=== PATIENT | male | born 1980 | race American Indian/Alaskan Native ===

== ENCOUNTER 2018-02-15 09:31 | Emergency (ER) | payer BC ==
[2018-02-15] MEDS ORDERED: cefTRIAXone 1 GM, Lidocaine 1% 2.1 ML IM ONE ×2 (10:09)
--- NOTE | 2018-02-15 10:10 | EDM.PDOC ---
ED HPI GENERAL MEDICAL PROBLEM - General Chief Complaint: ENT Problem Stated Complaint: EAR PAIN IN BOTH EARS Time Seen by Provider: 02/15/18 10:10 Source of Information: Reports: Patient History Limitations: Reports: No Limitations - History of Present Illness INITIAL COMMENTS - FREE TEXT/NARRATIVE: pt hs drainage from both ears and they are very painful. This has been going on for the past 2 days. Onset: Gradual Duration: Day(s): Location: Reports: Face Associated Symptoms: Reports: Other ( sinuses are very plugged up/) - Related Data Allergies Allergy/AdvReac Type Severity Reaction Status Date / Time bee venom protein (honey bee) Allergy Airway Verified 02/15/18 09:55 Tightness Home Meds: Home Meds Hydrochlorothiazide 25 mg PO DAILY 02/15/18 [History] Lisinopril 20 mg PO DAILY 02/15/18 [History] Omeprazole 20 mg PO DAILY 02/15/18 [History] amLODIPine Besylate [Norvasc] 10 mg PO DAILY 02/15/18 [History] Past Medical History HEENT History: Reports: Otitis Media Cardiovascular History: Reports: High Cholesterol, Hypertension Gastrointestinal History: Reports: GERD - Infectious Disease History Infectious Disease History: Reports: Chicken Pox - Past Surgical History HEENT Surgical History: Reports: Myringotomy w Tube(s) GI Surgical History: Reports: Cholecystectomy Social & Family History - Tobacco Use Smoking Status *Q: Current Every Day Smoker Years of Tobacco use: 25 Packs/Tins Daily: 1 - Caffeine Use Caffeine Use: Reports: Coffee - Alcohol Use Days Per Week of Alcohol Use: 2 Number of Drinks Per Day: 2 Total Drinks Per Week: 4 - Recreational Drug Use Recreational Drug Use: No ED ROS ENT - Review of Systems Review Of Systems: See Below Constitutional: Reports: Chills HEENT: Reports: Ear Discharge, Ear Pain, Other (pt has had a difficult time hearing. ) Respiratory: Reports: No Symptoms Cardiovascular: Reports: No Symptoms Endocrine: Reports: No Symptoms GI/Abdominal: Reports: No Symptoms : Reports: No Symptoms Musculoskeletal: Reports: No Symptoms Skin: Reports: No Symptoms ED EXAM, ENT - Physical Exam Exam: See Below Text/Narrative:: Pt arrived with severe ear pain and alot of drainage from both ears. He has been very uncomfortable and he was not able to rest. Exam Limited By: No Limitations General Appearance: Alert, Moderate Distress Ears: Other ( Pt has a large amount of purulent drainage from both ears. The drums are hrd to visulize but do look red. He is stuffed up in the nose and he is tender over the maxillary area. ) Mouth/Throat: Normal Inspection Head: Atraumatic Neck: Normal Inspection Respiratory/Chest: No Respiratory Distress Cardiovascular: Regular Rate, Rhythm GI/Abdominal: Soft, Non-Tender (Male) Exam: Deferred Rectal (Males) Exam: Deferred Back: Normal Inspection Extremities: Normal Inspection Neurological: Alert, Oriented, Normal Cognition Psychiatric: Normal Affect Course - Vital Signs Last Recorded V/S: Last Vital Signs Temp 37.5 C 02/15/18 09:57 Pulse 106 H 02/15/18 09:57 Resp 20 02/15/18 09:57 BP 146/97 H 02/15/18 09:57 Pulse Ox 98 02/15/18 09:57 - Orders/Labs/Meds Meds: Medications Discontinued Medications Generic Name Dose Route Start Last Admin Trade Name Freq PRN Reason Stop Dose Admin Acetaminophen/Codeine Phosphate 1 tab 02/15/18 10:12 Tylenol With Codeine No.3 300mg/30mg PO 02/15/18 10:13 ONETIME ONE Ceftriaxone Sodium 1 gm/ 0 gm 02/15/18 10:09 Lidocaine HCl 2.1 ml IM 02/15/18 10:10 ONETIME ONE Departure - Departure Time of Disposition: 10:10 Disposition: Home, Self-Care 01 Condition: Fair Clinical Impression: Otitis media, Otitis externa, Sinusitis - Discharge Information Referrals: PCP,None [Primary Care Provider] - Forms: ED Department Discharge Care Plan Goals: cool mist humidifier, push fluids, augmentin 875 bid, cortcosporin ear drops 2 drops tid in each ear, tylenol 3 1 tab q6h prn for pain.#12 appt in 1 week either at the [facility] or at the [facility]. keep moisture out of the ears.
[2018-02-15] MEDS ORDERED: Acetaminophen/Codeine 300-30 MG Tab PO ONE (10:12)
== END 2018-02-15 10:57 | disposition home or self-care (01) ==
LOC: JP.ED 09:31
DX: H66.93 Otitis media, unspecified, bilateral (principal); H60.93 Unspecified otitis externa, bilateral; J32.9 Chronic sinusitis, unspecified; I10 Essential (primary) hypertension; F17.210 Nicotine dependence, cigarettes, uncomplicated; Z79.899 Other long term (current) drug therapy
CPT/HCPCS: 96372; 99283; A9270; J0696

== ENCOUNTER 2018-02-28 23:08 | Emergency (ER) | payer BC ==
[2018-03-01] MEDS ORDERED: Sodium Chloride 0.9% 1,000 ML IV ONE (00:01)
[2018-03-01] MEDS ORDERED: HYDROmorphone 1 MG/ML Syringe IVPUSH ONE (00:01)
[2018-03-01] MEDS ORDERED: Sodium Chloride 0.9% 10 ML Syringe FLUSH PRN (00:01)
[2018-03-01] MEDS ORDERED: Prochlorperazine 10 MG/2 ML SDV IVPUSH ONE (00:01)
[2018-03-01] MEDS ORDERED: diphenhydrAMINE 50 MG/ML SDV IVPUSH ONE (00:02)
--- NOTE | 2018-03-01 01:34 | EDM.PDOC ---
ED HPI GENERAL MEDICAL PROBLEM - General Chief Complaint: Abdominal Pain Stated Complaint: UPPER ABD PAIN Time Seen by Provider: 02/28/18 23:54 Source of Information: Reports: Patient History Limitations: Reports: No Limitations - History of Present Illness INITIAL COMMENTS - FREE TEXT/NARRATIVE: This patient is here because of possible pancreatitis. He has a history of past pancreatitis and had to be hospitalized for this. Describes a stomach sort of burning all day long. He's vomited about every hour and 3 times here in the emergency department. He said that a few days ago he drank about a fourth of a bottle of vodka. The very next day he began having some problems. Treatments MUSIC ARRANGER: Reports: Other (see below) Other Treatments MUSIC ARRANGER: zofran Upper Abdomen Pain Score (Numeric/FACES): 10 - Related Data Allergies Allergy/AdvReac Type Severity Reaction Status Date / Time bee venom protein (honey bee) Allergy Airway Verified 02/28/18 23:35 Tightness Home Meds: Home Meds Hydrochlorothiazide 25 mg PO DAILY 02/15/18 [History] Lisinopril 20 mg PO DAILY 02/15/18 [History] Omeprazole 20 mg PO DAILY 02/15/18 [History] amLODIPine Besylate [Norvasc] 10 mg PO DAILY 02/15/18 [History] cloNIDine 0.1 mg TOP ASDIRECTED 02/28/18 [History] Past Medical History HEENT History: Reports: Otitis Media Cardiovascular History: Reports: High Cholesterol, Hypertension Gastrointestinal History: Reports: GERD, Pancreatitis - Infectious Disease History Infectious Disease History: Reports: Chicken Pox - Past Surgical History HEENT Surgical History: Reports: Myringotomy w Tube(s) GI Surgical History: Reports: Cholecystectomy Social & Family History - Family History Family Medical History: Unobtainable - Tobacco Use Smoking Status *Q: Unknown Ever Smoked - Caffeine Use Caffeine Use: Reports: Soda - Recreational Drug Use Recreational Drug Use: No ED ROS GENERAL - Review of Systems Review Of Systems: ROS reveals no pertinent complaints other than HPI. ED EXAM, GI/ABD - Physical Exam Exam: See Below Exam Limited By: No Limitations General Appearance: Alert, WD/WN, Mild Distress Eyes: Bilateral: Normal Appearance Respiratory/Chest: Lungs Clear Cardiovascular: Regular Rate, Rhythm GI/Abdominal Exam: Soft, Tender (General upper abdominal tenderness) Extremities: Normal Inspection Neurological: Alert, Oriented Psychiatric: Normal Affect Skin Exam: Warm, Dry Course - Vital Signs Last Recorded V/S: Last Vital Signs Temp 36.4 C 03/01/18 00:00 Pulse 106 H 03/01/18 00:00 Resp 22 H 03/01/18 00:00 BP 148/89 H 03/01/18 00:00 Pulse Ox 98 03/01/18 00:00 - Orders/Labs/Meds Orders: Active Orders 24 hr Category Date Time Status EKG Documentation Completion [RC] ASDIRECTED Care 03/01/18 00:01 Active Saline Lock Insert [OM.PC] Urgent Oth 03/01/18 00:01 Ordered EKG 12 Lead [EK] Urgent Ther 03/01/18 00:01 Ordered Labs: Laboratory Tests 03/01/18 03/01/18 03/01/18 Range/Units 00:10 00:10 00:10 WBC 16.1 H (4.5-11.0) K/uL RBC 5.67 (4.30-5.90) M/uL Hgb 18.0 H (12.0-15.0) g/dL Hct 49.0 (40.0-54.0) % MCV 86 (80-98) fL MCH 32 H (27-31) pg MCHC 37 H (32-36) % Plt Count 172 (150-400) K/uL Neut % (Auto) 90 H (36-66) % Lymph % (Auto) 6 L (24-44) % [place] % (Auto) 4 (2-6) % Eos % (Auto) 0 L (2-4) % Baso % (Auto) 0 (0-1) % Sodium 127 L (140-148) mmol/L Potassium 3.8 (3.6-5.2) mmol/L Chloride 90 L (100-108) mmol/L Carbon Dioxide 22 (21-32) mmol/L Anion Gap 18.8 H (5.0-14.0) mmol/L BUN 22 H (7-18) mg/dL Creatinine 1.2 (0.8-1.3) mg/dL Est Cr Clr Drug Dosing 89.81 mL/min Estimated GFR (MDRD) > 60 (>60) Glucose 206 H (74-106) mg/dL Calcium 7.9 L (8.5-10.1) mg/dL Total Bilirubin 2.2 H (0.2-1.0) mg/dL AST 1397 H (15-37) U/L ALT 1298 H (12-78) U/L Alkaline Phosphatase 157 H (46-116) U/L Total Protein 7.3 (6.4-8.2) g/dL Albumin 3.7 (3.4-5.0) g/dL Globulin 3.6 H (2.3-3.5) g/dL Albumin/Globulin Ratio 1.0 L (1.2-2.2) Amylase 154 H (25-115) U/L Lipase 2122 H (73-393) U/L Meds: Medications Discontinued Medications Generic Name Dose Route Start Last Admin Trade Name Freq PRN Reason Stop Dose Admin Diphenhydramine HCl 25 mg 03/01/18 00:02 03/01/18 00:28 Benadryl IVPUSH 03/01/18 00:03 25 mg ONETIME ONE Administration Hydromorphone HCl 1 mg 03/01/18 00:01 03/01/18 00:19 Dilaudid IVPUSH 03/01/18 00:02 1 mg ONETIME ONE Administration Sodium Chloride 1,000 mls @ 999 mls/hr 03/01/18 00:01 03/01/18 00:18 Normal Saline IV 03/01/18 01:01 999 mls/hr .BOLUS ONE Administration Prochlorperazine Edisylate 10 mg 03/01/18 00:01 03/01/18 00:24 Compazine IVPUSH 03/01/18 00:02 10 mg ONETIME ONE Administration Sodium Chloride 10 ml 03/01/18 00:01 03/01/18 00:23 Saline Flush FLUSH 10 ml ASDIRECTED PRN Administration Keep Vein Open - Re-Assessments/Exams Free Text/Narrative Re-Assessment/Exam: 03/01/18 01:28 An IV was established he was given 1 L IV normal saline. He also received Dilaudid 1 mg Compazine 10 mg and Benadryl 25 mg IV. This gave good relief the pain and the nausea. I spoke with him afterwards and he felt like he would like to try outpatient therapy and so we discussed using the nausea meds pain meds and clear liquid diet Departure - Departure Time of Disposition: 07:10 Disposition: Home, Self-Care 01 Condition: Fair Clinical Impression: Pancreatitis - Discharge Information Instructions: Acute Pancreatitis, [id number] Referrals: PCP,None [Primary Care Provider] - Forms: ED Department Discharge Additional Instructions: For pain use Percocet 5/325 (#20 tablets) one or 2 tablets every 4 hours as needed. For nausea take Phenergan or promethazine 25 mg (#30 tablets) take one or 2 every 6-8 hours. Don't wait until your really sick and vomiting before you use this medication. Rarely this medication can cause some peculiar muscle spasms. Benadryl will relieve that. Both of these medications can cause really bad sedation so especially with the Phenergan don't even consider driving a vehicle while you're taking it. Strict clear liquid diet for the next 48 hours and then you can slowly advance to a bland diet. Return to the emergency department at any time or follow-up with your Dr. or health care provider - My Orders Last 24 Hours: My Active Orders 03/01/18 00:01 EKG Documentation Completion [RC] ASDIRECTED Saline Lock Insert [OM.PC] Urgent EKG 12 Lead [EK] Urgent - Assessment/Plan Last 24 Hours: My Active Orders 03/01/18 00:01 EKG Documentation Completion [RC] ASDIRECTED Saline Lock Insert [OM.PC] Urgent EKG 12 Lead [EK] Urgent
== END 2018-03-01 01:42 | disposition home or self-care (01) ==
LOC: JP.ED 23:08
DX: K85.90 Acute pancreatitis without necrosis or infection, unspecified (principal); I10 Essential (primary) hypertension; E78.00 Pure hypercholesterolemia, unspecified; K21.9 Gastro-esophageal reflux disease without esophagitis; Z79.899 Other long term (current) drug therapy; Z91.040 Latex allergy status
CPT/HCPCS: 36415; 80053; 82150; 83690; 85025; 93005; 96374; 96375; 99284; J0780; J1170; J1200; J7040; J7050

== ENCOUNTER 2018-03-03 11:37 | Emergency (ER) | payer BC ==
[2018-03-03] MEDS ORDERED: Sodium Chloride 0.9% 10 ML Syringe FLUSH PRN ×2 (11:44→12:53)
[2018-03-03] MEDS ORDERED: Lactated Ringers 1,000 ML IV SCH (11:45)
--- NOTE | 2018-03-03 11:49 | EDM.PDOC ---
ED HPI GENERAL MEDICAL PROBLEM - General Chief Complaint: General Stated Complaint: 02 LEVEL LOW/PANCREATITIS & MED ISSUES Time Seen by Provider: 03/03/18 11:42 Source of Information: Reports: Patient, RN Notes Reviewed History Limitations: Reports: No Limitations (That the clinic is adenomatous septic lady) - History of Present Illness INITIAL COMMENTS - FREE TEXT/NARRATIVE: 38-year-old gentleman presents to the emergency department today with complaint of near syncope and lightheadedness, he was brought over from the clinic when he was therefore evaluation initial systolic blood pressure was 65. He was evaluated in emergency department 2 days ago found to have pancreatitis does admit to consuming alcohol declined admission at that time did do a trial of outpatient treatment with pain medications and antinausea medications. He states his biggest issues today are ongoing abdominal pain dry mouth and lightheadedness. Past medical history includes hypertension alcohol abuse and dependence reflux disease and pancreatitis Lower Abdominal Pain Score (Numeric/FACES): 7 - Related Data Allergies Allergy/AdvReac Type Severity Reaction Status Date / Time bee venom protein (honey bee) Allergy Airway Verified 02/28/18 23:35 Tightness Home Meds: Home Meds Hydrochlorothiazide 25 mg PO DAILY 02/15/18 [History] Lisinopril 20 mg PO DAILY 02/15/18 [History] Omeprazole 20 mg PO DAILY 02/15/18 [History] amLODIPine Besylate [Norvasc] 10 mg PO DAILY 02/15/18 [History] cloNIDine 0.1 mg TOP ASDIRECTED 02/28/18 [History] Sulfamethoxazole/Trimethoprim [Sulfamethoxazole-Tmp Ds Tablet] 03/03/18 [ History] Past Medical History HEENT History: Reports: Otitis Media Cardiovascular History: Reports: High Cholesterol, Hypertension Gastrointestinal History: Reports: GERD, Pancreatitis - Infectious Disease History Infectious Disease History: Reports: Chicken Pox - Past Surgical History HEENT Surgical History: Reports: Myringotomy w Tube(s) GI Surgical History: Reports: Cholecystectomy Social & Family History - Family History Family Medical History: Unobtainable - Caffeine Use Caffeine Use: Reports: Soda - Alcohol Use Alcohol Use History: Yes ED ROS GENERAL - Review of Systems Review Of Systems: See Below Constitutional: Denies: Fever, Chills HEENT: Reports: Other (Dry mouth) Respiratory: Reports: No Symptoms Cardiovascular: Reports: Lightheadedness, Syncope (Near) GI/Abdominal: Reports: Abdominal Pain, Nausea. Denies: Vomiting : Reports: No Symptoms Musculoskeletal: Reports: No Symptoms Skin: Reports: No Symptoms ED EXAM, GENERAL - Physical Exam Exam: See Below Free Text/Narrative:: General: Male, ill-appearing able to talk in full sentences GCS 15, alert and oriented x3 HEENT: head is atraumatic normocephalic, eyes pupils equal round reactive to light, sclera clear no conjunctivitis appreciated. Ears tympanic membranes clear and carroll landmarks and light reflex are present bilaterally canals are clear. Nose no septal deviation, nares are clear, no blood present. Mouth mucosa is dry and pink no erythema or exudate noted in soft palate, tongue is midline uvula is midline, dentition is intact. Neck: Supple no thyromegaly no tracheal deviation. Nodes: Cervical nodes subclavicular nodes nontender no palpable lymphadenopathy noted. Lungs: clear to auscultation bilaterally with symmetrical respirations, no adventitious noise appreciated. CV: Regular rate and rhythm S1 and S2 appreciated no murmurs rubs or gallops noted. Abdomen: Soft, nontender, no palpable masses or organomegaly appreciated, no distention no guarding bowel sounds are present, . Neuro: Cranial nerves II through XII grossly intact Skin: Warm and dry, intact Extremities: No lower extremity edema appreciated, pedal pulse is +2. Course - Vital Signs Last Recorded V/S: Last Vital Signs Temp 95.7 F 03/03/18 12:08 Pulse 81 03/03/18 12:41 Resp 26 H 03/03/18 12:41 BP 81/43 L 03/03/18 12:41 Pulse Ox 90 L 03/03/18 12:41 - Orders/Labs/Meds Orders: Active Orders 24 hr Category Date Time Status EKG Documentation Completion [RC] ASDIRECTED Care 03/03/18 11:45 Active Peripheral IV Care [RC] . DIRECTED Care 03/03/18 11:44 Active Peripheral IV Care [RC] . DIRECTED Care 03/03/18 12:54 Ordered UA W/MICROSCOPIC [URIN] Urgent Lab 03/03/18 11:44 Ordered Lactated Ringers [Ringers, Lactated] 1,000 ml Med 03/03/18 11:45 Active IV ASDIRECTED Regular Insulin,Human 100 Units in Normal Saline @ 0.1 Med 03/03/18 13:00 Ordered UNITS/KG/HR Insulin Regular, Human [NovoLIN R] 100 unit Sodium Chloride 0.9% [Normal Saline] 100 ml IV TITRATE Sodium Chloride 0.9% [Normal Saline] 1,000 ml Med 03/03/18 13:00 Ordered IV ASDIRECTED Sodium Chloride 0.9% [Normal Saline] 1,000 ml Med 03/03/18 13:00 Ordered IV ASDIRECTED Sodium Chloride 0.9% [Saline Flush] [facility] 03/03/18 11:44 Active 10 ml FLUSH ASDIRECTED PRN Sodium Chloride 0.9% [Saline Flush] [facility] 03/03/18 12:53 Ordered 10 ml FLUSH ASDIRECTED PRN Peripheral IV Insertion Adult [OM.PC] Urgent Oth 03/03/18 11:44 Ordered Peripheral IV Insertion Adult [OM.PC] Urgent Oth 03/03/18 12:53 Ordered EKG 12 Lead [EK] Stat Ther 03/03/18 11:45 Ordered Medication Orders Lactated Ringer's (Ringers, Lactated) 1,000 mls @ 999 mls/hr IV ASDIRECTED IVANA Last Admin: 03/03/18 11:52 Dose: 999 mls/hr Sodium Chloride (Normal Saline) 1,000 mls @ 999 mls/hr IV ASDIRECTED IVANA Sodium Chloride (Normal Saline) 1,000 mls @ 999 mls/hr IV ASDIRECTED IVANA Sodium Chloride (Saline Flush) 10 ml FLUSH ASDIRECTED PRN PRN Reason: Keep Vein Open Last Admin: 03/03/18 11:53 Dose: 10 ml Sodium Chloride (Saline Flush) 10 ml FLUSH ASDIRECTED PRN PRN Reason: Keep Vein Open Labs: Laboratory Tests 03/03/18 03/03/18 03/03/18 Range/Units 11:48 11:48 11:48 WBC 16.6 H (4.5-11.0) K/uL RBC 4.18 L (4.30-5.90) M/uL Hgb 13.4 D (12.0-15.0) g/dL Hct 38.0 L (40.0-54.0) % MCV 91 (80-98) fL MCH 32 H (27-31) pg MCHC 35 (32-36) % Plt Count 88 L (150-400) K/uL Add Manual Diff Yes Neutrophils % (Manual) 76 H (36-66) % Band Neutrophils % 7 (5-11) % Lymphocytes % (Manual) 9 L (24-44) % Monocytes % (Manual) 8 H (2-6) % Sodium 110 L* (140-148) mmol/L Potassium 5.7 H (3.6-5.2) mmol/L Chloride 72 L (100-108) mmol/L Carbon Dioxide 18 L (21-32) mmol/L Anion Gap 25.7 H (5.0-14.0) mmol/L BUN 82 H* D (7-18) mg/dL Creatinine 7.8 H* D (0.8-1.3) mg/dL Est Cr Clr Drug Dosing TNP Estimated GFR (MDRD) 8 L (>60) Glucose 708 H* (74-106) mg/dL Lactic Acid 3.9 H (0.4-2.0) mmol/L Calcium 6.8 L* (8.5-10.1) mg/dL Total Bilirubin 3.9 H D (0.2-1.0) mg/dL AST 163 H D (15-37) U/L ALT 282 H (12-78) U/L Alkaline Phosphatase 139 H (46-116) U/L Troponin I < 0.017 (0.000-0.056) ng/mL Total Protein 6.4 (6.4-8.2) g/dL Albumin 2.7 L (3.4-5.0) g/dL Globulin 3.7 H (2.3-3.5) g/dL Albumin/Globulin Ratio 0.7 L (1.2-2.2) Lipase 2964 H (73-393) U/L Ethyl Alcohol mg/dL 03/03/18 Range/Units 11:48 WBC (4.5-11.0) K/uL RBC (4.30-5.90) M/uL Hgb (12.0-15.0) g/dL Hct (40.0-54.0) % MCV (80-98) fL MCH (27-31) pg MCHC (32-36) % Plt Count (150-400) K/uL Add Manual Diff Neutrophils % (Manual) (36-66) % Band Neutrophils % (5-11) % Lymphocytes % (Manual) (24-44) % Monocytes % (Manual) (2-6) % Sodium (140-148) mmol/L Potassium (3.6-5.2) mmol/L Chloride (100-108) mmol/L Carbon Dioxide (21-32) mmol/L Anion Gap (5.0-14.0) mmol/L BUN (7-18) mg/dL Creatinine (0.8-1.3) mg/dL Est Cr Clr Drug Dosing Estimated GFR (MDRD) (>60) Glucose (74-106) mg/dL Lactic Acid (0.4-2.0) mmol/L Calcium (8.5-10.1) mg/dL Total Bilirubin (0.2-1.0) mg/dL AST (15-37) U/L ALT (12-78) U/L Alkaline Phosphatase (46-116) U/L Troponin I (0.000-0.056) ng/mL Total Protein (6.4-8.2) g/dL Albumin (3.4-5.0) g/dL Globulin (2.3-3.5) g/dL Albumin/Globulin Ratio (1.2-2.2) Lipase (73-393) U/L Ethyl Alcohol < 3 mg/dL Meds: Medications Generic Name Dose Route Start Last Admin Trade Name Freq PRN Reason Stop Dose Admin Lactated Ringer's 1,000 mls @ 999 mls/hr 03/03/18 11:45 03/03/18 11:52 Ringers, Lactated IV 999 mls/hr ASDIRECTED IVANA Administration Sodium Chloride 1,000 mls @ 999 mls/hr 03/03/18 13:00 Normal Saline IV ASDIRECTED IVANA Sodium Chloride 1,000 mls @ 999 mls/hr 03/03/18 13:00 Normal Saline IV ASDIRECTED IVANA Sodium Chloride 10 ml 03/03/18 11:44 03/03/18 11:53 Saline Flush FLUSH 10 ml ASDIRECTED PRN Administration Keep Vein Open Sodium Chloride 10 ml 03/03/18 12:53 Saline Flush FLUSH ASDIRECTED PRN Keep Vein Open Departure - Departure Time of Disposition: 12:58 Disposition: DC/Tfer to Acute Hospital 02 Condition: Poor Clinical Impression: Hyperglycemia, Hyponatremia Pancreatitis Qualifiers: Chronicity: acute Pancreatitis type: alcohol induced Acute pancreatitis complication: unspecified Qualified Code(s): K85.20 - Alcohol induced acute pancreatitis without necrosis or infection Hypotension Qualifiers: Hypotension type: unspecified hypotension type Qualified Code(s): I95.9 - Hypotension, unspecified - Discharge Information Referrals: Francisca Monteiro MD [Primary Care Provider] - Forms: ED Department Discharge - My Orders Last 24 Hours: My Active Orders 03/03/18 11:44 Peripheral IV Care [RC] . DIRECTED UA W/MICROSCOPIC [URIN] Urgent Sodium Chloride 0.9% [Saline Flush] 10 ml FLUSH ASDIRECTED PRN Peripheral IV Insertion Adult [OM.PC] Urgent 03/03/18 11:45 EKG Documentation Completion [RC] ASDIRECTED Lactated Ringers [Ringers, Lactated] 1,000 ml IV ASDIRECTED EKG 12 Lead [EK] Stat 03/03/18 12:53 Sodium Chloride 0.9% [Saline Flush] 10 ml FLUSH ASDIRECTED PRN Peripheral IV Insertion Adult [OM.PC] Urgent 03/03/18 12:54 Peripheral IV Care [RC] . DIRECTED 03/03/18 13:00 Regular Insulin,Human 100 Units in Normal Saline @ 0.1 UNITS/KG/HR Insulin Regular, Human [NovoLIN R] 100 unit Sodium Chloride 0.9% [Normal Saline] 100 ml IV TITRATE Sodium Chloride 0.9% [Normal Saline] 1,000 ml IV ASDIRECTED Sodium Chloride 0.9% [Normal Saline] 1,000 ml IV ASDIRECTED - Assessment/Plan Last 24 Hours: My Active Orders 03/03/18 11:44 Peripheral IV Care [RC] . DIRECTED UA W/MICROSCOPIC [URIN] Urgent Sodium Chloride 0.9% [Saline Flush] 10 ml FLUSH ASDIRECTED PRN Peripheral IV Insertion Adult [OM.PC] Urgent 03/03/18 11:45 EKG Documentation Completion [RC] ASDIRECTED Lactated Ringers [Ringers, Lactated] 1,000 ml IV ASDIRECTED EKG 12 Lead [EK] Stat 03/03/18 12:53 Sodium Chloride 0.9% [Saline Flush] 10 ml FLUSH ASDIRECTED PRN Peripheral IV Insertion Adult [OM.PC] Urgent 03/03/18 12:54 Peripheral IV Care [RC] . DIRECTED 03/03/18 13:00 Regular Insulin,Human 100 Units in Normal Saline @ 0.1 UNITS/KG/HR Insulin Regular, Human [NovoLIN R] 100 unit Sodium Chloride 0.9% [Normal Saline] 100 ml IV TITRATE Sodium Chloride 0.9% [Normal Saline] 1,000 ml IV ASDIRECTED Sodium Chloride 0.9% [Normal Saline] 1,000 ml IV ASDIRECTED Plan: Assessment Acuity = acute Site and laterality = pancreatitis complicated patient with known history of hypertension, alcohol abuse and dependence, gastroesophageal reflux disease Etiology = probable complications pancreatitis Manifestations = severe hyponatremia, hyperglycemia, hypotension, hypoxic, acute renal failure stage V Location of injury = Home Lab values = WBC elevated 16.6 consistent leukocytosis, sodium low at 110 consistent hyponatremia, potassium elevated at 5.7 consistent hypokalemia bilirubin elevated at 82 and creatinine elevated at 7.8 is consistent acute renal failure stage V glucose elevated at 708 consistent with hyperglycemia lactic acid elevated at 3.8 consistent with lactic acidosis total bilirubin elevated at 3.9 consistent hyperbilirubinemia AST elevated 163 and ALTs elevated 282 consistent with elevated liver enzymes improved from 2 days ago albumin low at 2.7 consistent with hypoalbuminemia lipase elevated 2964 consistent with pancreatitis alcohol is negative Plan Called discussed case with Dr. Marinelli hospitalist compensation administrator at [facility] kindly accepted the patient in transport he will be flown via air care through coordination with [facility] he was initially given 1 L of lactated Ringer' s prior to lab work, after lab work obtained second IV was placed 2 L normal saline initiated as well as an insulin drip, was placed on oxygen via nasal cannula to maintain saturation This note was dictated using [employer] voice recognition software please call with any questions on syntax or grammar.
[2018-03-03] MEDS ORDERED: Sodium Chloride 0.9% 1,000 ML IV SCH ×2 (13:00)
== END 2018-03-03 13:32 ==
LOC: JP.ED 11:37
DX: K85.20 Alcohol induced acute pancreatitis without necrosis or infection (principal); R73.9 Hyperglycemia, unspecified; E87.1 Hypo-osmolality and hyponatremia; I95.9 Hypotension, unspecified; E78.00 Pure hypercholesterolemia, unspecified; I10 Essential (primary) hypertension; K21.9 Gastro-esophageal reflux disease without esophagitis; Z79.899 Other long term (current) drug therapy; Z91.030 Bee allergy status
CPT/HCPCS: 36415; 80053; 83605; 83690; 84484; 85025; 93005; 96360; 99291; G0480; J7040; J7050; J7120; J7030

== ENCOUNTER 2019-01-12 00:19 | Emergency (ER) | payer BC ==
--- NOTE | 2019-01-12 00:58 | EDM.PDOCBH ---
ED HPI GENERAL MEDICAL PROBLEM - General Chief Complaint: Drug or Alcohol Abuse Stated Complaint: MEDICAL VIA [facility] Time Seen by Provider: 01/12/19 00:30 Source of Information: Reports: Patient, EMS History Limitations: Reports: Intoxication - History of Present Illness INITIAL COMMENTS - FREE TEXT/NARRATIVE: 38-year-old male with chronic alcohol abuse presents by ambulance intoxicated, tremor, and "high blood sugar". Apparently he's been drinking all day and tonight seemed shaky to his , she checked his blood sugar and it was in the 200s so she called the ambulance. He does not want be here, he does not want to go to detox. He has no pain complaints, shortness of breath or recent injury. Associated Symptoms: Reports: Other (Intermittent tremor). Denies: Confusion, Chest Pain, Nausea/Vomiting, Shortness of Breath - Related Data Allergies Allergy/AdvReac Type Severity Reaction Status Date / Time bee venom protein (honey bee) Allergy Airway Verified 01/12/19 00:29 Tightness Home Meds: Home Meds Lisinopril 40 mg PO DAILY 02/15/18 [History] Omeprazole 20 mg PO DAILY 02/15/18 [History] amLODIPine Besylate [Norvasc] 10 mg PO DAILY 02/15/18 [History] Insulin Aspart [NovoLOG] 7 - 15 unit SUBCUT WITHMEALSANDBED 10/01/18 [History] Insulin Degludec [Tresiba Flextouch U-100] 60 unit SQ DAILY 10/01/18 [History] atorvaSTATin Calcium [Lipitor] 20 mg PO DAILY 10/01/18 [History] Past Medical History HEENT History: Reports: Otitis Media Cardiovascular History: Reports: High Cholesterol, Hypertension Gastrointestinal History: Reports: GERD, Pancreatitis Neurological History: Reports: Seizure Endocrine/Metabolic History: Reports: Diabetes, Type II Hematologic History: Reports: Blood Transfusion(s) - Infectious Disease History Infectious Disease History: Reports: Chicken Pox, Shingles - Past Surgical History Head Surgeries/Procedures: Reports: None HEENT Surgical History: Reports: Myringotomy w Tube(s) Cardiovascular Surgical History: Reports: None GI Surgical History: Reports: Cholecystectomy Endocrine Surgical History: Reports: None Neurological Surgical History: Reports: None Dermatological Surgical History: Reports: None Social & Family History - Family History Family Medical History: Unobtainable - Tobacco Use Smoking Status *Q: Current Every Day Smoker Years of Tobacco use: 25 Packs/Tins Daily: 1 Used Tobacco, but Quit: No - Caffeine Use Caffeine Use: Reports: Coffee ED ROS GENERAL - Review of Systems Review Of Systems: See Below Constitutional: Denies: Fever, Chills HEENT: Reports: No Symptoms Respiratory: Denies: Shortness of Breath Cardiovascular: Denies: Chest Pain GI/Abdominal: Denies: Abdominal Pain, Nausea, Vomiting : Reports: No Symptoms Skin: Reports: No Symptoms Neurological: Denies: Headache Psychiatric: Reports: No Symptoms ED EXAM, BEHAVIORAL HEALTH - Physical Exam Exam: See Below Exam Limited By: Intoxication General Appearance: Alert, No Apparent Distress Eye Exam: Bilateral Eye: Normal Inspection Head: Atraumatic Respiratory/Chest: No Respiratory Distress, Lungs Clear Cardiovascular: Regular Rate, Rhythm GI/Abdominal: Soft, Tender (Patient did react to palpation of the abdomen with tenderness in the left upper quadrant, slight guarding) Extremities: Normal Inspection. No: Pedal Edema Neurological: Alert Psychiatric: Other (Patient is fairly intoxicated) Skin Exam: Warm, Dry COURSE, BEHAVIORAL HEALTH COMP - Course Vital Signs: Last Vital Signs Temp 96.6 F 01/12/19 00:24 Pulse 100 01/12/19 00:24 Resp 16 01/12/19 00:24 BP 146/98 H 01/12/19 00:24 Pulse Ox 93 L 01/12/19 00:24 Orders, Labs, Meds: Laboratory Tests 01/12/19 01/12/19 01/12/19 Range/Units 00:38 00:38 00:38 WBC 9.7 (4.5-11.0) K/uL RBC 5.64 (4.30-5.90) M/uL Hgb 15.7 H D (12.0-15.0) g/dL Hct 48.2 (40.0-54.0) % MCV 86 (80-98) fL MCH 28 (27-31) pg MCHC 33 (32-36) % Plt Count 227 (150-400) K/uL Neut % (Auto) 57 (36-66) % Lymph % (Auto) 36 (24-44) % [place] % (Auto) 6 (2-6) % Eos % (Auto) 1 L (2-4) % Baso % (Auto) 0 (0-1) % Sodium 140 (140-148) mmol/L Potassium 3.5 L (3.6-5.2) mmol/L Chloride 101 (100-108) mmol/L Carbon Dioxide 28 (21-32) mmol/L Anion Gap 14.5 H (5.0-14.0) mmol/L BUN 12 (7-18) mg/dL Creatinine 0.8 (0.8-1.3) mg/dL Est Cr Clr Drug Dosing 130.73 mL/min Estimated GFR (MDRD) > 60 (>60) Glucose 159 H (74-106) mg/dL Calcium 8.7 (8.5-10.1) mg/dL Total Bilirubin 0.4 D (0.2-1.0) mg/dL AST 47 H (15-37) U/L ALT 64 (12-78) U/L Alkaline Phosphatase 229 H (46-116) U/L Total Protein 8.1 (6.4-8.2) g/dL Albumin 3.6 (3.4-5.0) g/dL Globulin 4.5 H (2.3-3.5) g/dL Albumin/Globulin Ratio 0.8 L (1.2-2.2) Lipase 245 (73-393) U/L Ethyl Alcohol 309 mg/dL Re-Assessment/Re-Exam: Because of his abdominal pain with palpation and his history of pancreatitis, CBC and lipase and CMP will be obtained. EtOH level was 0.309. Lipase is normal, electrolytes relatively normal. Patient refused detox so can go home. Blood sugar was 159. There was mild elevation of AST and alkaline phosphatase due to his drinking. Departure - Departure Time of Disposition: 01:19 Disposition: Home, Self-Care 01 Condition: Fair Clinical Impression: Alcohol intoxication Qualifiers: Complication of substance-induced condition: uncomplicated Qualified Code(s): F10.920 - Alcohol use, unspecified with intoxication, uncomplicated - Discharge Information Instructions: Alcohol Intoxication, [id number] Referrals: PCP,None [Primary Care Provider] - Forms: ED Department Discharge Care Plan Goals: I would strongly encourage you to get some type of treatment for you're drinking. Return anytime if worsening such as fever or increased abdominal pain. Avoid alcohol in the future.
== END 2019-01-12 01:20 | disposition home or self-care (01) ==
LOC: JP.ED 00:19
DX: F10.120 Alcohol abuse with intoxication, uncomplicated (principal); Y90.8 Blood alcohol level of 240 mg/100 ml or more; F17.210 Nicotine dependence, cigarettes, uncomplicated; I10 Essential (primary) hypertension; E78.00 Pure hypercholesterolemia, unspecified; E11.9 Type 2 diabetes mellitus without complications; K21.9 Gastro-esophageal reflux disease without esophagitis; Z79.4 Long term (current) use of insulin; Z79.899 Other long term (current) drug therapy; Z91.030 Bee allergy status
CPT/HCPCS: 36415; 80053; 83690; 85025; 99284; G0480

== ENCOUNTER 2019-01-26 02:37 | Emergency (ER) | payer BC ==
--- NOTE | 2019-01-26 03:00 | EDM.PDOCBH ---
<Genny Quinonez - Last Filed: 01/26/19 06:48> ED HPI GENERAL MEDICAL PROBLEM - General Chief Complaint: Drug or Alcohol Abuse Stated Complaint: MEDICAL VIA [facility] Time Seen by Provider: 01/26/19 02:59 Source of Information: Reports: Patient History Limitations: Reports: No Limitations - History of Present Illness INITIAL COMMENTS - FREE TEXT/NARRATIVE: pt arrived interested to go to detox and then treatment. He has been having upper abdomanal pain for the past week. He has a history of severe pancreatitis and he was concerned that was coming on again. He has not been vomiting. Onset: Gradual, Other (last few days. He last drak at 11pm. ) Duration: Hour(s): Location: Reports: Abdomen Associated Symptoms: Reports: Loss of Appetite, Other (pain in the upper abdoman. ) Right Abdomen Pain Score (Numeric/FACES): 8 - Related Data Allergies Allergy/AdvReac Type Severity Reaction Status Date / Time bee venom protein (honey bee) Allergy Airway Verified 01/12/19 00:29 Tightness Home Meds: Home Meds Lisinopril 40 mg PO DAILY 02/15/18 [History] Omeprazole 20 mg PO DAILY 02/15/18 [History] amLODIPine Besylate [Norvasc] 10 mg PO DAILY 02/15/18 [History] Insulin Aspart [NovoLOG] 7 - 15 unit SUBCUT WITHMEALSANDBED 10/01/18 [History] Insulin Degludec [Tresiba Flextouch U-100] 60 unit SQ DAILY 10/01/18 [History] atorvaSTATin Calcium [Lipitor] 20 mg PO DAILY 10/01/18 [History] Nicotine [Nicotine Patch] 14 mg TD DAILY 01/26/19 [History] Past Medical History HEENT History: Reports: Otitis Media Cardiovascular History: Reports: High Cholesterol, Hypertension Gastrointestinal History: Reports: GERD, Pancreatitis Neurological History: Reports: Seizure Endocrine/Metabolic History: Reports: Diabetes, Type II Hematologic History: Reports: Blood Transfusion(s) - Infectious Disease History Infectious Disease History: Reports: Chicken Pox, Shingles - Past Surgical History Head Surgeries/Procedures: Reports: None HEENT Surgical History: Reports: Myringotomy w Tube(s) Cardiovascular Surgical History: Reports: None GI Surgical History: Reports: Cholecystectomy Endocrine Surgical History: Reports: None Neurological Surgical History: Reports: None Dermatological Surgical History: Reports: None Social & Family History - Family History Family Medical History: Unobtainable - Caffeine Use Caffeine Use: Reports: Coffee ED ROS GENERAL - Review of Systems Review Of Systems: See Below Constitutional: Reports: No Symptoms HEENT: Reports: No Symptoms Respiratory: Reports: No Symptoms Cardiovascular: Reports: No Symptoms Endocrine: Reports: No Symptoms GI/Abdominal: Reports: Abdominal Pain, Decreased Appetite, Other (pt is having pain in the upper abdoman. ) : Reports: No Symptoms Musculoskeletal: Reports: No Symptoms Skin: Reports: No Symptoms Neurological: Reports: No Symptoms ED EXAM, BEHAVIORAL HEALTH - Physical Exam Exam: See Below Text/Narrative:: pt arrived wanting to go to detox. He has been having some upper abdomanal pain. He does have a past history of severe pancreatitis. Exam Limited By: No Limitations General Appearance: Alert, Anxious, Moderate Distress Ears: Normal TMs Nose: Normal Inspection Throat/Mouth: Normal Inspection Head: Atraumatic Neck: Normal Inspection Respiratory/Chest: No Respiratory Distress Cardiovascular: Regular Rate, Rhythm, Tachycardia GI/Abdominal: Other (pt is very tender in the rt upper abdoman. He is not vomiting. ) (Male) Exam: Deferred Rectal (Males) Exam: Deferred Back Exam: Normal Inspection Extremities: Normal Inspection Neurological: Alert, Normal Cognition, Oriented x 3, Other (pt is intoxicated. ) Psychiatric: Alert, Normal Cognition COURSE, BEHAVIORAL HEALTH COMP - Course Vital Signs: Last Vital Signs Temp 96.4 F 01/26/19 02:39 Pulse 74 01/26/19 05:41 Resp 16 01/26/19 05:41 BP 105/68 01/26/19 05:41 Pulse Ox 96 01/26/19 05:41 Orders, Labs, Meds: Laboratory Tests 01/26/19 01/26/19 01/26/19 Range/Units 03:06 03:06 03:11 WBC (4.5-11.0) K/uL RBC (4.30-5.90) M/uL Hgb (12.0-15.0) g/dL Hct (40.0-54.0) % MCV (80-98) fL MCH (27-31) pg MCHC (32-36) % Plt Count (150-400) K/uL Neut % (Auto) (36-66) % Lymph % (Auto) (24-44) % [place] % (Auto) (2-6) % Eos % (Auto) (2-4) % Baso % (Auto) (0-1) % Sodium (140-148) mmol/L Potassium (3.6-5.2) mmol/L Chloride (100-108) mmol/L Carbon Dioxide (21-32) mmol/L Anion Gap (5.0-14.0) mmol/L BUN (7-18) mg/dL Creatinine (0.8-1.3) mg/dL Est Cr Clr Drug Dosing mL/min Estimated GFR (MDRD) (>60) Glucose (74-106) mg/dL Calcium (8.5-10.1) mg/dL Total Bilirubin (0.2-1.0) mg/dL AST (15-37) U/L ALT (12-78) U/L Alkaline Phosphatase (46-116) U/L Total Protein (6.4-8.2) g/dL Albumin (3.4-5.0) g/dL Globulin (2.3-3.5) g/dL Albumin/Globulin Ratio (1.2-2.2) Amylase (25-115) U/L Lipase 233 (73-393) U/L Urine Color Yellow Urine Appearance Clear Urine pH 6.5 (4.5-8.0) Ur Specific [place] 1.010 (1.008-1.030) Urine Protein Negative (NEGATIVE) mg/dL Urine Glucose (UA) >1000 H (NEGATIVE) mg/dL Urine Ketones Negative (NEGATIVE) mg/dL Urine Occult Blood Negative (NEGATIVE) Urine Nitrite Negative (NEGAITVE) Urine Bilirubin Negative (NEGATIVE) Urine Urobilinogen Normal (NORMAL) mg/dL Ur Leukocyte Esterase Negative (NEGATIVE) Urine RBC 0-5 (0-5) Urine WBC 0-5 (0-5) Ur Epithelial Cells Not seen Amorphous Sediment Not seen Urine Bacteria Few Urine Mucus Not seen Urine Opiates Screen Negative (NEGATIVE) Ur Oxycodone Screen Negative (NEGATIVE) Urine Methadone Screen Negative (NEGATIVE) Ur Propoxyphene Screen Negative (NEGATIVE) Ur Barbiturates Screen Negative (NEGATIVE) Ur Tricyclics Screen Negative (NEGATIVE) Ur Phencyclidine Scrn Negative (NEGATIVE) Ur Amphetamine Screen Negative (NEGATIVE) U Methamphetamines Scrn Negative (NEGATIVE) Urine MDMA Screen Negative (NEGATIVE) U Benzodiazepines Scrn Negative (NEGATIVE) U Cocaine Metab Screen Negative (NEGATIVE) U Marijuana (THC) Screen Negative (NEGATIVE) Ethyl Alcohol mg/dL 01/26/19 01/26/19 01/26/19 Range/Units 03:11 03:11 03:11 WBC 7.6 (4.5-11.0) K/uL RBC 5.74 (4.30-5.90) M/uL Hgb 15.8 H (12.0-15.0) g/dL Hct 49.4 (40.0-54.0) % MCV 86 (80-98) fL MCH 28 (27-31) pg MCHC 32 (32-36) % Plt Count 214 (150-400) K/uL Neut % (Auto) 59 (36-66) % Lymph % (Auto) 34 (24-44) % [place] % (Auto) 6 (2-6) % Eos % (Auto) 1 L (2-4) % Baso % (Auto) 1 (0-1) % Sodium 138 L (140-148) mmol/L Potassium 4.4 (3.6-5.2) mmol/L Chloride 99 L (100-108) mmol/L Carbon Dioxide 29 (21-32) mmol/L Anion Gap 14.4 H (5.0-14.0) mmol/L BUN 12 (7-18) mg/dL Creatinine 1.0 (0.8-1.3) mg/dL Est Cr Clr Drug Dosing 104.58 mL/min Estimated GFR (MDRD) > 60 (>60) Glucose 372 H (74-106) mg/dL Calcium 8.5 (8.5-10.1) mg/dL Total Bilirubin 0.3 (0.2-1.0) mg/dL AST 59 H (15-37) U/L ALT 64 (12-78) U/L Alkaline Phosphatase 196 H (46-116) U/L Total Protein 7.9 (6.4-8.2) g/dL Albumin 3.9 (3.4-5.0) g/dL Globulin 4.0 H (2.3-3.5) g/dL Albumin/Globulin Ratio 1.0 L (1.2-2.2) Amylase (25-115) U/L Lipase (73-393) U/L Urine Color Urine Appearance Urine pH (4.5-8.0) Ur Specific [place] (1.008-1.030) Urine Protein (NEGATIVE) mg/dL Urine Glucose (UA) (NEGATIVE) mg/dL Urine Ketones (NEGATIVE) mg/dL Urine Occult Blood (NEGATIVE) Urine Nitrite (NEGAITVE) Urine Bilirubin (NEGATIVE) Urine Urobilinogen (NORMAL) mg/dL Ur Leukocyte Esterase (NEGATIVE) Urine RBC (0-5) Urine WBC (0-5) Ur Epithelial Cells Amorphous Sediment Urine Bacteria Urine Mucus Urine Opiates Screen (NEGATIVE) Ur Oxycodone Screen (NEGATIVE) Urine Methadone Screen (NEGATIVE) Ur Propoxyphene Screen (NEGATIVE) Ur Barbiturates Screen (NEGATIVE) Ur Tricyclics Screen (NEGATIVE) Ur Phencyclidine Scrn (NEGATIVE) Ur Amphetamine Screen (NEGATIVE) U Methamphetamines Scrn (NEGATIVE) Urine MDMA Screen (NEGATIVE) U Benzodiazepines Scrn (NEGATIVE) U Cocaine Metab Screen (NEGATIVE) U Marijuana (THC) Screen (NEGATIVE) Ethyl Alcohol 289 mg/dL 01/26/19 01/26/19 Range/Units 03:13 06:30 WBC (4.5-11.0) K/uL RBC (4.30-5.90) M/uL Hgb (12.0-15.0) g/dL Hct (40.0-54.0) % MCV (80-98) fL MCH (27-31) pg MCHC (32-36) % Plt Count (150-400) K/uL Neut % (Auto) (36-66) % Lymph % (Auto) (24-44) % [place] % (Auto) (2-6) % Eos % (Auto) (2-4) % Baso % (Auto) (0-1) % Sodium (140-148) mmol/L Potassium (3.6-5.2) mmol/L Chloride (100-108) mmol/L Carbon Dioxide (21-32) mmol/L Anion Gap (5.0-14.0) mmol/L BUN (7-18) mg/dL Creatinine (0.8-1.3) mg/dL Est Cr Clr Drug Dosing mL/min Estimated GFR (MDRD) (>60) Glucose (74-106) mg/dL Calcium (8.5-10.1) mg/dL Total Bilirubin (0.2-1.0) mg/dL AST (15-37) U/L ALT (12-78) U/L Alkaline Phosphatase (46-116) U/L Total Protein (6.4-8.2) g/dL Albumin (3.4-5.0) g/dL Globulin (2.3-3.5) g/dL Albumin/Globulin Ratio (1.2-2.2) Amylase 52 D (25-115) U/L Lipase 230 (73-393) U/L Urine Color Urine Appearance Urine pH (4.5-8.0) Ur Specific [place] (1.008-1.030) Urine Protein (NEGATIVE) mg/dL Urine Glucose (UA) (NEGATIVE) mg/dL Urine Ketones (NEGATIVE) mg/dL Urine Occult Blood (NEGATIVE) Urine Nitrite (NEGAITVE) Urine Bilirubin (NEGATIVE) Urine Urobilinogen (NORMAL) mg/dL Ur Leukocyte Esterase (NEGATIVE) Urine RBC (0-5) Urine WBC (0-5) Ur Epithelial Cells Amorphous Sediment Urine Bacteria Urine Mucus Urine Opiates Screen (NEGATIVE) Ur Oxycodone Screen (NEGATIVE) Urine Methadone Screen (NEGATIVE) Ur Propoxyphene Screen (NEGATIVE) Ur Barbiturates Screen (NEGATIVE) Ur Tricyclics Screen (NEGATIVE) Ur Phencyclidine Scrn (NEGATIVE) Ur Amphetamine Screen (NEGATIVE) U Methamphetamines Scrn (NEGATIVE) Urine MDMA Screen (NEGATIVE) U Benzodiazepines Scrn (NEGATIVE) U Cocaine Metab Screen (NEGATIVE) U Marijuana (THC) Screen (NEGATIVE) Ethyl Alcohol mg/dL Medications Discontinued Medications Generic Name Dose Route Start Last Admin Trade Name Freq PRN Reason Stop Dose Admin Al Hydroxide/Mg Hydroxide 30 ml 01/26/19 08:45 01/26/19 08:54 Mag-Al Plus PO 01/26/19 08:46 30 ml ONETIME ONE Administration Al Hydroxide/Mg Hydroxide 15 0 ml 01/26/19 03:33 01/26/19 04:02 ml/ Lidocaine HCl 15 ml PO 01/26/19 03:34 15 ml ONETIME ONE Administration Hydromorphone HCl 0.5 mg 01/26/19 03:34 01/26/19 04:05 Dilaudid IVPUSH 01/26/19 03:35 0.5 mg ONETIME ONE Administration Sodium Chloride 1,000 mls @ 999 mls/hr 01/26/19 03:45 01/26/19 04:04 Normal Saline IV 999 mls/hr ASDIRECTED IVANA Administration Sodium Chloride 1,000 mls @ 999 mls/hr 01/26/19 03:45 01/26/19 04:50 Normal Saline IV 999 mls/hr ASDIRECTED IVANA Administration Insulin Human Regular 4 unit 01/26/19 03:34 01/26/19 04:08 Humulin R SUBCUT 01/26/19 03:35 4 units ONETIME ONE Administration Lorazepam 1 mg 01/26/19 03:13 01/26/19 03:21 Ativan PO 01/26/19 03:14 1 mg ONETIME ONE Administration Lorazepam 0.5 mg 01/26/19 03:36 01/26/19 04:06 Ativan IVPUSH 01/26/19 03:37 0.5 mg ONETIME ONE Administration Lorazepam 0.5 mg 01/26/19 06:26 01/26/19 06:34 Ativan IVPUSH 01/26/19 06:27 0.5 mg ONETIME ONE Administration Lorazepam 1 mg 01/26/19 12:37 01/26/19 12:42 Ativan PO 01/26/19 12:38 1 mg ONETIME ONE Administration Pantoprazole Sodium 40 mg 01/26/19 03:32 01/26/19 04:03 Protonix Iv IVPUSH 01/26/19 03:33 40 mg ONETIME ONE Administration Medical Clearance: 01/26/19 06:49 pt has had persistent rt upper abdomanal pain. He was given a Gi cocktail which did not give him relief. He was given protonix iv, ativan and .5 of diklaudid and he was able to rest. His lipase was repeated and was still normal He was able to rest and when he woke up he was still having the pain in the rt upper abdoman. He is mildly shakey. He is drip box tender in the rt upper abdoman. A US was ordered. Departure - Departure Disposition: DC/Tfer to Other 70 Clinical Impression: Alcohol intoxication Qualifiers: Complication of substance-induced condition: uncomplicated Qualified Code(s): F10.920 - Alcohol use, unspecified with intoxication, uncomplicated Abdominal pain Qualifiers: Abdominal location: upper abdomen, unspecified Qualified Code(s): R10.10 - Upper abdominal pain, unspecified - Discharge Information Instructions: Alcohol Use Disorder Referrals: PCP,None [Primary Care Provider] - Forms: ED Department Discharge Care Plan Goals: Avoid alcohol in the future and consider admission for detox and treatment over the next several days. It may be worthwhile to contact [facility] to hold a bed prior to obtaining physical clearance. <Tom Shankar D - Last Filed: 01/26/19 16:34> COURSE, BEHAVIORAL HEALTH COMP - Course Medical Clearance: 01/26/19 07:53 Patient care accepted from Dr. Quinonez. Ultrasound of the right upper quadrant was ordered prior to him going to [facility] for detox. This was negative. Transportation was arranged. He was cleared physically for detox. 01/26/19 13:11 Unfortunately the patient was not able to go to [facility] as they were full. He had no transportation to any other facility, so his intention is to go home and try to go into treatment tomorrow or the next day. Departure - Departure Time of Disposition: 13:42 Condition: Fair
[2019-01-26] MEDS: LORazepam 1 MG Tab PO ONE ×2 (03:21→12:42)
[2019-01-26] MEDS: Alum Hydrox/Mag Hydrox/Simeth 15 ML, Lidocaine 2% 15 ML PO ONE ×2 (04:02)
[2019-01-26] MEDS: Pantoprazole 40 MG Vial IVPUSH ONE (04:03)
[2019-01-26] MEDS: Sodium Chloride 0.9% 1,000 ML IV SCH ×2 (04:04→04:50)
[2019-01-26] MEDS: HYDROmorphone 0.5 MG/0.5 ML Syringe IVPUSH ONE (04:05)
[2019-01-26] MEDS: LORazepam 2 MG/ML SDV IVPUSH ONE ×2 (04:06→06:34)
[2019-01-26] MEDS: Insulin Regular, Human 100 Units/ML 3 ML Vial SUBCUT ONE (04:08)
[2019-01-26] MEDS ORDERED: Insulin Glargine,Human Rec. Analog 100 Units/ML 3 ML Pen SUBCUT ONE (07:57)
--- NOTE | 2019-01-26 08:24 | CRLUS ---
INDICATION: Right upper quadrant abdomen pain TECHNIQUE: Ultrasound abdomen limited. Sonographic images of the right upper quadrant were obtained using carroll-scale and color Doppler images. COMPARISON: CT abdomen pelvis November 12, 2018. FINDINGS: Liver: Normal in caliber. Regional echogenic area adjacent to the falciform ligament is consistent with focal fatty infiltration. No masses. No intrahepatic biliary dilatation. Gallbladder: Status post cholecystectomy. Common bile duct: 7 mm. Pancreas: Not well visualized secondary to bowel gas. Right kidney: Normal in size. Normal echotexture and cortex. A 2 cm cyst with dependent calcifications consistent with [id number] appears benign. No other masses. No definite stones and no hydronephrosis. Vasculature: Not well visualized secondary to bowel gas. IMPRESSION: 1. No acute or specific finding to explain right upper quadrant abdomen pain. 2. Focal fatty infiltration is suspected in the medial liver adjacent to the falciform ligament. 3. Benign-appearing [id number] cyst is in the right kidney. Dictated by Drake Peguero MD @ 01/26/2019 8:22:34 AM Dictated by: Drake Peguero MD @ 01/26/2019 08:22:39 (Electronically Signed)
[2019-01-26] MEDS: Aluminum Hydroxide/Magnesium Hydroxide/Simethicone Susp 30 ML Cup PO ONE (08:54)
== END 2019-01-26 13:42 | disposition other institution (70) ==
LOC: JP.ED 02:37
DX: F10.120 Alcohol abuse with intoxication, uncomplicated (principal); Y90.8 Blood alcohol level of 240 mg/100 ml or more; I10 Essential (primary) hypertension; E78.00 Pure hypercholesterolemia, unspecified; E11.9 Type 2 diabetes mellitus without complications; Z79.4 Long term (current) use of insulin; Z79.899 Other long term (current) drug therapy; Z91.030 Bee allergy status
CPT/HCPCS: 36415; 76705; 80053; 80305; 81001; 82150; 82962; 83690; 85025; 96361; 96374; 96375; 99285; A9270; C9113; G0480; J1170; J1815; J2060; J7030

== ENCOUNTER 2019-01-28 02:23 | Emergency (ER) | payer BC ==
--- NOTE | 2019-01-28 06:09 | EDM.PDOC ---
ED HPI GENERAL MEDICAL PROBLEM - General Chief Complaint: Drug or Alcohol Abuse Stated Complaint: MEDICAL VIA TRI Time Seen by Provider: 01/28/19 06:04 Source of Information: Reports: Patient - History of Present Illness INITIAL COMMENTS - FREE TEXT/NARRATIVE: Patient presents requesting to go to [facility]. He was drinking alcohol yesterday and last drink was around 2200 hours. He has some upper abdomen pain but no nausea/vomiting. Right Abdomen Pain Score (Numeric/FACES): 8 - Related Data Allergies Allergy/AdvReac Type Severity Reaction Status Date / Time bee venom protein (honey bee) Allergy Airway Verified 01/28/19 02:34 Tightness Home Meds: Home Meds RX: Lisinopril 40 mg PO DAILY 02/15/18 [History] RX: Omeprazole 20 mg PO DAILY 02/15/18 [History] RX: amLODIPine Besylate [Norvasc] 10 mg PO DAILY 02/15/18 [History] Insulin Aspart [NovoLOG] 7 - 15 unit SUBCUT WITHMEALSANDBED 10/01/18 [History] Insulin Degludec [Tresiba Flextouch U-100] 60 unit SQ DAILY 10/01/18 [History] atorvaSTATin Calcium [Lipitor] 20 mg PO DAILY 10/01/18 [History] Nicotine [Nicotine Patch] 14 mg TD DAILY 01/26/19 [History] Lipase/Protease/Amylase [Zenpep DR 20,000 Unit] 1 each PO TIDMEALS 01/28/19 [ History] Past Medical History HEENT History: Reports: Otitis Media Cardiovascular History: Reports: High Cholesterol, Hypertension Gastrointestinal History: Reports: GERD, Pancreatitis Neurological History: Reports: Seizure Psychiatric History: Reports: Addiction Endocrine/Metabolic History: Reports: Diabetes, Type II Hematologic History: Reports: Blood Transfusion(s) - Infectious Disease History Infectious Disease History: Reports: Chicken Pox - Past Surgical History HEENT Surgical History: Reports: Myringotomy w Tube(s) GI Surgical History: Reports: Cholecystectomy Social & Family History - Family History Family Medical History: Unobtainable - Tobacco Use Smoking Status *Q: Current Every Day Smoker Years of Tobacco use: 24 Packs/Tins Daily: 1 Used Tobacco, but Quit: No Second Hand Smoke Exposure: Yes - Caffeine Use Caffeine Use: Reports: Coffee - Alcohol Use Days Per Week of Alcohol Use: 7 Number of Drinks Per Day: 12 Total Drinks Per Week: 84 Date of Last Drink: 01/13/19 Time of Last Drink: 22:00 - Recreational Drug Use Recreational Drug Use: No ED ROS GENERAL - Review of Systems Review Of Systems: See Below Constitutional: Reports: Diaphoresis HEENT: Reports: No Symptoms Respiratory: Reports: No Symptoms Cardiovascular: Reports: No Symptoms Endocrine: Reports: Low Glucose GI/Abdominal: Reports: Abdominal Pain, Nausea : Reports: No Symptoms Musculoskeletal: Reports: No Symptoms Skin: Reports: No Symptoms Neurological: Reports: No Symptoms Psychiatric: Reports: No Symptoms Hematologic/Lymphatic: Reports: No Symptoms Immunologic: Reports: No Symptoms - Physical Exam Exam: See Below Exam Limited By: Altered Mental Status General Appearance: Mild Distress Ears: Normal External Exam, Normal Canal, Hearing Grossly Normal, Normal TMs Cardiovascular: Tachycardia GI/Abdominal: Soft, Tender Neuro Exam (Abbreviated): Slow to Respond Course - Vital Signs Text/Narrative:: Patient slept initially on arrival. Later when awake, he felt shaky and thought his blood glucose would be low (diabetic on insulin.) Bedside reading showed glucose of 53. He was given juice and milk and later some food. He felt better at time of discharge although a little shaky. Reviewed his lab findings. He will be discharged with [facility] staff. Last Recorded V/S: Last Vital Signs Temp 35.5 C 01/28/19 02:32 Pulse 109 H 01/28/19 02:32 Resp 16 01/28/19 02:32 BP 141/91 H 01/28/19 02:32 Pulse Ox 96 01/28/19 02:32 - Orders/Labs/Meds Orders: Active Orders 24 hr Category Date Time Status CULTURE STREP A CONFIRMATION [] Stat Lab 01/28/19 06:19 Results STREP SCRN A RAPID W CULT CONF [] Stat Lab 01/28/19 06:19 Results Labs: Laboratory Tests 01/28/19 01/28/19 01/28/19 Range/Units 03:01 03:01 03:01 WBC 9.7 (4.5-11.0) K/uL RBC 5.65 (4.30-5.90) M/uL Hgb 15.5 H (12.0-15.0) g/dL Hct 47.9 (40.0-54.0) % MCV 85 (80-98) fL MCH 27 (27-31) pg MCHC 32 (32-36) % Plt Count 162 (150-400) K/uL Neut % (Auto) 65 (36-66) % Lymph % (Auto) 26 (24-44) % [place] % (Auto) 7 H (2-6) % Eos % (Auto) 2 (2-4) % Baso % (Auto) 0 (0-1) % Sodium 142 (140-148) mmol/L Potassium 3.5 L (3.6-5.2) mmol/L Chloride 103 (100-108) mmol/L Carbon Dioxide 28 (21-32) mmol/L Anion Gap 14.5 H (5.0-14.0) mmol/L BUN 8 (7-18) mg/dL Creatinine 0.7 L (0.8-1.3) mg/dL Est Cr Clr Drug Dosing 149.40 mL/min Estimated GFR (MDRD) > 60 (>60) Glucose 108 H (74-106) mg/dL Calcium 8.5 (8.5-10.1) mg/dL Total Bilirubin 0.4 (0.2-1.0) mg/dL AST 39 H (15-37) U/L ALT 49 (12-78) U/L Alkaline Phosphatase 191 H (46-116) U/L Total Protein 7.3 (6.4-8.2) g/dL Albumin 3.5 (3.4-5.0) g/dL Globulin 3.8 H (2.3-3.5) g/dL Albumin/Globulin Ratio 0.9 L (1.2-2.2) Urine Color Urine Appearance Urine pH (4.5-8.0) Ur Specific Lowgap (1.008-1.030) Urine Protein (NEGATIVE) mg/dL Urine Glucose (UA) (NEGATIVE) mg/dL Urine Ketones (NEGATIVE) mg/dL Urine Occult Blood (NEGATIVE) Urine Nitrite (NEGAITVE) Urine Bilirubin (NEGATIVE) Urine Urobilinogen (NORMAL) mg/dL Ur Leukocyte Esterase (NEGATIVE) Urine RBC (0-5) Urine WBC (0-5) Ur Epithelial Cells Amorphous Sediment Urine Bacteria Urine Mucus Urine Opiates Screen (NEGATIVE) Ur Oxycodone Screen (NEGATIVE) Urine Methadone Screen (NEGATIVE) Ur Propoxyphene Screen (NEGATIVE) Ur Barbiturates Screen (NEGATIVE) Ur Tricyclics Screen (NEGATIVE) Ur Phencyclidine Scrn (NEGATIVE) Ur Amphetamine Screen (NEGATIVE) U Methamphetamines Scrn (NEGATIVE) Urine MDMA Screen (NEGATIVE) U Benzodiazepines Scrn (NEGATIVE) U Cocaine Metab Screen (NEGATIVE) U Marijuana (THC) Screen (NEGATIVE) Ethyl Alcohol 248 mg/dL 01/28/19 01/28/19 Range/Units 05:00 05:00 WBC (4.5-11.0) K/uL RBC (4.30-5.90) M/uL Hgb (12.0-15.0) g/dL Hct (40.0-54.0) % MCV (80-98) fL MCH (27-31) pg MCHC (32-36) % Plt Count (150-400) K/uL Neut % (Auto) (36-66) % Lymph % (Auto) (24-44) % [place] % (Auto) (2-6) % Eos % (Auto) (2-4) % Baso % (Auto) (0-1) % Sodium (140-148) mmol/L Potassium (3.6-5.2) mmol/L Chloride (100-108) mmol/L Carbon Dioxide (21-32) mmol/L Anion Gap (5.0-14.0) mmol/L BUN (7-18) mg/dL Creatinine (0.8-1.3) mg/dL Est Cr Clr Drug Dosing mL/min Estimated GFR (MDRD) (>60) Glucose (74-106) mg/dL Calcium (8.5-10.1) mg/dL Total Bilirubin (0.2-1.0) mg/dL AST (15-37) U/L ALT (12-78) U/L Alkaline Phosphatase (46-116) U/L Total Protein (6.4-8.2) g/dL Albumin (3.4-5.0) g/dL Globulin (2.3-3.5) g/dL Albumin/Globulin Ratio (1.2-2.2) Urine Color Yellow Urine Appearance Clear Urine pH 6.5 (4.5-8.0) Ur Specific Lowgap 1.005 L (1.008-1.030) Urine Protein Negative (NEGATIVE) mg/dL Urine Glucose (UA) Normal (NEGATIVE) mg/dL Urine Ketones Negative (NEGATIVE) mg/dL Urine Occult Blood Negative (NEGATIVE) Urine Nitrite Negative (NEGAITVE) Urine Bilirubin Negative (NEGATIVE) Urine Urobilinogen Normal (NORMAL) mg/dL Ur Leukocyte Esterase Negative (NEGATIVE) Urine RBC 0-5 (0-5) Urine WBC 0-5 (0-5) Ur Epithelial Cells Few Amorphous Sediment Not seen Urine Bacteria Rare Urine Mucus Not seen Urine Opiates Screen Negative (NEGATIVE) Ur Oxycodone Screen Negative (NEGATIVE) Urine Methadone Screen Negative (NEGATIVE) Ur Propoxyphene Screen Negative (NEGATIVE) Ur Barbiturates Screen Negative (NEGATIVE) Ur Tricyclics Screen Negative (NEGATIVE) Ur Phencyclidine Scrn Negative (NEGATIVE) Ur Amphetamine Screen Negative (NEGATIVE) U Methamphetamines Scrn Negative (NEGATIVE) Urine MDMA Screen Negative (NEGATIVE) U Benzodiazepines Scrn Presumptive positive H (NEGATIVE) U Cocaine Metab Screen Negative (NEGATIVE) U Marijuana (THC) Screen Negative (NEGATIVE) Ethyl Alcohol mg/dL Departure - Departure Time of Disposition: 07:28 Disposition: DC/Tfer to Other 70 Condition: Good Clinical Impression: Alcohol withdrawal syndrome - Discharge Information *PRESCRIPTION DRUG MONITORING PROGRAM REVIEWED*: Not Applicable *COPY OF PRESCRIPTION DRUG MONITORING REPORT IN PATIENT SHEILA: Not Applicable Referrals: PCP,None [Primary Care Provider] - - My Orders Last 24 Hours: My Active Orders 01/28/19 06:19 CULTURE STREP A CONFIRMATION [] Stat STREP SCRN A RAPID W CULT CONF [] Stat - Assessment/Plan Last 24 Hours: My Active Orders 01/28/19 06:19 CULTURE STREP A CONFIRMATION [RM] Stat STREP SCRN A RAPID W CULT CONF [] Stat
== END 2019-01-28 07:38 | disposition other institution (70) ==
LOC: JP.ED 02:23
DX: F10.239 Alcohol dependence with withdrawal, unspecified (principal); I10 Essential (primary) hypertension; E11.9 Type 2 diabetes mellitus without complications; F17.210 Nicotine dependence, cigarettes, uncomplicated; Z91.030 Bee allergy status; Z79.899 Other long term (current) drug therapy
CPT/HCPCS: 36415; 80053; 80305; 81001; 82962; 85025; 87081; 87430; 99285; G0480

== ENCOUNTER 2019-05-02 03:37 | Inpatient (IN) | payer BC ==
[2019-05-02] MEDS ORDERED: Lactated Ringers 1,000 ML IV ONE (03:52)
[2019-05-02] MEDS ORDERED: Piperacillin/Tazobactam 4.5 GM in Sodium Chloride 0.9% 100 ML IV ONE (03:53)
--- NOTE | 2019-05-02 03:55 | EDM.PDOC ---
ED HPI GENERAL MEDICAL PROBLEM - General Chief Complaint: General Stated Complaint: MEDICAL VIA NORTH Time Seen by Provider: 05/02/19 03:40 Source of Information: Reports: Patient - History of Present Illness INITIAL COMMENTS - FREE TEXT/NARRATIVE: 39-year-old with history of alcoholism and pancreatitis presents with concerns of abdominal pain and muscle cramps. Reports that symptoms started this AM. He drank 5-6 shots today after cessation from etoh earlier this week. The pain has been building throughout the day. Primarily in the LUQ and epigastrium with some radiation into the back. May feel similar to prior episodes of pancreatitis. He has also been having muscle cramps all over his body. Some nausea. Hypotensive for EMS. Normal has hypertension. Has history of pancreatitis with pseudocyst drainage at [place]. cramping muscles Pain Score (Numeric/FACES): 10 - Related Data Allergies Allergy/AdvReac Type Severity Reaction Status Date / Time bee venom protein (honey bee) Allergy Airway Verified 05/02/19 03:41 Tightness Home Meds: Home Meds Lisinopril 40 mg PO DAILY 02/15/18 [History] Omeprazole 20 mg PO DAILY 02/15/18 [History] amLODIPine Besylate [Norvasc] 10 mg PO DAILY 02/15/18 [History] Insulin Aspart [NovoLOG] 7 - 15 unit SUBCUT WITHMEALSANDBED 10/01/18 [History] atorvaSTATin Calcium [Lipitor] 20 mg PO DAILY 10/01/18 [History] Lipase/Protease/Amylase [Zenpep DR 20,000 Unit] 1 each PO TIDMEALS 01/28/19 [ History] Insulin Glarg,Human.Rec.Analog [Lantus Solostar] 20 units SUBCUT DAILY 05/02/19 [History] chlordiazePOXIDE HCl [Chlordiazepoxide HCl] 1 cap PO BID 05/02/19 [History] hydroCHLOROthiazide [Hydrochlorothiazide] 25 mg PO DAILY 05/02/19 [History] Past Medical History HEENT History: Reports: Otitis Media Cardiovascular History: Reports: High Cholesterol, Hypertension Gastrointestinal History: Reports: GERD, Pancreatitis Neurological History: Reports: Seizure Psychiatric History: Reports: Addiction Endocrine/Metabolic History: Reports: Diabetes, Type II Hematologic History: Reports: Blood Transfusion(s) - Infectious Disease History Infectious Disease History: Reports: Chicken Pox - Past Surgical History HEENT Surgical History: Reports: Myringotomy w Tube(s) GI Surgical History: Reports: Cholecystectomy Social & Family History - Family History Family Medical History: Unobtainable - Tobacco Use Smoking Status *Q: Current Every Day Smoker Years of Tobacco use: 25 Packs/Tins Daily: 1 - Caffeine Use Caffeine Use: Reports: Coffee, Tea - Recreational Drug Use Recreational Drug Use: No ED ROS GENERAL - Review of Systems Review Of Systems: See Below Constitutional: Reports: No Symptoms HEENT: Reports: No Symptoms Respiratory: Reports: No Symptoms Cardiovascular: Reports: No Symptoms Endocrine: Reports: No Symptoms GI/Abdominal: Reports: Abdominal Pain : Reports: No Symptoms Musculoskeletal: Reports: No Symptoms Skin: Reports: No Symptoms Neurological: Reports: No Symptoms Psychiatric: Reports: No Symptoms Hematologic/Lymphatic: Reports: No Symptoms Immunologic: Reports: No Symptoms ED EXAM, GENERAL - Physical Exam Exam: See Below Exam Limited By: No Limitations General Appearance: Alert, No Apparent Distress Nose: Normal Inspection Throat/Mouth: Normal Inspection Head: Atraumatic, Normocephalic Neck: Normal Inspection Respiratory/Chest: No Respiratory Distress, Lungs Clear Cardiovascular: Regular Rate, Rhythm GI/Abdominal: Soft, No Distention, Guarding (LUQ and epigastric tenderness with guarding), Tender Back Exam: Normal Inspection Extremities: Normal Inspection Neurological: Alert, Oriented Psychiatric: Normal Affect, Normal Mood Skin Exam: Warm, Dry Course - Vital Signs Last Recorded V/S: Last Vital Signs Temp 35.1 C L 05/02/19 03:38 Pulse 89 05/02/19 05:40 Resp 22 H 05/02/19 05:40 BP 121/70 05/02/19 05:40 Pulse Ox 92 L 05/02/19 05:40 - Orders/Labs/Meds Orders: Active Orders 24 hr Category Date Time Status EKG Documentation Completion [RC] ASDIRECTED Care 05/02/19 04:34 Active LACTIC ACID [CHEM] Routine Lab 05/02/19 06:00 Ordered Folic Acid Med 05/02/19 05:00 Active 1 mg IV DAILY Magnesium Sulfate/Water [Magnesium Sulfate in Water Med 05/02/19 04:52 Active Premix] 2 gm Premix Bag 1 bag IV ONETIME Potassium Chloride [KCL 20 MEQ in Water 100 ML] 20 meq Med 05/02/19 04:32 Active Premix Bag 1 bag IV ONETIME EKG 12 Lead [EK] Routine Ther 05/02/19 04:34 Ordered Medication Orders Folic Acid (Folic Acid) 1 mg IV DAILY IVANA Last Admin: 05/02/19 05:24 Dose: 1 mg Potassium Chloride 20 meq/ (Premix) 100 mls @ 50 mls/hr IV ONETIME ONE Stop: 05/02/19 06:31 Last Admin: 05/02/19 05:16 Dose: 50 mls/hr Magnesium Sulfate 2 gm/ Premix 50 mls @ 12.5 mls/hr IV ONETIME ONE Stop: 05/02/19 08:51 Last Admin: 05/02/19 05:18 Dose: 12.5 mls/hr Labs: Laboratory Tests 05/02/19 05/02/19 05/02/19 Range/Units 04:00 04:00 04:00 WBC 8.2 (4.5-11.0) K/uL RBC 4.16 L (4.30-5.90) M/uL Hgb 12.7 D (12.0-15.0) g/dL Hct 37.5 L (40.0-54.0) % MCV 90 (80-98) fL MCH 31 (27-31) pg MCHC 34 (32-36) % Plt Count 89 L (150-400) K/uL Sodium 141 (140-148) mmol/L Potassium 2.8 L* (3.6-5.2) mmol/L Chloride 100 (100-108) mmol/L Carbon Dioxide 23 (21-32) mmol/L Anion Gap 20.8 H (5.0-14.0) mmol/L BUN 29 H D (7-18) mg/dL Creatinine 2.0 H D (0.8-1.3) mg/dL Est Cr Clr Drug Dosing 51.77 mL/min Estimated GFR (MDRD) 37 L (>60) Glucose 70 L (74-106) mg/dL Lactic Acid 6.1 H (0.4-2.0) mmol/L Calcium 9.2 (8.5-10.1) mg/dL Magnesium (1.8-2.4) mg/dL Total Bilirubin 0.5 (0.2-1.0) mg/dL AST 48 H (15-37) U/L ALT 67 (12-78) U/L Alkaline Phosphatase 200 H (46-116) U/L Total Protein 7.2 (6.4-8.2) g/dL Albumin 3.4 (3.4-5.0) g/dL Globulin 3.8 H (2.3-3.5) g/dL Albumin/Globulin Ratio 0.9 L (1.2-2.2) Lipase 168 (73-393) U/L 05/02/19 Range/Units 04:00 WBC (4.5-11.0) K/uL RBC (4.30-5.90) M/uL Hgb (12.0-15.0) g/dL Hct (40.0-54.0) % MCV (80-98) fL MCH (27-31) pg MCHC (32-36) % Plt Count (150-400) K/uL Sodium (140-148) mmol/L Potassium (3.6-5.2) mmol/L Chloride (100-108) mmol/L Carbon Dioxide (21-32) mmol/L Anion Gap (5.0-14.0) mmol/L BUN (7-18) mg/dL Creatinine (0.8-1.3) mg/dL Est Cr Clr Drug Dosing mL/min Estimated GFR (MDRD) (>60) Glucose (74-106) mg/dL Lactic Acid (0.4-2.0) mmol/L Calcium (8.5-10.1) mg/dL Magnesium 1.2 L (1.8-2.4) mg/dL Total Bilirubin (0.2-1.0) mg/dL AST (15-37) U/L ALT (12-78) U/L Alkaline Phosphatase (46-116) U/L Total Protein (6.4-8.2) g/dL Albumin (3.4-5.0) g/dL Globulin (2.3-3.5) g/dL Albumin/Globulin Ratio (1.2-2.2) Lipase (73-393) U/L Meds: Medications Generic Name Dose Route Start Last Admin Trade Name Freq PRN Reason Stop Dose Admin Folic Acid 1 mg 05/02/19 05:00 05/02/19 05:24 Folic Acid IV 1 mg DAILY IVANA Administration Potassium Chloride 20 meq/ 100 mls @ 50 mls/hr 05/02/19 04:32 05/02/19 05:16 Premix IV 05/02/19 06:31 50 mls/hr ONETIME ONE Administration Magnesium Sulfate 2 gm/ Premix 50 mls @ 12.5 mls/hr 05/02/19 04:52 05/02/19 05:18 IV 05/02/19 08:51 12.5 mls/hr ONETIME ONE Administration Discontinued Medications Generic Name Dose Route Start Last Admin Trade Name Manuel PRN Reason Stop Dose Admin Fentanyl 75 mcg 05/02/19 03:57 05/02/19 05:50 Sublimaze IVPUSH 05/02/19 03:58 75 mcg ONETIME ONE Administration Lactated Ringer's 1,000 mls @ 1,000 mls/hr 05/02/19 03:52 05/02/19 03:52 Ringers, Lactated IV 05/02/19 04:51 1,000 mls/hr BOLUS ONE Administration Piperacillin Sod/Tazobactam 100 mls @ 100 mls/hr 05/02/19 03:53 05/02/19 04: 13 Sod 4.5 gm/ Sodium Chloride IV 05/02/19 04:52 100 mls/hr ONETIME ONE Administration Sodium Chloride 1,000 mls @ 999 mls/hr 05/02/19 04:17 05/02/19 04:10 Normal Saline IV 05/02/19 05:17 999 mls/hr .BOLUS ONE Administration Thiamine HCl 100 mg/ Sodium 101 mls @ 202 mls/hr 05/02/19 04:50 05/02/19 05: 25 Chloride IV 05/02/19 04:51 202 mls/hr ONETIME ONE Administration Ondansetron HCl 4 mg 05/02/19 03:56 05/02/19 04:12 Zofran IVPUSH 05/02/19 03:57 4 mg ONETIME ONE Administration Potassium Chloride 40 meq 05/02/19 04:33 05/02/19 05:11 Klor-Con M20 PO 05/02/19 04:34 40 meq ONETIME ONE Administration - Re-Assessments/Exams Free Text/Narrative Re-Assessment/Exam: 39 yo with hx of etoh abuse, pancreatitis, and pancreatic pseudocyst s/p drainage present with concerns of abdominal pain, muscles spasm. Noted to be hypotensive pre-hospital confirmed in ED with initial pressure 70s/ 40. On exam diffuse abdominal tenderness with guarding. Suspect recurrent pancreatitis. Administering rapid IVF bolus. Abdominal labs sent - will hold on CT until Cr obtained. Treating for possible septic shock with zosyn. Anti-emetics and pain meds when BP allows. 05/02/19 04:08 Free Text/Narrative Re-Assessment/Exam: Labs notable for lactate 6.1, hypokalemic, LUIS BPs normalized after 3 L fluid Repleting K, adding thiamine and folate Non-con CT with possible pancreatitis (although lipase not convincing) vs bronchopneumonia Repeat lactate pending Admitting for pancreatitis vs septic shock 05/02/19 05:57 Departure - Departure Time of Disposition: 06:00 Disposition: Admitted As Inpatient 64 Clinical Impression: Shock, Lobar pneumonia Chronic pancreatitis Qualifiers: Pancreatitis type: unspecified pancreatitis type Qualified Code(s): K86.1 - Other chronic pancreatitis - Discharge Information Referrals: PCP,None [Primary Care Provider] - Forms: ED Department Discharge Critical Care Note - Critical Care Note Total Time (mins): 33 Comments: 31 yo minutes of CC time spent stabilizing vitals, diagnosing and treating undifferentiated shock. - My Orders Last 24 Hours: My Active Orders 05/02/19 04:32 Potassium Chloride [KCL 20 MEQ in Water 100 ML] 20 meq Premix Bag 1 bag IV ONETIME 05/02/19 04:34 EKG Documentation Completion [RC] ASDIRECTED EKG 12 Lead [EK] Routine 05/02/19 04:52 Magnesium Sulfate/Water [Magnesium Sulfate in Water Premix] 2 gm Premix Bag 1 bag IV ONETIME 05/02/19 05:00 Folic Acid 1 mg IV DAILY 05/02/19 06:00 LACTIC ACID [CHEM] Routine - Assessment/Plan Last 24 Hours: My Active Orders 05/02/19 04:32 Potassium Chloride [KCL 20 MEQ in Water 100 ML] 20 meq Premix Bag 1 bag IV ONETIME 05/02/19 04:34 EKG Documentation Completion [RC] ASDIRECTED EKG 12 Lead [EK] Routine 05/02/19 04:52 Magnesium Sulfate/Water [Magnesium Sulfate in Water Premix] 2 gm Premix Bag 1 bag IV ONETIME 05/02/19 05:00 Folic Acid 1 mg IV DAILY 05/02/19 06:00 LACTIC ACID [CHEM] Routine
[2019-05-02] MEDS ORDERED: Ondansetron 4 MG/2 ML SDV IVPUSH ONE (03:56)
[2019-05-02] MEDS ORDERED: fentaNYL 100 MCG/2 ML SDV IVPUSH ONE (03:57)
[2019-05-02] MEDS ORDERED: Sodium Chloride 0.9% 1,000 ML IV ONE (04:17)
[2019-05-02] MEDS ORDERED: Potassium Chloride 20 MEQ in Premix Bag 1 BAG IV ONE (04:32)
[2019-05-02] MEDS ORDERED: Potassium Chloride 20 MEQ Tab.ER PO ONE ×2 (04:33→13:00)
[2019-05-02] MEDS ORDERED: Thiamine 100 MG in Sodium Chloride 0.9% 100 ML IV ONE (04:50)
[2019-05-02] MEDS ORDERED: Magnesium Sulfate/Water 2 GM in Premix Bag 1 BAG IV ONE (04:52)
[2019-05-02] MEDS ORDERED: Folic Acid 50 MG/10 ML MDV IV SCH (05:00)
--- NOTE | 2019-05-02 05:29 | CRLCT ---
INDICATION: Abdominal pain and hypotension. TECHNIQUE: CT abdomen and pelvis without contrast. COMPARISON: Abdomen and pelvis CT 11/12/2018 FINDINGS: Lower chest: Focal consolidation with centrilobular nodularity in the left lower lobe. Liver: Diffusely decreased density of the liver consistent with fatty infiltration with some geographic areas of fatty sparing. Gallbladder and bile ducts: Status post cholecystectomy. Pancreas: Moderate pancreatic atrophy. Mild fascial thickening adjacent to the pancreatic tail. Minimal low density near the inferior margin of the pancreas measuring 7 millimeters in maximal diameter. Slight indistinctness surround the pancreatic head. Spleen: Normal in size. No masses. Adrenal glands: Normal in size. No nodules. Kidneys: Normal in size. No masses, stones, or hydronephrosis. GI tract: Stomach is decompressed there are no dilated loops of large or small intestine. The appendix is seen and is unremarkable. Vasculature: Atherosclerosis without abdominal aortic aneurysm. Abdominal wall/Omentum/Peritoneum: Multiple varices within the upper abdomen. Pelvis: Unremarkable. No pelvic masses. Bones: Mild degenerative disc disease. IMPRESSION: 1. Pancreatic atrophy with areas of adjacent fascial thickening, likely secondary to prior pancreatitis. Previously noted pseudocyst at the inferior margin of the pancreatic head is markedly reduced in size measuring 7 millimeters on today`s exam. Slight indistinctness surrounding the pancreas likely represents some chronic scarring although note that acute pancreatitis may be difficult to exclude with this appearance. 2. Focal airspace consolidation in the left lower lobe suggestive of bronchopneumonia. 3. Fatty infiltration of the liver. Please note that all CT scans at this facility use dose modulation, iterative reconstruction, and/or weight-based dosing when appropriate to reduce radiation dose to as low as reasonably achievable. Dictated by Marcos Mejia MD @ May 02 2019 5:20AM Signed by Dr. Marcos Mejia @ May 02 2019 5:29AM
--- NOTE | 2019-05-02 07:01 | PCM.HP ---
H&P History of Present Illness - General Date of Service: 05/02/19 Admit Problem/Dx: Admission Diagnosis/Problem Admission Diagnosis/Problem Acute pancreatitis Source of Information: Patient, Provider History Limitations: Reports: No Limitations - History of Present Illness Initial Comments - Free Text/Narative: CC: my belly is hurtin' HPI: Freddy presents to the emergency room today with 4 days of progressive epigastric and left upper quadrant abdominal pain. He describes sharp wave like pain throughout the upper abdomen that is moderately severe in nature. He has not been taking anything to help with the pain at home but it has been steadily getting worse. Moving around seems to make the pain worse. Drinking water has not seemed to make the pain any worse. He has noticed episodes of feeling warm and sweaty over the past several days. He has had nausea but has not vomited. He has been able to drink fluids without difficulty. No change in bowel habits. He has noticed that he's been coughing a little more than usual but has not produced any sputum. No significant shortness of breath reported. Blood sugars have been up and down with recent readings that were too high for his monitor to determine. He had been without his insulin pen for a day but was able to get the blood sugars down to a better number after taking some extra insulin once he had his pen. He reports consuming about 5 shots of vodka last night. Most recent alcohol use prior to that was 2 weeks ago. He describes multiple muscles in his body that have been cramping in recent days. Calf muscles, foot and toes as well as hands. Workup in the emergency room revealed systemic hypotension on arrival but normal temperature and normal heart rate. He has not been hypoxic. Laboratory studies have revealed acute kidney injury, profound hypokalemia and hypomagnesemia. Initial lactic acid level was greater than 6. Lipase is normal. CT scan of the abdomen and pelvis showed significant improvement in his pseudocyst and did document a very small left lower lobe pneumonia. Patient will be admitted for management of multiple issues listed above. cramping muscles Pain Score (Numeric/FACES): 10 - Related Data Allergies/Adverse Reactions: Allergies Allergy/AdvReac Type Severity Reaction Status Date / Time bee venom protein (honey bee) Allergy Airway Verified 05/02/19 03:41 Tightness Home Medications: Home Meds Lisinopril 40 mg PO DAILY 02/15/18 [History] Omeprazole 20 mg PO DAILY 02/15/18 [History] amLODIPine Besylate [Norvasc] 10 mg PO DAILY 02/15/18 [History] Insulin Aspart [NovoLOG] 7 - 15 unit SUBCUT WITHMEALSANDBED 10/01/18 [History] atorvaSTATin Calcium [Lipitor] 20 mg PO DAILY 10/01/18 [History] Lipase/Protease/Amylase [Zenperi DR 20,000 Unit] 1 each PO TIDMEALS 01/28/19 [ History] Insulin Glarg,Human.Rec.Analog [Lantus Solostar] 20 units SUBCUT DAILY 05/02/19 [History] chlordiazePOXIDE HCl [Chlordiazepoxide HCl] 1 cap PO BID 05/02/19 [History] hydroCHLOROthiazide [Hydrochlorothiazide] 25 mg PO DAILY 05/02/19 [History] Past Medical History HEENT History: Reports: Otitis Media Cardiovascular History: Reports: High Cholesterol, Hypertension Gastrointestinal History: Reports: GERD, Pancreatitis Neurological History: Reports: Seizure Psychiatric History: Reports: Addiction Endocrine/Metabolic History: Reports: Diabetes, Type II Hematologic History: Reports: Blood Transfusion(s) - Infectious Disease History Infectious Disease History: Reports: Chicken Pox - Past Surgical History HEENT Surgical History: Reports: Myringotomy w Tube(s) GI Surgical History: Reports: Cholecystectomy Social & Family History - Family History Family Medical History: Unobtainable - Tobacco Use Smoking Status *Q: Current Every Day Smoker Years of Tobacco use: 25 Packs/Tins Daily: 1 - Caffeine Use Caffeine Use: Reports: Coffee, Tea - Alcohol Use Alcohol Use History: Yes - Recreational Drug Use Recreational Drug Use: No H&P Review of Systems - Review of Systems: Review Of Systems: See Below Free Text/Narrative: A complete 12 point review of systems was obtained. Pertinent positives and negatives are noted in the history of present illness. All other systems were reviewed and were negative except as noted. Exam - Exam Exam: See Below - Vital Signs Vital Signs: Last Vital Signs Temp 35.1 C L 05/02/19 03:38 Pulse 89 05/02/19 05:40 Resp 22 H 05/02/19 05:40 BP 121/70 05/02/19 05:40 Pulse Ox 92 L 05/02/19 05:40 Weight: 78.925 kg - Exam Quality Assessment: No: Supplemental Oxygen General: Alert, Oriented, Cooperative. No: Mild Distress HEENT: Conjunctiva Clear. No: Mucosa Moist & [place] (dry), Scleral Icterus Neck: Supple, Trachea Midline. No: Lymphadenopathy Lungs: Normal Respiratory Effort, Decreased Breath Sounds (Mild left lung base) , Crackles (Few left lung base). No: Wheezing Cardiovascular: Regular Rate, Regular Rhythm. No: Systolic Murmur GI/Abdominal Exam: Soft, No Distention, Guarding, Tender (Epigastrium and left upper quadrant), Abnormal Bowel Sounds (Hypoactive) Back Exam: Normal Inspection, Full Range of Motion Extremities: No Pedal Edema. No: Increased Warmth Peripheral Pulses: 2+: Dorsalis Pedis (L), Dorsalis Pedis (R) Skin: Warm, Dry Neuro Extensive - Mental Status: Alert, Oriented x3, Nl Response to Commands Neuro Extensive - Motor, Sensory, Reflexes: No: Dysarthria, Abnormal Motor, Tremor Psychiatric: Alert, Normal Affect - Patient Data Lab Results Last 24 hrs: Laboratory Results - last 24 hr 05/02/19 05/02/19 05/02/19 Range/Units 04:00 04:00 04:00 WBC 8.2 (4.5-11.0) K/uL RBC 4.16 L (4.30-5.90) M/uL Hgb 12.7 D (12.0-15.0) g/dL Hct 37.5 L (40.0-54.0) % MCV 90 (80-98) fL MCH 31 (27-31) pg MCHC 34 (32-36) % Plt Count 89 L (150-400) K/uL Sodium 141 (140-148) mmol/L Potassium 2.8 L* (3.6-5.2) mmol/L Chloride 100 (100-108) mmol/L Carbon Dioxide 23 (21-32) mmol/L Anion Gap 20.8 H (5.0-14.0) mmol/L BUN 29 H D (7-18) mg/dL Creatinine 2.0 H D (0.8-1.3) mg/dL Est Cr Clr Drug Dosing 51.77 mL/min Estimated GFR (MDRD) 37 L (>60) Glucose 70 L (74-106) mg/dL Lactic Acid 6.1 H (0.4-2.0) mmol/L Calcium 9.2 (8.5-10.1) mg/dL Magnesium (1.8-2.4) mg/dL Total Bilirubin 0.5 (0.2-1.0) mg/dL AST 48 H (15-37) U/L ALT 67 (12-78) U/L Alkaline Phosphatase 200 H (46-116) U/L Total Protein 7.2 (6.4-8.2) g/dL Albumin 3.4 (3.4-5.0) g/dL Globulin 3.8 H (2.3-3.5) g/dL Albumin/Globulin Ratio 0.9 L (1.2-2.2) Lipase 168 (73-393) U/L 05/02/19 05/02/19 Range/Units 04:00 06:01 WBC (4.5-11.0) K/uL RBC (4.30-5.90) M/uL Hgb (12.0-15.0) g/dL Hct (40.0-54.0) % MCV (80-98) fL MCH (27-31) pg MCHC (32-36) % Plt Count (150-400) K/uL Sodium (140-148) mmol/L Potassium (3.6-5.2) mmol/L Chloride (100-108) mmol/L Carbon Dioxide (21-32) mmol/L Anion Gap (5.0-14.0) mmol/L BUN (7-18) mg/dL Creatinine (0.8-1.3) mg/dL Est Cr Clr Drug Dosing mL/min Estimated GFR (MDRD) (>60) Glucose (74-106) mg/dL Lactic Acid 1.1 (0.4-2.0) mmol/L Calcium (8.5-10.1) mg/dL Magnesium 1.2 L (1.8-2.4) mg/dL Total Bilirubin (0.2-1.0) mg/dL AST (15-37) U/L ALT (12-78) U/L Alkaline Phosphatase (46-116) U/L Total Protein (6.4-8.2) g/dL Albumin (3.4-5.0) g/dL Globulin (2.3-3.5) g/dL Albumin/Globulin Ratio (1.2-2.2) Lipase (73-393) U/L Result Diagrams: 05/02/19 04:00 05/02/19 04:00 Imaging Impressions Last 24 hrs: CT scan of the abdomen and pelvis - images personally reviewed - there is a slight haziness of the head of the pancreas. 7 mm pseudocyst noted in the tail of the pancreas. Probably some scarring around the pancreas. No evidence for bowel obstruction. No abscess. *Q Meaningful Use (ADM) - VTE Risk Assess *Q Each Risk Factor Represents 1 Point: Age 41 - 59 years Total Score 1 Point Risk Factors: 1 Each Risk Factor Represents 2 Points: None Total Score 2 Point Risk Factors: 0 Each Risk Factor Represents 3 Points: None Total Score 3 Point Risk Factors: 0 Each Risk Factor Represents 5 Points: None Total Score 5 Point Risk Factors: 0 Venous Thromboembolism Risk Factor Score *Q: 1 - Problem List (1) Acute on chronic pancreatitis SNOMED Code(s): 280176443 ICD Code: K85.90 - ACUTE PANCREATITIS WITHOUT NECROSIS OR INFECTION, UNSP; K86.1 - OTHER CHRONIC PANCREATITIS Status: Acute Current Visit: Yes (2) Lobar pneumonia SNOMED Code(s): 237174120 ICD Code: J18.1 - LOBAR PNEUMONIA, UNSPECIFIED ORGANISM Status: Acute Current Visit: Yes (3) Acute kidney injury SNOMED Code(s): 68724053, 75278896 ICD Code: N17.9 - ACUTE KIDNEY FAILURE, UNSPECIFIED Status: Acute Current Visit: Yes (4) Hypokalemia SNOMED Code(s): 71323376 ICD Code: E87.6 - HYPOKALEMIA Status: Acute Current Visit: Yes (5) Tobacco dependence SNOMED Code(s): 39080583 ICD Code: F17.200 - NICOTINE DEPENDENCE, UNSPECIFIED, UNCOMPLICATED Status : Chronic Current Visit: Yes (6) Alcohol dependence SNOMED Code(s): 33188903 ICD Code: F10.20 - ALCOHOL DEPENDENCE, UNCOMPLICATED Status: Chronic Current Visit: Yes Qualifiers: Substance use status: unspecified alcohol-induced disorder Qualified Code(s ): F10.29 - Alcohol dependence with unspecified alcohol-induced disorder Problem List Initiated/Reviewed/Updated: Yes Orders Last 24hrs: Active Orders 24 hr Category Date Time Status Patient Status Manage Transfer [TRANSFER] Routine ADT 05/02/19 06:51 Ordered EKG Documentation Completion [RC] ASDIRECTED Care 05/02/19 04:34 Active Folic Acid Med 05/02/19 05:00 Active 1 mg IV DAILY Magnesium Sulfate/Water [Magnesium Sulfate in Water Med 05/02/19 04:52 Active Premix] 2 gm Premix Bag 1 bag IV ONETIME Resuscitation Status Routine Resus Stat 05/02/19 06:52 Ordered EKG 12 Lead [EK] Routine Ther 05/02/19 04:34 Ordered Medication Orders Folic Acid (Folic Acid) 1 mg IV DAILY [facility] Last Admin: 05/02/19 05:24 Dose: 1 mg Magnesium Sulfate 2 gm/ Premix 50 mls @ 12.5 mls/hr IV ONETIME ONE Stop: 05/02/19 08:51 Last Admin: 05/02/19 05:18 Dose: 12.5 mls/hr Assessment/Plan Comment:: ASSESSMENT AND PLAN - Acute on chronic pancreatitis - 4 days of progressive pain. Lipase level normal but patient has significant atrophy and may not be able to mount a normal elevation of the lipase during these flares. Abdomen is fairly tender but not acute. LFTs are normal. Feels similar to previous episodes of pancreatitis. He was hypotensive on arrival but I think this was related to a combination of depleted intravascular volume as well as systemic inflammatory response. Lactic acid significantly elevated but improved with hydration. Pseudocyst improving compared to previous imaging. -ICU admission with significant hypotension and lactic acidosis present on arrival -Clear liquids -Pain control Left lower lobe pneumonia - patient presented with abdominal pain and has pancreatitis but also noted to have small pneumonia left lower lobe. Examination has crackles in the area and patient has been coughing more than usual. I don't believe this represents sepsis with the lactic acidosis and hypotension and the infection was more likely found incidentally but appears to be present and will be treated. -Pip/Tazo Acute kidney injury - secondary to hypotension with hypovolemia and SIRS. Patient has had aggressive volume resuscitation in the emergency room. -Gentle IV fluids -Labs in the morning -Hold antihypertensives Hypokalemia - significant hypokalemia, likely the source of his cramping. He has received 40 mEq by mouth and 20 mEq through the IV route. -Recheck potassium in a few hours and supplement as indicated Insulin-dependent diabetes mellitus - patient reports recent hyperglycemia but blood sugars are acceptable at this time. -Continue long-acting insulin -Sliding-scale insulin Alcohol dependence - patient reports use last night but none for 2 weeks prior to that. Long history of fairly heavy alcohol use. He is a little tremulous at this time and I'm worried that he may be going into alcohol withdrawal and may have been minimizing quantity and duration. -CIWA protocol -Melatonin at bedtime -Start lorazepam protocol and gabapentin if more evidence for alcohol withdrawal Tobacco dependence - smokes a pack a day, no interest in quitting. -Encourage cessation -Nicotine patch Maintenance issues - - DVT prophylaxis - enoxaparin - GI prophylaxis - PPI - Nutrition - clear liquids - Liriano catheter - not indicated CODE STATUS - full code Admission justification - This patient will be admitted for inpatient services and is medically appropriate meeting medical necessity for inpatient admission as outlined in my documentation. I reasonably expect the patient will require inpatient services that span a period time over 2 midnights. I reasonably expect this patient to be discharged or transferred within 96 hours [facility] Disposition - anticipate discharge home after the hospital stay Primary care physician - Dr Francisca Martinez M.D.
[2019-05-02] MEDS ORDERED: Magnesium Hydroxide 400 MG/5 ML Susp 30 ML Cup PO PRN (08:01)
[2019-05-02] MEDS ORDERED: LORazepam 2 MG/ML SDV IVPUSH PRN (08:01)
[2019-05-02] MEDS ORDERED: Ondansetron 4 MG/2 ML SDV IV PRN (08:01)
[2019-05-02] MEDS ORDERED: fentaNYL 100 MCG/2 ML SDV IVPUSH PRN (08:01)
[2019-05-02] MEDS ORDERED: Albuterol 0.083% 2.5 MG/3 ML Neb Soln NEB PRN (08:01)
[2019-05-02] MEDS ORDERED: Melatonin 3 MG Tab PO PRN (08:01)
[2019-05-02] MEDS ORDERED: Ondansetron 4 MG Tab.DIS PO PRN (08:01)
[2019-05-02] MEDS: PROTEASE PO SCH ×3 (08:42→17:06)
[2019-05-02] MEDS: LIPASE PO SCH ×3 (08:42→17:06)
[2019-05-02] MEDS: AMYLASE PO SCH ×3 (08:42→17:06)
[2019-05-02] MEDS: Insulin Lispro 100 Unit/ML 3 ML KwikPen SUBCUT SCH ×4 (08:47→19:54)
[2019-05-02] MEDS: Nicotine 21 MG/24 Hr Patch TRDERM SCH (08:48)
[2019-05-02] MEDS: Lactobacillus Rhamnosus GG (Probiotic) Cap PO SCH ×2 (08:50→22:17)
[2019-05-02] MEDS: Pantoprazole 40 MG Tab.CR PO SCH (08:50)
[2019-05-02] MEDS: Enoxaparin 40 MG/0.4 ML Syringe SUBCUT SCH (08:51)
[2019-05-02] MEDS: Insulin Glargine,Human Rec. Analog 100 Units/ML 3 ML Pen SUBCUT SCH (08:53)
[2019-05-02] MEDS: oxyCODONE 5 MG Tab PO PRN ×3 (09:04→19:45)
[2019-05-02] MEDS: Piperacillin/Tazobactam/Dext 3.375 GM in Premix Bag 1 BAG IV SCH ×3 (09:06→22:15)
[2019-05-02] MEDS: Magnesium Sulfate/Water 2 GM in Premix Bag 1 BAG IV SCH ×2 (11:13→17:07)
[2019-05-02] MEDS: Sodium Chloride 0.9% 1,000 ML IV SCH (19:39)
[2019-05-03] MEDS: Magnesium Sulfate/Water 2 GM in Premix Bag 1 BAG IV SCH ×2 (00:09→05:58)
[2019-05-03] MEDS: oxyCODONE 5 MG Tab PO PRN ×5 (00:14→22:16)
[2019-05-03] MEDS: Piperacillin/Tazobactam/Dext 3.375 GM in Premix Bag 1 BAG IV SCH ×4 (03:58→21:34)
[2019-05-03] MEDS: Sodium Chloride 0.9% 1,000 ML IV SCH (06:06)
[2019-05-03] MEDS: Acetaminophen 325 MG Tab PO PRN ×4 (06:34→22:16)
[2019-05-03] MEDS: LIPASE PO SCH ×3 (07:51→17:04)
[2019-05-03] MEDS: Insulin Lispro 100 Unit/ML 3 ML KwikPen SUBCUT SCH ×4 (07:51→21:39)
[2019-05-03] MEDS: AMYLASE PO SCH ×3 (07:51→17:04)
[2019-05-03] MEDS: PROTEASE PO SCH ×3 (07:51→17:04)
[2019-05-03] MEDS: Pantoprazole 40 MG Tab.CR PO SCH (07:53)
[2019-05-03] MEDS: Lactobacillus Rhamnosus GG (Probiotic) Cap PO SCH ×2 (08:07→21:34)
[2019-05-03] MEDS: Nicotine 21 MG/24 Hr Patch TRDERM SCH (08:09)
[2019-05-03] MEDS: Insulin Glargine,Human Rec. Analog 100 Units/ML 3 ML Pen SUBCUT SCH (08:11)
[2019-05-03] MEDS: Enoxaparin 40 MG/0.4 ML Syringe SUBCUT SCH (08:13)
--- NOTE | 2019-05-03 09:38 | PCM.PN ---
- General Info Date of Service: 05/03/19 Subjective Update: Mr. Jones was admitted yesterday with pneumonia and pancreatitis. At the time of a very hypotensive with elevated lactic acid, was felt to be secondary to severe dehydration, rather than sepsis. Hypotension and lactic acidosis resolved quickly with hydration. He is feeling somewhat better this morning with improvement in his abdominal pain. Mild cough but denies significant respiratory compromise. Functional Status: Reports: Tolerating Diet, Ambulating, Urinating - Review of Systems General: Reports: Weakness, Fatigue. Denies: Fever, Chills Pulmonary: Reports: Cough. Denies: Shortness of Breath, Pleuritic Chest Pain, Sputum, Hemoptysis, Wheezing Cardiovascular: Reports: No Symptoms Gastrointestinal: Reports: Abdominal Pain. Denies: Diarrhea, Difficulty Swallowing, Nausea, Vomiting - Patient Data Vitals - Most Recent: Last Vital Signs Temp 98.7 F 05/03/19 07:58 Pulse 85 05/03/19 07:58 Resp 18 05/03/19 07:58 BP 141/94 H 05/03/19 07:58 Pulse Ox 95 05/03/19 07:58 Weight - Most Recent: 173 lb 15.115 oz I&O - Last 24 Hours: Intake & Output 05/02/19 05/03/19 05/03/19 22:59 06:59 14:59 Intake Total 2062 1251 Output Total 1025 700 Balance 1037 551 Lab Results Last 24 Hours: Laboratory Results - last 24 hr 05/02/19 05/02/19 05/03/19 Range/Units 12:04 12:04 05:19 WBC 3.1 L (4.5-11.0) K/uL RBC 3.60 L (4.30-5.90) M/uL Hgb 11.1 L (12.0-15.0) g/dL Hct 33.5 L (40.0-54.0) % MCV 93 (80-98) fL MCH 31 (27-31) pg MCHC 33 (32-36) % Plt Count 66 L (150-400) K/uL Sodium (140-148) mmol/L Potassium 3.8 (3.6-5.2) mmol/L Chloride (100-108) mmol/L Carbon Dioxide (21-32) mmol/L Anion Gap (5.0-14.0) mmol/L BUN (7-18) mg/dL Creatinine (0.8-1.3) mg/dL Est Cr Clr Drug Dosing mL/min Estimated GFR (MDRD) (>60) Glucose (74-106) mg/dL Lactic Acid 1.1 (0.4-2.0) mmol/L Calcium (8.5-10.1) mg/dL 05/03/19 Range/Units 05:19 WBC (4.5-11.0) K/uL RBC (4.30-5.90) M/uL Hgb (12.0-15.0) g/dL Hct (40.0-54.0) % MCV (80-98) fL MCH (27-31) pg MCHC (32-36) % Plt Count (150-400) K/uL Sodium 138 L (140-148) mmol/L Potassium 3.8 (3.6-5.2) mmol/L Chloride 104 (100-108) mmol/L Carbon Dioxide 25 (21-32) mmol/L Anion Gap 12.8 (5.0-14.0) mmol/L BUN 13 D (7-18) mg/dL Creatinine 0.8 D (0.8-1.3) mg/dL Est Cr Clr Drug Dosing 129.42 mL/min Estimated GFR (MDRD) > 60 (>60) Glucose 124 H (74-106) mg/dL Lactic Acid (0.4-2.0) mmol/L Calcium 7.9 L (8.5-10.1) mg/dL Med Orders - Current: Current Medications Acetaminophen (Tylenol) 650 mg PO Q4H PRN PRN Reason: Pain (Mild 1-3)/fever Last Admin: 05/03/19 06:34 Dose: 650 mg Albuterol (Proventil Neb Soln) 2.5 mg NEB Q4H PRN PRN Reason: Shortness Of Breath/wheezing Amlodipine Besylate (Norvasc) 10 mg PO DAILY [facility] Atorvastatin Calcium (Lipitor) 20 mg PO DAILY [facility] Enoxaparin Sodium (Lovenox) 40 mg SUBCUT DAILY [facility] Last Admin: 05/03/19 08:13 Dose: 40 mg Hydrochlorothiazide (Hydrochlorothiazide) 25 mg PO DAILY [facility] Magnesium Sulfate 2 gm/ Premix 50 mls @ 12.5 mls/hr IV Q6H [facility] Stop: 05/03/19 09:59 Last Admin: 05/03/19 05:58 Dose: 12.5 mls/hr Piperacillin/Tazobactam/ (Dextrose 3.375 gm/ Premix) 50 mls @ 100 mls/hr IV Q6H [facility] Last Admin: 05/03/19 03:58 Dose: 100 mls/hr Insulin Glargine (Lantus Solostar) 20 units SUBCUT DAILY [facility] Last Admin: 05/03/19 08:11 Dose: 20 units Insulin Human Lispro (Humalog) 0 unit SUBCUT QIDACANDBED [facility]; Protocol Last Admin: 05/03/19 07:51 Dose: Not Given Lactobacillus Rhamnosus (Culturelle) 1 cap PO BID [facility] Last Admin: 05/03/19 08:07 Dose: 1 cap Lisinopril (Prinivil) 40 mg PO DAILY [facility] Lorazepam (Ativan) 0.5 mg IVPUSH Q4H PRN PRN Reason: Nausea/Vomiting Magnesium Hydroxide (Milk Of Magnesia) 30 ml PO Q12H PRN PRN Reason: Constipation Melatonin (Melatonin) 9 mg PO BEDTIME PRN PRN Reason: sleep Last Admin: 05/03/19 00:15 Dose: 9 mg Nicotine (Habitrol) 21 mg TRDERM DAILY [facility] Last Admin: 05/03/19 08:09 Dose: 21 mg (Lipase/Protease/Amylase [Zenpep Dr 20,000 Unit] *Pom) 2 each PO TIDMEALS [facility] Last Admin: 05/03/19 07:51 Dose: 2 each Ondansetron HCl (Zofran Odt) 4 mg PO Q6H PRN PRN Reason: Nausea able to take PO Ondansetron HCl (Zofran) 4 mg IV Q6H PRN PRN Reason: Nausea/Vomiting Oxycodone HCl (Oxycodone) 5 - 10 mg PO Q4H PRN PRN Reason: Pain Last Admin: 05/03/19 06:33 Dose: 5 mg Pantoprazole Sodium (Protonix) 40 mg PO ACBREAKFAST [facility] Last Admin: 05/03/19 07:53 Dose: 40 mg Senna/Docusate Sodium (Senna Plus) 1 tab PO BID PRN PRN Reason: Constipation Discontinued Medications Fentanyl (Sublimaze) 75 mcg IVPUSH ONETIME ONE Stop: 05/02/19 03:58 Last Admin: 05/02/19 05:50 Dose: 75 mcg Fentanyl (Sublimaze) 50 mcg IVPUSH Q2H PRN PRN Reason: Pain (severe 7-10) Folic Acid (Folic Acid) 1 mg IV DAILY [facility] Last Admin: 05/02/19 05:24 Dose: 1 mg Lactated Ringer's (Ringers, Lactated) 1,000 mls @ 1,000 mls/hr IV BOLUS ONE Stop: 05/02/19 04:51 Last Admin: 05/02/19 03:52 Dose: 1,000 mls/hr Piperacillin Sod/Tazobactam (Sod 4.5 gm/ Sodium Chloride) 100 mls @ 100 mls/hr IV ONETIME ONE Stop: 05/02/19 04:52 Last Admin: 05/02/19 04:13 Dose: 100 mls/hr Sodium Chloride (Normal Saline) 1,000 mls @ 999 mls/hr IV .BOLUS ONE Stop: 05/02/19 05:17 Last Admin: 05/02/19 04:10 Dose: 999 mls/hr Potassium Chloride 20 meq/ (Premix) 100 mls @ 50 mls/hr IV ONETIME ONE Stop: 05/02/19 06:31 Last Admin: 05/02/19 05:16 Dose: 50 mls/hr Thiamine HCl 100 mg/ Sodium (Chloride) 101 mls @ 202 mls/hr IV ONETIME ONE Stop: 05/02/19 04:51 Last Admin: 05/02/19 05:25 Dose: 202 mls/hr Magnesium Sulfate 2 gm/ Premix 50 mls @ 12.5 mls/hr IV ONETIME ONE Stop: 05/02/19 08:51 Last Admin: 05/02/19 05:18 Dose: 12.5 mls/hr Sodium Chloride (Normal Saline) 1,000 mls @ 100 [facility]ls[facility] Last Admin: 05/03/19 06:06 Dose: 100 mls/hr Ondansetron HCl (Zofran) 4 mg IVPUSH ONETIME ONE Stop: 05/02/19 03:57 Last Admin: 05/02/19 04:12 Dose: 4 mg Potassium Chloride (Klor-Con M20) 40 meq PO ONETIME ONE Stop: 05/02/19 04:34 Last Admin: 05/02/19 05:11 Dose: 40 meq Potassium Chloride (Klor-Con M20) 40 meq PO ONETIME ONE Stop: 05/02/19 13:01 Last Admin: 05/02/19 14:02 Dose: 40 meq - Exam Quality Assessment: DVT Prophylaxis General: Alert, Oriented, Cooperative, Mild Distress Lungs: Clear to Auscultation, Normal Respiratory Effort Cardiovascular: Regular Rate, Regular Rhythm, No Murmurs GI/Abdominal Exam: Soft, No Organomegaly, Tender. No: Distended, Guarding, Rigid, Rebound Extremities: Non-Tender, No Pedal Edema - Problem List Review Problem List Initiated/Reviewed/Updated: Yes - My Orders Last 24 Hours: My Active Orders 05/03/19 09:26 Patient Status [ADT] Routine 05/03/19 09:31 Convert IV to Saline Lock [OM.PC] Routine 05/03/19 09:45 Lisinopril [Prinivil] 40 mg PO DAILY amLODIPine [Norvasc] 10 mg PO DAILY atorvaSTATin [Lipitor] 20 mg PO DAILY hydroCHLOROthiazide 25 mg PO DAILY 05/03/19 Breakfast Regular Diet [DIET] 05/04/19 05:00 BASIC METABOLIC PANEL,BMP [CHEM] Timed CBC WITH AUTO DIFF [HEME] Timed - Plan Plan:: ASSESSMENT AND PLAN - Acute on chronic pancreatitis - improved from admission with less pain, no nausea or vomiting -Transfer to medical surgical floor -Regular diet -Pain control Left lower lobe pneumonia -respiratory status has been stable since admission, persistent mild cough -Pip/Tazo Acute kidney injury - resolved with hydration, creatinine now within normal range -Saline lock IV -Labs in the morning -Resume blood pressure medications Hypokalemia - resolved with replacement -Recheck potassium in a.m. Insulin-dependent diabetes mellitus - patient reports recent hyperglycemia but blood sugars are acceptable at this time. -Continue long-acting insulin -Sliding-scale insulin Alcohol dependence - patient reports use last night but none for 2 weeks prior to that. Long history of fairly heavy alcohol use. No evidence of significant withdrawal less far -[facility] protocol -Melatonin at bedtime -Start lorazepam protocol and gabapentin if more evidence for alcohol withdrawal Tobacco dependence - smokes a pack a day, no interest in quitting. -Encourage cessation -Nicotine patch Maintenance issues - - DVT prophylaxis - enoxaparin - GI prophylaxis - PPI - Nutrition - clear liquids - Liriano catheter - not indicated CODE STATUS - full code Admission justification - This patient will be admitted for inpatient services and is medically appropriate meeting medical necessity for inpatient admission as outlined in my documentation. I reasonably expect the patient will require inpatient services that span a period time over 2 midnights. I reasonably expect this patient to be discharged or transferred within 96 hours [address] admission [facility]. Disposition - anticipate discharge home after the hospital stay Primary care physician - Dr Francisca Monteiro
[2019-05-03] MEDS: Hydrochlorothiazide 25 MG Tab PO SCH (10:29)
[2019-05-03] MEDS: amLODIPine 10 MG Tab PO SCH (10:30)
[2019-05-03] MEDS: atorvaSTATin 20 MG Tab PO SCH (10:30)
[2019-05-03] MEDS: Lisinopril 20 MG Tab PO SCH (10:30)
[2019-05-03] MEDS ORDERED: Potassium Chloride 20 MEQ Tab.ER PO ONE (10:30)
[2019-05-03] MEDS ORDERED: Insulin Lispro 100 Units/ML 3 ML Vial SUBCUT ONE ×2 (21:37→21:44)
[2019-05-03] MEDS ORDERED: Insulin Lispro 100 Unit/ML 3 ML KwikPen SUBCUT ONE (21:46)
[2019-05-04] MEDS: Piperacillin/Tazobactam/Dext 3.375 GM in Premix Bag 1 BAG IV SCH ×2 (04:30→09:47)
[2019-05-04] MEDS: PROTEASE PO SCH ×2 (08:16→11:23)
[2019-05-04] MEDS: AMYLASE PO SCH ×2 (08:16→11:23)
[2019-05-04] MEDS: LIPASE PO SCH ×2 (08:16→11:23)
[2019-05-04] MEDS: amLODIPine 10 MG Tab PO SCH (08:17)
[2019-05-04] MEDS: atorvaSTATin 20 MG Tab PO SCH (08:17)
[2019-05-04] MEDS: Lisinopril 20 MG Tab PO SCH (08:17)
[2019-05-04] MEDS: Hydrochlorothiazide 25 MG Tab PO SCH (08:17)
[2019-05-04] MEDS: Lactobacillus Rhamnosus GG (Probiotic) Cap PO SCH (08:17)
[2019-05-04] MEDS: Pantoprazole 40 MG Tab.CR PO SCH (08:18)
[2019-05-04] MEDS: Insulin Lispro 100 Unit/ML 3 ML KwikPen SUBCUT SCH ×2 (08:18→11:23)
[2019-05-04] MEDS: Nicotine 21 MG/24 Hr Patch TRDERM SCH (08:18)
[2019-05-04] MEDS: Insulin Glargine,Human Rec. Analog 100 Units/ML 3 ML Pen SUBCUT SCH (08:19)
[2019-05-04] MEDS: Acetaminophen 325 MG Tab PO PRN (09:44)
--- NOTE | 2019-05-04 10:46 | PCM.DCSUM1 ---
Discharge Summary - Hospital Course Brief History: Mr. Jones is a 39-year-old gentleman who was admitted through the emergency department with abdominal pain and nausea secondary to recurrent pancreatitis and small left lung pneumonia. - Discharge Data Discharge Date: 05/04/19 Discharge Disposition: Home, Self-Care 01 Condition: Fair - Patient Summary/Data Hospital Course: Freddy presented to the emergency room with 4 days of progressive epigastric and left upper quadrant abdominal pain. He has noticed that he's been coughing a little more than usual but has not produced any sputum. No significant shortness of breath reported. Blood sugars have been up and down with recent readings that were too high for his monitor to determine. He had been without his insulin pen for a day but was able to get the blood sugars down to a better number after taking some extra insulin once he had his pen. He reports consuming about 5 shots of vodka last night. Most recent alcohol use prior to that was 2 weeks ago. He describes multiple muscles in his body that have been cramping in recent days. Calf muscles, foot and toes as well as hands. Workup in the emergency room revealed systemic hypotension on arrival but normal temperature and normal heart rate. He has not been hypoxic. Laboratory studies have revealed acute kidney injury, profound hypokalemia and hypomagnesemia. Initial lactic acid level was greater than 6. Lipase is normal. CT scan of the abdomen and pelvis showed significant improvement in his pseudocyst and did document a very small left lower lobe pneumonia. Patient will be admitted for management of multiple issues listed above. He was admitted to the intensive care unit and given vigorous IV fluid replacement for management of his dehydration. Blood pressure stabilize following fluid infusion with normalization of his lactic acid level. Blood glucose levels were monitored throughout hospital stay and he was treated with usual dose of insulin in addition to sliding scale Humalog. Lipase level remained low normal and pain from pancreatitis improved but have not totally resolved by the time of discharge. He had tolerated a regular diet for 24 hours or to discharge. Cultures remain negative concerning his small left lung infiltrate, at the time of discharge she will be continued on 3 more days of doxycycline 100 mg twice daily. He is instructed to avoid all further alcohol use activity will be as tolerated and he will resume his usual diabetic diet as well as insulin regimen. - Discharge Plan Prescriptions/Med Rec: Doxycycline [Vibramycin] 100 mg PO DAILY #6 cap Lactobacillus Rhamnosus GG [Culturelle] 1 cap PO BID #60 cap oxyCODONE 5 - 10 mg PO Q4H PRN #12 tablet PRN Reason: Pain Home Medications: Home Meds Lisinopril 40 mg PO DAILY 02/15/18 [History] Omeprazole 20 mg PO DAILY 02/15/18 [History] amLODIPine Besylate [Norvasc] 10 mg PO DAILY 02/15/18 [History] Insulin Aspart [NovoLOG] 7 - 15 unit SUBCUT WITHMEALSANDBED 10/01/18 [History] atorvaSTATin Calcium [Lipitor] 20 mg PO DAILY 10/01/18 [History] Lipase/Protease/Amylase [Zenpep DR 20,000 Unit] 2 each PO TIDMEALS 01/28/19 [ History] Insulin Glarg,Human.Rec.Analog [Lantus Solostar] 20 units SUBCUT DAILY 05/02/19 [History] chlordiazePOXIDE HCl [Chlordiazepoxide HCl] 1 cap PO BID 05/02/19 [History] hydroCHLOROthiazide [Hydrochlorothiazide] 25 mg PO DAILY 05/02/19 [History] Doxycycline [Vibramycin] 100 mg PO DAILY #6 cap 05/04/19 [Rx] Lactobacillus Rhamnosus GG [Culturelle] 1 cap PO BID #60 cap 05/04/19 [Rx] oxyCODONE 5 - 10 mg PO Q4H PRN #12 tablet 05/04/19 [Rx] Referrals: Francisca Monteiro MD [Ordering Only Provider] - 05/11/19 9:15 am (Please arrive 15 minutes early to register for your appointment.) - Discharge Summary/Plan Comment DC Time >30 min.: No - Patient Data Vitals - Most Recent: Last Vital Signs Temp 96.4 F 05/04/19 07:43 Pulse 83 05/04/19 07:43 Resp 16 05/04/19 07:43 BP 175/109 H 05/04/19 08:17 Pulse Ox 100 05/04/19 07:43 Weight - Most Recent: 173 lb 15.115 oz I&O - Last 24 hours: Intake & Output 05/03/19 05/04/19 05/04/19 22:59 06:59 14:59 Intake Total 1480 550 50 Output Total 2575 2200 1000 Balance -1095 -1650 -950 Lab Results - Last 24 hrs: Laboratory Results - last 24 hr 05/04/19 05/04/19 Range/Units 05:03 05:03 WBC 2.7 L (4.5-11.0) K/uL RBC 3.88 L (4.30-5.90) M/uL Hgb 11.9 L (12.0-15.0) g/dL Hct 35.5 L (40.0-54.0) % MCV 92 (80-98) fL MCH 31 (27-31) pg MCHC 34 (32-36) % Plt Count 82 L (150-400) K/uL Neut % (Auto) 39 (36-66) % Lymph % (Auto) 40 (24-44) % [place] % (Auto) 17 H (2-6) % Eos % (Auto) 4 (2-4) % Baso % (Auto) 1 (0-1) % Sodium 137 L (140-148) mmol/L Potassium 4.4 (3.6-5.2) mmol/L Chloride 101 (100-108) mmol/L Carbon Dioxide 28 (21-32) mmol/L Anion Gap 12.4 (5.0-14.0) mmol/L BUN 11 (7-18) mg/dL Creatinine 0.9 (0.8-1.3) mg/dL Est Cr Clr Drug Dosing 114.57 mL/min Estimated GFR (MDRD) > 60 (>60) Glucose 330 H (74-106) mg/dL Calcium 8.6 (8.5-10.1) mg/dL Med Orders - Current: Current Medications Acetaminophen (Tylenol) 650 mg PO Q4H PRN PRN Reason: Pain (Mild 1-3)/fever Last Admin: 05/04/19 09:44 Dose: 650 mg Albuterol (Proventil Neb Soln) 2.5 mg NEB Q4H PRN PRN Reason: Shortness Of Breath/wheezing Amlodipine Besylate (Norvasc) 10 mg PO DAILY [facility] Last Admin: 05/04/19 08:17 Dose: 10 mg Atorvastatin Calcium (Lipitor) 20 mg PO DAILY [facility] Last Admin: 05/04/19 08:17 Dose: 20 mg Hydrochlorothiazide (Hydrochlorothiazide) 25 mg PO DAILY [facility] Last Admin: 05/04/19 08:17 Dose: 25 mg Piperacillin/Tazobactam/ (Dextrose 3.375 gm/ Premix) 50 mls @ 100 mls/hr IV Q6H [facility] Last Admin: 05/04/19 09:47 Dose: 100 mls/hr Insulin Glargine (Lantus Solostar) 20 units SUBCUT DAILY [facility] Last Admin: 05/04/19 08:19 Dose: 20 units Insulin Human Lispro (Humalog) 0 unit SUBCUT QIDACANDBED [facility]; Protocol Last Admin: 05/04/19 08:18 Dose: 6 units Lactobacillus Rhamnosus (Culturelle) 1 cap PO BID [facility] Last Admin: 05/04/19 08:17 Dose: 1 cap Lisinopril (Prinivil) 40 mg PO DAILY [facility] Last Admin: 05/04/19 08:17 Dose: 40 mg Lorazepam (Ativan) 0.5 mg IVPUSH Q4H PRN PRN Reason: Nausea/Vomiting Magnesium Hydroxide (Milk Of Magnesia) 30 ml PO Q12H PRN PRN Reason: Constipation Melatonin (Melatonin) 9 mg PO BEDTIME PRN PRN Reason: sleep Last Admin: 05/03/19 00:15 Dose: 9 mg Nicotine (Habitrol) 21 mg TRDERM DAILY [facility] Last Admin: 05/04/19 08:18 Dose: 21 mg (Lipase/Protease/Amylase [Zenpep Dr 20,000 Unit] *Pom) 2 each PO TIDMEALS [facility] Last Admin: 05/04/19 08:16 Dose: 2 each Ondansetron HCl (Zofran Odt) 4 mg PO Q6H PRN PRN Reason: Nausea able to take PO Ondansetron HCl (Zofran) 4 mg IV Q6H PRN PRN Reason: Nausea/Vomiting Oxycodone HCl (Oxycodone) 5 - 10 mg PO Q4H PRN PRN Reason: Pain Last Admin: 05/03/19 22:16 Dose: 10 mg Pantoprazole Sodium (Protonix) 40 mg PO ACBREAKFAST [facility] Last Admin: 05/04/19 08:18 Dose: 40 mg Senna/Docusate Sodium (Senna Plus) 1 tab PO BID PRN PRN Reason: Constipation Discontinued Medications Enoxaparin Sodium (Lovenox) 40 mg SUBCUT DAILY [facility] Last Admin: 05/03/19 08:13 Dose: 40 mg Fentanyl (Sublimaze) 75 mcg IVPUSH ONETIME ONE Stop: 05/02/19 03:58 Last Admin: 05/02/19 05:50 Dose: 75 mcg Fentanyl (Sublimaze) 50 mcg IVPUSH Q2H PRN PRN Reason: Pain (severe 7-10) Folic Acid (Folic Acid) 1 mg IV DAILY [facility] Last Admin: 05/02/19 05:24 Dose: 1 mg Lactated Ringer's (Ringers, Lactated) 1,000 mls @ 1,000 mls/hr IV BOLUS ONE Stop: 05/02/19 04:51 Last Admin: 05/02/19 03:52 Dose: 1,000 mls/hr Piperacillin Sod/Tazobactam (Sod 4.5 gm/ Sodium Chloride) 100 mls @ 100 mls/hr IV ONETIME ONE Stop: 05/02/19 04:52 Last Admin: 05/02/19 04:13 Dose: 100 mls/hr Sodium Chloride (Normal Saline) 1,000 mls @ 999 mls/hr IV .BOLUS ONE Stop: 05/02/19 05:17 Last Admin: 05/02/19 04:10 Dose: 999 mls/hr Potassium Chloride 20 meq/ (Premix) 100 mls @ 50 mls/hr IV ONETIME ONE Stop: 05/02/19 06:31 Last Admin: 05/02/19 05:16 Dose: 50 mls/hr Thiamine HCl 100 mg/ Sodium (Chloride) 101 mls @ 202 mls/hr IV ONETIME ONE Stop: 05/02/19 04:51 Last Admin: 05/02/19 05:25 Dose: 202 mls/hr Magnesium Sulfate 2 gm/ Premix 50 mls @ 12.5 mls/hr IV ONETIME ONE Stop: 05/02/19 08:51 Last Admin: 05/02/19 05:18 Dose: 12.5 mls/hr Magnesium Sulfate 2 gm/ Premix 50 mls @ 12.5 mls/hr IV Q6H [facility] Stop: 05/03/19 09:59 Last Admin: 05/03/19 05:58 Dose: 12.5 mls/hr Sodium Chloride (Normal Saline) 1,000 mls @ 100 mls[facility] Last Admin: 05/03/19 06:06 Dose: 100 mls/hr Insulin Human Lispro (Humalog) 12 unit SUBCUT ONETIME ONE Stop: 05/03/19 21:47 Last Admin: 05/03/19 22:14 Dose: 12 units Ondansetron HCl (Zofran) 4 mg IVPUSH ONETIME ONE Stop: 05/02/19 03:57 Last Admin: 05/02/19 04:12 Dose: 4 mg Potassium Chloride (Klor-Con M20) 40 meq PO ONETIME ONE Stop: 05/02/19 04:34 Last Admin: 05/02/19 05:11 Dose: 40 meq Potassium Chloride (Klor-Con M20) 40 meq PO ONETIME ONE Stop: 05/02/19 13:01 Last Admin: 05/02/19 14:02 Dose: 40 meq Potassium Chloride (Klor-Con M20) 40 meq PO ONETIME ONE Stop: 05/03/19 10:31 Last Admin: 05/03/19 10:29 Dose: 40 meq - Exam General: Reports: Alert, Oriented, Cooperative, Mild Distress Lungs: Reports: Clear to Auscultation, Normal Respiratory Effort Cardiovascular: Reports: Regular Rate, Regular Rhythm GI/Abdominal Exam: Soft, No Organomegaly, Tender. No: Distended, Guarding, Rigid, Rebound
== END 2019-05-04 11:45 | disposition home or self-care (01) | DRG 282 ==
LOC: JP.ED 03:37 → JP.ICU 06:51 → JP.MS 05-03 11:13
PROVIDERS: ADMIT Internal Medicine; ATTEND Internal Medicine
DX: K85.90 Acute pancreatitis without necrosis or infection, unspecified (principal); K86.1 Other chronic pancreatitis; J18.1 Lobar pneumonia, unspecified organism; N17.9 Acute kidney failure, unspecified; F10.29 Alcohol dependence with unspecified alcohol-induced disorder; E87.6 Hypokalemia; E83.42 Hypomagnesemia; E87.2 Acidosis; E86.0 Dehydration; F17.210 Nicotine dependence, cigarettes, uncomplicated; I10 Essential (primary) hypertension; E78.00 Pure hypercholesterolemia, unspecified; K21.9 Gastro-esophageal reflux disease without esophagitis; E11.9 Type 2 diabetes mellitus without complications; Z79.4 Long term (current) use of insulin; K86.3 Pseudocyst of pancreas; R25.2 Cramp and spasm; Z90.49 Acquired absence of other specified parts of digestive tract; Z91.030 Bee allergy status; Z79.899 Other long term (current) drug therapy
CPT/HCPCS: 36415; 74176; 80048; 80053; 82962; 83605; 83690; 83735; 84132; 85025; 85027; 93005; 96365; 96366; 96367; 96368; 96375; 99291-25; A9270-GY; J1650; J1815; J1815-GY; J2405; J2543; J3010; J3411; J3475; J3480; J3490; J7030; J7120

== ENCOUNTER 2019-06-04 13:48 | Inpatient (IN) | payer BC ==
[2019-06-04] MEDS ORDERED: Ondansetron 4 MG/2 ML SDV ONE (14:00)
--- NOTE | 2019-06-04 14:06 | EDM.PDOC ---
ED HPI GENERAL MEDICAL PROBLEM - General Stated Complaint: HIGH BLOOD SUGER VIA [place] Time Seen by Provider: 06/04/19 13:59 Source of Information: Reports: Patient History Limitations: Reports: No Limitations - History of Present Illness INITIAL COMMENTS - FREE TEXT/NARRATIVE: 39 years old male patient brought in by ambulance with chief complaint of elevated blood sugar. Started last night. Patient meets her keep reading high which means it above 650. This morning he took 30 units of NovoLog and checked his blood sugar again around noon and took another 30 units of NovoLog and his meter still reading high. Feeling dizzy. Nauseated and vomiting. Denies any cough or fever. Denies any chest pain shortness breath. Denies any diarrhea or constipation. Have urinary frequency with no urgency or burning or dysuria. His abdomen feels sore from all the vomiting. Blood pressure was in the 60s systolic on arrival. Up to 88 systolic after first liter fluid. And now secondary to his running. - Related Data Allergies Allergy/AdvReac Type Severity Reaction Status Date / Time bee venom protein (honey bee) Allergy Airway Verified 05/02/19 03:41 Tightness Home Meds: Home Meds Lisinopril 40 mg PO DAILY 02/15/18 [History] Omeprazole 20 mg PO DAILY 02/15/18 [History] amLODIPine Besylate [Norvasc] 10 mg PO DAILY 02/15/18 [History] Insulin Aspart [NovoLOG] 7 - 15 unit SUBCUT WITHMEALSANDBED 10/01/18 [History] atorvaSTATin Calcium [Lipitor] 20 mg PO DAILY 10/01/18 [History] Lipase/Protease/Amylase [Wei DR 20,000 Unit] 2 each PO TIDMEALS 01/28/19 [ History] Insulin Glarg,Human.Rec.Analog [Lantus Solostar] 20 units SUBCUT DAILY 05/02/19 [History] chlordiazePOXIDE HCl [Chlordiazepoxide HCl] 1 cap PO BID 05/02/19 [History] hydroCHLOROthiazide [Hydrochlorothiazide] 25 mg PO DAILY 05/02/19 [History] Doxycycline [Vibramycin] 100 mg PO DAILY #6 cap 05/04/19 [Rx] Lactobacillus Rhamnosus GG [Culturelle] 1 cap PO BID #60 cap 05/04/19 [Rx] oxyCODONE 5 - 10 mg PO Q4H PRN #12 tablet 05/04/19 [Rx] Past Medical History HEENT History: Reports: Otitis Media Cardiovascular History: Reports: High Cholesterol, Hypertension Gastrointestinal History: Reports: GERD, Pancreatitis Neurological History: Reports: Seizure Psychiatric History: Reports: Addiction Endocrine/Metabolic History: Reports: Diabetes, Type II Hematologic History: Reports: Blood Transfusion(s) - Infectious Disease History Infectious Disease History: Reports: Chicken Pox - Past Surgical History Head Surgeries/Procedures: Reports: None HEENT Surgical History: Reports: Myringotomy w Tube(s) GI Surgical History: Reports: Cholecystectomy Dermatological Surgical History: Reports: None Social & Family History - Family History Family Medical History: Unobtainable - Tobacco Use Smoking Status *Q: Heavy Tobacco Smoker Years of Tobacco use: 25 Packs/Tins Daily: 1 - Caffeine Use Caffeine Use: Reports: Coffee - Recreational Drug Use Recreational Drug Use: No ED ROS GENERAL - Review of Systems Review Of Systems: ROS reveals no pertinent complaints other than HPI. ED EXAM GENERAL NO PERIP PULSE - Physical Exam Exam: See Below Exam Limited By: No Limitations General Appearance: Alert, WD/WN, No Apparent Distress Ears: Normal External Exam, Normal Canal, Hearing Grossly Normal, Normal TMs Throat/Mouth: Normal Inspection, Normal Lips, Normal Teeth, Normal Gums, Normal Oropharynx, Normal Voice, No Airway Compromise Head: Atraumatic, Normocephalic Neck: Normal Inspection, Supple, Non-Tender, Full Range of Motion Respiratory/Chest: No Respiratory Distress, Lungs Clear, Normal Breath Sounds, No Accessory Muscle Use, Chest Non-Tender Cardiovascular: Normal Peripheral Pulses, Regular Rate, Rhythm, No Edema, No Gallop, No JVD, No Murmur, No Rub GI/Abdominal: Normal Bowel Sounds, Soft, Non-Tender, No Organomegaly, No Distention, No Abnormal Bruit, No Mass Extremities: Normal Inspection, Normal Range of Motion, Non-Tender, Normal Capillary Refill, No Pedal Edema Neurological: Alert, Oriented, CN II-XII Intact, Normal Cognition, Normal Gait, Normal Reflexes, No Motor/Sensory Deficits Course - Vital Signs Last Recorded V/S: Last Vital Signs Temp 34.5 C L 06/04/19 13:52 Pulse 87 06/04/19 16:18 Resp 16 06/04/19 13:52 BP 113/69 06/04/19 16:18 Pulse Ox 98 06/04/19 15:38 - Orders/Labs/Meds Orders: Active Orders 24 hr Category Date Time Status Cardiac Monitoring [RC] .As Directed Care 06/04/19 14:27 Active UA W/MICROSCOPIC [URIN] Stat Lab 06/04/19 14:27 Ordered Insulin Regular, Human [HumuLIN R] 100 unit Med 06/04/19 16:00 Active Sodium Chloride 0.9% [Normal Saline] 99 ml IV TITRATE Sodium Chloride 0.9% [Normal Saline] 1,000 ml Med 06/04/19 14:30 Active IV ASDIRECTED Medication Orders Sodium Chloride (Normal Saline) 1,000 mls @ 999 mls/hr IV ASDIRECTED [facility] Last Admin: 06/04/19 14:29 Dose: 999 mls/hr Insulin Human Regular 100 unit (/ Sodium Chloride) 100 mls @ 7.71 mls/hr IV TITRATE [facility]; Protocol Last Admin: 06/04/19 16:13 Dose: 0.1 units/kg/hr, 7.71 mls/hr Labs: Laboratory Tests 06/04/19 06/04/19 06/04/19 Range/Units 14:38 14:38 14:38 WBC 8.6 (4.5-11.0) K/uL RBC 4.46 (4.30-5.90) M/uL Hgb 13.9 D (12.0-15.0) g/dL Hct 40.8 (40.0-54.0) % MCV 92 (80-98) fL MCH 31 (27-31) pg MCHC 34 (32-36) % Plt Count 182 (150-400) K/uL Neut % (Auto) 83 H (36-66) % Lymph % (Auto) 7 L (24-44) % [place] % (Auto) 10 H (2-6) % Eos % (Auto) 0 L (2-4) % Baso % (Auto) 0 (0-1) % Sodium 129 L (140-148) mmol/L Potassium 4.4 (3.6-5.2) mmol/L Chloride 85 L (100-108) mmol/L Carbon Dioxide 16 L (21-32) mmol/L Anion Gap 32.4 H (5.0-14.0) mmol/L BUN 43 H D (7-18) mg/dL Creatinine 2.6 H D (0.8-1.3) mg/dL Est Cr Clr Drug Dosing 38.61 mL/min Estimated GFR (MDRD) 27 L (>60) Glucose 523 H* (74-106) mg/dL Calcium 8.2 L (8.5-10.1) mg/dL Total Bilirubin 1.1 H D (0.2-1.0) mg/dL AST 24 (15-37) U/L ALT 69 (12-78) U/L Alkaline Phosphatase 174 H (46-116) U/L Troponin I < 0.017 (0.000-0.056) ng/mL Total Protein 7.2 (6.4-8.2) g/dL Albumin 3.8 (3.4-5.0) g/dL Globulin 3.4 (2.3-3.5) g/dL Albumin/Globulin Ratio 1.1 L (1.2-2.2) Lipase 884 H (73-393) U/L Ketones (NEGATIVE) 06/04/19 Range/Units 14:38 WBC (4.5-11.0) K/uL RBC (4.30-5.90) M/uL Hgb (12.0-15.0) g/dL Hct (40.0-54.0) % MCV (80-98) fL MCH (27-31) pg MCHC (32-36) % Plt Count (150-400) K/uL Neut % (Auto) (36-66) % Lymph % (Auto) (24-44) % [place] % (Auto) (2-6) % Eos % (Auto) (2-4) % Baso % (Auto) (0-1) % Sodium (140-148) mmol/L Potassium (3.6-5.2) mmol/L Chloride (100-108) mmol/L Carbon Dioxide (21-32) mmol/L Anion Gap (5.0-14.0) mmol/L BUN (7-18) mg/dL Creatinine (0.8-1.3) mg/dL Est Cr Clr Drug Dosing mL/min Estimated GFR (MDRD) (>60) Glucose (74-106) mg/dL Calcium (8.5-10.1) mg/dL Total Bilirubin (0.2-1.0) mg/dL AST (15-37) U/L ALT (12-78) U/L Alkaline Phosphatase (46-116) U/L Troponin I (0.000-0.056) ng/mL Total Protein (6.4-8.2) g/dL Albumin (3.4-5.0) g/dL Globulin (2.3-3.5) g/dL Albumin/Globulin Ratio (1.2-2.2) Lipase (73-393) U/L Ketones Moderate H (NEGATIVE) Meds: Medications Generic Name Dose Route Start Last Admin Trade Name Freq PRN Reason Stop Dose Admin Sodium Chloride 1,000 mls @ 999 mls/hr 06/04/19 14:30 06/04/19 14:29 Normal Saline IV 999 mls/hr ASDIRECTED [facility] Administration Insulin Human Regular 100 unit 100 mls @ 7.71 mls/hr 06/04/19 16:00 06/04/19 16:13 / Sodium Chloride IV 0.1 units/kg/hr TITRATE [facility] 7.71 mls/hr Administration Protocol 0.1 UNITS/KG/HR Discontinued Medications Generic Name Dose Route Start Last Admin Trade Name Freq PRN Reason Stop Dose Admin Insulin Human Regular 10 unit 06/04/19 15:25 06/04/19 15:51 Humulin R IVPUSH 06/04/19 15:26 10 unit ONETIME ONE Administration Ondansetron HCl Confirm 06/04/19 14:00 06/04/19 14:28 Zofran Administered 06/04/19 14:01 Not Given Dose 4 mg .ROUTE .STK-MED ONE Ondansetron HCl 4 mg 06/04/19 14:20 06/04/19 14:28 Zofran IVPUSH 06/04/19 14:21 4 mg ONETIME ONE Administration - Re-Assessments/Exams Free Text/Narrative Re-Assessment/Exam: 06/04/19 14:35 Patient was seen and examined shortly after arrival. Stable. On director web. Given 2 L normal saline bolus. Blood pressure improved to 107/53. Lab reviewed. consistant with Dka . given 3 l ns bolus, started on insulin bolus and infusion started . i did consulted with dr. arce, and he accepted the admission for further managment. patient agree with the plan stable for admission. no obvious source of infection. urine still pending 06/04/19 16:18 06/04/19 16:22 Departure - Departure Time of Disposition: 15:33 Disposition: Admitted As Inpatient 64 Condition: Fair Clinical Impression: DKA, type 2, LUIS (acute kidney injury) - Discharge Information - My Orders Last 24 Hours: My Active Orders 06/04/19 14:27 Cardiac Monitoring [RC] .As Directed UA W/MICROSCOPIC [URIN] Stat 06/04/19 14:30 Sodium Chloride 0.9% [Normal Saline] 1,000 ml IV ASDIRECTED 06/04/19 16:00 Insulin Regular, Human [HumuLIN R] 100 unit Sodium Chloride 0.9% [Normal Saline] 99 ml IV TITRATE - Assessment/Plan Last 24 Hours: My Active Orders 06/04/19 14:27 Cardiac Monitoring [RC] .As Directed UA W/MICROSCOPIC [URIN] Stat 06/04/19 14:30 Sodium Chloride 0.9% [Normal Saline] 1,000 ml IV ASDIRECTED 06/04/19 16:00 Insulin Regular, Human [HumuLIN R] 100 unit Sodium Chloride 0.9% [Normal Saline] 99 ml IV TITRATE Plan: admission to dr. Arce
[2019-06-04] MEDS ORDERED: Ondansetron 4 MG/2 ML SDV IVPUSH ONE (14:20)
[2019-06-04] MEDS ORDERED: Sodium Chloride 0.9% 10 ML SDV IV SCH (14:30)
[2019-06-04] MEDS ORDERED: Sodium Chloride 0.9% 1,000 ML IV SCH (14:30)
[2019-06-04] MEDS ORDERED: Insulin Regular, Human 100 Units/ML 3 ML Vial IVPUSH ONE (15:25)
--- NOTE | 2019-06-04 16:03 | PCM.HP.2 ---
H&P History of Present Illness - General Date of Service: 06/04/19 Admit Problem/Dx: Admission Diagnosis/Problem Admission Diagnosis/Problem Diabetic ketoacidosis Source of Information: Patient, Provider, RN Notes Reviewed History Limitations: Reports: No Limitations - History of Present Illness Initial Comments - Free Text/Narative: Mr. Jones is a 39-year-old gentleman who was admitted through the emergency department with weakness, lightheadedness, nausea, and hyperglycemia, secondary to diabetic ketoacidosis. He has a known history of type 2 diabetes mellitus as well as previous history of severe pancreatitis. He has been told that his diabetes may be closer to type I. Over the last 24 hours is noted significant hyperglycemia with progressive weakness, nausea and lightheadedness. He took extra insulin earlier today but still had levels that were reading too high on his glucometer. On evaluation the emergency department he's found to have evidence of ketoacidosis with elevation in anion gap, decrease in carbon dioxide , and elevation in ketones. He denies any symptoms of infection and is not aware of any fevers, chills, or sweats. - Related Data Allergies/Adverse Reactions: Allergies Allergy/AdvReac Type Severity Reaction Status Date / Time bee venom protein (honey bee) Allergy Airway Verified 05/02/19 03:41 Tightness Home Medications: Home Meds Lisinopril 40 mg PO DAILY 02/15/18 [History] Omeprazole 20 mg PO DAILY 02/15/18 [History] amLODIPine Besylate [Norvasc] 10 mg PO DAILY 02/15/18 [History] Insulin Aspart [NovoLOG] 7 - 15 unit SUBCUT WITHMEALSANDBED 10/01/18 [History] atorvaSTATin Calcium [Lipitor] 20 mg PO DAILY 10/01/18 [History] Lipase/Protease/Amylase [Wei DR 20,000 Unit] 2 each PO TIDMEALS 01/28/19 [ History] Insulin Glarg,Human.Rec.Analog [Lantus Solostar] 20 units SUBCUT DAILY 05/02/19 [History] chlordiazePOXIDE HCl [Chlordiazepoxide HCl] 1 cap PO BID 05/02/19 [History] hydroCHLOROthiazide [Hydrochlorothiazide] 25 mg PO DAILY 05/02/19 [History] Doxycycline [Vibramycin] 100 mg PO DAILY #6 cap 05/04/19 [Rx] Lactobacillus Rhamnosus GG [Culturelle] 1 cap PO BID #60 cap 05/04/19 [Rx] oxyCODONE 5 - 10 mg PO Q4H PRN #12 tablet 05/04/19 [Rx] Past Medical History HEENT History: Reports: Otitis Media Cardiovascular History: Reports: High Cholesterol, Hypertension Gastrointestinal History: Reports: GERD, Pancreatitis Neurological History: Reports: Seizure Psychiatric History: Reports: Addiction Endocrine/Metabolic History: Reports: Diabetes, Type II Hematologic History: Reports: Blood Transfusion(s) - Infectious Disease History Infectious Disease History: Reports: Chicken Pox - Past Surgical History Head Surgeries/Procedures: Reports: None HEENT Surgical History: Reports: Myringotomy w Tube(s) GI Surgical History: Reports: Cholecystectomy Dermatological Surgical History: Reports: None Social & Family History - Family History Family Medical History: Unobtainable - Tobacco Use Smoking Status *Q: Heavy Tobacco Smoker Years of Tobacco use: 25 Packs/Tins Daily: 1 - Caffeine Use Caffeine Use: Reports: Coffee - Recreational Drug Use Recreational Drug Use: No H&P Review of Systems - Review of Systems: Review Of Systems: See Below General: Reports: Malaise, Weakness. Denies: Fever, Chills HEENT: Reports: No Symptoms Pulmonary: Reports: No Symptoms Cardiovascular: Reports: No Symptoms Gastrointestinal: Reports: Nausea, Vomiting. Denies: Abdominal Pain, Constipation, Diarrhea, Difficulty Swallowing, Distension Genitourinary: Reports: No Symptoms Musculoskeletal: Reports: No Symptoms Skin: Reports: No Symptoms Psychiatric: Reports: No Symptoms Neurological: Reports: No Symptoms Hematologic/Lymphatic: Reports: No Symptoms Immunologic: Reports: No Symptoms Exam - Exam Exam: See Below - Vital Signs Vital Signs: Last Vital Signs Temp 94.1 F L 06/04/19 13:52 Pulse 88 06/04/19 15:38 Resp 16 06/04/19 13:52 BP 98/61 06/04/19 15:38 Pulse Ox 98 06/04/19 15:38 Weight: 170 lb - Exam General: Alert, Oriented, Cooperative, Moderate Distress HEENT: Conjunctiva Clear, Hearing Intact, Normal Nasal Septum, Posterior Pharynx Clear, Pupils Equal. No: Mucosa Moist & [place] Neck: Supple, Trachea Midline, +2 Carotid Pulse wo Bruit Lungs: Clear to Auscultation, Normal Respiratory Effort Cardiovascular: Regular Rate, Regular Rhythm, Normal S1, Normal S2, Systolic Murmur. No: Diastolic Murmur GI/Abdominal Exam: Soft, No Organomegaly, Tender. No: Distended, Guarding, Rigid, Rebound Back Exam: Normal Inspection, Full Range of Motion Extremities: Non-Tender, No Pedal Edema Skin: Warm, Dry, Intact Neurological: Cranial Nerves Intact, Strength Equal Bilateral, Normal Speech, Normal Tone, Sensation Intact. No: Focal Deficit Neuro Extensive - Mental Status: Alert, Oriented x3, Normal Mood/Affect, Normal Cognition, Memory Intact - Patient Data Lab Results Last 24 hrs: Laboratory Results - last 24 hr 06/04/19 06/04/19 06/04/19 Range/Units 14:38 14:38 14:38 WBC 8.6 (4.5-11.0) K/uL RBC 4.46 (4.30-5.90) M/uL Hgb 13.9 D (12.0-15.0) g/dL Hct 40.8 (40.0-54.0) % MCV 92 (80-98) fL MCH 31 (27-31) pg MCHC 34 (32-36) % Plt Count 182 (150-400) K/uL Neut % (Auto) 83 H (36-66) % Lymph % (Auto) 7 L (24-44) % Teller % (Auto) 10 H (2-6) % Eos % (Auto) 0 L (2-4) % Baso % (Auto) 0 (0-1) % Sodium 129 L (140-148) mmol/L Potassium 4.4 (3.6-5.2) mmol/L Chloride 85 L (100-108) mmol/L Carbon Dioxide 16 L (21-32) mmol/L Anion Gap 32.4 H (5.0-14.0) mmol/L BUN 43 H D (7-18) mg/dL Creatinine 2.6 H D (0.8-1.3) mg/dL Est Cr Clr Drug Dosing 38.61 mL/min Estimated GFR (MDRD) 27 L (>60) Glucose 523 H* (74-106) mg/dL Calcium 8.2 L (8.5-10.1) mg/dL Total Bilirubin 1.1 H D (0.2-1.0) mg/dL AST 24 (15-37) U/L ALT 69 (12-78) U/L Alkaline Phosphatase 174 H (46-116) U/L Troponin I < 0.017 (0.000-0.056) ng/mL Total Protein 7.2 (6.4-8.2) g/dL Albumin 3.8 (3.4-5.0) g/dL Globulin 3.4 (2.3-3.5) g/dL Albumin/Globulin Ratio 1.1 L (1.2-2.2) Lipase 884 H (73-393) U/L Ketones (NEGATIVE) 06/04/19 Range/Units 14:38 WBC (4.5-11.0) K/uL RBC (4.30-5.90) M/uL Hgb (12.0-15.0) g/dL Hct (40.0-54.0) % MCV (80-98) fL MCH (27-31) pg MCHC (32-36) % Plt Count (150-400) K/uL Neut % (Auto) (36-66) % Lymph % (Auto) (24-44) % Teller % (Auto) (2-6) % Eos % (Auto) (2-4) % Baso % (Auto) (0-1) % Sodium (140-148) mmol/L Potassium (3.6-5.2) mmol/L Chloride (100-108) mmol/L Carbon Dioxide (21-32) mmol/L Anion Gap (5.0-14.0) mmol/L BUN (7-18) mg/dL Creatinine (0.8-1.3) mg/dL Est Cr Clr Drug Dosing mL/min Estimated GFR (MDRD) (>60) Glucose (74-106) mg/dL Calcium (8.5-10.1) mg/dL Total Bilirubin (0.2-1.0) mg/dL AST (15-37) U/L ALT (12-78) U/L Alkaline Phosphatase (46-116) U/L Troponin I (0.000-0.056) ng/mL Total Protein (6.4-8.2) g/dL Albumin (3.4-5.0) g/dL Globulin (2.3-3.5) g/dL Albumin/Globulin Ratio (1.2-2.2) Lipase (73-393) U/L Ketones Moderate H (NEGATIVE) Result Diagrams: 06/04/19 14:38 06/04/19 16:28 *Q Meaningful Use (ADM) - VTE Risk Assess *Q Each Risk Factor Represents 1 Point: Age 41 - 59 years Total Score 1 Point Risk Factors: 1 Each Risk Factor Represents 2 Points: None Total Score 2 Point Risk Factors: 0 Each Risk Factor Represents 3 Points: None Total Score 3 Point Risk Factors: 0 Each Risk Factor Represents 5 Points: None Total Score 5 Point Risk Factors: 0 Venous Thromboembolism Risk Factor Score *Q: 1 Problem List Initiated/Reviewed/Updated: Yes Orders Last 24hrs: Active Orders 24 hr Category Date Time Status Patient Status Manage Transfer [TRANSFER] Routine ADT 06/04/19 15:53 Ordered Cardiac Monitoring [RC] .As Directed Care 06/04/19 14:27 Active UA W/MICROSCOPIC [URIN] Stat Lab 06/04/19 14:27 Ordered Insulin Regular, Human [HumuLIN R] 100 unit Med 06/04/19 16:00 Active Sodium Chloride 0.9% [Normal Saline] 99 ml IV TITRATE Sodium Chloride 0.9% [Normal Saline] 1,000 ml Med 06/04/19 14:30 Active IV ASDIRECTED Resuscitation Status Routine Resus Stat 06/04/19 15:54 Ordered Medication Orders Sodium Chloride (Normal Saline) 1,000 mls @ 999 mls/hr IV ASDIRECTED IVANA Last Admin: 06/04/19 14:29 Dose: 999 mls/hr Insulin Human Regular 100 unit (/ Sodium Chloride) 100 mls @ 7.71 mls/hr IV TITRATE IVANA; Protocol Assessment/Plan Comment:: ASSESSMENT AND PLAN DIABETIC KETOACIDOSIS-history of known type 1/2 diabetes mellitus. Marked elevation in blood sugars over the last 24 hours. No obvious precipitating event identified -IV fluids per ketoacidosis protocol -IV insulin per ketoacidosis protocol -Aggressive electrolyte management -Monitor glucose levels hourly ACUTE KIDNEY INJURY-secondary to dehydration with ketoacidosis -Vigorous IV fluid replacement -Closely monitor urine output and renal function HYPERTENSION-patient found to be hypotensive on initial evaluation, blood pressure improved with IV fluids -Hold antihypertensive therapy until ketoacidosis has resolved MAINTENANCE ISSUES -DVT prophylaxis; scuds -GI prophylaxis; not indicated -Liriano catheter; not indicated -Nutrition; consistent carb diet -Nicotine dependence; patient does smoke regularly denies need for nicotine patch CODE STATUS-FULL CODE ADMISSION STATUS-patient will be admitted to inpatient status, expect at least a 2 night hospital stay for evaluation and management of problems as outlined above. At the time of this admission I do not reasonably expected evaluation and management of this problem will require more than a 96 hour hospital stay. DISPOSITION-anticipate discharge to home after the hospital stay. PRIMARY CARE PROVIDER- - Mortality Measure Prognosis:: Good
[2019-06-04] MEDS ORDERED: Sodium Chloride 0.9% 10 ML Syringe FLUSH PRN (16:28)
[2019-06-04] MEDS ORDERED: Sodium Phosphate 60 MMOLE in Sodium Chloride 0.9% 250 ML IV PRN (16:28)
[2019-06-04] MEDS ORDERED: Potassium Chloride 10% 20 MEQ/15 ML Soln 15 ML UD Cup PO PRN ×3 (16:28)
[2019-06-04] MEDS ORDERED: Magnesium Sulfate/Water 50 ML IV PRN (16:28)
[2019-06-04] MEDS ORDERED: Sodium Chloride 0.9% 2,000 ML IV PRN (16:28)
[2019-06-04] MEDS ORDERED: 50% Dextrose in Water 50 ML Syringe IVPUSH PRN (16:28)
[2019-06-04] MEDS ORDERED: Sodium Chloride 0.9% 1,000 ML IV ONE (17:15)
[2019-06-04] MEDS: oxyCODONE 5 MG Tab PO PRN ×2 (17:16→21:08)
[2019-06-04] MEDS: Ondansetron 4 MG/2 ML SDV IV PRN (19:24)
[2019-06-04] MEDS: Dextrose 5%-0.45% NaCl 1,000 ML IV PRN (20:15)
[2019-06-04] MEDS: Lactobacillus Rhamnosus GG (Probiotic) Cap PO SCH (21:08)
[2019-06-04] MEDS ORDERED: Potassium Chloride 20 MEQ Tab.ER PO ONE (21:20)
[2019-06-05] MEDS ORDERED: LORazepam 2 MG/ML SDV IVPUSH PRN (00:13)
[2019-06-05] MEDS: oxyCODONE 5 MG Tab PO PRN ×6 (01:01→23:53)
[2019-06-05] MEDS: Dextrose 5%-0.45% NaCl 1,000 ML IV PRN ×2 (03:05→09:15)
[2019-06-05] MEDS: Ondansetron 4 MG/2 ML SDV IV PRN (03:44)
[2019-06-05] MEDS: Pantoprazole 40 MG Tab.CR PO SCH (08:04)
[2019-06-05] MEDS: Lactobacillus Rhamnosus GG (Probiotic) Cap PO SCH ×2 (08:04→20:56)
[2019-06-05] MEDS: atorvaSTATin 20 MG Tab PO SCH (08:05)
[2019-06-05] MEDS: Doxycycline 100 MG Cap PO SCH (08:05)
[2019-06-05] MEDS: Acetaminophen 325 MG Tab PO PRN ×3 (08:08→20:55)
[2019-06-05] MEDS ORDERED: Glucose Gel 15 GM in 37.5 GM Tube PO PRN (10:26)
[2019-06-05] MEDS ORDERED: 50% Dextrose in Water 50 ML Syringe IV PRN (10:26)
[2019-06-05] MEDS ORDERED: Insulin Glargine,Human Rec. Analog 100 Units/ML 3 ML Pen SUBCUT SCH ×2 (10:30→21:00)
--- NOTE | 2019-06-05 10:41 | PCM.PN ---
- General Info Date of Service: 06/05/19 Subjective Update: Mr. Jones has improved since admission, blood sugars now under good control and ketoacidosis has resolved. Continues to experience symptoms of nausea and supraumbilical pain. Lipase level up mildly from admission. Functional Status: Reports: Ambulating, Urinating - Review of Systems General: Reports: Weakness. Denies: Fever, Chills Pulmonary: Reports: No Symptoms Cardiovascular: Reports: No Symptoms Gastrointestinal: Reports: Abdominal Pain, Nausea. Denies: Constipation, Diarrhea, Difficulty Swallowing, Vomiting - Patient Data Vitals - Most Recent: Last Vital Signs Temp 96.6 F 06/05/19 08:00 Pulse 87 06/05/19 09:00 Resp 14 06/05/19 09:00 BP 149/92 H 06/05/19 09:00 Pulse Ox 96 06/05/19 09:00 Weight - Most Recent: 170 lb I&O - Last 24 Hours: Intake & Output 06/04/19 06/05/19 06/05/19 22:59 06:59 14:59 Intake Total 2327 360 Output Total 650 500 Balance -650 1827 360 Lab Results Last 24 Hours: Laboratory Results - last 24 hr 06/04/19 06/04/19 06/04/19 Range/Units 14:38 14:38 14:38 WBC 8.6 (4.5-11.0) K/uL RBC 4.46 (4.30-5.90) M/uL Hgb 13.9 D (12.0-15.0) g/dL Hct 40.8 (40.0-54.0) % MCV 92 (80-98) fL MCH 31 (27-31) pg MCHC 34 (32-36) % Plt Count 182 (150-400) K/uL Neut % (Auto) 83 H (36-66) % Lymph % (Auto) 7 L (24-44) % [place] % (Auto) 10 H (2-6) % Eos % (Auto) 0 L (2-4) % Baso % (Auto) 0 (0-1) % Sodium 129 L (140-148) mmol/L Potassium 4.4 (3.6-5.2) mmol/L Chloride 85 L (100-108) mmol/L Carbon Dioxide 16 L (21-32) mmol/L Anion Gap 32.4 H (5.0-14.0) mmol/L BUN 43 H D (7-18) mg/dL Creatinine 2.6 H D (0.8-1.3) mg/dL Est Cr Clr Drug Dosing 38.61 mL/min Estimated GFR (MDRD) 27 L (>60) Glucose 523 H* (74-106) mg/dL Calcium 8.2 L (8.5-10.1) mg/dL Phosphorus (2.5-4.9) mg/dL Magnesium (1.8-2.4) mg/dL Total Bilirubin 1.1 H D (0.2-1.0) mg/dL AST 24 (15-37) U/L ALT 69 (12-78) U/L Alkaline Phosphatase 174 H (46-116) U/L Troponin I < 0.017 (0.000-0.056) ng/mL Total Protein 7.2 (6.4-8.2) g/dL Albumin 3.8 (3.4-5.0) g/dL Globulin 3.4 (2.3-3.5) g/dL Albumin/Globulin Ratio 1.1 L (1.2-2.2) Lipase 884 H (73-393) U/L Ketones (NEGATIVE) 06/04/19 06/04/19 06/04/19 Range/Units 14:38 16:28 18:22 WBC (4.5-11.0) K/uL RBC (4.30-5.90) M/uL Hgb (12.0-15.0) g/dL Hct (40.0-54.0) % MCV (80-98) fL MCH (27-31) pg MCHC (32-36) % Plt Count (150-400) K/uL Neut % (Auto) (36-66) % Lymph % (Auto) (24-44) % [place] % (Auto) (2-6) % Eos % (Auto) (2-4) % Baso % (Auto) (0-1) % Sodium 133 L (140-148) mmol/L Potassium 3.7 3.6 (3.6-5.2) mmol/L Chloride 91 L (100-108) mmol/L Carbon Dioxide 21 (21-32) mmol/L Anion Gap 24.7 H (5.0-14.0) mmol/L BUN 41 H (7-18) mg/dL Creatinine 2.2 H (0.8-1.3) mg/dL Est Cr Clr Drug Dosing 45.63 mL/min Estimated GFR (MDRD) 33 L (>60) Glucose 345 H (74-106) mg/dL Calcium 8.2 L (8.5-10.1) mg/dL Phosphorus 3.1 (2.5-4.9) mg/dL Magnesium 2.1 (1.8-2.4) mg/dL Total Bilirubin (0.2-1.0) mg/dL AST (15-37) U/L ALT (12-78) U/L Alkaline Phosphatase (46-116) U/L Troponin I (0.000-0.056) ng/mL Total Protein (6.4-8.2) g/dL Albumin (3.4-5.0) g/dL Globulin (2.3-3.5) g/dL Albumin/Globulin Ratio (1.2-2.2) Lipase (73-393) U/L Ketones Moderate H (NEGATIVE) 06/04/19 06/04/19 06/05/19 Range/Units 20:46 22:27 00:25 WBC (4.5-11.0) K/uL RBC (4.30-5.90) M/uL Hgb (12.0-15.0) g/dL Hct (40.0-54.0) % MCV (80-98) fL MCH (27-31) pg MCHC (32-36) % Plt Count (150-400) K/uL Neut % (Auto) (36-66) % Lymph % (Auto) (24-44) % [place] % (Auto) (2-6) % Eos % (Auto) (2-4) % Baso % (Auto) (0-1) % Sodium 137 L 136 L (140-148) mmol/L Potassium 3.5 L 3.5 L 3.7 (3.6-5.2) mmol/L Chloride 96 L 97 L (100-108) mmol/L Carbon Dioxide 28 29 (21-32) mmol/L Anion Gap 16.5 H 13.7 (5.0-14.0) mmol/L BUN 34 H 31 H (7-18) mg/dL Creatinine 1.8 H 1.4 H (0.8-1.3) mg/dL Est Cr Clr Drug Dosing 55.90 71.87 mL/min Estimated GFR (MDRD) 42 L 56 L (>60) Glucose 165 H 148 H (74-106) mg/dL Calcium 8.5 8.5 (8.5-10.1) mg/dL Phosphorus 3.1 (2.5-4.9) mg/dL Magnesium 1.9 (1.8-2.4) mg/dL Total Bilirubin (0.2-1.0) mg/dL AST (15-37) U/L ALT (12-78) U/L Alkaline Phosphatase (46-116) U/L Troponin I (0.000-0.056) ng/mL Total Protein (6.4-8.2) g/dL Albumin (3.4-5.0) g/dL Globulin (2.3-3.5) g/dL Albumin/Globulin Ratio (1.2-2.2) Lipase (73-393) U/L Ketones (NEGATIVE) 06/05/19 06/05/19 06/05/19 Range/Units 02:28 04:15 05:34 WBC 12.2 H (4.5-11.0) K/uL RBC 4.63 (4.30-5.90) M/uL Hgb 14.8 (12.0-15.0) g/dL Hct 40.9 (40.0-54.0) % MCV 88 (80-98) fL MCH 32 H (27-31) pg MCHC 36 (32-36) % Plt Count 128 L (150-400) K/uL Neut % (Auto) 84 H (36-66) % Lymph % (Auto) 10 L (24-44) % [place] % (Auto) 6 (2-6) % Eos % (Auto) 0 L (2-4) % Baso % (Auto) 0 (0-1) % Sodium 135 L (140-148) mmol/L Potassium 3.3 L 3.5 L (3.6-5.2) mmol/L Chloride 96 L (100-108) mmol/L Carbon Dioxide 31 (21-32) mmol/L Anion Gap 11.5 (5.0-14.0) mmol/L BUN 28 H (7-18) mg/dL Creatinine 1.2 (0.8-1.3) mg/dL Est Cr Clr Drug Dosing 83.85 mL/min Estimated GFR (MDRD) > 60 (>60) Glucose 144 H (74-106) mg/dL Calcium 8.6 (8.5-10.1) mg/dL Phosphorus 3.1 (2.5-4.9) mg/dL Magnesium 1.9 (1.8-2.4) mg/dL Total Bilirubin (0.2-1.0) mg/dL AST (15-37) U/L ALT (12-78) U/L Alkaline Phosphatase (46-116) U/L Troponin I (0.000-0.056) ng/mL Total Protein (6.4-8.2) g/dL Albumin (3.4-5.0) g/dL Globulin (2.3-3.5) g/dL Albumin/Globulin Ratio (1.2-2.2) Lipase (73-393) U/L Ketones (NEGATIVE) 06/05/19 06/05/19 06/05/19 Range/Units 05:34 06:30 08:29 WBC (4.5-11.0) K/uL RBC (4.30-5.90) M/uL Hgb (12.0-15.0) g/dL Hct (40.0-54.0) % MCV (80-98) fL MCH (27-31) pg MCHC (32-36) % Plt Count (150-400) K/uL Neut % (Auto) (36-66) % Lymph % (Auto) (24-44) % [place] % (Auto) (2-6) % Eos % (Auto) (2-4) % Baso % (Auto) (0-1) % Sodium 135 L 134 L (140-148) mmol/L Potassium 3.7 3.8 3.3 L (3.6-5.2) mmol/L Chloride 96 L 96 L (100-108) mmol/L Carbon Dioxide 31 32 (21-32) mmol/L Anion Gap 11.7 9.3 (5.0-14.0) mmol/L BUN 27 H 23 H (7-18) mg/dL Creatinine 1.1 1.0 (0.8-1.3) mg/dL Est Cr Clr Drug Dosing 91.47 100.62 mL/min Estimated GFR (MDRD) > 60 > 60 (>60) Glucose 161 H 133 H (74-106) mg/dL Calcium 8.6 9.1 (8.5-10.1) mg/dL Phosphorus (2.5-4.9) mg/dL Magnesium (1.8-2.4) mg/dL Total Bilirubin (0.2-1.0) mg/dL AST (15-37) U/L ALT (12-78) U/L Alkaline Phosphatase (46-116) U/L Troponin I (0.000-0.056) ng/mL Total Protein (6.4-8.2) g/dL Albumin (3.4-5.0) g/dL Globulin (2.3-3.5) g/dL Albumin/Globulin Ratio (1.2-2.2) Lipase 1042 H (73-393) U/L Ketones (NEGATIVE) Med Orders - Current: Current Medications Acetaminophen (Tylenol) 650 mg PO Q4H PRN PRN Reason: Pain (Mild 1-3)/fever Last Admin: 06/05/19 08:08 Dose: 650 mg Atorvastatin Calcium (Lipitor) 20 mg PO DAILY [facility] Last Admin: 06/05/19 08:05 Dose: 20 mg Dextrose (Glutose 15) 15 gm PO ONETIME PRN PRN Reason: Hypoglycemia Dextrose/Water (Dextrose 50% In Water) 50 ml IVPUSH ONETIME PRN PRN Reason: Blood Glucose Doxycycline Hyclate (Vibramycin) 100 mg PO DAILY [facility] Last Admin: 06/05/19 08:05 Dose: 100 mg Insulin Glargine (Lantus Solostar) 40 units SUBCUT BEDTIME [facility] Insulin Human Lispro (Humalog) 20 unit SUBCUT TIDMEALS [facility] Insulin Human Lispro (Humalog) 0 unit SUBCUT QIDACANDBED [facility]; Protocol Lactobacillus Rhamnosus (Culturelle) 1 cap PO BID [facility] Last Admin: 06/05/19 08:04 Dose: 1 cap Lorazepam (Ativan) 0.5 mg IVPUSH Q4H PRN PRN Reason: Nausea/Vomiting Last Admin: 06/05/19 01:01 Dose: 0.5 mg Zenpep 20,000 Unit * (*Ptom) 0 each PO TIDMEALS IVANA Ondansetron HCl (Zofran) 4 mg IV Q4H PRN PRN Reason: Nausea/Vomiting Last Admin: 06/05/19 03:44 Dose: 4 mg Oxycodone HCl (Oxycodone) 5 mg PO Q4H PRN PRN Reason: Pain (moderate 4-6) Last Admin: 06/05/19 10:18 Dose: 5 mg Pantoprazole Sodium (Protonix) 40 mg PO ACBREAKFAST IVANA Last Admin: 06/05/19 08:04 Dose: 40 mg Sodium Chloride (Saline Flush) 10 ml FLUSH ASDIRECTED PRN PRN Reason: Keep Vein Open Discontinued Medications Sodium Chloride (Normal Saline) 1,000 mls @ 999 mls/hr IV ASDIRECTED IVANA Last Admin: 06/04/19 14:29 Dose: 999 mls/hr Insulin Human Regular 100 unit (/ Sodium Chloride) 100 mls @ 7.71 mls/hr IV TITRATE IV[facility]; Protocol Last Titration: 06/05/19 00:11 Dose: 0.06 units/kg/hr, 5 mls/hr Dextrose/Sodium Chloride (Dextrose 5%-1/2 Ns) 1,000 mls @ 150 mls/hr IV ASDIRECTED PRN PRN Reason: Blood Glucose Last Admin: 06/05/19 09:15 Dose: 150 mls/hr Insulin Human Regular 100 unit (/ Sodium Chloride) 101 mls @ 7.78 mls/hr IV TITRATE IVANA; Protocol Last Titration: 06/05/19 09:05 Dose: 0.14 units/kg/hr, 11.2 mls/hr Magnesium Sulfate (Magnesium Sulfate In Water Premix) 50 mls @ 25 mls/hr IV ONETIME PRN PRN Reason: low magnesium Sodium Chloride (Normal Saline) 2,000 mls @ 500 mls/hr IV ASDIRECTED PRN PRN Reason: Blood Glucose Sodium Phosphate 60 mmole/ (Sodium Chloride) 270 mls @ 62.5 mls/hr IV ONETIME PRN PRN Reason: Low phophorus Sodium Chloride (Normal Saline) 1,000 mls @ 250 mls/hr IV ONETIME ONE Stop: 06/04/19 21:14 Last Admin: 06/04/19 17:13 Dose: 250 mls/hr Insulin Glargine (Lantus Solostar) 40 units SUBCUT DAILY IVANA Stop: 06/05/19 10:31 Insulin Human Regular (Humulin R) 10 unit IVPUSH ONETIME ONE Stop: 06/04/19 15:26 Last Admin: 06/04/19 15:51 Dose: 10 unit Ondansetron HCl (Zofran) Confirm Administered Dose 4 mg .ROUTE .STK-MED ONE Stop: 06/04/19 14:01 Last Admin: 06/04/19 14:28 Dose: Not Given Ondansetron HCl (Zofran) 4 mg IVPUSH ONETIME ONE Stop: 06/04/19 14:21 Last Admin: 06/04/19 14:28 Dose: 4 mg Potassium Chloride (Potassium Chloride Solution) 20 meq PO NOW PRN PRN Reason: Hypokalemia Last Admin: 06/05/19 05:09 Dose: 20 meq Potassium Chloride (Potassium Chloride Solution) 40 meq PO NOW PRN PRN Reason: Hypokalemia Potassium Chloride (Potassium Chloride Solution) 40 meq PO Q2H PRN PRN Reason: Hypokalemia Potassium Chloride (Klor-Con M20) 40 meq PO ONETIME ONE Stop: 06/04/19 21:21 Last Admin: 06/04/19 22:02 Dose: 40 meq - Exam Quality Assessment: DVT Prophylaxis General: Alert, Oriented, Cooperative, Mild Distress Lungs: Clear to Auscultation, Normal Respiratory Effort Cardiovascular: Regular Rate, Regular Rhythm, No Murmurs GI/Abdominal Exam: Soft, No Organomegaly, Tender. No: Distended, Guarding, Rigid, Rebound Extremities: Non-Tender, No Pedal Edema - Problem List Review Problem List Initiated/Reviewed/Updated: Yes - My Orders Last 24 Hours: My Active Orders 06/04/19 15:54 Resuscitation Status Routine 06/04/19 16:28 Patient Status [ADT] Routine Ambulate [RC] QID Cardiac Monitoring [RC] Q6H Diabetes Education [RC] Click to Edit Height and Weight [RC] DAILY Intake and Output [RC] QSHIFT Notify Provider Vital Signs [RC] ASDIRECTED Oxygen Therapy [RC] PRN Peripheral IV Care [RC] Q12H Up With Assistance [RC] ASDIRECTED Up to Chair [RC] QID Acetaminophen [Tylenol] 650 mg PO Q4H PRN Dextrose 50% in Water 50 ml IVPUSH ONETIME PRN Ondansetron [Zofran] 4 mg IV Q4H PRN Sodium Chloride 0.9% [Saline Flush] 10 ml FLUSH ASDIRECTED PRN oxyCODONE 5 mg PO Q4H PRN Peripheral IV Insertion Adult [OM.PC] Routine Sequential Compression Device [OM.PC] Per Unit Routine VTE Pharmacological Contraindications [AST] Per Unit Routine 06/04/19 21:00 Lactobacillus Rhamnosus GG [Culturelle] 1 cap PO BID 06/04/19 Lunch Consistent Carbohydrate Diet [DIET] 06/05/19 00:13 LORazepam [Ativan] 0.5 mg IVPUSH Q4H PRN 06/05/19 07:30 Pantoprazole [ProTONIX] 40 mg PO ACBREAKFAST 06/05/19 09:00 Doxycycline [Vibramycin] 100 mg PO DAILY atorvaSTATin [Lipitor] 20 mg PO DAILY 06/05/19 10:23 Convert IV to Saline Lock [OM.PC] Routine 06/05/19 10:26 Blood Glucose Check, Bedside [RC] QIDACANDBED Communication Order [RC] STAT Diabetes Education [RC] Click to Edit Notify Provider [RC] PRN Dextrose [Glutose 15] 15 gm PO ONETIME PRN 06/05/19 10:29 Abdomen w Cont [CT] Routine 06/05/19 10:30 amLODIPine [Norvasc] 10 mg PO DAILY chlordiazePOXIDE [Librium] 1 cap PO BID hydroCHLOROthiazide 25 mg PO DAILY 06/05/19 10:45 Lisinopril [Prinivil] 40 mg PO DAILY 06/05/19 11:00 Insulin Lispro [HumaLOG] See Protocol SUBCUT QIDACANDBED 06/05/19 11:30 GLUCOSE POC LAB TO COLLECT [POC] QIDACANDBED 06/05/19 12:00 Insulin Lispro [HumaLOG] 20 unit SUBCUT TIDMEALS Lipase/Protease/Amylase [Zenpep DR 20,000 Unit] 0 each PO TIDMEALS 06/05/19 16:30 GLUCOSE POC LAB TO COLLECT [POC] QIDACANDBED 06/05/19 17:00 BASIC METABOLIC PANEL,BMP [CHEM] Stat 06/05/19 21:00 GLUCOSE POC LAB TO COLLECT [POC] QIDACANDBED Insulin Glarg,Human.Rec.Analog [LantUS Solostar] 40 units SUBCUT BEDTIME 06/06/19 05:00 BASIC METABOLIC PANEL,BMP [CHEM] Timed CBC WITH AUTO DIFF [HEME] Timed MAGNESIUM [CHEM] Timed 06/06/19 07:30 GLUCOSE POC LAB TO COLLECT [POC] QIDACANDBED 06/06/19 11:30 GLUCOSE POC LAB TO COLLECT [POC] QIDACANDBED 06/06/19 16:30 GLUCOSE POC LAB TO COLLECT [POC] QIDACANDBED 06/06/19 21:00 GLUCOSE POC LAB TO COLLECT [POC] QIDACANDBED 06/07/19 07:30 GLUCOSE POC LAB TO COLLECT [POC] QIDACANDBED 06/07/19 11:30 GLUCOSE POC LAB TO COLLECT [POC] QIDACANDBED 06/07/19 16:30 GLUCOSE POC LAB TO COLLECT [POC] QIDACANDBED 06/07/19 21:00 GLUCOSE POC LAB TO COLLECT [POC] QIDACANDBED 06/08/19 07:30 GLUCOSE POC LAB TO COLLECT [POC] QIDACANDBED 06/08/19 11:30 GLUCOSE POC LAB TO COLLECT [POC] QIDACANDBED 06/08/19 16:30 GLUCOSE POC LAB TO COLLECT [POC] QIDACANDBED 06/08/19 21:00 GLUCOSE POC LAB TO COLLECT [POC] QIDACANDBED 06/09/19 07:30 GLUCOSE POC LAB TO COLLECT [POC] QIDACANDBED 06/09/19 11:30 GLUCOSE POC LAB TO COLLECT [POC] QIDACANDBED 06/09/19 16:30 GLUCOSE POC LAB TO COLLECT [POC] QIDACANDBED 06/09/19 21:00 GLUCOSE POC LAB TO COLLECT [POC] QIDACANDBED 06/10/19 07:30 GLUCOSE POC LAB TO COLLECT [POC] QIDACANDBED 06/10/19 11:30 GLUCOSE POC LAB TO COLLECT [POC] QIDACANDBED 06/10/19 16:30 GLUCOSE POC LAB TO COLLECT [POC] QIDACANDBED 06/10/19 21:00 GLUCOSE POC LAB TO COLLECT [POC] QIDACANDBED 06/11/19 07:30 GLUCOSE POC LAB TO COLLECT [POC] QIDACANDBED 06/11/19 11:30 GLUCOSE POC LAB TO COLLECT [POC] QIDACANDBED 06/11/19 16:30 GLUCOSE POC LAB TO COLLECT [POC] QIDACANDBED 06/11/19 21:00 GLUCOSE POC LAB TO COLLECT [POC] QIDACANDBED 06/12/19 07:30 GLUCOSE POC LAB TO COLLECT [POC] QIDACANDBED 06/12/19 11:30 GLUCOSE POC LAB TO COLLECT [POC] QIDACANDBED 06/12/19 16:30 GLUCOSE POC LAB TO COLLECT [POC] QIDACANDBED 06/12/19 21:00 GLUCOSE POC LAB TO COLLECT [POC] QIDACANDBED 06/13/19 07:30 GLUCOSE POC LAB TO COLLECT [POC] QIDACANDBED 06/13/19 11:30 GLUCOSE POC LAB TO COLLECT [POC] QIDACANDBED 06/13/19 16:30 GLUCOSE POC LAB TO COLLECT [POC] QIDACANDBED 06/13/19 21:00 GLUCOSE POC LAB TO COLLECT [POC] QIDACANDBED 06/14/19 07:30 GLUCOSE POC LAB TO COLLECT [POC] QIDACANDBED 06/14/19 11:30 GLUCOSE POC LAB TO COLLECT [POC] QIDACANDBED 06/14/19 16:30 GLUCOSE POC LAB TO COLLECT [POC] QIDACANDBED 06/14/19 21:00 GLUCOSE POC LAB TO COLLECT [POC] QIDACANDBED 06/15/19 07:30 GLUCOSE POC LAB TO COLLECT [POC] QIDACANDBED 06/15/19 11:30 GLUCOSE POC LAB TO COLLECT [POC] QIDACANDBED 06/15/19 16:30 GLUCOSE POC LAB TO COLLECT [POC] QIDACANDBED 06/15/19 21:00 GLUCOSE POC LAB TO COLLECT [POC] QIDACANDBED 06/16/19 07:30 GLUCOSE POC LAB TO COLLECT [POC] QIDACANDBED 06/16/19 11:30 GLUCOSE POC LAB TO COLLECT [POC] QIDACANDBED 06/16/19 16:30 GLUCOSE POC LAB TO COLLECT [POC] QIDACANDBED 06/16/19 21:00 GLUCOSE POC LAB TO COLLECT [POC] QIDACANDBED 06/17/19 07:30 GLUCOSE POC LAB TO COLLECT [POC] QIDACANDBED 06/17/19 11:30 GLUCOSE POC LAB TO COLLECT [POC] QIDACANDBED 06/17/19 16:30 GLUCOSE POC LAB TO COLLECT [POC] QIDACANDBED 06/17/19 21:00 GLUCOSE POC LAB TO COLLECT [POC] QIDACANDBED 06/18/19 07:30 GLUCOSE POC LAB TO COLLECT [POC] QIDACANDBED 06/18/19 11:30 GLUCOSE POC LAB TO COLLECT [POC] QIDACANDBED 06/18/19 16:30 GLUCOSE POC LAB TO COLLECT [POC] QIDACANDBED 06/18/19 21:00 GLUCOSE POC LAB TO COLLECT [POC] QIDACANDBED 06/19/19 07:30 GLUCOSE POC LAB TO COLLECT [POC] QIDACANDBED 06/19/19 11:30 GLUCOSE POC LAB TO COLLECT [POC] QIDACANDBED 06/19/19 16:30 GLUCOSE POC LAB TO COLLECT [POC] QIDACANDBED 06/19/19 21:00 GLUCOSE POC LAB TO COLLECT [POC] QIDACANDBED 06/20/19 07:30 GLUCOSE POC LAB TO COLLECT [POC] QIDACANDBED 06/20/19 11:30 GLUCOSE POC LAB TO COLLECT [POC] QIDACANDBED 06/20/19 16:30 GLUCOSE POC LAB TO COLLECT [POC] QIDACANDBED 06/20/19 21:00 GLUCOSE POC LAB TO COLLECT [POC] QIDACANDBED 06/21/19 07:30 GLUCOSE POC LAB TO COLLECT [POC] QIDACANDBED 06/21/19 11:30 GLUCOSE POC LAB TO COLLECT [POC] QIDACANDBED 06/21/19 16:30 GLUCOSE POC LAB TO COLLECT [POC] QIDACANDBED 06/21/19 21:00 GLUCOSE POC LAB TO COLLECT [POC] QIDACANDBED 06/22/19 07:30 GLUCOSE POC LAB TO COLLECT [POC] QIDACANDBED 06/22/19 11:30 GLUCOSE POC LAB TO COLLECT [POC] QIDACANDBED 06/22/19 16:30 GLUCOSE POC LAB TO COLLECT [POC] QIDACANDBED 06/22/19 21:00 GLUCOSE POC LAB TO COLLECT [POC] QIDACANDBED 06/23/19 07:30 GLUCOSE POC LAB TO COLLECT [POC] QIDACANDBED 06/23/19 11:30 GLUCOSE POC LAB TO COLLECT [POC] QIDACANDBED 06/23/19 16:30 GLUCOSE POC LAB TO COLLECT [POC] QIDACANDBED 06/23/19 21:00 GLUCOSE POC LAB TO COLLECT [POC] QIDACANDBED 06/24/19 07:30 GLUCOSE POC LAB TO COLLECT [POC] QIDACANDBED 06/24/19 11:30 GLUCOSE POC LAB TO COLLECT [POC] QIDACANDBED 06/24/19 16:30 GLUCOSE POC LAB TO COLLECT [POC] QIDACANDBED 06/24/19 21:00 GLUCOSE POC LAB TO COLLECT [POC] QIDACANDBED 06/25/19 07:30 GLUCOSE POC LAB TO COLLECT [POC] QIDACANDBED 06/25/19 11:30 GLUCOSE POC LAB TO COLLECT [POC] QIDACANDBED 06/25/19 16:30 GLUCOSE POC LAB TO COLLECT [POC] QIDACANDBED 06/25/19 21:00 GLUCOSE POC LAB TO COLLECT [POC] QIDACANDBED 06/26/19 07:30 GLUCOSE POC LAB TO COLLECT [POC] QIDACANDBED 06/26/19 11:30 GLUCOSE POC LAB TO COLLECT [POC] QIDACANDBED 06/26/19 16:30 GLUCOSE POC LAB TO COLLECT [POC] QIDACANDBED 06/26/19 21:00 GLUCOSE POC LAB TO COLLECT [POC] QIDACANDBED 06/27/19 07:30 GLUCOSE POC LAB TO COLLECT [POC] QIDACANDBED 06/27/19 11:30 GLUCOSE POC LAB TO COLLECT [POC] QIDACANDBED 06/27/19 16:30 GLUCOSE POC LAB TO COLLECT [POC] QIDACANDBED 06/27/19 21:00 GLUCOSE POC LAB TO COLLECT [POC] QIDACANDBED 06/28/19 07:30 GLUCOSE POC LAB TO COLLECT [POC] QIDACANDBED 06/28/19 11:30 GLUCOSE POC LAB TO COLLECT [POC] QIDACANDBED 06/28/19 16:30 GLUCOSE POC LAB TO COLLECT [POC] QIDACANDBED 06/28/19 21:00 GLUCOSE POC LAB TO COLLECT [POC] QIDACANDBED 06/29/19 07:30 GLUCOSE POC LAB TO COLLECT [POC] QIDACANDBED 06/29/19 11:30 GLUCOSE POC LAB TO COLLECT [POC] QIDACANDBED 06/29/19 16:30 GLUCOSE POC LAB TO COLLECT [POC] QIDACANDBED 06/29/19 21:00 GLUCOSE POC LAB TO COLLECT [POC] QIDACANDBED - Plan Plan:: ASSESSMENT AND PLAN DIABETIC KETOACIDOSIS-history of known type I/II diabetes mellitus. Improved since admission with decreased glucose levels and resolution of ketoacidosis -Transition to subcutaneous insulin, Lantus 40 units subcutaneous now and 40 units subcutaneous this evening -Saline lock IV -Humalog 20 units subcutaneous with meals -Monitor glucose levels 4 times daily -Humalog moderate dose sliding scale ACUTE KIDNEY INJURY-resolved with hydration -Closely monitor urine output and renal function HYPERTENSION-blood pressure now elevated -Resume outpatient medications PANCREATITIS-lipase level elevated from admission. -Repeat lipase level in a.m. -CT scan abdomen and pelvis for further evaluation MAINTENANCE ISSUES -DVT prophylaxis; scuds -GI prophylaxis; not indicated -Liriano catheter; not indicated -Nutrition; consistent carb diet -Nicotine dependence; patient does smoke regularly denies need for nicotine patch CODE STATUS-FULL CODE ADMISSION STATUS-patient will be admitted to inpatient status, expect at least a 2 night hospital stay for evaluation and management of problems as outlined above. At the time of this admission I do not reasonably expected evaluation and management of this problem will require more than a 96 hour hospital stay. DISPOSITION-anticipate discharge to home after the hospital stay. PRIMARY CARE PROVIDER-
[2019-06-05] MEDS: Lisinopril 20 MG Tab PO SCH (10:52)
[2019-06-05] MEDS: amLODIPine 10 MG Tab PO SCH (10:52)
[2019-06-05] MEDS: Hydrochlorothiazide 25 MG Tab PO SCH (10:52)
[2019-06-05] MEDS: Insulin Lispro 100 Unit/ML 3 ML KwikPen SUBCUT SCH ×5 (10:53→20:51)
[2019-06-05] MEDS ORDERED: Sodium Chloride 0.9% 10 ML Syringe FLUSH ONE (10:54)
[2019-06-05] MEDS: chlordiazePOXIDE 25 MG Cap PO SCH ×2 (10:54→20:57)
[2019-06-05] MEDS ORDERED: Iopamidol 612 MG/ML 100 ML Bottle IV SCH (11:00)
[2019-06-05] MEDS ORDERED: Sodium Chloride 0.9% 100 ML IV SCH (11:00)
--- NOTE | 2019-06-05 12:42 | CRLCT ---
Indication: Nausea vomiting. Pancreatitis. DKA. Technique: Multiple contiguous axial images were obtained from the lung bases through the symphysis pubis after the intravenous administration of 100 milliliters Isovue-300. Please note that all CT scans at this facility use dose modulation, iterative reconstruction, and/or weight-based dosing when appropriate to reduce radiation dose to as low as reasonably achievable. Comparison: November 12, 2018. Findings: Mild intrahepatic biliary ductal dilatation is identified. Postsurgical changes of the cholecystectomy are identified. No intrahepatic masses are seen. The spleen, adrenals, and kidneys are normal. The pancreatic duct is markedly dilated measuring 1.6 cm. No pancreatic masses are identified. Peripancreatic fatty infiltration of the surrounding tissues is identified. No abscess is identified. A low-attenuation lesion is identified within the head of the pancreas this is best seen on image number 56, series 2. This measures 1.3 cm in size. A pancreatic head mass cannot be excluded. Further evaluation of this is highly warranted. In the pelvis, thickening of the wall of the urinary bladder is identified. The prostate gland is normal. The small and large bowel are normal in caliber. The appendix is normal. No free air or free fluid is identified within the abdomen or pelvis. The heart is normal in size. No pericardial effusions identified. The lung bases are clear. Impression: Marked dilatation of the pancreatic duct. Peripancreatic fatty infiltration. Questionable pancreatic head mass. Further evaluation of this finding is highly warranted. Please note that all CT scans at this facility use dose modulation, iterative reconstruction, and/or weight-based dosing when appropriate to reduce radiation dose to as low as reasonably achievable. Dictated by Benita De La Cruz MD @ Jun 05 2019 12:37PM Signed by Dr. Benita De La Cruz @ Jun 05 2019 12:40PM
[2019-06-05] MEDS: ZENPEP 20000 UNIT PO SCH ×2 (12:52→17:03)
[2019-06-06] MEDS: oxyCODONE 5 MG Tab PO PRN ×2 (04:51→09:36)
[2019-06-06] MEDS: ZENPEP 20000 UNIT PO SCH ×3 (06:08→11:13)
[2019-06-06] MEDS: Insulin Lispro 100 Unit/ML 3 ML KwikPen SUBCUT SCH ×6 (06:12→11:12)
[2019-06-06] MEDS: Pantoprazole 40 MG Tab.CR PO SCH (08:55)
[2019-06-06] MEDS: Hydrochlorothiazide 25 MG Tab PO SCH (08:58)
[2019-06-06] MEDS: Lisinopril 20 MG Tab PO SCH (08:58)
[2019-06-06] MEDS: Lactobacillus Rhamnosus GG (Probiotic) Cap PO SCH (08:58)
[2019-06-06] MEDS: amLODIPine 10 MG Tab PO SCH (08:58)
[2019-06-06] MEDS: atorvaSTATin 20 MG Tab PO SCH (08:58)
[2019-06-06] MEDS: Doxycycline 100 MG Cap PO SCH (08:59)
[2019-06-06] MEDS ORDERED: Magnesium Oxide 400 MG Tab PO SCH (09:00)
[2019-06-06] MEDS ORDERED: Magnesium Sulfate/Water 2 GM in Premix Bag 1 BAG IV ONE (09:00)
[2019-06-06] MEDS ORDERED: Potassium Chloride 20 MEQ Tab.ER PO ONE (09:00)
[2019-06-06] MEDS: chlordiazePOXIDE 25 MG Cap PO SCH (09:04)
--- NOTE | 2019-06-06 10:09 | PCM.DCSUM1 ---
Discharge Summary - Hospital Course Brief History: Mr. Jones is a 39-year-old gentleman who was admitted through the emergency department with weakness, hyperglycemia, and hypotension, secondary to diabetic ketoacidosis. - Discharge Data Discharge Date: 06/06/19 Discharge Disposition: Home, Self-Care 01 Condition: Stable - Discharge Diagnosis/Problem(s) (1) DKA, type 2 SNOMED Code(s): 452728149, 401603521 ICD Code: E11.10 - TYPE 2 DIABETES MELLITUS WITH KETOACIDOSIS WITHOUT COMA Status: Acute Current Visit: Yes (2) Acute on chronic pancreatitis SNOMED Code(s): 797532381 ICD Code: K85.90 - ACUTE PANCREATITIS WITHOUT NECROSIS OR INFECTION, UNSP; K86.1 - OTHER CHRONIC PANCREATITIS Status: Acute Current Visit: No (3) Acute kidney injury SNOMED Code(s): 57783140, 40564930 ICD Code: N17.9 - ACUTE KIDNEY FAILURE, UNSPECIFIED Status: Acute Current Visit: Yes - Patient Summary/Data Hospital Course: Mr. Jones is a 39-year-old gentleman who was admitted through the emergency department with weakness, lightheadedness, nausea, and hyperglycemia, secondary to diabetic ketoacidosis. He has a known history of type 2 diabetes mellitus as well as previous history of severe pancreatitis. He has been told that his diabetes may be closer to type I. Over the last 24 hours has noted significant hyperglycemia with progressive weakness, nausea and lightheadedness. He took extra insulin earlier today but still had levels that were reading too high on his glucometer. On evaluation the emergency department he's found to have evidence of ketoacidosis with elevation in anion gap, decrease in carbon dioxide , and elevation in ketones. He was also found to have significant hypotension on initial assessment by EMS as well as in the emergency department. He denies any symptoms of infection and is not aware of any fevers, chills, or sweats. No other obvious precipitating cause of his ketoacidosis. Lipase level was noted to be mildly elevated on initial assessment in the emergency department and he did report some supraumbilical pain as well as nausea and vomiting. Creatinine was elevated on initial assessment and felt to be secondary to dehydration, after hydration creatinine level normalized during the hospital stay. He was given vigorous IV fluid replacement while in the emergency department as well as an insulin bolus and started on continuous infusion of insulin. On admission he was placed on the diabetic ketoacidosis protocol for management of fluids, IV insulin, and electrolytes. With aggressive management his ketoacidosis had resolved by the following morning and blood sugars were within desired range. He continued to experience some supraumbilical epigastric pain so CT scan of the abdomen was obtained which did show dilatation of pancreatic ducts but no obvious inflammation within the pancreas. By the morning of discharge she was eating without significant discomfort, long-acting insulin dose will be increased to 40 units in his short acting insulin dose with meals will be increased to 20 units with each meal. With this regimen his glucose levels have remained under fairly good control during hospitalization. I recommended that he see his primary care provider for follow-up within one week and that potassium and magnesium levels be obtained at the time of that visit. Activity will be as tolerated and he will continue a consistent carbohydrate diet. Follow -up appointment should also be scheduled with health promotion educator as soon as possible. I recommended that he have further evaluation of his dilated pancreatic ducts, consider outpatient MRI for further assessment of his pancreas to rule out underlying mass or obstruction. - Patient Instructions Diet: Diabetic Diet Activity: As Tolerated Other/Special Instructions: Please schedule follow-up appointment with primary care provider within one week, BMP and magnesium level should be obtained at the time of follow-up appointment. Patient will require further evaluation of possible pancreatic mass with MRI, we'll leave this to primary care provider to get scheduled. Please schedule diabetes ed follow-up at his primary care clinic. - Discharge Plan *PRESCRIPTION DRUG MONITORING PROGRAM REVIEWED*: Not Applicable *COPY OF PRESCRIPTION DRUG MONITORING REPORT IN PATIENT SHEILA: Not Applicable Prescriptions/Med Rec: Magnesium Oxide 400 mg PO BID #60 tab oxyCODONE 5 mg PO Q4H PRN #10 tablet PRN Reason: Pain (Moderate 4-6) Potassium Chloride 20 meq PO BID #60 tablet.er Home Medications: Home Meds Lisinopril 40 mg PO DAILY 02/15/18 [History] Omeprazole 20 mg PO DAILY 02/15/18 [History] amLODIPine Besylate [Norvasc] 10 mg PO DAILY 02/15/18 [History] atorvaSTATin Calcium [Lipitor] 20 mg PO DAILY 10/01/18 [History] Lipase/Protease/Amylase [Zenpep DR 20,000 Unit] 2 each PO TIDMEALS 01/28/19 [ History] chlordiazePOXIDE HCl [Chlordiazepoxide HCl] 1 cap PO BID 05/02/19 [History] hydroCHLOROthiazide [Hydrochlorothiazide] 25 mg PO DAILY 05/02/19 [History] Doxycycline [Vibramycin] 100 mg PO DAILY #6 cap 05/04/19 [Rx] Lactobacillus Rhamnosus GG [Culturelle] 1 cap PO BID #60 cap 05/04/19 [Rx] Insulin Glarg,Human.Rec.Analog [Lantus Solostar] 40 units SUBCUT BEDTIME pen [Rx] Insulin Lispro [Humalog] 20 unit SUBCUT TIDMEALS pen 06/06/19 [Rx] Magnesium Oxide 400 mg PO BID #60 tab 06/06/19 [Rx] Potassium Chloride 20 meq PO BID #60 tablet.er 06/06/19 [Rx] oxyCODONE 5 mg PO Q4H PRN #10 tablet 06/06/19 [Rx] Referrals: Francisca Monteiro MD [Ordering Only Provider] - - Discharge Summary/Plan Comment DC Time >30 min.: No - Patient Data Vitals - Most Recent: Last Vital Signs Temp 97.4 F 06/06/19 08:00 Pulse 111 H 06/06/19 08:00 Resp 25 H 06/06/19 08:00 BP 123/82 06/06/19 08:58 Pulse Ox 95 06/06/19 08:00 Weight - Most Recent: 170 lb I&O - Last 24 hours: Intake & Output 06/05/19 06/06/19 06/06/19 22:59 06:59 14:59 Intake Total 1793 960 340 Output Total 2000 300 500 Balance -207 660 -160 Lab Results - Last 24 hrs: Laboratory Results - last 24 hr 06/05/19 06/06/19 06/06/19 Range/Units 16:55 05:00 05:45 WBC 10.5 (4.5-11.0) K/uL RBC 4.65 (4.30-5.90) M/uL Hgb 14.6 (12.0-15.0) g/dL Hct 42.2 (40.0-54.0) % MCV 91 (80-98) fL MCH 31 (27-31) pg MCHC 35 (32-36) % Plt Count 110 L (150-400) K/uL Neut % (Auto) 75 H (36-66) % Lymph % (Auto) 18 L (24-44) % [place] % (Auto) 7 H (2-6) % Eos % (Auto) 1 L (2-4) % Baso % (Auto) 0 (0-1) % Sodium 132 L 131 L (140-148) mmol/L Potassium 3.3 L 3.1 L (3.6-5.2) mmol/L Chloride 92 L 91 L (100-108) mmol/L Carbon Dioxide 33 H 32 (21-32) mmol/L Anion Gap 10.3 11.1 (5.0-14.0) mmol/L BUN 14 12 (7-18) mg/dL Creatinine 0.8 0.7 L (0.8-1.3) mg/dL Est Cr Clr Drug Dosing 125.78 143.75 mL/min Estimated GFR (MDRD) > 60 > 60 (>60) Glucose 147 H 170 H (74-106) mg/dL Calcium 9.3 9.1 (8.5-10.1) mg/dL Magnesium 1.6 L (1.8-2.4) mg/dL Lipase 327 (73-393) U/L Med Orders - Current: Current Medications Acetaminophen (Tylenol) 650 mg PO Q4H PRN PRN Reason: Pain (Mild 1-3)/fever Last Admin: 06/05/19 20:55 Dose: 650 mg Amlodipine Besylate (Norvasc) 10 mg PO DAILY [facility] Last Admin: 06/06/19 08:58 Dose: 10 mg Atorvastatin Calcium (Lipitor) 20 mg PO DAILY [facility] Last Admin: 06/06/19 08:58 Dose: 20 mg Chlordiazepoxide HCl (Librium) 25 mg PO BID [facility] Last Admin: 06/06/19 09:04 Dose: 25 mg Dextrose (Glutose 15) 15 gm PO ONETIME PRN PRN Reason: Hypoglycemia Dextrose/Water (Dextrose 50% In Water) 50 ml IVPUSH ONETIME PRN PRN Reason: Blood Glucose Doxycycline Hyclate (Vibramycin) 100 mg PO DAILY [facility] Last Admin: 06/06/19 08:59 Dose: 100 mg Hydrochlorothiazide (Hydrochlorothiazide) 25 mg PO DAILY [facility] Last Admin: 06/06/19 08:58 Dose: 25 mg Magnesium Sulfate 2 gm/ Premix 50 mls @ 25 mls/hr IV ONETIME ONE Stop: 06/06/19 10:59 Last Admin: 06/06/19 08:59 Dose: 25 mls/hr Insulin Glargine (Lantus Solostar) 40 units SUBCUT BEDTIME [facility] Last Admin: 06/05/19 20:52 Dose: 40 unit Insulin Human Lispro (Humalog) 20 unit SUBCUT TIDMEALS [facility] Last Admin: 06/06/19 07:21 Dose: Not Given Insulin Human Lispro (Humalog) 0 unit SUBCUT QIDACANDBED [facility]; Protocol Last Admin: 06/06/19 07:19 Dose: Not Given Lactobacillus Rhamnosus (Culturelle) 1 cap PO BID [facility] Last Admin: 06/06/19 08:58 Dose: 1 cap Lisinopril (Prinivil) 40 mg PO DAILY [facility] Last Admin: 06/06/19 08:58 Dose: 40 mg Lorazepam (Ativan) 0.5 mg IVPUSH Q4H PRN PRN Reason: Nausea/Vomiting Last Admin: 06/05/19 01:01 Dose: 0.5 mg Magnesium Oxide (Magnesium Oxide) 400 mg PO BID [facility] Last Admin: 06/06/19 08:57 Dose: 400 mg Zenpep 20,000 Unit * (*Ptom) 0 each PO TIDMEALS [facility] Last Admin: 06/06/19 07:20 Dose: Not Given Ondansetron HCl (Zofran) 4 mg IV Q4H PRN PRN Reason: Nausea/Vomiting Last Admin: 06/05/19 03:44 Dose: 4 mg Oxycodone HCl (Oxycodone) 5 mg PO Q4H PRN PRN Reason: Pain (moderate 4-6) Last Admin: 06/06/19 09:36 Dose: 5 mg Pantoprazole Sodium (Protonix) 40 mg PO ACBREAKFAST [facility] Last Admin: 06/06/19 08:55 Dose: 40 mg Sodium Chloride (Saline Flush) 10 ml FLUSH ASDIRECTED PRN PRN Reason: Keep Vein Open Discontinued Medications Sodium Chloride (Normal Saline) 1,000 mls @ 999 mls/hr IV ASDIRECTED [facility] Last Admin: 06/04/19 14:29 Dose: 999 mls/hr Insulin Human Regular 100 unit (/ Sodium Chloride) 100 mls @ 7.71 mls/hr IV TITRATE IV[facility]; Protocol Last Titration: 06/05/19 00:11 Dose: 0.06 units/kg/hr, 5 mls/hr Dextrose/Sodium Chloride (Dextrose 5%-1/2 Ns) 1,000 mls @ 150 mls/hr IV ASDIRECTED PRN PRN Reason: Blood Glucose Last Admin: 06/05/19 09:15 Dose: 150 mls/hr Insulin Human Regular 100 unit (/ Sodium Chloride) 101 mls @ 7.78 mls/hr IV TITRATE IV[facility]; Protocol Last Titration: 06/05/19 10:05 Dose: 0 units/kg/hr, 0 mls/hr Magnesium Sulfate (Magnesium Sulfate In Water Premix) 50 mls @ 25 mls/hr IV ONETIME PRN PRN Reason: low magnesium Sodium Chloride (Normal Saline) 2,000 mls @ 500 mls/hr IV ASDIRECTED PRN PRN Reason: Blood Glucose Sodium Phosphate 60 mmole/ (Sodium Chloride) 270 mls @ 62.5 mls/hr IV ONETIME PRN PRN Reason: Low phophorus Sodium Chloride (Normal Saline) 1,000 mls @ 250 mls/hr IV ONETIME ONE Stop: 06/04/19 21:14 Last Admin: 06/04/19 17:13 Dose: 250 mls/hr Sodium Chloride (Normal Saline) 100 mls @ 3 mls/sec IV ASDIRECTED [facility] Stop: 06/05/19 12:00 Last Admin: 06/05/19 11:34 Dose: 3 mls/sec Insulin Glargine (Lantus Solostar) 40 units SUBCUT DAILY [facility] Stop: 06/05/19 10:31 Last Admin: 06/05/19 10:54 Dose: 40 units Insulin Human Regular (Humulin R) 10 unit IVPUSH ONETIME ONE Stop: 06/04/19 15:26 Last Admin: 06/04/19 15:51 Dose: 10 unit Iopamidol (Isovue-300 (61%)) 100 ml IV . DIRECTED IV[facility] Stop: 06/05/19 12:00 Last Admin: 06/05/19 11:34 Dose: 100 ml Ondansetron HCl (Zofran) Confirm Administered Dose 4 mg .ROUTE .STK-MED ONE Stop: 06/04/19 14:01 Last Admin: 06/04/19 14:28 Dose: Not Given Ondansetron HCl (Zofran) 4 mg IVPUSH ONETIME ONE Stop: 06/04/19 14:21 Last Admin: 06/04/19 14:28 Dose: 4 mg Potassium Chloride (Potassium Chloride Solution) 20 meq PO NOW PRN PRN Reason: Hypokalemia Last Admin: 06/05/19 05:09 Dose: 20 meq Potassium Chloride (Potassium Chloride Solution) 40 meq PO NOW PRN PRN Reason: Hypokalemia Potassium Chloride (Potassium Chloride Solution) 40 meq PO Q2H PRN PRN Reason: Hypokalemia Potassium Chloride (Klor-Con M20) 40 meq PO ONETIME ONE Stop: 06/04/19 21:21 Last Admin: 06/04/19 22:02 Dose: 40 meq Potassium Chloride (Klor-Con M20) 40 meq PO ONETIME ONE Stop: 06/06/19 09:01 Last Admin: 06/06/19 08:56 Dose: 40 meq Sodium Chloride (Saline Flush) 10 ml FLUSH ONETIME ONE Stop: 06/05/19 10:55 Last Admin: 06/05/19 11:02 Dose: Not Given - Exam General: Reports: Alert, Oriented, Cooperative Lungs: Reports: Clear to Auscultation, Normal Respiratory Effort Cardiovascular: Reports: Regular Rate, Regular Rhythm, No Murmurs GI/Abdominal Exam: Soft, Non-Tender, No Organomegaly, No Distention Extremities: Non-Tender, No Pedal Edema *Q Meaningful Use (DIS) - VTE *Q VTE Pharmacological Contraindications *Q: Not Candidate LT Anticoag
== END 2019-06-06 11:36 | disposition home or self-care (01) | DRG 420 ==
LOC: JP.ED 13:48 → JP.ICU 15:53
PROVIDERS: ADMIT Hospitalist; ATTEND Hospitalist
DX: E11.10 Type 2 diabetes mellitus with ketoacidosis without coma (principal); K85.90 Acute pancreatitis without necrosis or infection, unspecified; K86.1 Other chronic pancreatitis; N17.9 Acute kidney failure, unspecified; H66.90 Otitis media, unspecified, unspecified ear; E86.0 Dehydration; I10 Essential (primary) hypertension; E78.00 Pure hypercholesterolemia, unspecified; K21.9 Gastro-esophageal reflux disease without esophagitis; F17.200 Nicotine dependence, unspecified, uncomplicated; Z79.4 Long term (current) use of insulin; Z79.899 Other long term (current) drug therapy; Z91.030 Bee allergy status; Z90.49 Acquired absence of other specified parts of digestive tract
CPT/HCPCS: 36415; 74177; 80048; 80053; 82009; 82962; 83690; 83735; 84100; 84132; 84484; 85025; 96361; 96374; 99284-25; A9270-GY; J1815; J1815-GY; J2060; J2405; J3475; J7030; Q9967

== ENCOUNTER 2020-05-17 20:03 | Emergency (ER) | payer BC, MEDICAID ==
[2020-05-17] MEDS ORDERED: predniSONE 20 MG Tab PO ONE (20:46)
[2020-05-17] MEDS ORDERED: diphenhydrAMINE 25 MG Cap PO ONE (20:47)
--- NOTE | 2020-05-17 20:53 | EDM.PDOC ---
ED HPI GENERAL MEDICAL PROBLEM - General Chief Complaint: Allergic Reaction Stated Complaint: BEE STING RT EAR Time Seen by Provider: 05/17/20 20:47 Source of Information: Reports: Patient, RN, RN Notes Reviewed History Limitations: Reports: No Limitations - History of Present Illness Onset: Today Onset Date: 05/17/20 Onset Time: 17:00 Duration: Hour(s): Location: Reports: Other (R ear ) Quality: Reports: Burning Severity: Mild - Related Data Allergies Allergy/AdvReac Type Severity Reaction Status Date / Time bee venom protein (honey bee) Allergy Airway Verified 05/17/20 20:47 Tightness Home Meds: Home Meds Lisinopril 40 mg PO DAILY 02/15/18 [History] Omeprazole 20 mg PO DAILY 02/15/18 [History] amLODIPine Besylate [Norvasc] 10 mg PO DAILY 02/15/18 [History] atorvaSTATin Calcium [Lipitor] 20 mg PO DAILY 10/01/18 [History] Lipase/Protease/Amylase [Zenpep DR 20,000 Unit] 2 each PO TIDMEALS 01/28/19 [History] chlordiazePOXIDE HCl [Chlordiazepoxide HCl] 1 cap PO BID 05/02/19 [History] hydroCHLOROthiazide [Hydrochlorothiazide] 25 mg PO DAILY 05/02/19 [History] Doxycycline [Vibramycin] 100 mg PO DAILY #6 cap 05/04/19 [Rx] Lactobacillus Rhamnosus GG [Culturelle] 1 cap PO BID #60 cap 05/04/19 [Rx] Insulin Glarg,Human.Rec.Analog [Lantus Solostar] 40 units SUBCUT BEDTIME pen 06/06/19 [Rx] Insulin Lispro [Humalog] 20 unit SUBCUT TIDMEALS pen 06/06/19 [Rx] Magnesium Oxide 400 mg PO BID #60 tab 06/06/19 [Rx] Potassium Chloride 20 meq PO BID #60 tablet.er 06/06/19 [Rx] oxyCODONE 5 mg PO Q4H PRN #10 tablet 06/06/19 [Rx] Past Medical History HEENT History: Reports: Otitis Media Cardiovascular History: Reports: High Cholesterol, Hypertension Gastrointestinal History: Reports: GERD, Pancreatitis Neurological History: Reports: Seizure Psychiatric History: Reports: Addiction Endocrine/Metabolic History: Reports: Diabetes, Type II Hematologic History: Reports: Blood Transfusion(s) - Infectious Disease History Infectious Disease History: Reports: Chicken Pox - Past Surgical History Head Surgeries/Procedures: Reports: None HEENT Surgical History: Reports: Myringotomy w Tube(s) GI Surgical History: Reports: Cholecystectomy Dermatological Surgical History: Reports: None Social & Family History - Family History Family Medical History: Unobtainable - Caffeine Use Caffeine Use: Reports: Coffee ED ROS ALLERGIC REACTION - Review of Systems Review Of Systems: See Below Constitutional: Reports: No Symptoms HEENT: Reports: Ear Pain (Wasp sting ) Respiratory: Reports: No Symptoms Cardiovascular: Reports: No Symptoms Endocrine: Reports: No Symptoms GI/Abdominal: Reports: No Symptoms : Reports: No Symptoms Musculoskeletal: Reports: No Symptoms Skin: Reports: No Symptoms Neurological: Reports: No Symptoms Psychiatric: Reports: No Symptoms Hematologic/Lymphatic: Reports: No Symptoms Immunologic: Reports: No Symptoms ED EXAM GENERAL NO PERIP PULSE - Physical Exam Exam: See Below Exam Limited By: No Limitations General Appearance: Alert, WD/WN, No Apparent Distress Ears: Other (R ear wasp sting ) Throat/Mouth: Normal Inspection, Normal Lips, Normal Teeth, Normal Voice, No Airway Compromise Head: Normocephalic Neck: Normal Inspection Respiratory/Chest: No Respiratory Distress, Lungs Clear, Normal Breath Sounds Cardiovascular: Regular Rate, Rhythm GI/Abdominal: Normal Bowel Sounds (Male) Exam: Deferred Rectal (Males) Exam: Deferred Extremities: Normal Inspection Neurological: Alert, Oriented, CN II-XII Intact, Normal Cognition Psychiatric: Normal Affect, Normal Mood Skin Exam: Warm, Intact, Other (R ear auricle red with +1 edema) Lymphatic: No Adenopathy Course - Vital Signs Last Recorded V/S: Last Vital Signs Temp 36.3 C 05/17/20 20:42 Pulse 102 H 05/17/20 20:42 Resp 16 05/17/20 20:42 BP 142/75 H 05/17/20 20:42 Pulse Ox 97 05/17/20 20:42 - Orders/Labs/Meds Orders: Active Orders 24 hr Category Date Time Status diphenhydrAMINE [Benadryl] Med 05/17/20 20:47 Once 50 mg PO ONETIME ONE predniSONE Med 05/17/20 20:46 Once 60 mg PO ONETIME ONE Medication Orders Prednisone (Prednisone) 60 mg PO ONETIME ONE Stop: 08/05/20 20:47 Meds: Medications Generic Name Dose Route Start Last Admin Trade Name Manuel PRN Reason Stop Dose Admin Prednisone 60 mg 05/17/20 20:46 Prednisone PO 05/17/20 20:47 ONETIME ONE - Re-Assessments/Exams Free Text/Narrative Re-Assessment/Exam: 05/17/20 20:49 Examine pt meds to d/c home Departure - Departure Time of Disposition: 20:50 Disposition: Home, Self-Care 01 Condition: Good Clinical Impression: Bee sting Qualifiers: Encounter type: initial encounter Injury intent: accidental or unintentional Qualified Code(s): T63.441A - Toxic effect of venom of bees, accidental (unintentional), initial encounter - Discharge Information *PRESCRIPTION DRUG MONITORING PROGRAM REVIEWED*: Not Applicable *COPY OF PRESCRIPTION DRUG MONITORING REPORT IN PATIENT SHEILA: Not Applicable Instructions: Bee, Wasp, or Hornet Sting, Adult, Anaphylactic Reaction, Adult Referrals: Francisca Monteiro MD [Primary Care Provider] - Care Plan Goals: Please take Benadryl 25 mg one tablet by moputh every 6 hours for itch and swelling Please take Prednisone 40 mg tablet each morning by mouth for 5 days and stop Please take it easy and stay out of heat and do not over do as it can increase the swelling or hives especially for the first 3-5 days If you have not improved or symproms worsen, return to ER or primary provider as soon as possible Sepsis Event Note (ED) - Focused Exam Vital Signs: Vital Signs Temp Pulse Resp BP Pulse Ox 05/17/20 20:42 36.3 C 102 H 16 142/75 H 97 - My Orders Last 24 Hours: My Active Orders 05/17/20 20:46 predniSONE 60 mg PO ONETIME ONE 05/17/20 20:47 diphenhydrAMINE [Benadryl] 50 mg PO ONETIME ONE - Assessment/Plan Last 24 Hours: My Active Orders 05/17/20 20:46 predniSONE 60 mg PO ONETIME ONE 05/17/20 20:47 diphenhydrAMINE [Benadryl] 50 mg PO ONETIME ONE
== END 2020-05-17 21:09 | disposition home or self-care (01) ==
LOC: JP.ED 20:03
DX: T63.441A Toxic effect of venom of bees, accidental (unintentional), initial encounter (principal); E78.00 Pure hypercholesterolemia, unspecified; I10 Essential (primary) hypertension; K21.9 Gastro-esophageal reflux disease without esophagitis; E11.9 Type 2 diabetes mellitus without complications; Z79.4 Long term (current) use of insulin; Z79.899 Other long term (current) drug therapy
CPT/HCPCS: 99282; A9270; J7512

== ENCOUNTER 2020-12-08 14:28 | Emergency (ER) | payer BC, MEDICAID ==
[2020-12-08] MEDS ORDERED: Sodium Chloride 0.9% 10 ML Syringe FLUSH PRN (15:39)
--- NOTE | 2020-12-08 15:43 | EDM.PDOC ---
ED HPI GENERAL MEDICAL PROBLEM - General Chief Complaint: Diabetic Complaint Stated Complaint: MEDICAL VIA TRI Time Seen by Provider: 12/08/20 15:36 Source of Information: Reports: Patient, RN Notes Reviewed History Limitations: Reports: No Limitations - History of Present Illness INITIAL COMMENTS - FREE TEXT/NARRATIVE: 40-year-old gentleman presents emergency department today via EMS services, he has known history of insulin-dependent diabetes mellitus no for the last couple days with nausea and vomiting he is the only one that sick in the house no fevers does have crampy abdominal pain no difficulty with urination. He states he has had problems with his blood sugars and they have been extremely high to extremely low. Abdominal Pain Score (Numeric/FACES): 7 - Related Data Allergies Allergy/AdvReac Type Severity Reaction Status Date / Time bee venom protein (honey bee) Allergy Airway Verified 12/08/20 14:49 Tightness Home Meds: Home Meds Lisinopril 40 mg PO DAILY 02/15/18 [History] Omeprazole 20 mg PO DAILY 02/15/18 [History] amLODIPine Besylate [Norvasc] 10 mg PO DAILY 02/15/18 [History] atorvaSTATin Calcium [Lipitor] 20 mg PO DAILY 10/01/18 [History] Lipase/Protease/Amylase [Zenpep DR 20,000 Unit] 2 each PO TIDMEALS 01/28/19 [History] hydroCHLOROthiazide [Hydrochlorothiazide] 25 mg PO DAILY 05/02/19 [History] Insulin Aspart [Insulin Aspart Flexpen] 26 units SUBCUT TIDMEALS 05/17/20 [History] Insulin Glarg,Human.Rec.Analog [Lantus Solostar] 45 units SUBCUT BEDTIME 05/17/20 [History] Past Medical History HEENT History: Reports: Otitis Media Cardiovascular History: Reports: High Cholesterol, Hypertension Gastrointestinal History: Reports: GERD, Pancreatitis Neurological History: Reports: Seizure Other Neuro History: ETOH withdrawl Psychiatric History: Reports: Addiction Endocrine/Metabolic History: Reports: Diabetes, Type II Hematologic History: Reports: Blood Transfusion(s) - Infectious Disease History Infectious Disease History: Reports: Chicken Pox - Past Surgical History Head Surgeries/Procedures: Reports: None HEENT Surgical History: Reports: Myringotomy w Tube(s) Cardiovascular Surgical History: Reports: None GI Surgical History: Reports: Cholecystectomy Endocrine Surgical History: Reports: None Neurological Surgical History: Reports: None Musculoskeletal Surgical History: Reports: None Dermatological Surgical History: Reports: None Social & Family History - Family History Family Medical History: Unobtainable - Tobacco Use Tobacco Use Status *Q: Current Every Day Tobacco User Years of Tobacco use: 25 Packs/Tins Daily: 1 - Caffeine Use Caffeine Use: Reports: Coffee - Alcohol Use Date of Last Drink: 12/07/20 - Recreational Drug Use Recreational Drug Use: No ED ROS GENERAL - Review of Systems Review Of Systems: See Below Constitutional: Denies: Fever, Chills HEENT: Reports: No Symptoms Respiratory: Reports: No Symptoms Cardiovascular: Reports: No Symptoms GI/Abdominal: Reports: Abdominal Pain, Nausea (Crampiness), Vomiting : Reports: No Symptoms Musculoskeletal: Reports: No Symptoms ED EXAM GENERAL NO PERIP PULSE - Physical Exam Exam: See Below Exam Limited By: No Limitations General Appearance: Alert, WD/WN, No Apparent Distress Respiratory/Chest: No Respiratory Distress, Lungs Clear, Normal Breath Sounds, No Accessory Muscle Use, Chest Non-Tender Cardiovascular: Regular Rate, Rhythm, No Murmur GI/Abdominal: Normal Bowel Sounds, Soft, Non-Tender Course - Vital Signs Last Recorded V/S: Last Vital Signs Temp 97.1 F 12/08/20 14:42 Pulse Resp 32 H 12/08/20 14:42 BP 140/83 12/08/20 14:42 Pulse Ox 96 12/08/20 14:42 - Orders/Labs/Meds Orders: Active Orders 24 hr Category Date Time Status Cardiac Monitoring [RC] CONTINUOUS Care 12/08/20 15:39 Active Communication Order [RC] STAT Care 12/08/20 15:39 Active Communication Order [RC] STAT Care 12/08/20 15:39 Active Peripheral IV Care [RC] . DIRECTED Care 12/08/20 15:39 Active CULTURE BLOOD [BC] Urgent Lab 12/08/20 15:50 Received CULTURE BLOOD [BC] Urgent Lab 12/08/20 16:20 Received UA W/MICROSCOPIC [URIN] Stat Lab 12/08/20 18:14 Ordered Sodium Chloride 0.9% [Normal Saline] 1,000 ml Med 12/08/20 15:45 Active IV ASDIRECTED Sodium Chloride 0.9% [Normal Saline] 1,000 ml Med 12/08/20 17:15 Active IV ASDIRECTED Sodium Chloride 0.9% [Saline Flush] Med 12/08/20 15:39 Active 10 ml FLUSH ASDIRECTED PRN Blood Culture x2 Reflex Set [OM.PC] Urgent Oth 12/08/20 15:39 Ordered Peripheral IV Insertion Adult [OM.PC] Stat Oth 12/08/20 15:39 Ordered Medication Orders Sodium Chloride (Normal Saline) 1,000 mls @ 999 mls/hr IV ASDIRECTED IVANA Last Admin: 12/08/20 16:05 Dose: 999 mls/hr Documented by: SEBASTIÁN Sodium Chloride (Normal Saline) 1,000 mls @ 999 mls/hr IV ASDIRECTED IVANA Last Admin: 12/08/20 17:28 Dose: 999 mls/hr Documented by: SEBASTIÁN Sodium Chloride (Saline Flush) 10 ml FLUSH ASDIRECTED PRN PRN Reason: Keep Vein Open Labs: Laboratory Tests 12/08/20 12/08/20 12/08/20 Range/Units 15:15 15:39 15:50 WBC 11.1 H (4.5-11.0) K/uL RBC 4.96 (4.30-5.90) M/uL Hgb 15.3 H (12.0-15.0) g/dL Hct 44.0 (40.0-54.0) % MCV 89 (80-98) fL MCH 31 (27-31) pg MCHC 35 (32-36) % Plt Count 205 (150-400) K/uL Neut % (Auto) 79 H (36-66) % Lymph % (Auto) 8 L (24-44) % [place] % (Auto) 14 H (2-6) % Eos % (Auto) 0 L (2-4) % Baso % (Auto) 0 (0-1) % ABG Hemoglobin 15.4 (13.5-18.0) g/dL ABG Oxyhemoglobin 77.6 % ABG Carboxyhemoglobin 2.4 H (0.0-1.6) % ABG Methemoglobin 1.4 % VBG pH 7.508 H (7.350-7.450) VBG pCO2 33.8 mm/Hg VBG pO2 41.3 mm/Hg VBG HCO3 26.7 mmol/L VBG Total CO2 22.6 mmol/L VBG O2 Saturation 80.7 VBG O2 Content 16.7 %vol VBG Base Excess 4.3 mm/L O2 Delivery Device Room air Sodium 133 L (140-148) mmol/L Potassium 4.2 (3.6-5.2) mmol/L Chloride 90 L (100-108) mmol/L Carbon Dioxide 28 (21-32) mmol/L Anion Gap 19.2 H (5.0-14.0) mmol/L BUN 17 (7-18) mg/dL Creatinine 1.4 H D (0.8-1.3) mg/dL Est Cr Clr Drug Dosing 73.21 mL/min Estimated GFR (MDRD) 56 L (>60) Glucose 337 H (74-106) mg/dL Lactic Acid (0.4-2.0) mmol/L Calcium 8.7 (8.5-10.1) mg/dL Phosphorus 0.9 L (2.5-4.9) mg/dL Magnesium 1.3 L (1.8-2.4) mg/dL Total Bilirubin 0.8 (0.2-1.0) mg/dL AST 98 H D (15-37) U/L ALT 147 H (12-78) U/L Alkaline Phosphatase 199 H (46-116) U/L Total Protein 7.5 (6.4-8.2) g/dL Albumin 3.9 (3.4-5.0) g/dL Globulin 3.6 H (2.3-3.5) g/dL Albumin/Globulin Ratio 1.1 L (1.2-2.2) Lipase (73-393) U/L Ketones (NEGATIVE) 12/08/20 12/08/20 12/08/20 Range/Units 15:50 15:50 16:55 WBC (4.5-11.0) K/uL RBC (4.30-5.90) M/uL Hgb (12.0-15.0) g/dL Hct (40.0-54.0) % MCV (80-98) fL MCH (27-31) pg MCHC (32-36) % Plt Count (150-400) K/uL Neut % (Auto) (36-66) % Lymph % (Auto) (24-44) % [place] % (Auto) (2-6) % Eos % (Auto) (2-4) % Baso % (Auto) (0-1) % ABG Hemoglobin (13.5-18.0) g/dL ABG Oxyhemoglobin % ABG Carboxyhemoglobin (0.0-1.6) % ABG Methemoglobin % VBG pH (7.350-7.450) VBG pCO2 mm/Hg VBG pO2 mm/Hg VBG HCO3 mmol/L VBG Total CO2 mmol/L VBG O2 Saturation VBG O2 Content %vol VBG Base Excess mm/L O2 Delivery Device Sodium (140-148) mmol/L Potassium (3.6-5.2) mmol/L Chloride (100-108) mmol/L Carbon Dioxide (21-32) mmol/L Anion Gap (5.0-14.0) mmol/L BUN (7-18) mg/dL Creatinine (0.8-1.3) mg/dL Est Cr Clr Drug Dosing mL/min Estimated GFR (MDRD) (>60) Glucose (74-106) mg/dL Lactic Acid 3.2 H (0.4-2.0) mmol/L Calcium (8.5-10.1) mg/dL Phosphorus (2.5-4.9) mg/dL Magnesium (1.8-2.4) mg/dL Total Bilirubin (0.2-1.0) mg/dL AST (15-37) U/L ALT (12-78) U/L Alkaline Phosphatase (46-116) U/L Total Protein (6.4-8.2) g/dL Albumin (3.4-5.0) g/dL Globulin (2.3-3.5) g/dL Albumin/Globulin Ratio (1.2-2.2) Lipase 118 (73-393) U/L Ketones Small H (NEGATIVE) Meds: Medications Generic Name Dose Route Start Last Admin Trade Name Freq PRN Reason Stop Dose Admin Sodium Chloride 1,000 mls @ 999 mls/hr 12/08/20 15:45 12/08/20 16:05 Normal Saline IV 999 mls/hr ASDIRECTED IVANA Administration Sodium Chloride 1,000 mls @ 999 mls/hr 12/08/20 17:15 12/08/20 17:28 Normal Saline IV 999 mls/hr ASDIRECTED IVANA Administration Sodium Chloride 10 ml 12/08/20 15:39 Saline Flush FLUSH ASDIRECTED PRN Keep Vein Open Discontinued Medications Generic Name Dose Route Start Last Admin Trade Name Manuel PRN Reason Stop Dose Admin Hydromorphone HCl 1 mg 12/08/20 16:01 12/08/20 16:07 Dilaudid IVPUSH 12/08/20 16:02 1 mg ONETIME ONE Administration Ondansetron HCl 4 mg 12/08/20 15:44 12/08/20 16:05 Zofran IVPUSH 12/08/20 15:45 4 mg ONETIME ONE Administration Ondansetron HCl Confirm 12/08/20 15:45 Zofran Administered 12/08/20 15:46 Dose 4 mg .ROUTE .STK-MED ONE Departure - Departure Time of Disposition: 18:26 Disposition: Home, Self-Care 01 Condition: Fair Clinical Impression: Gastroenteritis - Discharge Information Referrals: PCP,None [Primary Care Provider] - Forms: ED Department Discharge Additional Instructions: Use Zofran as needed for nausea and vomiting symptoms, continue to push fluids continue with your regular medications please followup with your primary care provider in 3-5 days if not better, please call return to the emergency department with worsening of symptoms., Sepsis Event Note (ED) - Evaluation Sepsis Screening Result: No Definite Risk - Focused Exam Vital Signs: Vital Signs Temp Resp BP Pulse Ox 12/08/20 14:42 97.1 F 32 H 140/83 96 - My Orders Last 24 Hours: My Active Orders 12/08/20 15:39 Cardiac Monitoring [RC] CONTINUOUS Communication Order [RC] STAT Communication Order [RC] STAT Peripheral IV Care [RC] . DIRECTED Sodium Chloride 0.9% [Saline Flush] 10 ml FLUSH ASDIRECTED PRN Blood Culture x2 Reflex Set [OM.PC] Urgent Peripheral IV Insertion Adult [OM.PC] Stat 12/08/20 15:45 Sodium Chloride 0.9% [Normal Saline] 1,000 ml IV ASDIRECTED 12/08/20 15:50 CULTURE BLOOD [BC] Urgent 12/08/20 16:20 CULTURE BLOOD [BC] Urgent 12/08/20 17:15 Sodium Chloride 0.9% [Normal Saline] 1,000 ml IV ASDIRECTED 12/08/20 18:14 UA W/MICROSCOPIC [URIN] Stat - Assessment/Plan Last 24 Hours: My Active Orders 12/08/20 15:39 Cardiac Monitoring [RC] CONTINUOUS Communication Order [RC] STAT Communication Order [RC] STAT Peripheral IV Care [RC] . DIRECTED Sodium Chloride 0.9% [Saline Flush] 10 ml FLUSH ASDIRECTED PRN Blood Culture x2 Reflex Set [OM.PC] Urgent Peripheral IV Insertion Adult [OM.PC] Stat 12/08/20 15:45 Sodium Chloride 0.9% [Normal Saline] 1,000 ml IV ASDIRECTED 12/08/20 15:50 CULTURE BLOOD [BC] Urgent 12/08/20 16:20 CULTURE BLOOD [BC] Urgent 12/08/20 17:15 Sodium Chloride 0.9% [Normal Saline] 1,000 ml IV ASDIRECTED 12/08/20 18:14 UA W/MICROSCOPIC [URIN] Stat Plan: Assessment Acuity = acute Site and laterality = gastroenteritis complicated patient with known history of diabetes mellitus type Etiology = probably viral Manifestations = nausea vomiting cramping abdominal pain risk for DKA Location of injury = Home Lab values = CBC unremarkable venous pH 7.5 sodium 133 consistent hyponatremia creatinine elevated 1.4 consistent with acute renal failure stage G3 a lactic acid elevated 3.2 consistent with lactic acidosis magnesium low at 1.3 consistent with hypomagnesemia AST 95 ALT 187 consistent with elevated liver enzymes lipase normal 118 small ketones appreciated in the blood urinalysis reveals specific gravity greater than 1.03 glucose and ketones in the urine Plan I did review lab work with him he does have a continuous glucose monitor on his last reading on his phone was 180 for his glucose he feels better after 2 L of fluid plan is discharged home with Zofran 4 mg ODT total #5 1 tab p.o. 3 times daily as needed as well as hydrocodone 5/325 1 tab p.o. 3 times daily. Total #6 I talked to him about DKA which she has experienced in the past he feels significantly better he would like to try management at home or return with worsening of symptoms This note was dictated using [employer] voice recognition software please call with any questions on syntax or grammar.
[2020-12-08] MEDS ORDERED: Ondansetron 4 MG/2 ML SDV IVPUSH ONE (15:44)
[2020-12-08] MEDS ORDERED: Sodium Chloride 0.9% 1,000 ML IV SCH ×2 (15:45→17:15)
[2020-12-08] MEDS ORDERED: Ondansetron 4 MG/2 ML SDV ONE (15:45)
[2020-12-08] MEDS ORDERED: HYDROmorphone 1 MG/ML Syringe IVPUSH ONE (16:01)
== END 2020-12-08 18:49 | disposition home or self-care (01) ==
LOC: JP.ED 14:28
DX: K52.9 Noninfective gastroenteritis and colitis, unspecified (principal); E78.00 Pure hypercholesterolemia, unspecified; I10 Essential (primary) hypertension; K21.9 Gastro-esophageal reflux disease without esophagitis; E11.9 Type 2 diabetes mellitus without complications; Z79.4 Long term (current) use of insulin; Z72.0 Tobacco use; Z91.030 Bee allergy status; Z79.899 Other long term (current) drug therapy
CPT/HCPCS: 36415; 80053; 81001; 82009; 82803; 83605; 83690; 83735; 84100; 85025; 87040; 96374; 96375; 99284; J1170; J2405; J7030

== ENCOUNTER 2021-01-25 12:33 | Inpatient (IN) | payer MEDICAID, OTHER ==
[2021-01-25] MEDS ORDERED: Sodium Chloride 0.9% 10 ML Syringe FLUSH PRN ×2 (13:04→15:21)
[2021-01-25] MEDS ORDERED: Ondansetron 4 MG/2 ML SDV IVPUSH ONE (13:10)
[2021-01-25] MEDS ORDERED: Sodium Chloride 0.9% 1,000 ML IV SCH ×3 (13:15→14:30)
--- NOTE | 2021-01-25 13:15 | EDM.PDOC ---
ED HPI GENERAL MEDICAL PROBLEM - General Chief Complaint: Gastrointestinal Problem Stated Complaint: VOMITING, LIGHT HEADED,SHAKES Time Seen by Provider: 01/25/21 12:56 Source of Information: Reports: Patient, RN Notes Reviewed - History of Present Illness INITIAL COMMENTS - FREE TEXT/NARRATIVE: 40-year-old gentleman presents emergency department today concerned about blood sugars, he has a known history of diabetes mellitus type 1, he does admit that he has had problems with a boil on his left buttocks for maybe about a month started with a break in the skin he describes like a pimple however it has now progressed its about the size of a golf ball tender to the touch some warmth to the touch it has progressively gotten worse over the last week he noticed problems with his blood sugars over the last 2448 hrs. have been fluctuating extreme highs and extreme lows he has felt his heart beat faster he is noticed she started to breathe faster. He has not had any fevers has developed nausea and vomiting. No chest pain no shortness of breath no diarrhea - Related Data Allergies Allergy/AdvReac Type Severity Reaction Status Date / Time bee venom protein (honey bee) Allergy Airway Verified 01/25/21 12:49 Tightness Home Meds: Home Meds Lisinopril 40 mg PO DAILY 02/15/18 [History] Omeprazole 20 mg PO DAILY 02/15/18 [History] amLODIPine Besylate [Norvasc] 10 mg PO DAILY 02/15/18 [History] atorvaSTATin Calcium [Lipitor] 20 mg PO DAILY 10/01/18 [History] Lipase/Protease/Amylase [Zenpep DR 20,000 Unit] 2 each PO TIDMEALS 01/28/19 [History] hydroCHLOROthiazide [Hydrochlorothiazide] 25 mg PO DAILY 05/02/19 [History] Insulin Aspart [Insulin Aspart Flexpen] 26 units SUBCUT TIDMEALS 05/17/20 [History] Insulin Glarg,Human.Rec.Analog [Lantus Solostar] 45 units SUBCUT BEDTIME 05/17/20 [History] Past Medical History HEENT History: Reports: Otitis Media Cardiovascular History: Reports: High Cholesterol, Hypertension Gastrointestinal History: Reports: GERD, Pancreatitis Neurological History: Reports: Seizure Other Neuro History: ETOH withdrawl Psychiatric History: Reports: Addiction Endocrine/Metabolic History: Reports: Diabetes, Type II Hematologic History: Reports: Blood Transfusion(s) - Infectious Disease History Infectious Disease History: Reports: Chicken Pox - Past Surgical History Head Surgeries/Procedures: Reports: None HEENT Surgical History: Reports: Myringotomy w Tube(s) Cardiovascular Surgical History: Reports: None GI Surgical History: Reports: Cholecystectomy Endocrine Surgical History: Reports: None Neurological Surgical History: Reports: None Musculoskeletal Surgical History: Reports: None Dermatological Surgical History: Reports: None Social & Family History - Family History Family Medical History: Unobtainable - Tobacco Use Tobacco Use Status *Q: Current Every Day Tobacco User Years of Tobacco use: 20 Packs/Tins Daily: 1 - Caffeine Use Caffeine Use: Reports: Coffee - Recreational Drug Use Recreational Drug Use: No ED ROS GENERAL - Review of Systems Review Of Systems: See Below Constitutional: Denies: Fever, Chills HEENT: Reports: No Symptoms Respiratory: Reports: Other Cardiovascular: Reports: Palpitations Endocrine: Reports: High Glucose, Low Glucose GI/Abdominal: Reports: Nausea, Vomiting : Reports: No Symptoms Musculoskeletal: Reports: No Symptoms Skin: Reports: No Symptoms Neurological: Reports: No Symptoms ED EXAM, GI/ABD - Physical Exam Exam: See Below Exam Limited By: No Limitations General Appearance: Alert, WD/WN, No Apparent Distress Respiratory/Chest: No Respiratory Distress, Lungs Clear, Normal Breath Sounds, No Accessory Muscle Use, Chest Non-Tender Cardiovascular: No Murmur, Tachycardia GI/Abdominal Exam: Soft, Non-Tender Course - Vital Signs Last Recorded V/S: Last Vital Signs Temp 97.3 F 01/25/21 12:54 Pulse 124 H 01/25/21 12:54 Resp 18 01/25/21 12:54 BP 118/73 01/25/21 12:54 Pulse Ox 97 01/25/21 12:54 - Orders/Labs/Meds Orders: Active Orders 24 hr Category Date Time Status Blood Glucose Check, Bedside [RC] STAT Care 01/25/21 13:04 Active Cardiac Monitoring [RC] CONTINUOUS Care 01/25/21 13:04 Active Peripheral IV Care [RC] . DIRECTED Care 01/25/21 13:04 Active CULTURE BLOOD [BC] Urgent Lab 01/25/21 13:16 Received CULTURE BLOOD [BC] Urgent Lab 01/25/21 13:25 Received LACTATE SEPSIS W/ REFLEX [CHEM] Urgent Lab 01/25/21 14:24 Ordered Piperacillin/Tazobactam [Zosyn] 4.5 gm Med 01/25/21 14:22 Ordered Sodium Chloride 0.9% [Normal Saline] 100 ml IV ONETIME Sodium Chloride 0.9% [Normal Saline] 1,000 ml Med 01/25/21 13:15 Active IV ASDIRECTED Sodium Chloride 0.9% [Normal Saline] 1,000 ml Med 01/25/21 14:30 Ordered IV ASDIRECTED Sodium Chloride 0.9% [Saline Flush] Med 01/25/21 13:04 Active 10 ml FLUSH ASDIRECTED PRN Vancomycin 1 gm Med 01/25/21 14:22 Ordered Sodium Chloride 0.9% [Normal Saline] 250 ml IV ONETIME Blood Culture x2 Reflex Set [OM.PC] Urgent Oth 01/25/21 13:04 Ordered Peripheral IV Insertion Adult [OM.PC] Stat Oth 01/25/21 13:04 Ordered Medication Orders Sodium Chloride (Normal Saline) 1,000 mls @ 999 mls/hr IV ASDIRECTED IVANA Last Admin: 01/25/21 13:19 Dose: 999 mls/hr Documented by: CRISTIAN Piperacillin Sod/Tazobactam (Sod 4.5 gm/ Sodium Chloride) 100 mls @ 100 mls/hr IV ONETIME ONE Stop: 01/25/21 15:21 Vancomycin HCl 1 gm/ Sodium (Chloride) 250 mls @ 150 mls/hr IV ONETIME ONE Stop: 01/25/21 16:01 Sodium Chloride (Normal Saline) 1,000 mls @ 999 mls/hr IV ASDIRECTED IVANA Stop: 01/25/21 15:31 Sodium Chloride (Sodium Chloride 0.9% 10 Ml Syringe) 10 ml FLUSH ASDIRECTED PRN PRN Reason: Keep Vein Open Last Admin: 01/25/21 13:24 Dose: 10 ml Documented by: CRISTIAN Labs: Laboratory Tests 01/25/21 01/25/21 01/25/21 Range/Units 13:04 13:05 13:31 WBC 11.0 (4.5-11.0) K/uL RBC 5.70 (4.30-5.90) M/uL Hgb 17.4 H D (12.0-15.0) g/dL Hct 50.8 (40.0-54.0) % MCV 89 (80-98) fL MCH 31 (27-31) pg MCHC 34 (32-36) % Plt Count 216 (150-400) K/uL Neut % (Auto) 78 H (36-66) % Lymph % (Auto) 17 L (24-44) % Clark % (Auto) 4 (2-6) % Eos % (Auto) 0 L (2-4) % Baso % (Auto) 0 (0-1) % ABG Hemoglobin 18.1 H (13.5-18.0) g/dL ABG Oxyhemoglobin 90.1 % ABG Carboxyhemoglobin 3.2 H (0.0-1.6) % ABG Methemoglobin 1.2 % VBG pH 7.422 (7.350-7.450) VBG pCO2 29.0 mm/Hg VBG pO2 72.1 mm/Hg VBG HCO3 18.5 mmol/L VBG Total CO2 15.3 mmol/L VBG O2 Saturation 94.2 VBG O2 Content 22.9 %vol VBG Base Excess -3.8 mm/L O2 Delivery Device Room air Sodium 141 (140-148) mmol/L Potassium 4.4 (3.6-5.2) mmol/L Chloride 98 L (100-108) mmol/L Carbon Dioxide 20 L (21-32) mmol/L Anion Gap 27.4 H (5.0-14.0) mmol/L BUN 31 H D (7-18) mg/dL Creatinine 1.5 H (0.8-1.3) mg/dL Est Cr Clr Drug Dosing 68.33 mL/min Estimated GFR (MDRD) 51 L (>60) Glucose 315 H (74-106) mg/dL Lactic Acid (0.4-2.0) mmol/L Calcium 9.7 (8.5-10.1) mg/dL Phosphorus 5.8 H (2.5-4.9) mg/dL Magnesium 1.7 L (1.8-2.4) mg/dL Total Bilirubin 0.4 (0.2-1.0) mg/dL AST 67 H (15-37) U/L ALT 134 H (12-78) U/L Alkaline Phosphatase 194 H (46-116) U/L Total Protein 8.1 (6.4-8.2) g/dL Albumin 4.2 (3.4-5.0) g/dL Globulin 3.9 H (2.3-3.5) g/dL Albumin/Globulin Ratio 1.1 L (1.2-2.2) Urine Color (YELLOW) Urine Appearance (CLEAR) Urine pH (5.0-8.0) Ur Specific [place] (1.008-1.030) Urine Protein (NEGATIVE) mg/dL Urine Glucose (UA) (NEGATIVE) mg/dL Urine Ketones (NEGATIVE) mg/dL Urine Occult Blood (NEGATIVE) Urine Nitrite (NEGATIVE) Urine Bilirubin (NEGATIVE) Urine Urobilinogen (0.2-1.0) EU/dL Ur Leukocyte Esterase (NEGATIVE) Urine RBC (0-5) Urine WBC (0-5) Ur Epithelial Cells Amorphous Sediment Urine Bacteria Urine Mucus Ketones (NEGATIVE) 01/25/21 01/25/21 01/25/21 Range/Units 13:31 13:31 13:56 WBC (4.5-11.0) K/uL RBC (4.30-5.90) M/uL Hgb (12.0-15.0) g/dL Hct (40.0-54.0) % MCV (80-98) fL MCH (27-31) pg MCHC (32-36) % Plt Count (150-400) K/uL Neut % (Auto) (36-66) % Lymph % (Auto) (24-44) % Clark % (Auto) (2-6) % Eos % (Auto) (2-4) % Baso % (Auto) (0-1) % ABG Hemoglobin (13.5-18.0) g/dL ABG Oxyhemoglobin % ABG Carboxyhemoglobin (0.0-1.6) % ABG Methemoglobin % VBG pH (7.350-7.450) VBG pCO2 mm/Hg VBG pO2 mm/Hg VBG HCO3 mmol/L VBG Total CO2 mmol/L VBG O2 Saturation VBG O2 Content %vol VBG Base Excess mm/L O2 Delivery Device Sodium (140-148) mmol/L Potassium (3.6-5.2) mmol/L Chloride (100-108) mmol/L Carbon Dioxide (21-32) mmol/L Anion Gap (5.0-14.0) mmol/L BUN (7-18) mg/dL Creatinine (0.8-1.3) mg/dL Est Cr Clr Drug Dosing mL/min Estimated GFR (MDRD) (>60) Glucose (74-106) mg/dL Lactic Acid 7.1 H (0.4-2.0) mmol/L Calcium (8.5-10.1) mg/dL Phosphorus (2.5-4.9) mg/dL Magnesium (1.8-2.4) mg/dL Total Bilirubin (0.2-1.0) mg/dL AST (15-37) U/L ALT (12-78) U/L Alkaline Phosphatase (46-116) U/L Total Protein (6.4-8.2) g/dL Albumin (3.4-5.0) g/dL Globulin (2.3-3.5) g/dL Albumin/Globulin Ratio (1.2-2.2) Urine Color Yellow (YELLOW) Urine Appearance Clear (CLEAR) Urine pH 5.5 (5.0-8.0) Ur Specific [place] 1.025 (1.008-1.030) Urine Protein Negative (NEGATIVE) mg/dL Urine Glucose (UA) 500 H (NEGATIVE) mg/dL Urine Ketones Negative (NEGATIVE) mg/dL Urine Occult Blood Negative (NEGATIVE) Urine Nitrite Negative (NEGATIVE) Urine Bilirubin Negative (NEGATIVE) Urine Urobilinogen 0.2 (0.2-1.0) EU/dL Ur Leukocyte Esterase Negative (NEGATIVE) Urine RBC 0-5 (0-5) Urine WBC 0-5 (0-5) Ur Epithelial Cells Not seen Amorphous Sediment Not seen Urine Bacteria Few Urine Mucus Few Ketones Negative (NEGATIVE) Meds: Medications Generic Name Dose Route Start Last Admin Trade Name Freq PRN Reason Stop Dose Admin Sodium Chloride 1,000 mls @ 999 mls/hr 01/25/21 13:15 01/25/21 13:19 Normal Saline IV 999 mls/hr ASDIRECTED IVANA Administration Piperacillin Sod/Tazobactam 100 mls @ 100 mls/hr 01/25/21 14:22 Sod 4.5 gm/ Sodium Chloride IV 01/25/21 15:21 ONETIME ONE Vancomycin HCl 1 gm/ Sodium 250 mls @ 150 mls/hr 01/25/21 14:22 Chloride IV 01/25/21 16:01 ONETIME ONE Sodium Chloride 1,000 mls @ 999 mls/hr 01/25/21 14:30 Normal Saline IV 01/25/21 15:31 ASDIRECTED IVANA Sodium Chloride 10 ml 01/25/21 13:04 01/25/21 13:24 Sodium Chloride 0.9% 10 Ml Syringe FLUSH 10 ml ASDIRECTED PRN Administration Keep Vein Open Discontinued Medications Generic Name Dose Route Start Last Admin Trade Name Freq PRN Reason Stop Dose Admin Ondansetron HCl 4 mg 01/25/21 13:10 01/25/21 13:24 Ondansetron 4 Mg/2 Ml Sdv IVPUSH 01/25/21 13:11 4 mg ONETIME ONE Administration Departure - Departure Time of Disposition: 14:27 Disposition: Admitted As Inpatient 64 Condition: Fair Clinical Impression: Sepsis Qualifiers: Sepsis type: sepsis due to unspecified organism Sepsis acute organ dysfunction status: with acute organ dysfunction Severe sepsis acute organ dysfunction type: acute renal failure Acute renal failure type: unspecified Severe sepsis shock status: without septic shock Qualified Code(s): A41.9 - Sepsis, unspecified organism; R65.20 - Severe sepsis without septic shock; N17.9 - Acute kidney failure, unspecified - Discharge Information Referrals: PCP,None [Primary Care Provider] - Forms: ED Department Discharge Sepsis Event Note (ED) - Evaluation Sepsis Screening Result: No Definite Risk - Focused Exam Vital Signs: Vital Signs Temp Pulse Resp BP Pulse Ox 01/25/21 12:54 97.3 F 124 H 18 118/73 97 01/25/21 12:48 97.3 F 124 H 18 118/73 97 - My Orders Last 24 Hours: My Active Orders 01/25/21 13:04 Blood Glucose Check, Bedside [RC] STAT Cardiac Monitoring [RC] CONTINUOUS Peripheral IV Care [RC] . DIRECTED Sodium Chloride 0.9% [Saline Flush] 10 ml FLUSH ASDIRECTED PRN Blood Culture x2 Reflex Set [OM.PC] Urgent Peripheral IV Insertion Adult [OM.PC] Stat 01/25/21 13:15 Sodium Chloride 0.9% [Normal Saline] 1,000 ml IV ASDIRECTED 01/25/21 13:16 CULTURE BLOOD [BC] Urgent 01/25/21 13:25 CULTURE BLOOD [BC] Urgent 01/25/21 14:22 Piperacillin/Tazobactam [Zosyn] 4.5 gm Sodium Chloride 0.9% [Normal Saline] 100 ml IV ONETIME Vancomycin 1 gm Sodium Chloride 0.9% [Normal Saline] 250 ml IV ONETIME 01/25/21 14:24 LACTATE SEPSIS W/ REFLEX [CHEM] Urgent - Assessment/Plan Last 24 Hours: My Active Orders 01/25/21 13:04 Blood Glucose Check, Bedside [RC] STAT Cardiac Monitoring [RC] CONTINUOUS Peripheral IV Care [RC] . DIRECTED Sodium Chloride 0.9% [Saline Flush] 10 ml FLUSH ASDIRECTED PRN Blood Culture x2 Reflex Set [OM.PC] Urgent Peripheral IV Insertion Adult [OM.PC] Stat 01/25/21 13:15 Sodium Chloride 0.9% [Normal Saline] 1,000 ml IV ASDIRECTED 01/25/21 13:16 CULTURE BLOOD [BC] Urgent 01/25/21 13:25 CULTURE BLOOD [BC] Urgent 01/25/21 14:22 Piperacillin/Tazobactam [Zosyn] 4.5 gm Sodium Chloride 0.9% [Normal Saline] 100 ml IV ONETIME Vancomycin 1 gm Sodium Chloride 0.9% [Normal Saline] 250 ml IV ONETIME 01/25/21 14:24 LACTATE SEPSIS W/ REFLEX [CHEM] Urgent Plan: Assessment Acuity = acute Site and laterality = early sepsis Etiology = possibly related to abscess on left buttocks Manifestations = none Location of injury = Home Lab values = pH 7.42, CBC unremarkable CO2 slightly low at 20 creatinine elevated 1.5 consistent with acute renal failure stage T3a lactic acid elevated 7.1 consistent lactic acidosis phosphorus elevated 5.8 consistent with hyperphosphatemia magnesium low at 1.7 consistent hypomagnesemia AST elevated 67 ALT elevated 134 consistent elevated liver enzymes urinalysis unremarkable negative ketones in the blood Plan Call discussed case with hospitalist on-call at 1420 kindly agreed to come evaluate the patient emergency department for admission, second liter of fluids provided in combination with Zosyn and vancomycin This note was dictated using [employer] voice recognition software please call with any questions on syntax or grammar.
[2021-01-25] MEDS ORDERED: Piperacillin/Tazobactam 4.5 GM in Sodium Chloride 0.9% 100 ML IV ONE (14:22)
--- NOTE | 2021-01-25 14:41 | PCM.HP.2 ---
H&P History of Present Illness - General Date of Service: 01/25/21 Admit Problem/Dx: Admission Diagnosis/Problem Admission Diagnosis/Problem Cellulitis and abscess Source of Information: Patient, Provider, RN Notes Reviewed History Limitations: Reports: No Limitations - History of Present Illness Initial Comments - Free Text/Narative: Mr. Jones is a 40-year-old gentleman who was admitted through the emergency department with progressive weakness, hyperglycemia, tachycardia, secondary to cellulitis and an abscess of his left buttock. Understanding history of type 1 diabetes mellitus. Symptoms have been present over the past few days and he has failed a course of outpatient oral antibiotic therapy with Augmentin. White blood cell count is noted to be elevated although he has not had a documented fever in the emergency department. There is evidence of metabolic acidosis with elevation in lactic acid level. He appears to have adequate compensation on venous blood gases. Ketones are within normal range so there is no evidence of significant ketoacidosis. - Related Data Allergies/Adverse Reactions: Allergies Allergy/AdvReac Type Severity Reaction Status Date / Time bee venom protein (honey bee) Allergy Severe Airway Verified 01/25/21 15:47 Tightness Home Medications: Home Meds Lisinopril 40 mg PO DAILY 02/15/18 [History] Omeprazole 20 mg PO DAILY 02/15/18 [History] amLODIPine Besylate [Norvasc] 10 mg PO DAILY 02/15/18 [History] atorvaSTATin Calcium [Lipitor] 20 mg PO DAILY 10/01/18 [History] Lipase/Protease/Amylase [Zenpep DR 20,000 Unit] 2 each PO TIDMEALS 01/28/19 [History] hydroCHLOROthiazide [Hydrochlorothiazide] 25 mg PO DAILY 05/02/19 [History] Insulin Aspart [Insulin Aspart Flexpen] 26 units SUBCUT TIDMEALS 05/17/20 [History] Insulin Glarg,Human.Rec.Analog [Lantus Solostar] 45 units SUBCUT BEDTIME 05/17/20 [History] Past Medical History HEENT History: Reports: Otitis Media Cardiovascular History: Reports: High Cholesterol, Hypertension Respiratory History: Reports: None Gastrointestinal History: Reports: GERD, Pancreatitis Genitourinary History: Reports: None Musculoskeletal History: Reports: None Neurological History: Reports: Seizure Other Neuro History: ETOH withdrawl Psychiatric History: Reports: Addiction Endocrine/Metabolic History: Reports: Diabetes, Type II Hematologic History: Reports: Blood Transfusion(s) Immunologic History: Reports: None Oncologic (Cancer) History: Reports: None Dermatologic History: Reports: None - Infectious Disease History Infectious Disease History: Reports: Chicken Pox - Past Surgical History Head Surgeries/Procedures: Reports: None HEENT Surgical History: Reports: Myringotomy w Tube(s) Cardiovascular Surgical History: Reports: None GI Surgical History: Reports: Cholecystectomy Endocrine Surgical History: Reports: None Neurological Surgical History: Reports: None Musculoskeletal Surgical History: Reports: None Dermatological Surgical History: Reports: None Social & Family History - Family History Family Medical History: Unobtainable - Tobacco Use Tobacco Use Status *Q: Current Every Day Tobacco User Years of Tobacco use: 20 Packs/Tins Daily: 1 - Caffeine Use Caffeine Use: Reports: Coffee - Recreational Drug Use Recreational Drug Use: No H&P Review of Systems - Review of Systems: Review Of Systems: See Below General: Reports: Fever, Chills, Malaise, Weakness, Fatigue HEENT: Reports: No Symptoms Pulmonary: Reports: No Symptoms Cardiovascular: Reports: No Symptoms Gastrointestinal: Reports: No Symptoms Genitourinary: Reports: No Symptoms Musculoskeletal: Reports: No Symptoms Skin: Reports: Other (Pain and inflammation left buttock) Psychiatric: Reports: No Symptoms Neurological: Reports: No Symptoms Hematologic/Lymphatic: Reports: No Symptoms Immunologic: Reports: No Symptoms Exam - Exam Exam: See Below - Vital Signs Vital Signs: Last Vital Signs Temp 97.3 F 01/25/21 12:54 Pulse 124 H 01/25/21 12:54 Resp 18 01/25/21 12:54 BP 118/73 01/25/21 12:54 Pulse Ox 97 01/25/21 12:54 Weight: 184 lb - Exam Quality Assessment: DVT Prophylaxis General: Alert, Oriented, Cooperative, Moderate Distress HEENT: Conjunctiva Clear, Hearing Intact, Normal Nasal Septum, Posterior Pharynx Clear, Pupils Equal. No: Mucosa Moist & Summer Set Neck: Supple, Trachea Midline, +2 Carotid Pulse wo Bruit Lungs: Clear to Auscultation, Normal Respiratory Effort Cardiovascular: Regular Rate, Regular Rhythm, Normal S1, Normal S2. No: Systolic Murmur, Diastolic Murmur GI/Abdominal Exam: Soft, Non-Tender, No Organomegaly, No Distention Back Exam: Normal Inspection, Full Range of Motion Extremities: Non-Tender, No Pedal Edema Skin: Other (Erythema with inflammation and induration left buttock) Neurological: Cranial Nerves Intact, Strength Equal Bilateral, Normal Speech, Normal Tone, Sensation Intact. No: Focal Deficit Neuro Extensive - Mental Status: Alert, Oriented x3, Normal Mood/Affect, Normal Cognition, Memory Intact - Patient Data Lab Results Last 24 hrs: Laboratory Results - last 24 hr 01/25/21 01/25/21 01/25/21 Range/Units 13:04 13:05 13:31 WBC 11.0 (4.5-11.0) K/uL RBC 5.70 (4.30-5.90) M/uL Hgb 17.4 H D (12.0-15.0) g/dL Hct 50.8 (40.0-54.0) % MCV 89 (80-98) fL MCH 31 (27-31) pg MCHC 34 (32-36) % Plt Count 216 (150-400) K/uL Neut % (Auto) 78 H (36-66) % Lymph % (Auto) 17 L (24-44) % [place] % (Auto) 4 (2-6) % Eos % (Auto) 0 L (2-4) % Baso % (Auto) 0 (0-1) % ABG Hemoglobin 18.1 H (13.5-18.0) g/dL ABG Oxyhemoglobin 90.1 % ABG Carboxyhemoglobin 3.2 H (0.0-1.6) % ABG Methemoglobin 1.2 % VBG pH 7.422 (7.350-7.450) VBG pCO2 29.0 mm/Hg VBG pO2 72.1 mm/Hg VBG HCO3 18.5 mmol/L VBG Total CO2 15.3 mmol/L VBG O2 Saturation 94.2 VBG O2 Content 22.9 %vol VBG Base Excess -3.8 mm/L O2 Delivery Device Room air Sodium 141 (140-148) mmol/L Potassium 4.4 (3.6-5.2) mmol/L Chloride 98 L (100-108) mmol/L Carbon Dioxide 20 L (21-32) mmol/L Anion Gap 27.4 H (5.0-14.0) mmol/L BUN 31 H D (7-18) mg/dL Creatinine 1.5 H (0.8-1.3) mg/dL Est Cr Clr Drug Dosing 68.33 mL/min Estimated GFR (MDRD) 51 L (>60) Glucose 315 H (74-106) mg/dL Lactic Acid (0.4-2.0) mmol/L Calcium 9.7 (8.5-10.1) mg/dL Phosphorus 5.8 H (2.5-4.9) mg/dL Magnesium 1.7 L (1.8-2.4) mg/dL Total Bilirubin 0.4 (0.2-1.0) mg/dL AST 67 H (15-37) U/L ALT 134 H (12-78) U/L Alkaline Phosphatase 194 H (46-116) U/L Total Protein 8.1 (6.4-8.2) g/dL Albumin 4.2 (3.4-5.0) g/dL Globulin 3.9 H (2.3-3.5) g/dL Albumin/Globulin Ratio 1.1 L (1.2-2.2) Urine Color (YELLOW) Urine Appearance (CLEAR) Urine pH (5.0-8.0) Ur Specific [place] (1.008-1.030) Urine Protein (NEGATIVE) mg/dL Urine Glucose (UA) (NEGATIVE) mg/dL Urine Ketones (NEGATIVE) mg/dL Urine Occult Blood (NEGATIVE) Urine Nitrite (NEGATIVE) Urine Bilirubin (NEGATIVE) Urine Urobilinogen (0.2-1.0) EU/dL Ur Leukocyte Esterase (NEGATIVE) Urine RBC (0-5) Urine WBC (0-5) Ur Epithelial Cells Amorphous Sediment Urine Bacteria Urine Mucus Ketones (NEGATIVE) 01/25/21 01/25/21 01/25/21 Range/Units 13:31 13:31 13:31 WBC (4.5-11.0) K/uL RBC (4.30-5.90) M/uL Hgb (12.0-15.0) g/dL Hct (40.0-54.0) % MCV (80-98) fL MCH (27-31) pg MCHC (32-36) % Plt Count (150-400) K/uL Neut % (Auto) (36-66) % Lymph % (Auto) (24-44) % [place] % (Auto) (2-6) % Eos % (Auto) (2-4) % Baso % (Auto) (0-1) % ABG Hemoglobin (13.5-18.0) g/dL ABG Oxyhemoglobin % ABG Carboxyhemoglobin (0.0-1.6) % ABG Methemoglobin % VBG pH (7.350-7.450) VBG pCO2 mm/Hg VBG pO2 mm/Hg VBG HCO3 mmol/L VBG Total CO2 mmol/L VBG O2 Saturation VBG O2 Content %vol VBG Base Excess mm/L O2 Delivery Device Sodium (140-148) mmol/L Potassium (3.6-5.2) mmol/L Chloride (100-108) mmol/L Carbon Dioxide (21-32) mmol/L Anion Gap (5.0-14.0) mmol/L BUN (7-18) mg/dL Creatinine (0.8-1.3) mg/dL Est Cr Clr Drug Dosing mL/min Estimated GFR (MDRD) (>60) Glucose (74-106) mg/dL Lactic Acid 7.1 H 7.1 H (0.4-2.0) mmol/L Calcium (8.5-10.1) mg/dL Phosphorus (2.5-4.9) mg/dL Magnesium (1.8-2.4) mg/dL Total Bilirubin (0.2-1.0) mg/dL AST (15-37) U/L ALT (12-78) U/L Alkaline Phosphatase (46-116) U/L Total Protein (6.4-8.2) g/dL Albumin (3.4-5.0) g/dL Globulin (2.3-3.5) g/dL Albumin/Globulin Ratio (1.2-2.2) Urine Color (YELLOW) Urine Appearance (CLEAR) Urine pH (5.0-8.0) Ur Specific [place] (1.008-1.030) Urine Protein (NEGATIVE) mg/dL Urine Glucose (UA) (NEGATIVE) mg/dL Urine Ketones (NEGATIVE) mg/dL Urine Occult Blood (NEGATIVE) Urine Nitrite (NEGATIVE) Urine Bilirubin (NEGATIVE) Urine Urobilinogen (0.2-1.0) EU/dL Ur Leukocyte Esterase (NEGATIVE) Urine RBC (0-5) Urine WBC (0-5) Ur Epithelial Cells Amorphous Sediment Urine Bacteria Urine Mucus Ketones Negative (NEGATIVE) 04/15/21 Range/Units 13:56 WBC (4.5-11.0) K/uL RBC (4.30-5.90) M/uL Hgb (12.0-15.0) g/dL Hct (40.0-54.0) % MCV (80-98) fL MCH (27-31) pg MCHC (32-36) % Plt Count (150-400) K/uL Neut % (Auto) (36-66) % Lymph % (Auto) (24-44) % [place] % (Auto) (2-6) % Eos % (Auto) (2-4) % Baso % (Auto) (0-1) % ABG Hemoglobin (13.5-18.0) g/dL ABG Oxyhemoglobin % ABG Carboxyhemoglobin (0.0-1.6) % ABG Methemoglobin % VBG pH (7.350-7.450) VBG pCO2 mm/Hg VBG pO2 mm/Hg VBG HCO3 mmol/L VBG Total CO2 mmol/L VBG O2 Saturation VBG O2 Content %vol VBG Base Excess mm/L O2 Delivery Device Sodium (140-148) mmol/L Potassium (3.6-5.2) mmol/L Chloride (100-108) mmol/L Carbon Dioxide (21-32) mmol/L Anion Gap (5.0-14.0) mmol/L BUN (7-18) mg/dL Creatinine (0.8-1.3) mg/dL Est Cr Clr Drug Dosing mL/min Estimated GFR (MDRD) (>60) Glucose (74-106) mg/dL Lactic Acid (0.4-2.0) mmol/L Calcium (8.5-10.1) mg/dL Phosphorus (2.5-4.9) mg/dL Magnesium (1.8-2.4) mg/dL Total Bilirubin (0.2-1.0) mg/dL AST (15-37) U/L ALT (12-78) U/L Alkaline Phosphatase (46-116) U/L Total Protein (6.4-8.2) g/dL Albumin (3.4-5.0) g/dL Globulin (2.3-3.5) g/dL Albumin/Globulin Ratio (1.2-2.2) Urine Color Yellow (YELLOW) Urine Appearance Clear (CLEAR) Urine pH 5.5 (5.0-8.0) Ur Specific [place] 1.025 (1.008-1.030) Urine Protein Negative (NEGATIVE) mg/dL Urine Glucose (UA) 500 H (NEGATIVE) mg/dL Urine Ketones Negative (NEGATIVE) mg/dL Urine Occult Blood Negative (NEGATIVE) Urine Nitrite Negative (NEGATIVE) Urine Bilirubin Negative (NEGATIVE) Urine Urobilinogen 0.2 (0.2-1.0) EU/dL Ur Leukocyte Esterase Negative (NEGATIVE) Urine RBC 0-5 (0-5) Urine WBC 0-5 (0-5) Ur Epithelial Cells Not seen Amorphous Sediment Not seen Urine Bacteria Few Urine Mucus Few Ketones (NEGATIVE) Result Diagrams: 01/25/21 13:04 01/25/21 13:31 Sepsis Event Note - Evaluation Sepsis Screening Result: No Definite Risk - Focused Exam Vital Signs: Vital Signs Temp Pulse Resp BP Pulse Ox 01/25/21 12:54 97.3 F 124 H 18 118/73 97 01/25/21 12:48 97.3 F 124 H 18 118/73 97 *Q Meaningful Use (ADM) - VTE Risk Assess *Q Each Risk Factor Represents 1 Point: Age 41 - 59 years Total Score 1 Point Risk Factors: 1 Each Risk Factor Represents 2 Points: None Total Score 2 Point Risk Factors: 0 Each Risk Factor Represents 3 Points: None Total Score 3 Point Risk Factors: 0 Each Risk Factor Represents 5 Points: None Total Score 5 Point Risk Factors: 0 Venous Thromboembolism Risk Factor Score *Q: 1 Problem List Initiated/Reviewed/Updated: Yes Orders Last 24hrs: Active Orders 24 hr Category Date Time Status Patient Status Manage Transfer [TRANSFER] Routine ADT 01/25/21 14:24 Ordered Blood Glucose Check, Bedside [RC] STAT Care 01/25/21 13:04 Active Cardiac Monitoring [RC] CONTINUOUS Care 01/25/21 13:04 Active Peripheral IV Care [RC] . DIRECTED Care 01/25/21 13:04 Active CULTURE BLOOD [BC] Urgent Lab 01/25/21 13:16 Received CULTURE BLOOD [BC] Urgent Lab 01/25/21 13:25 Received REFLEX LACTIC ACID YES OR NO [CHEM] Routine Lab 01/25/21 14:39 Received Piperacillin/Tazobactam/Dext [Zosyn in Dextrose Iso- Med 01/25/21 14:45 Active Osmotic 4.5 GM/100 ML] 4.5 gm Premix Bag 1 bag IV ONETIME Sodium Chloride 0.9% [Normal Saline] 1,000 ml Med 01/25/21 13:15 Active IV ASDIRECTED Sodium Chloride 0.9% [Normal Saline] 1,000 ml Med 01/25/21 14:30 Active IV ASDIRECTED Sodium Chloride 0.9% [Normal Saline] 1,000 ml Med 01/25/21 14:30 Active IV ASDIRECTED Sodium Chloride 0.9% [Saline Flush] Med 01/25/21 13:04 Active 10 ml FLUSH ASDIRECTED PRN Vancomycin 2 gm Med 01/25/21 15:00 Active Sodium Chloride 0.9% [Normal Saline] 500 ml IV ONETIME Blood Culture x2 Reflex Set [OM.PC] Urgent Oth 01/25/21 13:04 Ordered Peripheral IV Insertion Adult [OM.PC] Stat Oth 01/25/21 13:04 Ordered Resuscitation Status Routine Resus Stat 01/25/21 14:32 Ordered Medication Orders Sodium Chloride (Normal Saline) 1,000 mls @ 999 mls/hr IV ASDIRECTED [facility] Last Admin: 01/25/21 13:19 Dose: 999 mls/hr Documented by: CRISTIAN Sodium Chloride (Normal Saline) 1,000 mls @ 999 mls/hr IV ASDIRECTED IVANA Stop: 01/25/21 15:31 Last Admin: 01/25/21 14:28 Dose: 999 mls/hr Documented by: CRISTIAN Sodium Chloride (Normal Saline) 1,000 mls @ 999 mls/hr IV ASDIRECTED [facility] Piperacillin/Tazobactam/ (Dextrose 4.5 gm/ Premix) 100 mls @ 200 mls/hr IV ONETIME ONE Stop: 01/25/21 15:14 Vancomycin HCl 2 gm/ Sodium (Chloride) 500 mls @ 250 mls/hr IV ONETIME ONE Stop: 01/25/21 16:59 Sodium Chloride (Sodium Chloride 0.9% 10 Ml Syringe) 10 ml FLUSH ASDIRECTED PRN PRN Reason: Keep Vein Open Last Admin: 01/25/21 13:24 Dose: 10 ml Documented by: CRISTIAN Assessment/Plan Comment:: ASSESSMENT AND PLAN CELLULITIS AND ABSCESS WITH EARLY SEPSIS-area of cellulitis and abscess involving the left buttock. He is failed outpatient management with oral antibiotic therapy. Currently showing evidence of early sepsis with tachycardia and lactic acidosis. -Vigorous IV fluid replacement per protocol -Follow-up lactic acid level per protocol -Pain medication as needed -IV antibiotic therapy; vancomycin and Zosyn -Consult Dr. Herrera for I&D in a.m. TYPE 1 DIABETES MELLITUS-no evidence of ketoacidosis -Continue outpatient short and long-acting insulin -4 times daily glucometers -Low-dose sliding scale Humalog MAINTENANCE ISSUES -DVT prophylaxis; SCUDs -GI prophylaxis; not indicated -Liriano catheter; not indicated -Nutrition; consistent carbohydrate diet, n.p.o. after midnight -Nicotine dependence; nicotine patch and nicotine gum CODE STATUS-FULL CODE ADMISSION STATUS-patient will be admitted to inpatient status, expect at least a 2 night hospital stay for evaluation and management of problems as outlined above. At the time of this admission I do not reasonably expected evaluation and management of this problem will require more than a 96 hour hospital stay. DISPOSITION-anticipate discharge to home after the hospital stay. PRIMARY CARE PROVIDER-patient receives his primary care in [facility] - Mortality Measure Prognosis:: Good
[2021-01-25] MEDS ORDERED: Piperacillin/Tazobactam/Dext 4.5 GM in Premix Bag 1 BAG IV ONE (14:45)
[2021-01-25] MEDS ORDERED: Vancomycin 2 GM in Sodium Chloride 0.9% 500 ML IV ONE (15:00)
[2021-01-25] MEDS ORDERED: 50% Dextrose in Water 50 ML Syringe IV PRN (15:21)
[2021-01-25] MEDS ORDERED: Ondansetron 4 MG/2 ML SDV IV PRN (15:21)
[2021-01-25] MEDS ORDERED: Glucose Gel 15 GM in 37.5 GM Tube PO PRN (15:21)
[2021-01-25] MEDS ORDERED: Polyethylene Glycol 3350 Powder 17 GM Packet PO PRN (15:21)
[2021-01-25] MEDS ORDERED: Piperacillin/Tazobactam 3.375 GM in Sodium Chloride 0.9% 50 ML IV SCH (15:21)
[2021-01-25] MEDS ORDERED: Acetaminophen 325 MG Tab PO PRN (15:21)
[2021-01-25] MEDS ORDERED: Vancomycin 1 GM SDV IV SCH (15:21)
[2021-01-25] MEDS: oxyCODONE 5 MG Tab PO PRN ×2 (15:57→20:30)
[2021-01-25] MEDS: Sodium Chloride 0.9% 1,000 ML IV SCH (16:30)
[2021-01-25] MEDS: Insulin Lispro 100 Unit/ML 3 ML KwikPen SUBCUT SCH ×3 (16:52→20:43)
[2021-01-25] MEDS ORDERED: Non-Formulary Medication 1 Each (Insulin Aspart [Insulin Aspart Flexpen] 100 UNIT/ML Insul SUBCUT SCH (17:00)
[2021-01-25 17:41] LABS: CORONAVIRUS COVID-19 NAA NEGATIVE (NEGATIVE)
[2021-01-25] MEDS ORDERED: Nicotine Polacrilex 2 MG Gum CHEW PRN (17:51)
[2021-01-25] MEDS: Nicotine 21 MG/24 Hr Patch TRDERM SCH (18:29)
[2021-01-25] MEDS: Piperacillin/Tazobactam/Dext 3.375 GM in Premix Bag 1 BAG IV SCH (20:38)
[2021-01-25] MEDS: Insulin Glargine,Human Rec. Analog 100 Units/ML 3 ML Pen SUBCUT SCH (20:46)
[2021-01-26] MEDS: Sodium Chloride 0.9% 1,000 ML IV SCH (01:03)
[2021-01-26] MEDS: Piperacillin/Tazobactam/Dext 3.375 GM in Premix Bag 1 BAG IV SCH ×4 (02:59→21:12)
[2021-01-26] MEDS: Vancomycin 1.3 GM in Sodium Chloride 0.9% 250 ML IV SCH ×2 (04:47→16:01)
[2021-01-26] MEDS ORDERED: Lidocaine 1% with EPINEPHrine 1:100,000 50 ML MDV ONE (07:20)
[2021-01-26] MEDS ORDERED: Bupivacaine 0.5% 50 ML MDV ONE (07:20)
[2021-01-26] MEDS ORDERED: Potassium Chloride 20 MEQ, Lidocaine 1% 2 ML in Sodium Chloride 0.9% 100 ML IV ONE (07:30)
[2021-01-26] MEDS: oxyCODONE 5 MG Tab PO PRN ×4 (07:40→19:53)
[2021-01-26] MEDS: Insulin Lispro 100 Unit/ML 3 ML KwikPen SUBCUT SCH ×7 (07:41→21:07)
[2021-01-26] MEDS ORDERED: Rocuronium 50 MG/5 ML Vial ONE (07:51)
[2021-01-26] MEDS ORDERED: Dexamethasone 4 MG/ML SDV ONE (07:51)
[2021-01-26] MEDS ORDERED: Neostigmine Methylsulfate 1 MG/ML 5 ML Syringe ONE (07:51)
[2021-01-26] MEDS ORDERED: fentaNYL 250 MCG/5 ML SDV ONE (07:51)
[2021-01-26] MEDS ORDERED: Succinylcholine 200 MG/10 ML MDV ONE (07:51)
[2021-01-26] MEDS ORDERED: Propofol 200 MG/20 ML SDV ONE (07:51)
[2021-01-26] MEDS ORDERED: Glycopyrrolate 0.2 MG/ML 5 ML MDV ONE (07:51)
[2021-01-26] MEDS ORDERED: Ondansetron 4 MG/2 ML SDV ONE (07:51)
[2021-01-26] MEDS: atorvaSTATin 20 MG Tab PO SCH (08:15)
[2021-01-26] MEDS: amLODIPine 5 MG Tab PO SCH (08:15)
[2021-01-26] MEDS: Pantoprazole 40 MG Tab.CR PO SCH ×2 (08:15→17:48)
[2021-01-26] MEDS: Lisinopril 20 MG Tab PO SCH (08:16)
[2021-01-26] MEDS: Nicotine 21 MG/24 Hr Patch TRDERM SCH (08:27)
[2021-01-26] MEDS ORDERED: Non-Formulary Medication 1 Each (Omeprazole [Omeprazole] 20 MG Cap.Cr) PO SCH (09:00)
[2021-01-26] MEDS ORDERED: Non-Formulary Medication 1 Each (Amlodipine Besylate [Norvasc] 10 MG Tablet) PO SCH (09:00)
[2021-01-26] MEDS ORDERED: Lactated Ringers 1,000 ML ONE (09:09)
[2021-01-26] MEDS ORDERED: Labetalol 20 MG/4 ML Syringe IVPUSH ONE (09:43)
[2021-01-26] MEDS: Amylase/Lipase/Protease 10,000 Unit Cap.CR PO SCH ×3 (11:09→16:57)
--- NOTE | 2021-01-26 16:00 | PCM.PN ---
- General Info Date of Service: 01/26/21 Subjective Update: Mr. Jones has improved since admission yesterday, glucose levels more stable and dehydration resolved with IV fluids. He was seen and evaluated this morning by Dr. Herrera and taken to the operating room for I&D of the abscess on his left buttock. Functional Status: Reports: Tolerating Diet, Urinating - Review of Systems General: Reports: No Symptoms Pulmonary: Reports: No Symptoms Cardiovascular: Reports: No Symptoms Gastrointestinal: Reports: No Symptoms Skin: Reports: Other (Pain left buttock, surgical dressing in place) - Patient Data Vitals - Most Recent: Last Vital Signs Temp 98 F 01/26/21 15:47 Pulse 89 01/26/21 09:50 Resp 12 01/26/21 15:47 BP 142/95 H 01/26/21 15:47 Pulse Ox 100 01/26/21 15:47 Weight - Most Recent: 185 lb 7.951 oz I&O - Last 24 Hours: Intake & Output 01/26/21 01/26/21 01/26/21 06:59 14:59 22:59 Intake Total 1550 Output Total 1000 900 Balance 550 -900 Lab Results Last 24 Hours: Laboratory Results - last 24 hr 01/25/21 01/25/21 01/26/21 Range/Units 16:22 17:39 05:19 WBC 8.1 (4.5-11.0) K/uL RBC 4.56 (4.30-5.90) M/uL Hgb 14.2 D (12.0-15.0) g/dL Hct 41.2 (40.0-54.0) % MCV 90 (80-98) fL MCH 31 (27-31) pg MCHC 35 (32-36) % Plt Count 122 L (150-400) K/uL Neut % (Auto) 51 (36-66) % Lymph % (Auto) 36 (24-44) % Will % (Auto) 9 H (2-6) % Eos % (Auto) 4 (2-4) % Baso % (Auto) 0 (0-1) % Sodium (140-148) mmol/L Potassium (3.6-5.2) mmol/L Chloride (100-108) mmol/L Carbon Dioxide (21-32) mmol/L Anion Gap (5.0-14.0) mmol/L BUN (7-18) mg/dL Creatinine (0.8-1.3) mg/dL Est Cr Clr Drug Dosing mL/min Estimated GFR (MDRD) (>60) Glucose (74-106) mg/dL POC Glucose (74-106) mg/dL Lactic Acid 1.2 (0.4-2.0) mmol/L Calcium (8.5-10.1) mg/dL Influenza Type A RNA Negative (NEGATIVE) RSV RNA (INAAT) Negative (NEGATIVE) Influenza Type B RNA Negative (NEGATIVE) SARS-CoV-2 RNA (BELKIS) Negative (NEGATIVE) 01/26/21 01/26/21 Range/Units 05:19 09:39 WBC (4.5-11.0) K/uL RBC (4.30-5.90) M/uL Hgb (12.0-15.0) g/dL Hct (40.0-54.0) % MCV (80-98) fL MCH (27-31) pg MCHC (32-36) % Plt Count (150-400) K/uL Neut % (Auto) (36-66) % Lymph % (Auto) (24-44) % Will % (Auto) (2-6) % Eos % (Auto) (2-4) % Baso % (Auto) (0-1) % Sodium 141 (140-148) mmol/L Potassium 3.2 L (3.6-5.2) mmol/L Chloride 101 (100-108) mmol/L Carbon Dioxide 29 (21-32) mmol/L Anion Gap 14.2 H (5.0-14.0) mmol/L BUN 12 D (7-18) mg/dL Creatinine 0.8 (0.8-1.3) mg/dL Est Cr Clr Drug Dosing 128.11 mL/min Estimated GFR (MDRD) > 60 (>60) Glucose 75 (74-106) mg/dL POC Glucose 101 (74-106) mg/dL Lactic Acid (0.4-2.0) mmol/L Calcium 8.3 L (8.5-10.1) mg/dL Influenza Type A RNA (NEGATIVE) RSV RNA (INAAT) (NEGATIVE) Influenza Type B RNA (NEGATIVE) SARS-CoV-2 RNA (BELKIS) (NEGATIVE) Jason Results Last 24 Hours: Microbiology 01/25/21 13:25 Aerobic Blood Culture - Preliminary Blood - Arm, Left NO GROWTH AFTER 1 DAY Anaerobic Blood Culture - Preliminary NO GROWTH AFTER 1 DAY 01/25/21 13:16 Aerobic Blood Culture - Preliminary Blood - Venous - Iv Start NO GROWTH AFTER 1 DAY Anaerobic Blood Culture - Preliminary NO GROWTH AFTER 1 DAY 01/26/21 09:36 Gram Stain - Final Buttock, Left Med Orders - Current: Current Medications Acetaminophen (Acetaminophen 325 Mg Tab) 650 mg PO Q4H PRN PRN Reason: Pain (Mild 1-3)/fever Amlodipine Besylate (Amlodipine 5 Mg Tab) 10 mg PO DAILY [facility] Last Admin: 01/26/21 08:15 Dose: Not Given Documented by: Lipase/Protease/Amylase (Amylase/Lipase/Protease 10,000 Unit Cap.Cr) 0 unit PO TIDMEALS [facility] Last Admin: 01/26/21 11:40 Dose: 4 unit Documented by: Atorvastatin Calcium (Atorvastatin 20 Mg Tab) 20 mg PO DAILY [facility] Last Admin: 01/26/21 08:15 Dose: Not Given Documented by: Dextrose (Glucose Gel 15 Gm In 37.5 Gm Tube) 15 gm PO ASDIRECTED PRN PRN Reason: Hypoglycemia Dextrose/Water (50% Dextrose In Water 50 Ml Syringe) 50 ml IV ASDIRECTED PRN PRN Reason: Hypoglycemia Piperacillin/Tazobactam/ (Dextrose 3.375 gm/ Premix) 50 mls @ 100 mls/hr IV Q6H [facility] Last Admin: 01/26/21 15:31 Dose: 100 mls/hr Documented by: Vancomycin HCl 1.3 gm/ Sodium (Chloride) 250 mls @ 167 mls/hr IV Q12H [facility] Last Admin: 01/26/21 04:47 Dose: 167 mls/hr Documented by: Insulin Glargine (Insulin Glargine,Human Rec. Analog 100 Units/Ml 3 Ml Pen) 45 units SUBCUT BEDTIME [facility] Last Admin: 01/25/21 20:46 Dose: 45 units Documented by: Insulin Human Lispro (Insulin Lispro 100 Unit/Ml 3 Ml Kwikpen) 0 unit SUBCUT QIDACANDBED [facility]; Protocol Last Admin: 01/26/21 11:41 Dose: 2 units Documented by: Insulin Human Lispro (Insulin Lispro 100 Unit/Ml 3 Ml Kwikpen) 26 unit SUBCUT TIDMEALS [facility] Last Admin: 01/26/21 11:40 Dose: 26 units Documented by: Lisinopril (Lisinopril 20 Mg Tab) 40 mg PO DAILY [facility] Last Admin: 01/26/21 08:16 Dose: Not Given Documented by: Nicotine (Nicotine 21 Mg/24 Hr Patch) 21 mg TRDERM DAILY [facility] Last Admin: 01/26/21 08:27 Dose: 21 mg Documented by: Nicotine Polacrilex (Nicotine Polacrilex 2 Mg Gum) 2 mg CHEW Q1H PRN PRN Reason: Other Ondansetron HCl (Ondansetron 4 Mg/2 Ml Sdv) 4 mg IV Q4H PRN PRN Reason: Nausea/Vomiting Oxycodone HCl (Oxycodone 5 Mg Tab) 5 mg PO Q4H PRN PRN Reason: Pain (moderate 4-6) Last Admin: 01/26/21 15:34 Dose: 5 mg Documented by: Pantoprazole Sodium (Pantoprazole 40 Mg Tab.Cr) 40 mg PO ACBREAKFAST [facility] Last Admin: 01/26/21 08:15 Dose: Not Given Documented by: Polyethylene Glycol (Polyethylene Glycol 3350 Powder 17 Gm Packet) 17 gm PO DAILY PRN PRN Reason: Constipation Potassium Chloride (Potassium Chloride 20 Meq Tab.Er) 40 meq PO ONETIME ONE Stop: 01/26/21 17:01 Sodium Chloride (Sodium Chloride 0.9% 10 Ml Syringe) 10 ml FLUSH ASDIRECTED PRN PRN Reason: Keep Vein Open Discontinued Medications Lipase/Protease/Amylase (Amylase/Lipase/Protease 12,000 Unit Cap.Cr) 3 cap PO TIDMEALS [facility] Stop: 01/26/21 17:01 Last Admin: 01/25/21 17:16 Dose: 3 cap Documented by: Bupivacaine HCl (Bupivacaine 0.5% 50 Ml Mdv) Confirm Administered Dose 50 ml .ROUTE .STK-MED ONE Stop: 01/26/21 07:21 Last Admin: 01/26/21 09:18 Dose: 7 ml Documented by: Dexamethasone (Dexamethasone 4 Mg/Ml Sdv) Confirm Administered Dose 4 mg .ROUTE .STK-MED ONE Stop: 01/26/21 07:52 Fentanyl (Fentanyl 250 Mcg/5 Ml Sdv) Confirm Administered Dose 250 mcg .ROUTE .STK-MED ONE Stop: 01/26/21 07:52 Glycopyrrolate (Glycopyrrolate 0.2 Mg/Ml 5 Ml Mdv) Confirm Administered Dose 1 mg .ROUTE .STK-MED ONE Stop: 01/26/21 07:52 Sodium Chloride (Normal Saline) 1,000 mls @ 999 mls[facility] Last Admin: 01/25/21 13:19 Dose: 999 mls/hr Documented by: Sodium Chloride (Normal Saline) 1,000 mls @ 999 mls/hr IV ASDIRECTED [facility] Stop: 01/25/21 15:31 Last Admin: 01/25/21 14:28 Dose: 999 mls/hr Documented by: Sodium Chloride (Normal Saline) 1,000 mls @ 999 mls/hr [facility] Stop: 01/25/21 18:00 Last Admin: 01/25/21 15:28 Dose: 999 mls/hr Documented by: Piperacillin/Tazobactam/ (Dextrose 4.5 gm/ Premix) 100 mls @ 200 mls/hr IV ONETIME ONE Stop: 01/25/21 15:14 Last Admin: 01/25/21 14:48 Dose: 200 mls/hr Documented by: Vancomycin HCl 2 gm/ Sodium (Chloride) 500 mls @ 250 mls/hr IV ONETIME ONE Stop: 01/25/21 16:59 Last Admin: 01/25/21 15:22 Dose: 250 mls/hr Documented by: Sodium Chloride (Normal Saline) 1,000 mls @ 125 mls/hr [facility] Last Admin: 01/26/21 01:03 Dose: 125 mls/hr Documented by: Potassium Chloride 20 meq/Lidocaine HCl 2 ml/ Sodium Chloride 112 mls @ 50 mls/hr IV NOW ONE Stop: 01/26/21 09:44 Last Admin: 01/26/21 07:35 Dose: 50 mls/hr Documented by: Lactated Ringer's (Ringers, Lactated) Confirm Administered Dose 1,000 mls @ as directed .ROUTE .STK-MED ONE Stop: 01/26/21 09:10 Labetalol HCl (Labetalol 20 Mg/4 Ml Syringe) 5 mg IVPUSH NOW ONE; Protocol Stop: 01/26/21 09:44 Last Admin: 01/26/21 09:48 Dose: 5 mg Documented by: Lidocaine/Epinephrine (Lidocaine 1% With Epinephrine 1:100,000 50 Ml Mdv) Confirm Administered Dose 50 ml .ROUTE .STK-MED ONE Stop: 01/26/21 07:21 Last Admin: 01/26/21 09:18 Dose: 7 ml Documented by: Neostigmine Methylsulfate (Neostigmine Methylsulfate 1 Mg/Ml 5 Ml Syringe) Confirm Administered Dose 5 mg .ROUTE .STK-MED ONE Stop: 01/26/21 07:52 Ondansetron HCl (Ondansetron 4 Mg/2 Ml Sdv) 4 mg IVPUSH ONETIME ONE Stop: 01/25/21 13:11 Last Admin: 01/25/21 13:24 Dose: 4 mg Documented by: Ondansetron HCl (Ondansetron 4 Mg/2 Ml Sdv) Confirm Administered Dose 4 mg .ROUTE .STK-MED ONE Stop: 01/26/21 07:52 Propofol (Propofol 200 Mg/20 Ml Sdv) Confirm Administered Dose 200 mg .ROUTE .STK-MED ONE Stop: 01/26/21 07:52 Rocuronium [place] (Rocuronium 50 Mg/5 Ml Vial) Confirm Administered Dose 50 mg .ROUTE .STK-MED ONE Stop: 01/26/21 07:52 Sodium Chloride (Sodium Chloride 0.9% 10 Ml Syringe) 10 ml FLUSH ASDIRECTED PRN PRN Reason: Keep Vein Open Last Admin: 01/25/21 13:24 Dose: 10 ml Documented by: Succinylcholine Chloride (Succinylcholine 200 Mg/10 Ml Mdv) Confirm Administered Dose 200 mg .ROUTE .STK-MED ONE Stop: 01/26/21 07:52 Vancomycin HCl (Vancomycin 1 Gm Sdv) 1 gm IV .PHARMACY TO DOSE IVANA Stop: 01/25/21 18:00 - Exam Quality Assessment: Supplemental Oxygen, DVT Prophylaxis General: Alert, Oriented, Cooperative, Moderate Distress Lungs: Clear to Auscultation, Normal Respiratory Effort Cardiovascular: Regular Rate, Regular Rhythm, No Murmurs GI/Abdominal Exam: Soft, Non-Tender, No Organomegaly, No Distention - Patient Data Lab Results Last 24 hrs: Laboratory Results - last 24 hr 01/25/21 01/25/21 01/26/21 Range/Units 16:22 17:39 05:19 WBC 8.1 (4.5-11.0) K/uL RBC 4.56 (4.30-5.90) M/uL Hgb 14.2 D (12.0-15.0) g/dL Hct 41.2 (40.0-54.0) % MCV 90 (80-98) fL MCH 31 (27-31) pg MCHC 35 (32-36) % Plt Count 122 L (150-400) K/uL Neut % (Auto) 51 (36-66) % Lymph % (Auto) 36 (24-44) % Will % (Auto) 9 H (2-6) % Eos % (Auto) 4 (2-4) % Baso % (Auto) 0 (0-1) % Sodium (140-148) mmol/L Potassium (3.6-5.2) mmol/L Chloride (100-108) mmol/L Carbon Dioxide (21-32) mmol/L Anion Gap (5.0-14.0) mmol/L BUN (7-18) mg/dL Creatinine (0.8-1.3) mg/dL Est Cr Clr Drug Dosing mL/min Estimated GFR (MDRD) (>60) Glucose (74-106) mg/dL POC Glucose (74-106) mg/dL Lactic Acid 1.2 (0.4-2.0) mmol/L Calcium (8.5-10.1) mg/dL Influenza Type A RNA Negative (NEGATIVE) RSV RNA (INAAT) Negative (NEGATIVE) Influenza Type B RNA Negative (NEGATIVE) SARS-CoV-2 RNA (BELKIS) Negative (NEGATIVE) 01/26/21 01/26/21 Range/Units 05:19 09:39 WBC (4.5-11.0) K/uL RBC (4.30-5.90) M/uL Hgb (12.0-15.0) g/dL Hct (40.0-54.0) % MCV (80-98) fL MCH (27-31) pg MCHC (32-36) % Plt Count (150-400) K/uL Neut % (Auto) (36-66) % Lymph % (Auto) (24-44) % Will % (Auto) (2-6) % Eos % (Auto) (2-4) % Baso % (Auto) (0-1) % Sodium 141 (140-148) mmol/L Potassium 3.2 L (3.6-5.2) mmol/L Chloride 101 (100-108) mmol/L Carbon Dioxide 29 (21-32) mmol/L Anion Gap 14.2 H (5.0-14.0) mmol/L BUN 12 D (7-18) mg/dL Creatinine 0.8 (0.8-1.3) mg/dL Est Cr Clr Drug Dosing 128.11 mL/min Estimated GFR (MDRD) > 60 (>60) Glucose 75 (74-106) mg/dL POC Glucose 101 (74-106) mg/dL Lactic Acid (0.4-2.0) mmol/L Calcium 8.3 L (8.5-10.1) mg/dL Influenza Type A RNA (NEGATIVE) RSV RNA (INAAT) (NEGATIVE) Influenza Type B RNA (NEGATIVE) SARS-CoV-2 RNA (BELKIS) (NEGATIVE) Result Diagrams: 01/26/21 05:19 01/26/21 05:19 Jason Results Last 24 hrs: Microbiology 01/25/21 13:25 Aerobic Blood Culture - Preliminary Blood - Arm, Left NO GROWTH AFTER 1 DAY Anaerobic Blood Culture - Preliminary NO GROWTH AFTER 1 DAY 01/25/21 13:16 Aerobic Blood Culture - Preliminary Blood - Venous - Iv Start NO GROWTH AFTER 1 DAY Anaerobic Blood Culture - Preliminary NO GROWTH AFTER 1 DAY 01/26/21 09:36 Gram Stain - Final Buttock, Left Sepsis Event Note - Evaluation Sepsis Screening Result: No Definite Risk - Focused Exam Vital Signs: Vital Signs Temp Pulse Resp BP Pulse Ox 01/26/21 15:47 98 F 12 142/95 H 100 01/26/21 14:00 12 126/88 100 01/26/21 12:01 12 155/100 H 98 01/26/21 11:30 97.8 F 12 135/87 98 01/26/21 11:15 12 133/87 98 01/26/21 11:00 12 133/86 96 01/26/21 10:45 12 144/90 H 98 01/26/21 10:30 97.8 F 12 143/97 H 96 01/26/21 10:10 16 128/84 99 01/26/21 10:05 15 139/90 97 01/26/21 10:00 15 145/94 H 96 01/26/21 09:55 15 143/94 H 96 01/26/21 09:50 89 15 154/109 H 98 01/26/21 09:45 15 155/108 H 97 01/26/21 09:40 15 156/107 H 97 01/26/21 09:35 15 148/103 H 97 01/26/21 09:30 14 158/104 H 97 01/26/21 09:25 97 F 89 15 160/101 H 97 01/26/21 07:45 97.5 F 12 151/99 H 98 01/26/21 06:00 85 01/26/21 04:00 98.4 F 94 19 138/87 - Problem List Review Problem List Initiated/Reviewed/Updated: Yes - My Orders Last 24 Hours: My Active Orders 01/25/21 15:21 Acetaminophen [TylenoL] 650 mg PO Q4H PRN Dextrose 50% in Water 50 ml IV ASDIRECTED PRN Dextrose [Glutose 15] 15 gm PO ASDIRECTED PRN Ondansetron [Zofran] 4 mg IV Q4H PRN Sodium Chloride 0.9% [Saline Flush] 10 ml FLUSH ASDIRECTED PRN oxyCODONE 5 mg PO Q4H PRN polyethylene glycoL 3350 [MiraLAX] 17 gm PO DAILY PRN 01/25/21 15:21 Patient Status [ADT] Routine Ambulate [RC] QID Cardiac Monitoring [RC] Q6H Communication Order [RC] STAT Diabetes Education [RC] Click to Edit Height and Weight [RC] DAILY Intake and Output [RC] QSHIFT Notify Provider Vital Signs [RC] ASDIRECTED Notify Provider [RC] PRN Oxygen Therapy [RC] PRN Peripheral IV Care [RC] Q12H Up ad Rafia [RC] ASDIRECTED Up to Chair [RC] QID Vital Signs [RC] Q2H Consult to Physician [CONS] Routine Peripheral IV Insertion Adult [OM.PC] Routine Sequential Compression Device [OM.PC] Per Unit Routine 01/25/21 17:00 Insulin Lispro [HumaLOG] 26 unit SUBCUT TIDMEALS Insulin Lispro [HumaLOG] See Protocol SUBCUT QIDACANDBED 01/25/21 17:51 Nicotine Polacrilex [Nicorelief] 2 mg CHEW Q1H PRN 01/25/21 18:00 Nicotine [Habitrol] 21 mg TRDERM DAILY 01/25/21 21:00 Insulin Glarg,Human.Rec.Analog [LantUS Solostar] 45 units SUBCUT BEDTIME Piperacillin/Tazobactam/Dext [Zosyn in Dextrose Iso-Osmotic 3.375 GM/50 ML] 3.375 gm Premix Bag 1 bag IV Q6H 01/26/21 04:00 Vancomycin 1.3 gm Sodium Chloride 0.9% [Normal Saline] 250 ml IV Q12H 01/26/21 07:30 GLUCOSE POC LAB TO COLLECT JPM [POC] QIDACANDBED Pantoprazole [ProTONIX] 40 mg PO ACBREAKFAST 01/26/21 08:00 Amylase/Lipase/Protease [Zenpep DR 10,000] 0 unit PO TIDMEALS 01/26/21 09:00 amLODIPine [Norvasc] 10 mg PO DAILY atorvaSTATin [Lipitor] 20 mg PO DAILY lisinopriL [Prinivil] 40 mg PO DAILY 01/26/21 11:30 GLUCOSE POC LAB TO COLLECT JPM [POC] QIDACANDBED 01/26/21 15:53 Convert IV to Saline Lock [OM.PC] Routine 01/26/21 17:00 Potassium Chloride [Klor-Con M20] 40 meq PO ONETIME ONE 01/27/21 05:00 BASIC METABOLIC PANEL,BMP [CHEM] Timed 01/27/21 07:30 GLUCOSE POC LAB TO COLLECT JPM [POC] QIDACANDBED 01/27/21 11:30 GLUCOSE POC LAB TO COLLECT JPM [POC] QIDACANDBED 01/27/21 16:30 GLUCOSE POC LAB TO COLLECT JPM [POC] QIDACANDBED 01/27/21 21:00 GLUCOSE POC LAB TO COLLECT JPM [POC] QIDACANDBED 01/28/21 07:30 GLUCOSE POC LAB TO COLLECT JPM [POC] QIDACANDBED 01/28/21 11:30 GLUCOSE POC LAB TO COLLECT JPM [POC] QIDACANDBED 01/28/21 16:30 GLUCOSE POC LAB TO COLLECT JPM [POC] QIDACANDBED 01/28/21 21:00 GLUCOSE POC LAB TO COLLECT JPM [POC] QIDACANDBED 01/29/21 07:30 GLUCOSE POC LAB TO COLLECT JPM [POC] QIDACANDBED 01/29/21 11:30 GLUCOSE POC LAB TO COLLECT JPM [POC] QIDACANDBED 01/29/21 16:30 GLUCOSE POC LAB TO COLLECT JPM [POC] QIDACANDBED 01/29/21 21:00 GLUCOSE POC LAB TO COLLECT JPM [POC] QIDACANDBED 01/30/21 07:30 GLUCOSE POC LAB TO COLLECT JPM [POC] QIDACANDBED 01/30/21 11:30 GLUCOSE POC LAB TO COLLECT JPM [POC] QIDACANDBED - Plan Plan:: ASSESSMENT AND PLAN CELLULITIS AND ABSCESS WITH EARLY SEPSIS-area of cellulitis and abscess involving the left buttock. Metabolic abnormalities have resolved with IV fluids. Status post I&D earlier today by Dr. Herrera -Wound and blood cultures pending -Saline lock IV -Pain medication as needed -IV antibiotic therapy; vancomycin and Zosyn -Surgical follow-up per Dr. Herrera TYPE 1 DIABETES MELLITUS-glucose levels have improved since admission -Continue outpatient short and long-acting insulin -4 times daily glucometers -Low-dose sliding scale Humalog MAINTENANCE ISSUES -DVT prophylaxis; SCUDs -GI prophylaxis; not indicated -Liriano catheter; not indicated -Nutrition; consistent carbohydrate diet, n.p.o. after midnight -Nicotine dependence; nicotine patch and nicotine gum CODE STATUS-FULL CODE ADMISSION STATUS-patient will be admitted to inpatient status, expect at least a 2 night hospital stay for evaluation and management of problems as outlined above. At the time of this admission I do not reasonably expected evaluation and management of this problem will require more than a 96 hour hospital stay. DISPOSITION-anticipate discharge to home after the hospital stay. PRIMARY CARE PROVIDER-patient receives his primary care in [facility]
[2021-01-26] MEDS ORDERED: Amylase/Lipase/Protease 12,000 Unit Cap.CR PO SCH (17:00)
[2021-01-26] MEDS ORDERED: Potassium Chloride 20 MEQ Tab.ER PO ONE (17:00)
[2021-01-26] MEDS: Insulin Glargine,Human Rec. Analog 100 Units/ML 3 ML Pen SUBCUT SCH (21:05)
[2021-01-27] MEDS: oxyCODONE 5 MG Tab PO PRN ×2 (00:03→05:38)
[2021-01-27] MEDS: Piperacillin/Tazobactam/Dext 3.375 GM in Premix Bag 1 BAG IV SCH (02:57)
[2021-01-27] MEDS: Vancomycin 1.3 GM in Sodium Chloride 0.9% 250 ML IV SCH (03:39)
[2021-01-27] MEDS: Insulin Lispro 100 Unit/ML 3 ML KwikPen SUBCUT SCH ×2 (07:24→07:25)
[2021-01-27] MEDS: Amylase/Lipase/Protease 10,000 Unit Cap.CR PO SCH (07:25)
[2021-01-27] MEDS: Pantoprazole 40 MG Tab.CR PO SCH (07:59)
[2021-01-27] MEDS: atorvaSTATin 20 MG Tab PO SCH (08:00)
[2021-01-27] MEDS: Lisinopril 20 MG Tab PO SCH (08:00)
[2021-01-27] MEDS: amLODIPine 5 MG Tab PO SCH (08:03)
[2021-01-27] MEDS: Nicotine 21 MG/24 Hr Patch TRDERM SCH (08:04)
[2021-01-27] MEDS ORDERED: Sulfamethoxazole/Trimethoprim 800-160 MG Tab PO ONE (09:00)
--- NOTE | 2021-01-29 12:54 | OR ---
DATE OF PROCEDURE: 01/26/2021 SURGEON: Jevon Herrera MD PREOPERATIVE DIAGNOSIS: Necrotizing infection with abscess involving the left buttock and perineal area. POSTOPERATIVE DIAGNOSIS: Necrotizing infection with abscess involving the left buttock and perineal area. OPERATIVE PROCEDURE: Exploration of wound involving the left buttock and perineal area with: 1. Debridement of necrotizing infection involving the left buttock and perineal of skin, subcutaneous tissue, and musculature (58237). 2. Incision and drainage of associated abscess within the center of the wound ([id number]). ANESTHESIA: General. INDICATIONS FOR PROCEDURE: This is a 40-year-old male with type 1 diabetes presenting with infection an involving the left buttock and perineal area. Plan is to proceed with debridement and drainage of this area. Potential risks including further bleeding, infection, need for more extensive debridement than what might otherwise be expected, as well as remote possibility of cardiopulmonary, septic, or hemorrhagic complications leading to were discussed, and the patient wishes to proceed. DETAILS OF THE PROCEDURE: The patient was taken to the operating room and after general endotracheal anesthesia was induced, he was placed in a right lateral decubitus position. The left buttock and perineal areas were then prepped and draped and a transversely-oriented elliptical incision was made over the area of infection, carried down through the skin and subcutaneous tissue. Glistening white purulent material was encountered. Cultures of this were obtained showed gram-positive cocci. The patient was noted to have some necrosis involving the skin, subcutaneous tissue, and underlying muscle and fascia. This was debrided at this point down to the point where there was clean grossly uninfected tissue in all areas, and at that point, the wound was anesthetized with 1% lidocaine mixed with Marcaine and packed with iodoform gauze, and the patient taken to the recovery room in satisfactory condition. This did not appear to be at this point a spreading-type infection. The plan would be to deciding with the patient early tomorrow morning. Assuming that there is not any further spreading of infection, no further surgery would be undertaken. If there is any evidence of any spreading of necrotic infection, he would be at that point reoperated. The patient was taken to the recovery room in satisfactory condition. Jevon Herrera MD /[phone]
--- NOTE | 2021-01-29 13:18 | DISCH ---
FINAL DIAGNOSES: 1. Necrotizing infection and abscess, left buttock. 2. Type 1 diabetes mellitus. OPERATIVE PROCEDURE: Done on 01/26/2021 debridement of necrotizing infection and drainage of the abscess involving left buttock. SUMMARY: This is a 40-year-old patient with type 1 diabetes mellitus who is admitted with a picture of relative sepsis with high lactate and metabolic acidosis which corrected overnight and is noted to have an abscess in his left buttock. On 01/26/2021, this was drained and debrided. The wound at this point was cleaned with no significant surrounding cellulitis. Cultures are pending. The Gram stain showed Gram-positive cocci consistent with probably a staph or strep organism. Clinically, he is doing well at this point and will be discharged home with antibiotics and dressing changes. The patient was admitted with low-grade sepsis with elevated lactate and metabolic acidosis was corrected overnight and following the drainage, the patient has done well. He will be sent home with Septra DS one tablet b.i.d. x7 days, oxycodone 5 mg p.o. q.4 hours p.r.n. pain #30, otherwise can continue his usual medications. He will be doing dressing changes twice a day and follow up with Dr. Herrera at [facility] will be on . /[id number]
== END 2021-01-27 09:15 | disposition home or self-care (01) | DRG 854 ==
LOC: JP.ED 12:33 → JP.ICU 14:24
PROVIDERS: ADMIT Hospitalist; ATTEND Hospitalist
PROC: 0JB90ZZ Excision of Buttock Subcutaneous Tissue and Fascia, Open Approach (ICD-10-PCS; principal; 2021-01-26)
DX: A41.2 Sepsis due to unspecified staphylococcus (principal); L02.31 Cutaneous abscess of buttock; I96 Gangrene, not elsewhere classified; A40.9 Streptococcal sepsis, unspecified; E10.9 Type 1 diabetes mellitus without complications; Z20.822 Contact with and (suspected) exposure to COVID-19; E78.00 Pure hypercholesterolemia, unspecified; I10 Essential (primary) hypertension; K21.9 Gastro-esophageal reflux disease without esophagitis; F17.210 Nicotine dependence, cigarettes, uncomplicated; E86.0 Dehydration; Z91.030 Bee allergy status; Z79.899 Other long term (current) drug therapy; Z79.4 Long term (current) use of insulin; Z90.49 Acquired absence of other specified parts of digestive tract
CPT/HCPCS: 0241U; 36415; 80048; 80053; 81001; 82009; 82803; 82947; 83605; 83735; 84100; 85025; 87040; 87070; 87075; 87077; 87186; 87205; 96374; 99222; 99232; 99284-25; A9270-GY; J0330; J1100; J1815; J1815-GY; J2405; J2543; J2704; J2710; J3010; J3370; J3480; J3490; J7030; J7040; J7050; J7120

== ENCOUNTER 2021-03-19 22:17 | Emergency (ER) | payer MEDICAID ==
[2021-03-19] MEDS ORDERED: HYDROmorphone 1 MG/ML Syringe IVPUSH ONE (22:39)
[2021-03-19] MEDS ORDERED: Metoclopramide 10 MG/2 ML SDV IVPUSH ONE (22:39)
--- NOTE | 2021-03-19 22:45 | EDM.PDOC ---
ED HPI GENERAL MEDICAL PROBLEM - General Chief Complaint: Diabetic Complaint Stated Complaint: RLQ abdominal pain and elevated BS Time Seen by Provider: 03/19/21 22:30 Source of Information: Reports: Patient, Old Records, RN History Limitations: Reports: No Limitations - History of Present Illness INITIAL COMMENTS - FREE TEXT/NARRATIVE: 41 yo NA male with DM on insulin presents via EMS for RLQ abdominal pain and elevated BS. 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 No fever. He has had some vomiting. He has an occasional cough. He has a hx of ETOH abuse and pancreatitis. Admits to heavy ETOH consumption recently. Onset: Gradual Onset Date: 03/17/21 Duration: Day(s): (2+), Getting Worse Location: Reports: Abdomen Quality: Reports: Ache Severity: Moderate Improves with: Reports: Rest Worsens with: Reports: Movement Context: Reports: Other (See HPI) Associated Symptoms: Reports: Cough, Loss of Appetite, Nausea/Vomiting. 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: Reports: Other (see below) (none) Abdominal Pain Score (Numeric/FACES): 8 - Related Data Allergies Allergy/AdvReac Type Severity Reaction Status Date / Time bee venom protein (honey bee) Allergy Severe Airway Verified 03/19/21 22:23 Tightness Home Meds: Home Meds Lisinopril 40 mg PO DAILY 02/15/18 [History] Omeprazole 20 mg PO DAILY 02/15/18 [History] amLODIPine Besylate [Norvasc] 10 mg PO DAILY 02/15/18 [History] atorvaSTATin Calcium [Lipitor] 20 mg PO DAILY 10/01/18 [History] Lipase/Protease/Amylase [Zenpep DR 20,000 Unit] 2 each PO TIDMEALS 01/28/19 [History] hydroCHLOROthiazide [Hydrochlorothiazide] 25 mg PO DAILY 05/02/19 [History] Insulin Aspart [Insulin Aspart Flexpen] 26 units SUBCUT TIDMEALS 05/17/20 [History] Insulin Glarg,Human.Rec.Analog [Lantus Solostar] 45 units SUBCUT BEDTIME 05/17/20 [History] Past Medical History HEENT History: Reports: Otitis Media Cardiovascular History: Reports: High Cholesterol, Hypertension Respiratory History: Reports: None Gastrointestinal History: Reports: GERD, Pancreatitis Genitourinary History: Reports: None Musculoskeletal History: Reports: None Neurological History: Reports: Seizure Other Neuro History: ETOH withdrawl Psychiatric History: Reports: Addiction Endocrine/Metabolic History: Reports: Diabetes, Type II Hematologic History: Reports: Blood Transfusion(s) Immunologic History: Reports: None Oncologic (Cancer) History: Reports: None Dermatologic History: Reports: None - Infectious Disease History Infectious Disease History: Reports: Chicken Pox - Past Surgical History Head Surgeries/Procedures: Reports: None HEENT Surgical History: Reports: Myringotomy w Tube(s) Cardiovascular Surgical History: Reports: None GI Surgical History: Reports: Cholecystectomy Endocrine Surgical History: Reports: None Neurological Surgical History: Reports: None Musculoskeletal Surgical History: Reports: None Dermatological Surgical History: Reports: None Social & Family History - Family History Family Medical History: Unobtainable - Tobacco Use Tobacco Use Status *Q: Current Every Day Tobacco User Years of Tobacco use: 25 Packs/Tins Daily: 1 - Caffeine Use Caffeine Use: Reports: Coffee - Recreational Drug Use Recreational Drug Use: No ED ROS GENERAL - Review of Systems Review Of Systems: See Below Constitutional: Reports: No Symptoms HEENT: Reports: No Symptoms Respiratory: Reports: Cough. Denies: Shortness of Breath, Wheezing, Pleuritic Chest Pain, Sputum Cardiovascular: Reports: No Symptoms GI/Abdominal: Reports: Abdominal Pain, Nausea, Vomiting. Denies: Diarrhea : Reports: No Symptoms Musculoskeletal: Reports: No Symptoms Skin: Reports: No Symptoms Neurological: Reports: No Symptoms Psychiatric: Reports: No Symptoms ED EXAM GENERAL NO PERIP PULSE - Physical Exam Exam: See Below Exam Limited By: No Limitations General Appearance: Alert, WD/WN, No Apparent Distress Eye Exam: Bilateral Eye: Normal Inspection Ears: Normal External Exam, Normal Canal, Hearing Grossly Normal Nose: Normal Inspection, No Blood Throat/Mouth: Normal Inspection, Normal Lips, Normal Oropharynx, Normal Voice, No Airway Compromise Head: Atraumatic, Normocephalic Neck: Normal Inspection Respiratory/Chest: No Respiratory Distress, Lungs Clear, Normal Breath Sounds, No Accessory Muscle Use Cardiovascular: Regular Rate, Rhythm, No Edema GI/Abdominal: No Distention, Tender (R sided), Abnormal Bowel Sounds (decreased). No: Distended Back Exam: Normal Inspection. No: CVA Tenderness (R), CVA Tenderness (L) Extremities: Normal Inspection, Normal Range of Motion, Non-Tender, No Pedal Edema Neurological: Alert, Oriented, CN II-XII Intact, Normal Cognition, No Motor/Sensory Deficits Psychiatric: Normal Affect, Normal Mood Skin Exam: Warm, Dry, Intact, Normal Color, No Rash Course - Vital Signs Last Recorded V/S: Last Vital Signs Temp 36.8 C 03/19/21 22:27 Pulse 94 03/19/21 22:27 Resp 16 03/19/21 22:27 BP 138/85 03/19/21 22:27 Pulse Ox 96 03/19/21 22:27 - Orders/Labs/Meds Labs: Laboratory Tests 03/19/21 03/19/21 03/19/21 Range/Units 22:50 22:50 22:50 WBC 4.8 (4.5-11.0) K/uL RBC 5.08 (4.30-5.90) M/uL Hgb 15.3 H (12.0-15.0) g/dL Hct 44.8 (40.0-54.0) % MCV 88 (80-98) fL MCH 30 (27-31) pg MCHC 34 (32-36) % Plt Count 108 L (150-400) K/uL Sodium 143 (140-148) mmol/L Potassium 3.5 L (3.6-5.2) mmol/L Chloride 100 (100-108) mmol/L Carbon Dioxide 27 (21-32) mmol/L Anion Gap 19.5 H (5.0-14.0) mmol/L BUN 11 (7-18) mg/dL Creatinine 0.9 (0.8-1.3) mg/dL Est Cr Clr Drug Dosing 112.72 mL/min Estimated GFR (MDRD) > 60 (>60) Glucose 216 H (74-106) mg/dL Calcium 7.7 L (8.5-10.1) mg/dL C-Reactive Protein < 0.05 (0.0-0.3) mg/dL Lipase (73-393) U/L Urine Color (YELLOW) Urine Appearance (CLEAR) Urine pH (5.0-8.0) Ur Specific [place] (1.008-1.030) Urine Protein (NEGATIVE) mg/dL Urine Glucose (UA) (NEGATIVE) mg/dL Urine Ketones (NEGATIVE) mg/dL Urine Occult Blood (NEGATIVE) Urine Nitrite (NEGATIVE) Urine Bilirubin (NEGATIVE) Urine Urobilinogen (0.2-1.0) EU/dL Ur Leukocyte Esterase (NEGATIVE) 03/19/21 03/19/21 Range/Units 22:50 22:58 WBC (4.5-11.0) K/uL RBC (4.30-5.90) M/uL Hgb (12.0-15.0) g/dL Hct (40.0-54.0) % MCV (80-98) fL MCH (27-31) pg MCHC (32-36) % Plt Count (150-400) K/uL Sodium (140-148) mmol/L Potassium (3.6-5.2) mmol/L Chloride (100-108) mmol/L Carbon Dioxide (21-32) mmol/L Anion Gap (5.0-14.0) mmol/L BUN (7-18) mg/dL Creatinine (0.8-1.3) mg/dL Est Cr Clr Drug Dosing mL/min Estimated GFR (MDRD) (>60) Glucose (74-106) mg/dL Calcium (8.5-10.1) mg/dL C-Reactive Protein (0.0-0.3) mg/dL Lipase 68 L (73-393) U/L Urine Color Yellow (YELLOW) Urine Appearance Clear (CLEAR) Urine pH 7.0 (5.0-8.0) Ur Specific [place] 1.015 (1.008-1.030) Urine Protein Negative (NEGATIVE) mg/dL Urine Glucose (UA) 250 H (NEGATIVE) mg/dL Urine Ketones Negative (NEGATIVE) mg/dL Urine Occult Blood Negative (NEGATIVE) Urine Nitrite Negative (NEGATIVE) Urine Bilirubin Negative (NEGATIVE) Urine Urobilinogen 0.2 (0.2-1.0) EU/dL Ur Leukocyte Esterase Negative (NEGATIVE) Meds: Medications Discontinued Medications Generic Name Dose Route Start Last Admin Trade Name Freq PRN Reason Stop Dose Admin Hydromorphone HCl 1 mg 03/19/21 22:39 03/19/21 22:49 Hydromorphone 1 Mg/Ml Syringe IVPUSH 03/19/21 22:40 1 mg ONETIME ONE Administration Metoclopramide HCl 5 mg 03/19/21 22:39 03/19/21 22:49 Metoclopramide 10 Mg/2 Ml Sdv IVPUSH 03/19/21 22:40 5 mg ONETIME ONE Administration Departure - Departure Time of Disposition: 23:50 Disposition: Home, Self-Care 01 Condition: Fair Clinical Impression: Alcoholic hepatitis Qualifiers: Ascites presence: without ascites Qualified Code(s): K70.10 - Alcoholic hepatitis without ascites - Discharge Information *PRESCRIPTION DRUG MONITORING PROGRAM REVIEWED*: Not Applicable *COPY OF PRESCRIPTION DRUG MONITORING REPORT IN PATIENT SHEILA: Not Applicable Referrals: PCP,None [Primary Care Provider] - Forms: ED Department Discharge Additional Instructions: Continue present medications. NO ALCOHOL. Follow up with your doctor for recheck. Sepsis Event Note (ED) - Evaluation Sepsis Screening Result: No Definite Risk - Focused Exam Vital Signs: Vital Signs Temp Pulse Resp BP Pulse Ox 03/19/21 22:27 36.8 C 94 16 138/85 96 03/19/21 22:21 36.8 C 94 16 138/85 96
== END 2021-03-19 23:42 | disposition home or self-care (01) ==
LOC: JP.ED 22:17
DX: K70.10 Alcoholic hepatitis without ascites (principal); E78.00 Pure hypercholesterolemia, unspecified; I10 Essential (primary) hypertension; E11.9 Type 2 diabetes mellitus without complications; K21.9 Gastro-esophageal reflux disease without esophagitis; Z72.0 Tobacco use; Z79.4 Long term (current) use of insulin; Z91.030 Bee allergy status
CPT/HCPCS: 36415; 80048; 81003; 83690; 85027; 86140; 96374; 96375; 99285; J1170; J2765

== ENCOUNTER 2021-03-21 13:52 | Emergency (ER) | payer MEDICAID ==
[2021-03-21] MEDS ORDERED: Sodium Chloride 0.9% 1,000 ML IV SCH ×2 (17:00→19:00)
--- NOTE | 2021-03-21 17:26 | EDM.PDOC ---
<Genny Quinonez - Last Filed: 03/21/21 18:47> ED HPI GENERAL MEDICAL PROBLEM - General Chief Complaint: Diabetic Complaint Stated Complaint: VOMITING,BLOOD SUGAR LOW Time Seen by Provider: 03/21/21 18:59 Source of Information: Reports: Patient History Limitations: Reports: No Limitations - History of Present Illness INITIAL COMMENTS - FREE TEXT/NARRATIVE: pt arrived with upper abdomanal pain and vomiting. There was no blood in the emesis. Onset: Other ( last 2 days. ) Duration: Hour(s): Location: Reports: Abdomen Associated Symptoms: Reports: Nausea/Vomiting, Weakness - Related Data Allergies Allergy/AdvReac Type Severity Reaction Status Date / Time bee venom protein (honey bee) Allergy Severe Airway Verified 03/19/21 22:23 Tightness Home Meds: Home Meds Lisinopril 40 mg PO DAILY 02/15/18 [History] Omeprazole 20 mg PO DAILY 02/15/18 [History] amLODIPine Besylate [Norvasc] 10 mg PO DAILY 02/15/18 [History] atorvaSTATin Calcium [Lipitor] 20 mg PO DAILY 10/01/18 [History] Lipase/Protease/Amylase [Zenpep DR 20,000 Unit] 2 each PO TIDMEALS 01/28/19 [History] hydroCHLOROthiazide [Hydrochlorothiazide] 25 mg PO DAILY 05/02/19 [History] Insulin Aspart [Insulin Aspart Flexpen] 26 units SUBCUT TIDMEALS 05/17/20 [History] Insulin Glarg,Human.Rec.Analog [Lantus Solostar] 45 units SUBCUT BEDTIME 05/17/20 [History] Magnesium 250 mg PO DAILY 03/21/21 [History] Potassium Chloride 10 meq PO DAILY 03/21/21 [History] Past Medical History HEENT History: Reports: Otitis Media Cardiovascular History: Reports: High Cholesterol, Hypertension Respiratory History: Reports: None Gastrointestinal History: Reports: GERD, Pancreatitis Genitourinary History: Reports: None Musculoskeletal History: Reports: None Neurological History: Reports: Seizure Other Neuro History: ETOH withdrawl Psychiatric History: Reports: Addiction Endocrine/Metabolic History: Reports: Diabetes, Type II Do You Give Correction Boluses or Sliding Scale: Yes Patient/Family Able to Supply Written Copy of Sliding Scale: Yes Hematologic History: Reports: Blood Transfusion(s) Immunologic History: Reports: None Oncologic (Cancer) History: Reports: None Dermatologic History: Reports: None - Infectious Disease History Infectious Disease History: Reports: Chicken Pox - Past Surgical History Head Surgeries/Procedures: Reports: None HEENT Surgical History: Reports: Myringotomy w Tube(s) Cardiovascular Surgical History: Reports: None GI Surgical History: Reports: Cholecystectomy Endocrine Surgical History: Reports: None Neurological Surgical History: Reports: None Musculoskeletal Surgical History: Reports: None Dermatological Surgical History: Reports: None Social & Family History - Family History Family Medical History: Unobtainable - Tobacco Use Tobacco Use Status *Q: Current Every Day Tobacco User Years of Tobacco use: 28 Packs/Tins Daily: 1 Used Tobacco, but Quit: No - Caffeine Use Caffeine Use: Reports: Coffee, Tea - Recreational Drug Use Recreational Drug Use: No ED ROS GENERAL - Review of Systems Review Of Systems: See Below Constitutional: Reports: Decreased Appetite HEENT: Reports: No Symptoms Respiratory: Reports: No Symptoms Cardiovascular: Reports: No Symptoms Endocrine: Reports: No Symptoms, Other (pt is a diabetic/ ) GI/Abdominal: Reports: Abdominal Pain, Nausea, Vomiting : Reports: No Symptoms Musculoskeletal: Reports: No Symptoms Skin: Reports: No Symptoms ED EXAM GENERAL NO PERIP PULSE - Physical Exam Exam: See Below Text/Narrative:: pt arrived with upper abdomanal pain and vomiting. Exam Limited By: No Limitations General Appearance: Alert, Anxious, Moderate Distress Ears: Normal TMs Nose: Normal Inspection Throat/Mouth: Normal Inspection Head: Atraumatic Neck: Normal Inspection Respiratory/Chest: No Respiratory Distress Cardiovascular: Regular Rate, Rhythm GI/Abdominal: Tender, Other (pt has upper abdomanal pain) (Male) Exam: Deferred Rectal (Males) Exam: Deferred Back Exam: Normal Inspection Extremities: Normal Inspection Neurological: Alert, Oriented, Normal Cognition Psychiatric: Normal Affect Course - Re-Assessments/Exams Free Text/Narrative Re-Assessment/Exam: 03/21/21 19:03 pt has had elevated liver enzymes and he is vomiting and having upper abdomanal pain. A Us was attempted and because of stool and gas thuis area could not be seen well. He is post violetta A cat scan of the abdoman was neg. Departure - Departure Disposition: Home, Self-Care 01 Clinical Impression: Steatohepatitis, Epigastric abdominal pain Nausea and vomiting Qualifiers: Vomiting type: bilious vomiting Qualified Code(s): R11.14 - Bilious vomiting - Discharge Information Instructions: Fatty Liver Disease, Abdominal Pain, Adult Referrals: PCP,None [Primary Care Provider] - Forms: ED Department Discharge Care Plan Goals: Follow-up with your primary care provider in 2 weeks for recheck of your liver enzymes and pancreatic enzymes. I will be sending you home with a prescription for Zofran for nausea control. This will be available in the [employer] machine. Sepsis Event Note (ED) - Evaluation Sepsis Screening Result: No Definite Risk <Deng Stanley - Last Filed: 03/21/21 21:43> Course - Vital Signs Last Recorded V/S: Last Vital Signs Temp 36.6 C 03/21/21 16:33 Pulse 82 03/21/21 17:35 Resp 16 03/21/21 16:33 BP 159/106 H 03/21/21 17:35 Pulse Ox 99 03/21/21 16:33 - Orders/Labs/Meds Orders: Active Orders 24 hr Category Date Time Status Iopamidol [Isovue-300 (61%)] Med 03/21/21 19:15 Active 119 ml IV . DIRECTED Sodium Chloride 0.9% [Normal Saline] 1,000 ml Med 03/21/21 17:00 Active IV ASDIRECTED Sodium Chloride 0.9% [Normal Saline] 1,000 ml Med 03/21/21 19:00 Active IV ASDIRECTED Sodium Chloride 0.9% [Normal Saline] 80 ml Med 03/21/21 19:15 Active IV ASDIRECTED Medication Orders Sodium Chloride (Normal Saline) 1,000 mls @ 999 mls/hr IV ASDIRECTED [facility] Last Admin: 03/21/21 17:51 Dose: 999 mls/hr Documented by: SAUSROB Sodium Chloride (Normal Saline) 1,000 mls @ 999 mls/hr IV ASDIRECTED [facility] Last Admin: 03/21/21 19:31 Dose: 999 mls/hr Documented by: SAUSROB Sodium Chloride (Normal Saline) 80 mls @ 3 mls/sec IV ASDIRECTED [facility] Last Admin: 03/21/21 19:23 Dose: 3 mls/sec Documented by: MINHALY Iopamidol (Iopamidol 612 Mg/Ml 150 Ml Bottle) 119 ml IV . DIRECTED [facility] Last Admin: 03/21/21 19:23 Dose: 119 ml Documented by: MYKLALY Labs: Laboratory Tests 03/21/21 03/21/21 03/21/21 Range/Units 16:55 16:55 16:55 WBC 5.6 (4.5-11.0) K/uL RBC 5.39 (4.30-5.90) M/uL Hgb 17.0 H (12.0-15.0) g/dL Hct 47.0 (40.0-54.0) % MCV 87 (80-98) fL MCH 32 H (27-31) pg MCHC 36 (32-36) % Plt Count 94 L (150-400) K/uL Neut % (Auto) 63.8 (36-66) % Lymph % (Auto) 29.4 (24-44) % [place] % (Auto) 6.2 H (2-6) % Eos % (Auto) 0.2 L (2-4) % Baso % (Auto) 0.4 (0-1) % Sodium 138 L (140-148) mmol/L Potassium 3.6 (3.6-5.2) mmol/L Chloride 94 L (100-108) mmol/L Carbon Dioxide 28 (21-32) mmol/L Anion Gap 19.6 H (5.0-14.0) mmol/L BUN 15 (7-18) mg/dL Creatinine 0.8 (0.8-1.3) mg/dL Est Cr Clr Drug Dosing 126.81 mL/min Estimated GFR (MDRD) > 60 (>60) Glucose 137 H (74-106) mg/dL Calcium 7.9 L (8.5-10.1) mg/dL Total Bilirubin 1.2 H D (0.2-1.0) mg/dL AST 385 H D (15-37) U/L ALT 437 H (12-78) U/L Alkaline Phosphatase 315 H (46-116) U/L Total Protein 7.4 (6.4-8.2) g/dL Albumin 4.0 (3.4-5.0) g/dL Globulin 3.4 (2.3-3.5) g/dL Albumin/Globulin Ratio 1.2 (1.2-2.2) Amylase 79 D (25-115) U/L Lipase 47 L (73-393) U/L Meds: Medications Generic Name Dose Route Start Last Admin Trade Name Freq PRN Reason Stop Dose Admin Sodium Chloride 1,000 mls @ 999 mls/hr 03/21/21 17:00 03/21/21 17:51 Normal Saline IV 999 mls/hr ASDIRECTED IVANA Administration Sodium Chloride 1,000 mls @ 999 mls/hr 03/21/21 19:00 03/21/21 19:31 Normal Saline IV 999 mls/hr ASDIRECTED IVANA Administration Sodium Chloride 80 mls @ 3 mls/sec 03/21/21 19:15 03/21/21 19:23 Normal Saline IV 3 mls/sec ASDIRECTED IVANA Administration Iopamidol 119 ml 03/21/21 19:15 03/21/21 19:23 Iopamidol 612 Mg/Ml 150 Ml Bottle IV 119 ml . DIRECTED IVANA Administration Discontinued Medications Generic Name Dose Route Start Last Admin Trade Name Manuel PRN Reason Stop Dose Admin Hydromorphone HCl 0.5 mg 03/21/21 18:19 03/21/21 18:59 Hydromorphone 0.5 Mg/0.5 Ml Syringe IVPUSH 03/21/21 18:20 0.5 mg ONETIME ONE Administration Hydromorphone HCl 0.5 mg 03/21/21 21:21 03/21/21 21:35 Hydromorphone 0.5 Mg/0.5 Ml Syringe IVPUSH 03/21/21 21:22 0.5 mg ONETIME ONE Administration - Radiology Interpretation Free Text/Narrative:: I reviewed the CT of the abdomen and pelvis with contrast. There is diffuse hepatic steatosis with focal fatty infiltrate adjacent to the gallbladder fossa. Status post cholecystectomy. Hepatic and portal veins are patent. 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 Mild stable prominence of the common bile duct likely related to postcholecystectomy state. Spleen and adrenal glands are negative. Marked atrophy of the pancreas periodic parenchyma with relative bearing of the uncinate process. Slight increase in size and more discrete appearance of the cystic lesion in the pancreatic head measuring 1.5 cm. This likely represents a pseudocyst. There is also a 2.4 x 3.5 cystic lesion in the region of the pancreatic body similar to prior exam. This could represent pseudocyst versus focal dilation of the pancreatic duct. There is no evidence for active pancreatic inflammation in today's exam. - Re-Assessments/Exams Free Text/Narrative Re-Assessment/Exam: 03/21/21 21:40 I discussed the findings of the CT with Dr. Herrera from general surgery concerning whether the patient would require an ERCP. He recommended that the patient have recheck of liver enzymes in 2 weeks at his primary care provider's office and that this is likely chronic steatohepatitis. He said that this time there is no indication for ERCP. With that, I will discharge the patient to follow-up with his primary care provider in 2 weeks. Indications return to the ED were discussed. Departure - Departure Time of Disposition: 21:41 Sepsis Event Note (ED) - Focused Exam Vital Signs: Vital Signs Temp Pulse Resp BP Pulse Ox 03/21/21 17:35 82 159/106 H 03/21/21 16:33 36.6 C 93 16 156/103 H 99 03/21/21 15:18 36.6 C 93 16 156/103 H 99 - Problem List & Annotations (1) Epigastric abdominal pain SNOMED Code(s): 41919218 Code(s): R10.13 - EPIGASTRIC PAIN Status: Acute Priority: High Current Visit: Yes (2) Nausea and vomiting SNOMED Code(s): 36388694 Code(s): R11.2 - NAUSEA WITH VOMITING, UNSPECIFIED Status: Acute Priority: High Current Visit: Yes Qualifiers: Vomiting type: bilious vomiting Qualified Code(s): R11.14 - Bilious vomiting (3) Steatohepatitis SNOMED Code(s): 519049053 Code(s): K75.81 - NONALCOHOLIC STEATOHEPATITIS (ALFRED) Status: Acute Priority: High Current Visit: Yes - My Orders Last 24 Hours: My Active Orders 03/21/21 19:15 Iopamidol [Isovue-300 (61%)] 119 ml IV . DIRECTED Sodium Chloride 0.9% [Normal Saline] 80 ml IV ASDIRECTED - Assessment/Plan Last 24 Hours: My Active Orders 03/21/21 19:15 Iopamidol [Isovue-300 (61%)] 119 ml IV . DIRECTED Sodium Chloride 0.9% [Normal Saline] 80 ml IV ASDIRECTED
[2021-03-21] MEDS ORDERED: HYDROmorphone 0.5 MG/0.5 ML Syringe IVPUSH ONE ×2 (18:19→21:21)
--- NOTE | 2021-03-21 19:09 | CRLUS ---
INDICATION: Abnormal LFTs. TECHNIQUE: Right upper abdominal ultrasound. COMPARISON: CT 06/05/2019. FINDINGS: Pancreas is diffusely obscured by overlying bowel gas. Similarly, the abdominal aorta and IVC are obscured by overlying bowel gas. - Liver appears normal in contour and diffusely increased in echogenicity. No focal hepatic lesion or intrahepatic biliary dilatation identified. Main portal vein is patent with normal direction flow. - Gallbladder surgically absent. Common bile duct measures 7-8 mm in diameter. - Right kidney measures 10.6 x 5.4 x 4.8 cm with a cortical thickness of 1.9 cm. No right hydronephrosis. IMPRESSION: 1. Diffuse hepatic steatosis. 2. Persistent borderline common bile duct dilatation status post cholecystectomy. Dictated by Drew Garnica MD @ 03/21/2021 7:07:24 PM Dictated by: Drew Garnica MD @ 03/21/2021 19:07:31 (Electronically Signed)
[2021-03-21] MEDS ORDERED: Sodium Chloride 0.9% 80 ML IV SCH (19:15)
[2021-03-21] MEDS ORDERED: Iopamidol 612 MG/ML 150 ML Bottle IV SCH (19:15)
--- NOTE | 2021-03-21 20:13 | CRLCT ---
For Patients: As a result of the Century Cures Act, medical imaging exams and procedure reports are released immediately into your electronic medical record. You may view this report before your referring provider. If you have questions, please contact your health care provider. INDICATION: Upper abdominal pain. TECHNIQUE: CT of the abdomen and pelvis with 119 cc Isovue 370 IV contrast. Coronal and sagittal reconstructions. COMPARISON: CT of the abdomen pelvis 06/05/2019. Abdominal ultrasound 03/21/2021. FINDINGS: Diffuse hepatic steatosis. Focal fatty infiltration adjacent to the gallbladder fossa. Hepatic and portal veins are patent. 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 Cholecystectomy. Stable mild prominence of the common bile duct likely related to post cholecystectomy state. The spleen and adrenal glands are negative. Marked atrophy of the pancreatic parenchyma, with relative sparing of the uncinate process. Slight increase in size and more discrete appearance of a cystic lesion in the pancreatic head measuring 1.5 cm (series 2, image 53). This most likely represents a pseudocyst. There is also a 2.4 x 3.5 cm cystic lesion in the region of the pancreatic body similar to prior exam (series 2, image 43). This could represent a pseudocyst versus focal dilation of the pancreatic duct. No evidence of active pancreatic inflammation on today`s exam. Symmetric enhancement of the kidneys. Few tiny low-attenuation lesions in the kidneys are too small to characterize but most likely represent cysts. No hydronephrosis. No obstructing urinary calculi. The bladder and prostate gland are normal in appearance. Small hiatal hernia. No bowel dilation. Negative appendix. No intraperitoneal free air or fluid. No lymphadenopathy. Mild vascular calcifications. The bones are unremarkable. The lung bases are clear. IMPRESSION: 1. No acute findings in the abdomen or pelvis. 2. Marked atrophy of the pancreas. No evidence of active pancreatic inflammation on today`s exam. 3. Slight increase in size of a small cystic lesion in the pancreatic head most likely represents a pseudocyst, however a cystic neoplasm cannot entirely be excluded. 4. There is also a stable cystic lesion in the region the pancreatic body which could represent a pseudocyst versus focal dilation of the pancreatic duct. 5. 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 6. Diffuse hepatic steatosis. Please note that all CT scans at this facility use dose modulation, iterative reconstruction, and/or weight-based dosing when appropriate to reduce radiation dose to as low as reasonably achievable. Dictated by Luz Murrell MD @ 03/21/2021 8:11:[address] Luz Murrell @ Mar 21 2021 8:11PM
== END 2021-03-21 21:59 | disposition home or self-care (01) ==
LOC: JP.ED 13:52
DX: K75.9 Inflammatory liver disease, unspecified (principal); R11.14 Bilious vomiting; E78.00 Pure hypercholesterolemia, unspecified; I10 Essential (primary) hypertension; K21.9 Gastro-esophageal reflux disease without esophagitis; E11.9 Type 2 diabetes mellitus without complications; Z79.4 Long term (current) use of insulin; Z91.030 Bee allergy status; Z72.0 Tobacco use
CPT/HCPCS: 36415; 74177; 76705; 80053; 82150; 83690; 85025; 96374; 96376; 99284; J1170; J7030; Q9967; 99283

== ENCOUNTER 2021-05-27 15:01 | Emergency (ER) | payer MEDICAID | END 2021-05-27 15:18 | disposition left against medical advice (07) | LOC: JP.ED 15:01 | DX: Z53.21 Procedure and treatment not carried out due to patient leaving prior to being seen by health care provider (principal) ==

== ENCOUNTER 2021-07-27 13:07 | Inpatient (IN) | payer MEDICAID ==
--- NOTE | 2021-07-27 14:57 | EDM.PDOC ---
ED HPI GENERAL MEDICAL PROBLEM - General Chief Complaint: General Stated Complaint: LIGHT HEADED, NOT EATING Time Seen by Provider: 07/27/21 14:50 Source of Information: Reports: Patient, RN Notes Reviewed History Limitations: Reports: No Limitations - History of Present Illness INITIAL COMMENTS - FREE TEXT/NARRATIVE: 41-year-old gentleman presents emergency department with a complaint of poor oral intake, he does have a known history of diabetes mellitus type 2 states his blood sugar has been in good control he has not had any fevers has been vaccinated for Covid Throat Pain Score (Numeric/FACES): 10 - Related Data Allergies Allergy/AdvReac Type Severity Reaction Status Date / Time bee venom protein (honey bee) Allergy Severe Airway Verified 07/27/21 14:39 Tightness Home Meds: Home Meds Lisinopril 40 mg PO DAILY 02/15/18 [History] Omeprazole 20 mg PO DAILY 02/15/18 [History] amLODIPine Besylate [Norvasc] 10 mg PO DAILY 02/15/18 [History] atorvaSTATin Calcium [Lipitor] 20 mg PO DAILY 10/01/18 [History] Lipase/Protease/Amylase [Zenpep DR 20,000 Unit] 2 each PO TIDMEALS 01/28/19 [History] hydroCHLOROthiazide [Hydrochlorothiazide] 25 mg PO DAILY 05/02/19 [History] Insulin Aspart [Insulin Aspart Flexpen] 26 units SUBCUT TIDMEALS 05/17/20 [History] Insulin Glarg,Human.Rec.Analog [Lantus Solostar] 45 units SUBCUT BEDTIME 05/17/20 [History] Potassium Chloride 10 meq PO DAILY 03/21/21 [History] Past Medical History HEENT History: Reports: Otitis Media Cardiovascular History: Reports: High Cholesterol, Hypertension Gastrointestinal History: Reports: GERD, Pancreatitis Neurological History: Reports: Seizure Other Neuro History: ETOH withdrawl Psychiatric History: Reports: Addiction Endocrine/Metabolic History: Reports: Diabetes, Type II Hematologic History: Reports: Blood Transfusion(s) Immunologic History: Reports: None Oncologic (Cancer) History: Reports: None Dermatologic History: Reports: None - Infectious Disease History Infectious Disease History: Reports: Chicken Pox - Past Surgical History Head Surgeries/Procedures: Reports: None HEENT Surgical History: Reports: Myringotomy w Tube(s) Cardiovascular Surgical History: Reports: None GI Surgical History: Reports: Cholecystectomy Endocrine Surgical History: Reports: None Neurological Surgical History: Reports: None Musculoskeletal Surgical History: Reports: None Dermatological Surgical History: Reports: None Social & Family History - Family History Family Medical History: Unobtainable - Tobacco Use Tobacco Use Status *Q: Current Every Day Tobacco User Years of Tobacco use: 26 Packs/Tins Daily: 1 - Caffeine Use Caffeine Use: Reports: Coffee - Recreational Drug Use Recreational Drug Use: No ED ROS GENERAL - Review of Systems Review Of Systems: See Below Constitutional: Reports: Weakness, Fatigue. Denies: Fever, Chills HEENT: Reports: No Symptoms Respiratory: Reports: No Symptoms Cardiovascular: Reports: No Symptoms GI/Abdominal: Reports: Abdominal Pain, Nausea, Vomiting : Reports: No Symptoms ED EXAM, GENERAL - Physical Exam Exam: See Below Exam Limited By: No Limitations General Appearance: Alert, WD/WN, No Apparent Distress Respiratory/Chest: No Respiratory Distress, Lungs Clear, Normal Breath Sounds, No Accessory Muscle Use, Chest Non-Tender Cardiovascular: Regular Rate, Rhythm, No Murmur GI/Abdominal: Soft, Tender (Epigastric left upper quadrant) Course - Vital Signs Last Recorded V/S: Last Vital Signs Temp 97.8 F 07/28/21 04:00 Pulse 89 07/28/21 09:00 Resp 18 07/28/21 06:00 BP 102/56 L 07/28/21 09:00 Pulse Ox 95 07/28/21 09:00 - Orders/Labs/Meds Orders: Active Orders 24 hr Category Date Time Status Blood Glucose Check, Bedside [RC] WITHMEALSANDBED Care 07/27/21 18:36 Active Communication Order [RC] ROUTINE Care 07/27/21 19:03 Active Vital Signs [RC] Q1H Care 07/27/21 14:52 Active Consistent Carbohydrate Diet [DIET] Diet 07/28/21 Breakfast Active CULTURE BLOOD [BC] Urgent Lab 07/27/21 15:00 Received CULTURE BLOOD [BC] Urgent Lab 07/27/21 15:10 Received Acetaminophen [TylenoL] Med 07/27/21 20:02 Active 650 mg PO Q4H PRN Dextrose 50% in Water Med 07/27/21 18:36 Active 50 ml IVPUSH ASDIRECTED PRN Glucagon,Human Recombinant [GlucaGen] Med 07/27/21 18:36 Active 1 mg IM ASDIRECTED PRN Insulin Glarg,Human.Rec.Analog [LantUS Solostar] Med 07/27/21 21:00 Active 45 units SUBCUT BEDTIME Insulin Lispro [HumaLOG] Med 07/28/21 08:00 Active See Protocol SUBCUT TIDMEALS NS + KCl 20mEq/L [Normal Saline with 20 mEq KCl] 1,000 Med 07/27/21 17:45 Active ml IV ASDIRECTED Norepinephrine [Levophed] 4 mg Med 07/27/21 16:30 Active Dextrose 5% in Water 246 ml IV TITRATE Pantoprazole [ProTONIX] Med 07/27/21 20:15 Active 40 mg PO DAILY Sodium Chloride 0.9% [Normal Saline] 1,000 ml Med 07/27/21 15:00 Active IV ASDIRECTED Sodium Chloride 0.9% [Normal Saline] 1,000 ml Med 07/27/21 20:15 Active IV ASDIRECTED Blood Culture x2 Reflex Set [OM.PC] Urgent Oth 07/27/21 14:52 Ordered Medication Orders Acetaminophen (Acetaminophen 325 Mg Tab) 650 mg PO Q4H PRN PRN Reason: Pain Last Admin: 07/28/21 00:45 Dose: 650 mg Documented by: Admin: 07/27/21 20:42 Dose: 650 mg Documented by: LUCIANA Dextrose/Water (50% Dextrose In Water 50 Ml Syringe) 50 ml IVPUSH ASDIRECTED PRN PRN Reason: Hypoglycemia Glucagon (Glucagon,Human Recombinant 1 Mg Vial) 1 mg IM ASDIRECTED PRN PRN Reason: Hypoglycemia Sodium Chloride (Normal Saline) 1,000 mls @ 999 mls/hr IV ASDIRECTED IVANA Last Admin: 07/27/21 14:58 Dose: 999 mls/hr Documented by: MICHI Norepinephrine Bitartrate 4 mg (/ Dextrose/Water) 250 mls @ 7.5 mls/hr IV TITRATE IVANA; Protocol Last Titration: 07/27/21 21:56 Dose: 0 mcg/min, 0 mls/hr Documented by: Titration: 07/27/21 20:42 Dose: 2 mcg/min, 7.5 mls/hr Documented by: Titration: 07/27/21 17:46 Dose: 4 mcg/min, 15 mls/hr Documented by: Titration: 07/27/21 17:24 Dose: 3 mcg/min, 11.25 mls/hr Documented by: [id number] Titration: 07/27/21 17:23 Dose: 4 mcg/min, 15 mls/hr Documented by: [email or web address] Admin: 07/27/21 16:49 Dose: 2 mcg/min, 7.5 mls/hr Documented by: MICHI Potassium Chloride/Sodium Chloride (Normal Saline With 20 Meq Kcl) 1,000 mls @ 100 mls/hr IV ASDIRECTED IVANA Last Admin: 07/27/21 18:29 Dose: 100 mls/hr Documented by: MICHI Sodium Chloride (Normal Saline) 1,000 mls @ 125 mls/hr IV ASDIRECTED IVANA Last Admin: 07/28/21 04:14 Dose: 125 mls/hr Documented by: LUCIANA Insulin Glargine (Insulin Glargine,Human Rec. Analog 100 Units/Ml 3 Ml Pen) 45 units SUBCUT BEDTIME IVANA Last Admin: 07/27/21 21:54 Dose: 45 units Documented by: LUCIANA Cosigned by: BOOM Insulin Human Lispro (Insulin Lispro 100 Unit/Ml 3 Ml Kwikpen) 0 unit SUBCUT TIDMEALS IVANA; Protocol Last Admin: 07/28/21 07:41 Dose: 6 units Documented by: [email or web address] Cosigned by: RADHA Pantoprazole Sodium (Pantoprazole 40 Mg Tab.Cr) 40 mg PO DAILY IVANA Last Admin: 07/27/21 20:41 Dose: 40 mg Documented by: LUCIANA Labs: Laboratory Tests 07/27/21 07/27/21 07/27/21 Range/Units 14:54 14:55 14:56 WBC (4.5-11.0) K/uL RBC (4.30-5.90) M/uL Hgb (12.0-15.0) g/dL Hct (40.0-54.0) % MCV (80-98) fL MCH (27-31) pg MCHC (32-36) % Plt Count (150-400) K/uL Neut % (Auto) (36-66) % Lymph % (Auto) (24-44) % Merrick % (Auto) (2-6) % Eos % (Auto) (2-4) % Baso % (Auto) (0-1) % Sodium (140-148) mmol/L Potassium (3.6-5.2) mmol/L Chloride (100-108) mmol/L Carbon Dioxide (21-32) mmol/L Anion Gap (5.0-14.0) mmol/L BUN (7-18) mg/dL Creatinine (0.8-1.3) mg/dL Est Cr Clr Drug Dosing mL/min Estimated GFR (MDRD) (>60) Glucose (74-106) mg/dL Lactic Acid (0.4-2.0) mmol/L Calcium (8.5-10.1) mg/dL Total Bilirubin (0.2-1.0) mg/dL AST (15-37) U/L ALT (12-78) U/L Alkaline Phosphatase (46-116) U/L Troponin I < 0.017 (0.000-0.056) ng/mL C-Reactive Protein (0.0-0.3) mg/dL Total Protein (6.4-8.2) g/dL Albumin (3.4-5.0) g/dL Globulin (2.3-3.5) g/dL Albumin/Globulin Ratio (1.2-2.2) Lipase 375 (73-393) U/L Procalcitonin ng/mL Urine Color (YELLOW) Urine Appearance (CLEAR) Urine pH (5.0-8.0) Ur Specific Milo (1.008-1.030) Urine Protein (NEGATIVE) mg/dL Urine Glucose (UA) (NEGATIVE) mg/dL Urine Ketones (NEGATIVE) mg/dL Urine Occult Blood (NEGATIVE) Urine Nitrite (NEGATIVE) Urine Bilirubin (NEGATIVE) Urine Urobilinogen (0.2-1.0) EU/dL Ur Leukocyte Esterase (NEGATIVE) Urine RBC (0-5) Urine WBC (0-5) Ur Epithelial Cells Amorphous Sediment Urine Bacteria Urine Mucus Urine Opiates Screen (NEGATIVE) Ur Oxycodone Screen (NEGATIVE) Urine Methadone Screen (NEGATIVE) Ur Propoxyphene Screen (NEGATIVE) Ur Barbiturates Screen (NEGATIVE) Ur Tricyclics Screen (NEGATIVE) Ur Phencyclidine Scrn (NEGATIVE) Ur Amphetamine Screen (NEGATIVE) U Methamphetamines Scrn (NEGATIVE) Urine MDMA Screen (NEGATIVE) U Benzodiazepines Scrn (NEGATIVE) U Cocaine Metab Screen (NEGATIVE) U Marijuana (THC) Screen (NEGATIVE) Ethyl Alcohol mg/dL SARS-CoV-2 RNA (BELKIS) Positive H (NEGATIVE) 07/27/21 07/27/21 07/27/21 Range/Units 15:00 15:00 15:00 WBC 7.5 (4.5-11.0) K/uL RBC 4.92 (4.30-5.90) M/uL Hgb 15.6 H (12.0-15.0) g/dL Hct 43.9 (40.0-54.0) % MCV 89 (80-98) fL MCH 32 H (27-31) pg MCHC 36 (32-36) % Plt Count 71 L (150-400) K/uL Neut % (Auto) 81.9 H (36-66) % Lymph % (Auto) 10.0 L (24-44) % Merrick % (Auto) 8.0 H (2-6) % Eos % (Auto) 0.0 L (2-4) % Baso % (Auto) 0.1 (0-1) % Sodium 127 L (140-148) mmol/L Potassium 3.5 L (3.6-5.2) mmol/L Chloride 82 L (100-108) mmol/L Carbon Dioxide 24 (21-32) mmol/L Anion Gap 24.5 H (5.0-14.0) mmol/L BUN 70 H D (7-18) mg/dL Creatinine 4.3 H* D (0.8-1.3) mg/dL Est Cr Clr Drug Dosing 23.59 mL/min Estimated GFR (MDRD) 15 L (>60) Glucose 211 H (74-106) mg/dL Lactic Acid 2.4 H (0.4-2.0) mmol/L Calcium 9.1 D (8.5-10.1) mg/dL Total Bilirubin 0.9 (0.2-1.0) mg/dL AST 135 H (15-37) U/L ALT 145 H (12-78) U/L Alkaline Phosphatase 211 H (46-116) U/L Troponin I (0.000-0.056) ng/mL C-Reactive Protein 2.81 H (0.0-0.3) mg/dL Total Protein 7.4 (6.4-8.2) g/dL Albumin 4.0 (3.4-5.0) g/dL Globulin 3.4 (2.3-3.5) g/dL Albumin/Globulin Ratio 1.2 (1.2-2.2) Lipase (73-393) U/L Procalcitonin ng/mL Urine Color (YELLOW) Urine Appearance (CLEAR) Urine pH (5.0-8.0) Ur Specific Milo (1.008-1.030) Urine Protein (NEGATIVE) mg/dL Urine Glucose (UA) (NEGATIVE) mg/dL Urine Ketones (NEGATIVE) mg/dL Urine Occult Blood (NEGATIVE) Urine Nitrite (NEGATIVE) Urine Bilirubin (NEGATIVE) Urine Urobilinogen (0.2-1.0) EU/dL Ur Leukocyte Esterase (NEGATIVE) Urine RBC (0-5) Urine WBC (0-5) Ur Epithelial Cells Amorphous Sediment Urine Bacteria Urine Mucus Urine Opiates Screen (NEGATIVE) Ur Oxycodone Screen (NEGATIVE) Urine Methadone Screen (NEGATIVE) Ur Propoxyphene Screen (NEGATIVE) Ur Barbiturates Screen (NEGATIVE) Ur Tricyclics Screen (NEGATIVE) Ur Phencyclidine Scrn (NEGATIVE) Ur Amphetamine Screen (NEGATIVE) U Methamphetamines Scrn (NEGATIVE) Urine MDMA Screen (NEGATIVE) U Benzodiazepines Scrn (NEGATIVE) U Cocaine Metab Screen (NEGATIVE) U Marijuana (THC) Screen (NEGATIVE) Ethyl Alcohol mg/dL SARS-CoV-2 RNA (BELKIS) (NEGATIVE) 07/27/21 07/27/21 07/27/21 Range/Units 15:00 16:01 18:37 WBC (4.5-11.0) K/uL RBC (4.30-5.90) M/uL Hgb (12.0-15.0) g/dL Hct (40.0-54.0) % MCV (80-98) fL MCH (27-31) pg MCHC (32-36) % Plt Count (150-400) K/uL Neut % (Auto) (36-66) % Lymph % (Auto) (24-44) % Merrick % (Auto) (2-6) % Eos % (Auto) (2-4) % Baso % (Auto) (0-1) % Sodium (140-148) mmol/L Potassium (3.6-5.2) mmol/L Chloride (100-108) mmol/L Carbon Dioxide (21-32) mmol/L Anion Gap (5.0-14.0) mmol/L BUN (7-18) mg/dL Creatinine (0.8-1.3) mg/dL Est Cr Clr Drug Dosing mL/min Estimated GFR (MDRD) (>60) Glucose (74-106) mg/dL Lactic Acid (0.4-2.0) mmol/L Calcium (8.5-10.1) mg/dL Total Bilirubin (0.2-1.0) mg/dL AST (15-37) U/L ALT (12-78) U/L Alkaline Phosphatase (46-116) U/L Troponin I (0.000-0.056) ng/mL C-Reactive Protein (0.0-0.3) mg/dL Total Protein (6.4-8.2) g/dL Albumin (3.4-5.0) g/dL Globulin (2.3-3.5) g/dL Albumin/Globulin Ratio (1.2-2.2) Lipase (73-393) U/L Procalcitonin 2.17 H* ng/mL Urine Color Yellow (YELLOW) Urine Appearance Clear (CLEAR) Urine pH 5.5 (5.0-8.0) Ur Specific Milo 1.020 (1.008-1.030) Urine Protein 100 H (NEGATIVE) mg/dL Urine Glucose (UA) 100 H (NEGATIVE) mg/dL Urine Ketones 15 H (NEGATIVE) mg/dL Urine Occult Blood Moderate H (NEGATIVE) Urine Nitrite Negative (NEGATIVE) Urine Bilirubin Large H (NEGATIVE) Urine Urobilinogen 0.2 (0.2-1.0) EU/dL Ur Leukocyte Esterase Negative (NEGATIVE) Urine RBC 0-5 (0-5) Urine WBC Not seen (0-5) Ur Epithelial Cells Not seen Amorphous Sediment Not seen Urine Bacteria Many Urine Mucus Not seen Urine Opiates Screen (NEGATIVE) Ur Oxycodone Screen (NEGATIVE) Urine Methadone Screen (NEGATIVE) Ur Propoxyphene Screen (NEGATIVE) Ur Barbiturates Screen (NEGATIVE) Ur Tricyclics Screen (NEGATIVE) Ur Phencyclidine Scrn (NEGATIVE) Ur Amphetamine Screen (NEGATIVE) U Methamphetamines Scrn (NEGATIVE) Urine MDMA Screen (NEGATIVE) U Benzodiazepines Scrn (NEGATIVE) U Cocaine Metab Screen (NEGATIVE) U Marijuana (THC) Screen (NEGATIVE) Ethyl Alcohol < 3 mg/dL SARS-CoV-2 RNA (BELKIS) (NEGATIVE) 07/27/21 07/27/21 07/28/21 Range/Units 18:37 18:38 06:59 WBC 7.8 (4.5-11.0) K/uL RBC 4.71 (4.30-5.90) M/uL Hgb 14.7 (12.0-15.0) g/dL Hct 41.6 (40.0-54.0) % MCV 88 (80-98) fL MCH 31 (27-31) pg MCHC 35 (32-36) % Plt Count 53 L (150-400) K/uL Neut % (Auto) (36-66) % Lymph % (Auto) (24-44) % Merrick % (Auto) (2-6) % Eos % (Auto) (2-4) % Baso % (Auto) (0-1) % Sodium (140-148) mmol/L Potassium (3.6-5.2) mmol/L Chloride (100-108) mmol/L Carbon Dioxide (21-32) mmol/L Anion Gap (5.0-14.0) mmol/L BUN (7-18) mg/dL Creatinine (0.8-1.3) mg/dL Est Cr Clr Drug Dosing mL/min Estimated GFR (MDRD) (>60) Glucose (74-106) mg/dL Lactic Acid 1.2 (0.4-2.0) mmol/L Calcium (8.5-10.1) mg/dL Total Bilirubin (0.2-1.0) mg/dL AST (15-37) U/L ALT (12-78) U/L Alkaline Phosphatase (46-116) U/L Troponin I (0.000-0.056) ng/mL C-Reactive Protein (0.0-0.3) mg/dL Total Protein (6.4-8.2) g/dL Albumin (3.4-5.0) g/dL Globulin (2.3-3.5) g/dL Albumin/Globulin Ratio (1.2-2.2) Lipase (73-393) U/L Procalcitonin ng/mL Urine Color (YELLOW) Urine Appearance (CLEAR) Urine pH (5.0-8.0) Ur Specific Milo (1.008-1.030) Urine Protein (NEGATIVE) mg/dL Urine Glucose (UA) (NEGATIVE) mg/dL Urine Ketones (NEGATIVE) mg/dL Urine Occult Blood (NEGATIVE) Urine Nitrite (NEGATIVE) Urine Bilirubin (NEGATIVE) Urine Urobilinogen (0.2-1.0) EU/dL Ur Leukocyte Esterase (NEGATIVE) Urine RBC (0-5) Urine WBC (0-5) Ur Epithelial Cells Amorphous Sediment Urine Bacteria Urine Mucus Urine Opiates Screen Negative (NEGATIVE) Ur Oxycodone Screen Negative (NEGATIVE) Urine Methadone Screen Negative (NEGATIVE) Ur Propoxyphene Screen Negative (NEGATIVE) Ur Barbiturates Screen Negative (NEGATIVE) Ur Tricyclics Screen Negative (NEGATIVE) Ur Phencyclidine Scrn Negative (NEGATIVE) Ur Amphetamine Screen Negative (NEGATIVE) U Methamphetamines Scrn Negative (NEGATIVE) Urine MDMA Screen Negative (NEGATIVE) U Benzodiazepines Scrn Negative (NEGATIVE) U Cocaine Metab Screen Negative (NEGATIVE) U Marijuana (THC) Screen Negative (NEGATIVE) Ethyl Alcohol mg/dL SARS-CoV-2 RNA (BELKIS) (NEGATIVE) 07/28/21 Range/Units 06:59 WBC (4.5-11.0) K/uL RBC (4.30-5.90) M/uL Hgb (12.0-15.0) g/dL Hct (40.0-54.0) % MCV (80-98) fL MCH (27-31) pg MCHC (32-36) % Plt Count (150-400) K/uL Neut % (Auto) (36-66) % Lymph % (Auto) (24-44) % Merrick % (Auto) (2-6) % Eos % (Auto) (2-4) % Baso % (Auto) (0-1) % Sodium 127 L (140-148) mmol/L Potassium 3.4 L (3.6-5.2) mmol/L Chloride 86 L (100-108) mmol/L Carbon Dioxide 26 (21-32) mmol/L Anion Gap 18.4 H (5.0-14.0) mmol/L BUN 46 H (7-18) mg/dL Creatinine 1.9 H D (0.8-1.3) mg/dL Est Cr Clr Drug Dosing 53.39 mL/min Estimated GFR (MDRD) 39 L (>60) Glucose 210 H (74-106) mg/dL Lactic Acid (0.4-2.0) mmol/L Calcium 8.9 (8.5-10.1) mg/dL Total Bilirubin (0.2-1.0) mg/dL AST (15-37) U/L ALT (12-78) U/L Alkaline Phosphatase (46-116) U/L Troponin I (0.000-0.056) ng/mL C-Reactive Protein (0.0-0.3) mg/dL Total Protein (6.4-8.2) g/dL Albumin (3.4-5.0) g/dL Globulin (2.3-3.5) g/dL Albumin/Globulin Ratio (1.2-2.2) Lipase (73-393) U/L Procalcitonin ng/mL Urine Color (YELLOW) Urine Appearance (CLEAR) Urine pH (5.0-8.0) Ur Specific Milo (1.008-1.030) Urine Protein (NEGATIVE) mg/dL Urine Glucose (UA) (NEGATIVE) mg/dL Urine Ketones (NEGATIVE) mg/dL Urine Occult Blood (NEGATIVE) Urine Nitrite (NEGATIVE) Urine Bilirubin (NEGATIVE) Urine Urobilinogen (0.2-1.0) EU/dL Ur Leukocyte Esterase (NEGATIVE) Urine RBC (0-5) Urine WBC (0-5) Ur Epithelial Cells Amorphous Sediment Urine Bacteria Urine Mucus Urine Opiates Screen (NEGATIVE) Ur Oxycodone Screen (NEGATIVE) Urine Methadone Screen (NEGATIVE) Ur Propoxyphene Screen (NEGATIVE) Ur Barbiturates Screen (NEGATIVE) Ur Tricyclics Screen (NEGATIVE) Ur Phencyclidine Scrn (NEGATIVE) Ur Amphetamine Screen (NEGATIVE) U Methamphetamines Scrn (NEGATIVE) Urine MDMA Screen (NEGATIVE) U Benzodiazepines Scrn (NEGATIVE) U Cocaine Metab Screen (NEGATIVE) U Marijuana (THC) Screen (NEGATIVE) Ethyl Alcohol mg/dL SARS-CoV-2 RNA (BELKIS) (NEGATIVE) Meds: Medications Generic Name Dose Route Start Last Admin Trade Name Freq PRN Reason Stop Dose Admin Acetaminophen 650 mg 07/27/21 20:02 07/28/21 00:45 Acetaminophen 325 Mg Tab PO 650 mg Q4H PRN Administration Pain Dextrose/Water 50 ml 07/27/21 18:36 50% Dextrose In Water 50 Ml Syringe IVPUSH ASDIRECTED PRN Hypoglycemia Glucagon 1 mg 07/27/21 18:36 Glucagon,Human Recombinant 1 Mg Vial IM ASDIRECTED PRN Hypoglycemia Sodium Chloride 1,000 mls @ 999 mls/hr 07/27/21 15:00 07/27/21 14:58 Normal Saline IV 999 mls/hr ASDIRECTED IVANA Administration Norepinephrine Bitartrate 4 mg 250 mls @ 7.5 mls/hr 07/27/21 16:30 07/27/21 21:56 / Dextrose/Water IV 0 mcg/min TITRATE IVANA 0 mls/hr Titration Protocol 2 MCG/MIN Potassium Chloride/Sodium Chloride 1,000 mls @ 100 mls/hr 07/27/21 17:45 07/27/21 18:29 Normal Saline With 20 Meq Kcl IV 100 mls/hr ASDIRECTED IVANA Administration Sodium Chloride 1,000 mls @ 125 mls/hr 07/27/21 20:15 07/28/21 04:14 Normal Saline IV 125 mls/hr ASDIRECTED IVANA Administration Insulin Glargine 45 units 07/27/21 21:00 07/27/21 21:54 Insulin Glargine,Human Rec. Analog 100 Units/Ml 3 Ml Pen SUBCUT 45 units BEDTIME IVANA Administration Insulin Human Lispro 0 unit 07/28/21 08:00 07/28/21 07:41 Insulin Lispro 100 Unit/Ml 3 Ml Kwikpen SUBCUT 6 units TIDMEALS IVANA Administration Protocol Pantoprazole Sodium 40 mg 07/27/21 20:15 07/27/21 20:41 Pantoprazole 40 Mg Tab.Cr PO 40 mg DAILY IVANA Administration Discontinued Medications Generic Name Dose Route Start Last Admin Trade Name Freq PRN Reason Stop Dose Admin Piperacillin/Tazobactam/ 100 mls @ 200 mls/hr 07/27/21 15:30 07/27/21 15:30 Dextrose 4.5 gm/ Premix IV 07/27/21 15:59 200 mls/hr ONETIME ONE Administration Sodium Chloride 75 mls @ 3.5 mls/sec 07/27/21 15:23 07/27/21 15:36 Normal Saline IV 07/27/21 15:24 3.5 mls/sec ONETIME ONE Administration Iopamidol 124 ml 07/27/21 15:23 07/27/21 15:36 Iopamidol 612 Mg/Ml 500 Ml Multipack Bottle IV 07/27/21 15:24 124 ml ONETIME ONE Administration Departure - Departure Time of Disposition: 09:17 Disposition: Admitted As Inpatient 64 Condition: Fair Clinical Impression: Gastroenteritis - Discharge Information Referrals: PCP,None [Primary Care Provider] - Forms: ED Department Discharge Sepsis Event Note (ED) - Evaluation Sepsis Screening Result: No Definite Risk - Focused Exam Vital Signs: Vital Signs Temp Pulse Resp BP Pulse Ox 07/28/21 09:00 89 102/56 L 95 07/28/21 08:00 111 H 112/77 97 07/28/21 06:00 87 18 121/82 96 07/28/21 05:00 86 18 126/77 96 07/28/21 04:00 97.8 F 87 18 125/88 98 07/28/21 03:00 99 16 122/86 97 07/28/21 02:00 87 16 120/79 97 07/28/21 01:00 92 16 123/78 98 07/28/21 00:00 98.6 F 92 16 122/79 99 07/27/21 23:00 88 18 117/78 98 07/27/21 21:57 97 18 132/86 98 - My Orders Last 24 Hours: My Active Orders 07/27/21 14:52 Vital Signs [RC] Q1H Blood Culture x2 Reflex Set [OM.PC] Urgent 07/27/21 15:00 CULTURE BLOOD [BC] Urgent Sodium Chloride 0.9% [Normal Saline] 1,000 ml IV ASDIRECTED 07/27/21 15:10 CULTURE BLOOD [BC] Urgent 07/27/21 16:30 Norepinephrine [Levophed] 4 mg Dextrose 5% in Water 246 ml IV TITRATE - Assessment/Plan Last 24 Hours: My Active Orders 07/27/21 14:52 Vital Signs [RC] Q1H Blood Culture x2 Reflex Set [OM.PC] Urgent 07/27/21 15:00 CULTURE BLOOD [BC] Urgent Sodium Chloride 0.9% [Normal Saline] 1,000 ml IV ASDIRECTED 07/27/21 15:10 CULTURE BLOOD [BC] Urgent 07/27/21 16:30 Norepinephrine [Levophed] 4 mg Dextrose 5% in Water 246 ml IV TITRATE Plan: Assessment Acuity = acute Site and laterality = gastroenteritis complicated with positive Covid in a vaccinated patient Etiology = unknown probably viral Manifestations = acute renal failure Location of injury = Home Lab values = CBC unremarkable sodium low at 127 consistent hyponatremia potassium low at 3.4 consistent hypokalemia creatinine initially 4.3 consistent acute renal failure stage G4 after treatment now improved to 1.9 stage G3 B lactic acid initially 2.4 now down to 1.2 consistent with lactic acidosis improved liver enzymes elevated AST 135 ALT 145 troponin was negative CRP e levated 2.81 procalcitonin elevated 2.17 urinalysis unremarkable urine drug screen alcohol all unremarkable Covid was positive CT scan consistent with a colitis type picture Plan Consultation with hospitalist service was done early in the emergency department however no beds were available until the next day at which time hospitalist service will take over care initiated blood cultures and antibiotics in the emergency department This note was dictated using [email or web address] voice recognition software please call with any questions on syntax or grammar.
[2021-07-27] MEDS: Sodium Chloride 0.9% 1,000 ML IV SCH (14:58)
[2021-07-27] MEDS ORDERED: Piperacillin/Tazobactam 4.5 GM in Sodium Chloride 0.9% 100 ML IV SCH (15:00)
[2021-07-27] MEDS ORDERED: Iopamidol 612 MG/ML 500 ML Multipack Bottle IV ONE (15:23)
[2021-07-27] MEDS ORDERED: Sodium Chloride 0.9% 75 ML IV ONE (15:23)
[2021-07-27] MEDS ORDERED: Piperacillin/Tazobactam/Dext 4.5 GM in Premix Bag 1 BAG IV ONE (15:30)
--- NOTE | 2021-07-27 16:23 | CRLCT ---
For Patients: As a result of the Century Cures Act, medical imaging exams and procedure reports are released immediately into your electronic medical record. You may view this report before your referring provider. If you have questions, please contact your health care provider. Indication: Epigastric pain Technique: Volumetric multidetector CT images of the abdomen and pelvis were obtained after the administration of intravenous contrast. 123 cc Isovue-300 low osmolar intravenous contrast Comparison: None available. Findings: There is minimal basilar atelectasis versus scar. The liver is moderately enlarged with hepatic steatosis. The portal vein is patent. There is prior cholecystectomy. There is no significant common biliary ductal dilatation or abrupt cut off. The spleen is normal in enhancement and size. The stomach and duodenum are grossly unremarkable. The pancreas again demonstrates extensive cystic changes of the pancreatic head and midbody with complete atrophy of the pancreatic tail with dominant cystic lesion in the midbody seen on series 2, image 76 measuring 3.7 x 2.3 centimeters stable from comparison. No evidence of additional cystic changes are appreciated. The adrenal glands are unremarkable. The kidneys demonstrate preserved corticomedullary differentiation without evidence of obstructive uropathy. There is demonstration of a [id number] amount of stool seen throughout the colon with nonspecific thickening of the ascending, transverse and proximal descending colon. The appendix is unremarkable. There is no significant mesenteric, retroperitoneal, or pelvic sidewall lymph nodes. The aorta is nonaneurysmal. There is no significant atherosclerotic disease appreciated. The solid pelvic viscera are grossly unremarkable. There is no free fluid or free air. The anterior abdominal wall is intact without significant hernias. The lumbar vertebral body heights are grossly maintained with [id number] multilevel degenerative changes. Impression: Stable moderate to severe hepatomegaly and hepatic steatosis. Demonstration of stable cystic changes of the pancreatic head and midbody commensurate with pseudocysts in the setting of prior pancreatitis. There is nonspecific thickening of the ascending colon, transverse colon and proximal descending colon which may represent sequela of colitis changes. Correlate with history of clinical symptoms. Please note that all CT scans at this facility use dose modulation, iterative reconstruction, and/or weight-based dosing when appropriate to reduce radiation dose to as low as reasonably achievable. Dictated by Keenan Avalos MD @ 07/27/2021 4:21:20 PM (Electronically Signed)
[2021-07-27] MEDS ORDERED: Norepinephrine 4 MG in Dextrose 5% in Water 246 ML IV SCH ×4 (16:30)
--- NOTE | 2021-07-27 18:21 | PCM.CONS ---
H&P History of Present Illness - General Date of Service: 07/27/21 Admit Problem/Dx: Gastroenteritis, dehydration, COVID-19 Source of Information: Patient History Limitations: Reports: No Limitations - History of Present Illness Initial Comments - Free Text/Narative: Mr. Jones is a 41-year-old male with past medical history significant for type 2 diabetes mellitus and alcoholic hepatitis who presents with nausea and vomiting for 2 days. He states that he has not been able to keep any food or liquids down for the past 2 days. He states that he is not sure if he ate anything that may have led to the vomiting, he says he begins to feel chills and then will vomit. He also states that he began having diarrhea today. He is a former chronic heavy drinker who developed severe pancreatitis and alcoholic hepatitis in January. He states that he has not had any alcohol since his hospitalization in January. He denies drug use. He states that he has a 1-year-old at home that has been coughing. He is double vaccinated for COVID- 19. He denies any respiratory symptoms including cough, shortness of breath, and dyspnea on exertion. Throat Pain Score (Numeric/FACES): 10 - Related Data Allergies/Adverse Reactions: Allergies Allergy/AdvReac Type Severity Reaction Status Date / Time bee venom protein (honey bee) Allergy Severe Airway Verified 07/27/21 14:39 Tightness Home Medications: Home Meds Lisinopril 40 mg PO DAILY 02/15/18 [History] Omeprazole 20 mg PO DAILY 02/15/18 [History] amLODIPine Besylate [Norvasc] 10 mg PO DAILY 02/15/18 [History] atorvaSTATin Calcium [Lipitor] 20 mg PO DAILY 10/01/18 [History] Lipase/Protease/Amylase [Zenpep DR 20,000 Unit] 2 each PO TIDMEALS 01/28/19 [History] hydroCHLOROthiazide [Hydrochlorothiazide] 25 mg PO DAILY 05/02/19 [History] Insulin Aspart [Insulin Aspart Flexpen] 26 units SUBCUT TIDMEALS 05/17/20 [History] Insulin Glarg,Human.Rec.Analog [Lantus Solostar] 45 units SUBCUT BEDTIME 05/17/20 [History] Potassium Chloride 10 meq PO DAILY 03/21/21 [History] Past Medical History HEENT History: Reports: Otitis Media Cardiovascular History: Reports: High Cholesterol, Hypertension Respiratory History: Reports: None Gastrointestinal History: Reports: GERD, Pancreatitis Genitourinary History: Reports: None Musculoskeletal History: Reports: None Neurological History: Reports: Seizure Other Neuro History: ETOH withdrawl Psychiatric History: Reports: Addiction Endocrine/Metabolic History: Reports: Diabetes, Type II Hematologic History: Reports: Blood Transfusion(s) Immunologic History: Reports: None Oncologic (Cancer) History: Reports: None Dermatologic History: Reports: None - Infectious Disease History Infectious Disease History: Reports: Chicken Pox - Past Surgical History Head Surgeries/Procedures: Reports: None HEENT Surgical History: Reports: Myringotomy w Tube(s) Cardiovascular Surgical History: Reports: None GI Surgical History: Reports: Cholecystectomy Endocrine Surgical History: Reports: None Neurological Surgical History: Reports: None Musculoskeletal Surgical History: Reports: None Dermatological Surgical History: Reports: None Social & Family History - Family History Family Medical History: Unobtainable - Tobacco Use Tobacco Use Status *Q: Current Every Day Tobacco User Years of Tobacco use: 26 Packs/Tins Daily: 1 - Caffeine Use Caffeine Use: Reports: Coffee - Recreational Drug Use Recreational Drug Use: No H&P Review of Systems - Review of Systems: Review Of Systems: See Below General: Reports: Chills, Fatigue, Decreased Appetite HEENT: Reports: No Symptoms Pulmonary: Reports: No Symptoms Cardiovascular: Reports: No Symptoms Gastrointestinal: Reports: Diarrhea, Decreased Appetite, Nausea, Vomiting Genitourinary: Reports: No Symptoms Musculoskeletal: Reports: No Symptoms Skin: Reports: No Symptoms Psychiatric: Reports: No Symptoms Neurological: Reports: No Symptoms Exam - Exam Exam: See Below - Vital Signs Vital Signs: Last Vital Signs Temp 96.8 F L 07/27/21 15:49 Pulse 83 07/27/21 17:44 Resp 16 07/27/21 16:54 BP 88/53 L 07/27/21 17:44 Pulse Ox 100 07/27/21 16:54 Weight: 180 lb - Exam General: Alert, Oriented, 4 HEENT: Conjunctiva Clear, EOMI, Hearing Intact, Other (Dry mucous membranes) Neck: Supple, Trachea Midline, 2 Lungs: Clear to Auscultation, Normal Respiratory Effort Cardiovascular: Regular Rhythm, Tachycardia GI/Abdominal Exam: Soft, Tender Extremities: Normal Inspection, Non-Tender, No Pedal Edema Skin: Warm, Dry, Intact Neuro Extensive - Mental Status: Alert, Oriented x3, Normal Mood/Affect, Normal Cognition Psychiatric: Alert, Normal Affect, Normal Mood - Patient Data Lab Results Last 24 hrs: Laboratory Results - last 24 hr 07/27/21 07/27/21 07/27/21 Range/Units 14:54 14:55 14:56 WBC (4.5-11.0) K/uL RBC (4.30-5.90) M/uL Hgb (12.0-15.0) g/dL Hct (40.0-54.0) % MCV (80-98) fL MCH (27-31) pg MCHC (32-36) % Plt Count (150-400) K/uL Neut % (Auto) (36-66) % Lymph % (Auto) (24-44) % [place] % (Auto) (2-6) % Eos % (Auto) (2-4) % Baso % (Auto) (0-1) % Sodium (140-148) mmol/L Potassium (3.6-5.2) mmol/L Chloride (100-108) mmol/L Carbon Dioxide (21-32) mmol/L Anion Gap (5.0-14.0) mmol/L BUN (7-18) mg/dL Creatinine (0.8-1.3) mg/dL Est Cr Clr Drug Dosing mL/min Estimated GFR (MDRD) (>60) Glucose (74-106) mg/dL Lactic Acid (0.4-2.0) mmol/L Calcium (8.5-10.1) mg/dL Total Bilirubin (0.2-1.0) mg/dL AST (15-37) U/L ALT (12-78) U/L Alkaline Phosphatase (46-116) U/L Troponin I < 0.017 (0.000-0.056) ng/mL C-Reactive Protein (0.0-0.3) mg/dL Total Protein (6.4-8.2) g/dL Albumin (3.4-5.0) g/dL Globulin (2.3-3.5) g/dL Albumin/Globulin Ratio (1.2-2.2) Lipase 375 (73-393) U/L Procalcitonin ng/mL Ethyl Alcohol mg/dL SARS-CoV-2 RNA ([facility]) Positive H (NEGATIVE) 07/27/21 07/27/21 07/27/21 Range/Units 15:00 15:00 15:00 WBC 7.5 (4.5-11.0) K/uL RBC 4.92 (4.30-5.90) M/uL Hgb 15.6 H (12.0-15.0) g/dL Hct 43.9 (40.0-54.0) % MCV 89 (80-98) fL MCH 32 H (27-31) pg MCHC 36 (32-36) % Plt Count 71 L (150-400) K/uL Neut % (Auto) 81.9 H (36-66) % Lymph % (Auto) 10.0 L (24-44) % [place] % (Auto) 8.0 H (2-6) % Eos % (Auto) 0.0 L (2-4) % Baso % (Auto) 0.1 (0-1) % Sodium 127 L (140-148) mmol/L Potassium 3.5 L (3.6-5.2) mmol/L Chloride 82 L (100-108) mmol/L Carbon Dioxide 24 (21-32) mmol/L Anion Gap 24.5 H (5.0-14.0) mmol/L BUN 70 H D (7-18) mg/dL Creatinine 4.3 H* D (0.8-1.3) mg/dL Est Cr Clr Drug Dosing 23.59 mL/min Estimated GFR (MDRD) 15 L (>60) Glucose 211 H (74-106) mg/dL Lactic Acid 2.4 H (0.4-2.0) mmol/L Calcium 9.1 D (8.5-10.1) mg/dL Total Bilirubin 0.9 (0.2-1.0) mg/dL AST 135 H (15-37) U/L ALT 145 H (12-78) U/L Alkaline Phosphatase 211 H (46-116) U/L Troponin I (0.000-0.056) ng/mL C-Reactive Protein 2.81 H (0.0-0.3) mg/dL Total Protein 7.4 (6.4-8.2) g/dL Albumin 4.0 (3.4-5.0) g/dL Globulin 3.4 (2.3-3.5) g/dL Albumin/Globulin Ratio 1.2 (1.2-2.2) Lipase (73-393) U/L Procalcitonin ng/mL Ethyl Alcohol mg/dL SARS-CoV-2 RNA ([facility]) (NEGATIVE) 07/27/21 07/27/21 Range/Units 15:00 16:01 WBC (4.5-11.0) K/uL RBC (4.30-5.90) M/uL Hgb (12.0-15.0) g/dL Hct (40.0-54.0) % MCV (80-98) fL MCH (27-31) pg MCHC (32-36) % Plt Count (150-400) K/uL Neut % (Auto) (36-66) % Lymph % (Auto) (24-44) % [place] % (Auto) (2-6) % Eos % (Auto) (2-4) % Baso % (Auto) (0-1) % Sodium (140-148) mmol/L Potassium (3.6-5.2) mmol/L Chloride (100-108) mmol/L Carbon Dioxide (21-32) mmol/L Anion Gap (5.0-14.0) mmol/L BUN (7-18) mg/dL Creatinine (0.8-1.3) mg/dL Est Cr Clr Drug Dosing mL/min Estimated GFR (MDRD) (>60) Glucose (74-106) mg/dL Lactic Acid (0.4-2.0) mmol/L Calcium (8.5-10.1) mg/dL Total Bilirubin (0.2-1.0) mg/dL AST (15-37) U/L ALT (12-78) U/L Alkaline Phosphatase (46-116) U/L Troponin I (0.000-0.056) ng/mL C-Reactive Protein (0.0-0.3) mg/dL Total Protein (6.4-8.2) g/dL Albumin (3.4-5.0) g/dL Globulin (2.3-3.5) g/dL Albumin/Globulin Ratio (1.2-2.2) Lipase (73-393) U/L Procalcitonin 2.17 H* ng/mL Ethyl Alcohol < 3 mg/dL SARS-CoV-2 RNA ([facility]) (NEGATIVE) Result Diagrams: 07/27/21 15:00 07/27/21 15:00 Sepsis Event Note - Evaluation Sepsis Screening Result: No Definite Risk - Focused Exam Vital Signs: Vital Signs Temp Pulse Resp BP Pulse Ox 07/27/21 17:44 83 88/53 L 07/27/21 16:54 92 16 82/46 L 100 07/27/21 16:12 96 73/41 L 07/27/21 15:49 96.8 F L 84 16 80/44 L 94 L 07/27/21 15:25 95 16 67/43 L 96 07/27/21 14:52 97 16 71/40 L 07/27/21 14:35 96.8 F L 101 H 18 58/36 L 94 L Consult PN Assessment/Plan Procedures: Procedures ASSAY OF AMYLASE (03/21/21) ASSAY OF LACTIC ACID (12/08/20) ASSAY OF LIPASE (03/21/21) ASSAY OF MAGNESIUM (12/08/20) ASSAY OF PHOSPHORUS (12/08/20) ASSAY OF TROPONIN QUANT (10/01/18) BLOOD CULTURE FOR BACTERIA (12/08/20) BLOOD GASES ANY COMBINATION (12/08/20) C-REACTIVE PROTEIN (03/19/21) COMPLETE CBC AUTOMATED (03/19/21) COMPLETE CBC W/AUTO DIFF WBC (03/21/21) COMPREHEN METABOLIC PANEL (03/21/21) CRITICAL CARE FIRST HOUR (03/03/18) CT ABD & PELV 1/> REGNS (11/12/18) CT ABD & PELV W/CONTRAST (03/21/21) CULTURE SCREEN ONLY (01/28/19) DRUG TEST PRSMV DIR OPT OBS (01/28/19) ECHO EXAM OF ABDOMEN (03/21/21) ELECTROCARDIOGRAM TRACING (03/03/18) EMERGENCY DEPT VISIT (03/21/21) EMERGENCY DEPT VISIT (03/19/21) EMERGENCY DEPT VISIT (12/08/20) EMERGENCY DEPT VISIT (05/17/20) EMERGENCY DEPT VISIT (01/28/19) EMERGENCY DEPT VISIT (01/12/19) EMERGENCY DEPT VISIT (10/01/18) EMERGENCY DEPT VISIT (02/28/18) EMERGENCY DEPT VISIT (02/15/18) GLUCOSE BLOOD TEST (01/28/19) HYDRATE IV INFUSION ADD-ON (01/26/19) HYDRATION IV INFUSION INIT (03/03/18) METABOLIC PANEL TOTAL CA (03/19/21) PROTHROMBIN TIME (10/01/18) ROUTINE VENIPUNCTURE (03/21/21) STREP A AG IA (01/28/19) TEST FOR ACETONE/KETONES (12/08/20) THER/PROPH/DIAG INJ IV PUSH (03/21/21) THER/PROPH/DIAG INJ SC/IM (02/15/18) TX/PRO/DX INJ NEW DRUG ADDON (03/19/21) TX/PRO/DX INJ SAME DRUG PUBLIC RELATIONS REPRESENTATIVE (03/21/21) URINALYSIS AUTO W/O SCOPE (03/19/21) URINALYSIS AUTO W/SCOPE (12/08/20) (1) Acute renal failure SNOMED Code(s): 74413297 Code(s): N17.9 - ACUTE KIDNEY FAILURE, UNSPECIFIED Current Visit: Yes (2) COVID-19 SNOMED Code(s): 961487980 Code(s): U07.1 - COVID-19 Current Visit: Yes (3) Gastroenteritis SNOMED Code(s): 22300195 Code(s): K52.9 - NONINFECTIVE GASTROENTERITIS AND COLITIS, UNSPECIFIED Current Visit: No (4) Nausea and vomiting SNOMED Code(s): 82347335 Code(s): R11.2 - NAUSEA WITH VOMITING, UNSPECIFIED Priority: High Current Visit: No Qualifiers: Vomiting type: unspecified Qualified Code(s): R11.14 - Bilious vomiting (5) 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 SNOMED Code(s): 57539250 Code(s): K86.89 - OTHER SPECIFIED DISEASES OF PANCREAS; E08.9 - DIABETES DUE TO UNDERLYING CONDITION W/O COMPLICATIONS Current Visit: Yes Problem List Initiated/Reviewed/Updated: Yes My Orders Last 24 Hours: My Active Orders 07/27/21 17:45 NS + KCl 20mEq/L [Normal Saline with 20 mEq KCl] 1,000 ml IV ASDIRECTED 07/28/21 07:00 BASIC METABOLIC PANEL,BMP [CHEM] Routine CBC W/O DIFF,HEMOGRAM [HEME] Routine Plan: Gastroenteritis with associated hypotension, dehydration, and electrolyte abnormalities: Hyponatremia, hypochloremia, hypokalemia -At home he has had poor oral intake, nausea and vomiting, and diarrhea -CT scan showed colitis -Will be gentle with fluids as patient is COVID-19 positive, will monitor for respiratory distress as fluids are given -Was given 1 bolus of normal saline -will be given 1000 mL normal saline with 20 mEq of potassium at 100 mL/h, will avoid any additional boluses and fluid resuscitate slowly -Allow a full liquid diet, if tolerated can consider progressing to soft or regular diet depending on how he his feeling Acute renal failure likely secondary to dehydration -Creatinine is 4.3 -Baseline kidney function from last visit appears to be 0.8 -Fluid resuscitation as above -No indications for dialysis including fluid overload Diabetes mellitus likely secondary to alcoholic pancreatitis -We will give Lantus 40 units home dose at bedtime -Checking blood glucose 3 times daily before meals and bedtime -Holding home dose of aspart 26 units 3 times daily, will use high-dose sliding scale until he can be moved to the floor -Hypoglycemic protocol Hypotension with a history of essential hypertension -Currently has a systolic in the 80s being maintained by norepinephrine -We will be holding home hydrochlorothiazide, amlodipine, and lisinopril until blood pressure has recovered COVID-19 -He is vaccinated with an mRNA vaccine and has had both shots his child is exhibiting symptoms of Covid -He denies any upper respiratory symptoms and fever, he did admit to chills just prior to vomiting but not otherwise -He is not requiring any oxygen to maintain saturations in the 90s but we will monitor Plan: We will have to be gentle with fluid resuscitation to avoid any issues related to Covid. I do believe that he has a mild to asymptomatic case of Covid at this time and is here for the gastroenteritis and renal failure. Will be careful to monitor for any symptoms, if they do develop high will consider starting remdesivir, Decadron, and enoxaparin.
[2021-07-27] MEDS: NS + KCl 20mEq/L 1,000 ML IV SCH (18:29)
[2021-07-27] MEDS ORDERED: Glucagon,Human Recombinant 1 MG Vial IM PRN (18:36)
[2021-07-27] MEDS ORDERED: 50% Dextrose in Water 50 ML Syringe IVPUSH PRN (18:36)
[2021-07-27] MEDS ORDERED: Sodium Chloride 0.9% 1,000 ML IV SCH (20:15)
[2021-07-27] MEDS: Pantoprazole 40 MG Tab.CR PO SCH (20:41)
[2021-07-27] MEDS: Acetaminophen 325 MG Tab PO PRN (20:42)
[2021-07-27] MEDS: Insulin Glargine,Human Rec. Analog 100 Units/ML 3 ML Pen SUBCUT SCH (21:54)
[2021-07-28] MEDS: Acetaminophen 325 MG Tab PO PRN ×2 (00:45→12:08)
[2021-07-28] MEDS: Insulin Lispro 100 Unit/ML 3 ML KwikPen SUBCUT SCH ×3 (07:41→16:50)
[2021-07-28] MEDS: Sodium Chloride 0.9% 1,000 ML IV SCH (14:16)
[2021-07-28] MEDS ORDERED: Lactated Ringers 1,000 ML IV SCH (14:45)
--- NOTE | 2021-07-28 18:07 | PCM.HP.2 ---
H&P History of Present Illness - General Date of Service: 07/28/21 Admit Problem/Dx: Gastroenteritis, dehydration, COVID-19 Source of Information: Patient History Limitations: Reports: No Limitations - History of Present Illness Initial Comments - Free Text/Narative: Copied from consultation note done while patient was still in the emergency department: Mr. Jones is a 41-year-old male with past medical history significant for type 2 diabetes mellitus and alcoholic hepatitis who presents with nausea and vomiting for 2 days. He states that he has not been able to keep any food or liquids down for the past 2 days. He states that he is not sure if he ate anything that may have led to the vomiting, he says that he begins to feel chills and then will vomit. He also states that he is having diarrhea today. He is a former chronic heavy drinker who developed severe pancreatitis and alcoholic hepatitis in January. He states that he has not had any alcohol since his hospitalization in January. He denies drug use. He states that he has a 1-year-old at home that has been coughing. He is double vaccinated for COVID- 19. He denies any respiratory symptoms including cough, shortness of breath, and dyspnea on exertion. While in the emergency department he received fluid resuscitation and potassium supplementation. His labs were significant for: Sodium 127, potassium 3.5, chloride 82, anion gap 24.5, BUN 70, creatinine 4.3, glucose 211, C-reactive protein 2.8. He tested positive for COVID-19. After fluid resuscitation his labs improved however they were still significant for: Sodium 127, potassium 3.4, anion gap of 18.4, BUN 46, creatinine 1.9, glucose 210. Throat Pain Score (Numeric/FACES): 10 Abdomen Pain Score (Numeric/FACES): 9 - Related Data Allergies/Adverse Reactions: Allergies Allergy/AdvReac Type Severity Reaction Status Date / Time bee venom protein (honey bee) Allergy Severe Airway Verified 07/27/21 14:39 Tightness Home Medications: Home Meds Lisinopril 40 mg PO DAILY 02/15/18 [History] Omeprazole 20 mg PO DAILY 02/15/18 [History] amLODIPine Besylate [Norvasc] 10 mg PO DAILY 02/15/18 [History] atorvaSTATin Calcium [Lipitor] 20 mg PO DAILY 10/01/18 [History] Lipase/Protease/Amylase [Zenpep DR 20,000 Unit] 2 each PO TIDMEALS 01/28/19 [History] hydroCHLOROthiazide [Hydrochlorothiazide] 25 mg PO DAILY 05/02/19 [History] Insulin Aspart [Insulin Aspart Flexpen] 26 units SUBCUT TIDMEALS 05/17/20 [History] Insulin Glarg,Human.Rec.Analog [Lantus Solostar] 45 units SUBCUT BEDTIME 05/17/20 [History] Potassium Chloride 10 meq PO DAILY 03/21/21 [History] Past Medical History HEENT History: Reports: Otitis Media Cardiovascular History: Reports: High Cholesterol, Hypertension Respiratory History: Reports: None Gastrointestinal History: Reports: GERD, Pancreatitis Genitourinary History: Reports: None Musculoskeletal History: Reports: None Neurological History: Reports: Seizure Other Neuro History: ETOH withdrawl Psychiatric History: Reports: Addiction Endocrine/Metabolic History: Reports: Diabetes, Type II Hematologic History: Reports: Blood Transfusion(s) Immunologic History: Reports: None Oncologic (Cancer) History: Reports: None Dermatologic History: Reports: None - Infectious Disease History Infectious Disease History: Reports: Chicken Pox - Past Surgical History Head Surgeries/Procedures: Reports: None HEENT Surgical History: Reports: Myringotomy w Tube(s) Cardiovascular Surgical History: Reports: None GI Surgical History: Reports: Cholecystectomy Endocrine Surgical History: Reports: None Neurological Surgical History: Reports: None Musculoskeletal Surgical History: Reports: None Dermatological Surgical History: Reports: None Social & Family History - Family History Family Medical History: Unobtainable - Tobacco Use Tobacco Use Status *Q: Current Every Day Tobacco User Years of Tobacco use: 26 Packs/Tins Daily: 1 - Caffeine Use Caffeine Use: Reports: Coffee - Recreational Drug Use Recreational Drug Use: No H&P Review of Systems - Review of Systems: Review Of Systems: See Below Free Text/Narrative: As of today Mr. Jones is feeling significantly better and no longer having any symptoms including nausea, vomiting, diarrhea, and chills. He did mention to the nurse that he does have a mild cough. General: Reports: No Symptoms HEENT: Reports: No Symptoms Pulmonary: Reports: Cough Cardiovascular: Reports: No Symptoms Gastrointestinal: Reports: No Symptoms Genitourinary: Reports: No Symptoms Musculoskeletal: Reports: No Symptoms Skin: Reports: No Symptoms Psychiatric: Reports: No Symptoms Neurological: Reports: No Symptoms Hematologic/Lymphatic: Reports: No Symptoms Immunologic: Reports: No Symptoms Exam - Exam Exam: See Below - Vital Signs Vital Signs: Last Vital Signs Temp 96.1 F L 07/28/21 16:34 Pulse 89 07/28/21 16:34 Resp 14 07/28/21 16:34 BP 116/67 07/28/21 16:34 Pulse Ox 98 07/28/21 16:34 Weight: 180 lb - Exam General: Alert, Oriented, 4 HEENT: Conjunctiva Clear, EOMI, Hearing Intact, Mucosa Moist & [place] Neck: Supple, Trachea Midline, 2 Lungs: Clear to Auscultation, Normal Respiratory Effort Cardiovascular: Regular Rate, Regular Rhythm GI/Abdominal Exam: Normal Bowel Sounds, Soft, Non-Tender, No Distention Extremities: Normal Inspection, Non-Tender, No Pedal Edema Skin: Warm, Dry, Intact Neuro Extensive - Mental Status: Alert, Oriented x3, Normal Mood/Affect, Normal Cognition Psychiatric: Alert, Normal Affect, Normal Mood - Patient Data Lab Results Last 24 hrs: Laboratory Results - last 24 hr 07/27/21 07/27/21 07/27/21 Range/Units 18:37 18:37 18:38 WBC (4.5-11.0) K/uL RBC (4.30-5.90) M/uL Hgb (12.0-15.0) g/dL Hct (40.0-54.0) % MCV (80-98) fL MCH (27-31) pg MCHC (32-36) % Plt Count (150-400) K/uL Sodium (140-148) mmol/L Potassium (3.6-5.2) mmol/L Chloride (100-108) mmol/L Carbon Dioxide (21-32) mmol/L Anion Gap (5.0-14.0) mmol/L BUN (7-18) mg/dL Creatinine (0.8-1.3) mg/dL Est Cr Clr Drug Dosing mL/min Estimated GFR (MDRD) (>60) Glucose (74-106) mg/dL Lactic Acid 1.2 (0.4-2.0) mmol/L Calcium (8.5-10.1) mg/dL Urine Color Yellow (YELLOW) Urine Appearance Clear (CLEAR) Urine pH 5.5 (5.0-8.0) Ur Specific [place] 1.020 (1.008-1.030) Urine Protein 100 H (NEGATIVE) mg/dL Urine Glucose (UA) 100 H (NEGATIVE) mg/dL Urine Ketones 15 H (NEGATIVE) mg/dL Urine Occult Blood Moderate H (NEGATIVE) Urine Nitrite Negative (NEGATIVE) Urine Bilirubin Large H (NEGATIVE) Urine Urobilinogen 0.2 (0.2-1.0) EU/dL Ur Leukocyte Esterase Negative (NEGATIVE) Urine RBC 0-5 (0-5) Urine WBC Not seen (0-5) Ur Epithelial Cells Not seen Amorphous Sediment Not seen Urine Bacteria Many Urine Mucus Not seen Urine Opiates Screen Negative (NEGATIVE) Ur Oxycodone Screen Negative (NEGATIVE) Urine Methadone Screen Negative (NEGATIVE) Ur Propoxyphene Screen Negative (NEGATIVE) Ur Barbiturates Screen Negative (NEGATIVE) Ur Tricyclics Screen Negative (NEGATIVE) Ur Phencyclidine Scrn Negative (NEGATIVE) Ur Amphetamine Screen Negative (NEGATIVE) U Methamphetamines Scrn Negative (NEGATIVE) Urine MDMA Screen Negative (NEGATIVE) U Benzodiazepines Scrn Negative (NEGATIVE) U Cocaine Metab Screen Negative (NEGATIVE) U Marijuana (THC) Screen Negative (NEGATIVE) 07/28/21 07/28/21 Range/Units 06:59 06:59 WBC 7.8 (4.5-11.0) K/uL RBC 4.71 (4.30-5.90) M/uL Hgb 14.7 (12.0-15.0) g/dL Hct 41.6 (40.0-54.0) % MCV 88 (80-98) fL MCH 31 (27-31) pg MCHC 35 (32-36) % Plt Count 53 L (150-400) K/uL Sodium 127 L (140-148) mmol/L Potassium 3.4 L (3.6-5.2) mmol/L Chloride 86 L (100-108) mmol/L Carbon Dioxide 26 (21-32) mmol/L Anion Gap 18.4 H (5.0-14.0) mmol/L BUN 46 H (7-18) mg/dL Creatinine 1.9 H D (0.8-1.3) mg/dL Est Cr Clr Drug Dosing 53.39 mL/min Estimated GFR (MDRD) 39 L (>60) Glucose 210 H (74-106) mg/dL Lactic Acid (0.4-2.0) mmol/L Calcium 8.9 (8.5-10.1) mg/dL Urine Color (YELLOW) Urine Appearance (CLEAR) Urine pH (5.0-8.0) Ur Specific [place] (1.008-1.030) Urine Protein (NEGATIVE) mg/dL Urine Glucose (UA) (NEGATIVE) mg/dL Urine Ketones (NEGATIVE) mg/dL Urine Occult Blood (NEGATIVE) Urine Nitrite (NEGATIVE) Urine Bilirubin (NEGATIVE) Urine Urobilinogen (0.2-1.0) EU/dL Ur Leukocyte Esterase (NEGATIVE) Urine RBC (0-5) Urine WBC (0-5) Ur Epithelial Cells Amorphous Sediment Urine Bacteria Urine Mucus Urine Opiates Screen (NEGATIVE) Ur Oxycodone Screen (NEGATIVE) Urine Methadone Screen (NEGATIVE) Ur Propoxyphene Screen (NEGATIVE) Ur Barbiturates Screen (NEGATIVE) Ur Tricyclics Screen (NEGATIVE) Ur Phencyclidine Scrn (NEGATIVE) Ur Amphetamine Screen (NEGATIVE) U Methamphetamines Scrn (NEGATIVE) Urine MDMA Screen (NEGATIVE) U Benzodiazepines Scrn (NEGATIVE) U Cocaine Metab Screen (NEGATIVE) U Marijuana (THC) Screen (NEGATIVE) Result Diagrams: 07/28/21 06:59 07/28/21 06:59 Jason Results Last 24 hrs: Microbiology 07/27/21 15:10 Aerobic Blood Culture - Preliminary Blood - Venous - Lab Draw NO GROWTH AFTER 1 DAY Anaerobic Blood Culture - Preliminary NO GROWTH AFTER 1 DAY 07/27/21 15:00 Aerobic Blood Culture - Preliminary Blood - Arm, Right NO GROWTH AFTER 1 DAY Anaerobic Blood Culture - Preliminary NO GROWTH AFTER 1 DAY Sepsis Event Note - Evaluation Sepsis Screening Result: No Definite Risk - Focused Exam Vital Signs: Vital Signs Temp Temp Pulse Resp BP BP Pulse Ox 07/28/21 16:34 96.1 F L 89 14 116/67 98 07/28/21 12:01 96.9 F 95 18 117/78 96 07/28/21 09:00 89 102/56 L 95 07/28/21 08:00 111 H 112/77 97 - Problem List (1) Acute renal failure SNOMED Code(s): 10278047 ICD Code: N17.9 - ACUTE KIDNEY FAILURE, UNSPECIFIED Status: Acute Current Visit: Yes (2) COVID-19 SNOMED Code(s): 530110137 ICD Code: U07.1 - COVID-19 Status: Acute Current Visit: Yes (3) Gastroenteritis SNOMED Code(s): 10492271 ICD Code: K52.9 - NONINFECTIVE GASTROENTERITIS AND COLITIS, UNSPECIFIED Status: Acute Current Visit: Yes (4) Nausea and vomiting SNOMED Code(s): 25837901 ICD Code: R11.2 - NAUSEA WITH VOMITING, UNSPECIFIED Status: Acute Priority: High Current Visit: No Qualifiers: Vomiting type: unspecified (5) 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 SNOMED Code(s): 67977722 ICD Code: K86.89 - OTHER SPECIFIED DISEASES OF PANCREAS; E08.9 - DIABETES DUE TO UNDERLYING CONDITION W/O COMPLICATIONS Status: Acute Current Visit: Yes Problem List Initiated/Reviewed/Updated: Yes Orders Last 24hrs: Active Orders 24 hr Category Date Time Status Admission Status [Patient Status] [ADT] Routine ADT 07/28/21 10:44 Active Blood Glucose Check, Bedside [RC] WITHMEALSANDBED Care 07/27/21 18:36 Active Communication Order [RC] ROUTINE Care 07/27/21 19:03 Active Consistent Carbohydrate Diet [DIET] Diet 07/28/21 Breakfast Active Acetaminophen [TylenoL] Med 07/27/21 20:02 Active 650 mg PO Q4H PRN Dextrose 50% in Water Med 07/27/21 18:36 Active 50 ml IVPUSH ASDIRECTED PRN Glucagon,Human Recombinant [GlucaGen] Med 07/27/21 18:36 Active 1 mg IM ASDIRECTED PRN Insulin Glarg,Human.Rec.Analog [LantUS Solostar] Med 07/27/21 21:00 Active 45 units SUBCUT BEDTIME Insulin Lispro [HumaLOG] Med 07/28/21 08:00 Active See Protocol SUBCUT TIDMEALS Lactated Ringers [Ringers, Lactated] 1,000 ml Med 07/28/21 14:45 Active IV ASDIRECTED NS + KCl 20mEq/L [Normal Saline with 20 mEq KCl] 1,000 Med 07/27/21 17:45 Active ml IV ASDIRECTED Pantoprazole [ProTONIX] Med 07/27/21 20:15 Active 40 mg PO DAILY Medication Orders Acetaminophen (Acetaminophen 325 Mg Tab) 650 mg PO Q4H PRN PRN Reason: Pain Last Admin: 07/28/21 12:08 Dose: 650 mg Documented by: Admin: 07/28/21 00:45 Dose: 650 mg Documented by: Admin: 07/27/21 20:42 Dose: 650 mg Documented by: LUCIANA Dextrose/Water (50% Dextrose In Water 50 Ml Syringe) 50 ml IVPUSH ASDIRECTED PRN PRN Reason: Hypoglycemia Glucagon (Glucagon,Human Recombinant 1 Mg Vial) 1 mg IM ASDIRECTED PRN PRN Reason: Hypoglycemia Potassium Chloride/Sodium Chloride (Normal Saline With 20 Meq Kcl) 1,000 mls @ 100 mls/hr IV ASDIRECTED [facility] Last Admin: 07/27/21 18:29 Dose: 100 mls/hr Documented by: MICHI Lactated Ringer's (Ringers, Lactated) 1,000 mls @ 125 mls/hr IV ASDIRECTED [facility] Last Admin: 07/28/21 16:31 Dose: 125 mls/hr Documented by: MARGARITA Insulin Glargine (Insulin Glargine,Human Rec. Analog 100 Units/Ml 3 Ml Pen) 45 units SUBCUT BEDTIME [facility] Last Admin: 07/27/21 21:54 Dose: 45 units Documented by: LUCIANA Cosigned by: BOOM Insulin Human Lispro (Insulin Lispro 100 Unit/Ml 3 Ml Kwikpen) 0 unit SUBCUT TIDMEALS [facility]; Protocol Last Admin: 07/28/21 16:50 Dose: 12 units Documented by: MARGARITA Cosigned by: SABRINA Admin: 07/28/21 12:36 Dose: 9 units Documented by: NICA Cosigned by: [id number] Admin: 07/28/21 07:41 Dose: 6 units Documented by: MAKAYLA Cosigned by: RADHA Pantoprazole Sodium (Pantoprazole 40 Mg Tab.Cr) 40 mg PO DAILY [facility] Last Admin: 07/27/21 20:41 Dose: 40 mg Documented by: LUCIANA Assessment/Plan Comment:: Gastroenteritis and colitis with associated hypotension, dehydration, and elec trolyte abnormalities: Hyponatremia, hypochloremia, hypokalemia -At home he has had poor oral intake, nausea and vomiting, and diarrhea -CT scan showed colitis -Now on LR at 125 mL/h -Tolerating a regular diet Hyponatremia Hypochloremia Hypokalemia -For all his electrolyte abnormalities we will continue to monitor and replace as needed Acute renal failure likely secondary to dehydration-significantly improved -Creatinine is 4.3>1.9 -Baseline kidney function from last visit appears to be 0.8 -Fluid resuscitation as above Diabetes mellitus likely secondary to alcoholic pancreatitis -We will give Lantus 40 units home dose at bedtime -Checking blood glucose 3 times daily before meals and bedtime -Holding home dose of aspart 26 units 3 times daily, will use high-dose sliding scale -Hypoglycemic protocol Hypotension with a history of essential hypertension -We will be holding home hydrochlorothiazide, amlodipine, and lisinopril until blood pressure has recovered -Will likely be able to restart his home medications tomorrow COVID-19 -He is vaccinated with an mRNA vaccine and has had both shots his child is exhibiting symptoms of Covid -He is having a mild cough -He is not requiring any oxygen to maintain saturations in the 90s but we will monitor VTE prophylaxis: Not indicated GI prophylaxis: Not indicated Diet: Regular diet This patient is admitted for inpatient services and is medically appropriate and meets medical necessity for inpatient admission I reasonably expect the patient will require inpatient services that span a period of over 2 midnights. My rationale for medically necessary inpatient care will be found in the admission history and physical and progress notes. I reasonably expect the patient to be discharged or transferred within 96 hours after [facility] to [facility]. Plan: We will continue fluid resuscitation until his kidney function is improved and hopefully back to baseline. We will replace his electrolytes as needed. We will also manage his diabetes and hypertension. We will look out for signs and symptoms of COVID-19 and treat accordingly. Kerry Chadwick DO - Mortality Measure Prognosis:: Good
[2021-07-28] MEDS: Pantoprazole 40 MG Tab.CR PO SCH (21:22)
[2021-07-28] MEDS: Insulin Glargine,Human Rec. Analog 100 Units/ML 3 ML Pen SUBCUT SCH (21:24)
[2021-07-29] MEDS: NS + KCl 20mEq/L 1,000 ML IV SCH (00:38)
[2021-07-29] MEDS: Insulin Lispro 100 Unit/ML 3 ML KwikPen SUBCUT SCH ×3 (06:46→11:21)
[2021-07-29] MEDS: Pantoprazole 40 MG Tab.CR PO SCH (08:57)
[2021-07-29] MEDS ORDERED: Sodium Chloride 0.45% 1,000 ML IV SCH (10:15)
[2021-07-29] MEDS ORDERED: Lisinopril 20 MG Tab PO SCH (11:00)
[2021-07-29] MEDS ORDERED: amLODIPine 5 MG Tab PO SCH (11:00)
[2021-07-29] MEDS: Acetaminophen 325 MG Tab PO PRN (11:20)
[2021-07-29] MEDS ORDERED: Amylase/Lipase/Protease 10,000 Unit Cap.CR PO SCH (12:00)
[2021-07-29] MEDS ORDERED: Insulin Lispro 100 Unit/ML 3 ML KwikPen SUBCUT SCH (12:00)
[2021-07-29] MEDS ORDERED: Insulin Lispro 100 Unit/ML 3 ML KwikPen SUBCUT ONE (13:00)
--- NOTE | 2021-07-30 11:08 | PCM.DCSUM1 ---
Discharge Summary - Hospital Course Free Text/Narrative:: Mr. Jones is a 41-year-old male with past medical history significant for diabetes mellitus secondary to pancreatitis and a history of alcohol abuse which he quit drinking in January presented for vomiting for 2 days. He was not not able to keep any food or liquid down for the past 2 days and had begin to feel significantly worse so he came to the emergency department. While in the emergency department he received fluid resuscitation and potassium supplementation. His labs were significant for sodium 127, potassium 3.5, chloride 82, anion gap 24.5 BUN 70, creatinine 4.3, glucose 211, C-reactive protein 2.8. He also tested positive for COVID-19. He was not having any signs or symptoms of COVID-19. He had a CT of the abdomen done which showed colitis. He was diagnosed with acute renal failure secondary to dehydration caused by gastroenteritis. Was fluid resuscitated and improved very quickly. He did have to have his potassium and magnesium replaced. He was feeling significantly better by the second day of being here and wanted to go home because with the diagnosis of Covid his 6 children were at home with his and she was having trouble taking care of them. He was feeling good enough to finish his recovery at home. He was having hyperglycemia however he had not been getting the full doses of his insulin while he was here. He does have a glucometer and is very knowledgeable about how to treat hypoglycemia at home. Diagnosis: Stroke: No Modified Harper Scale: No Symptoms at All Modified Harper Scale Score: 0 - Discharge Data Discharge Date: 07/29/21 Discharge Disposition: Home, Self-Care 01 Condition: Stable - Referral to Home Health Primary Care Physician: PCP None - Discharge Diagnosis/Problem(s) (1) Acute renal failure SNOMED Code(s): 26528402 ICD Code: N17.9 - ACUTE KIDNEY FAILURE, UNSPECIFIED Status: Acute (2) COVID-19 SNOMED Code(s): 526156942 ICD Code: U07.1 - COVID-19 Status: Acute (3) Gastroenteritis SNOMED Code(s): 49266516 ICD Code: K52.9 - NONINFECTIVE GASTROENTERITIS AND COLITIS, UNSPECIFIED Status: Acute (4) Nausea and vomiting SNOMED Code(s): 61125215 ICD Code: R11.2 - NAUSEA WITH VOMITING, UNSPECIFIED Status: Acute Priority: High Qualifiers: Vomiting type: unspecified (5) 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 SNOMED Code(s): 25810214 ICD Code: K86.89 - OTHER SPECIFIED DISEASES OF PANCREAS; E08.9 - DIABETES DUE TO UNDERLYING CONDITION W/O COMPLICATIONS Status: Acute - Patient Instructions Diet: Usual Diet as Tolerated Activity: As Tolerated Showering/Bathing: May Shower Notify Provider of: Fever, Increased Pain, Nausea and/or Vomiting - Discharge Plan Home Medications: Home Meds Lisinopril 40 mg PO DAILY 02/15/18 [History] Omeprazole 20 mg PO DAILY 02/15/18 [History] amLODIPine Besylate [Norvasc] 10 mg PO DAILY 02/15/18 [History] atorvaSTATin Calcium [Lipitor] 20 mg PO DAILY 10/01/18 [History] Lipase/Protease/Amylase [Zenpep DR 20,000 Unit] 2 each PO TIDMEALS 01/28/19 [History] Insulin Aspart [Insulin Aspart Flexpen] 26 units SUBCUT TIDMEALS 05/17/20 [History] Insulin Glarg,Human.Rec.Analog [Lantus Solostar] 45 units SUBCUT BEDTIME [History] Potassium Chloride 10 meq PO DAILY 03/21/21 [History] Patient Handouts: Acute Kidney Injury, Adult, Colitis Forms: ED Department Discharge Referrals: PCP,None [Primary Care Provider] - - Discharge Summary/Plan Comment DC Time >30 min.: No Total # of Minutes for Discharge Time: 20 - General Info Date of Service: 07/29/21 Admission Dx/Problem (Free Text: Gastroenteritis, dehydration, COVID-19 Subjective Update: He was having no complaints. He was having hyperglycemia but he was given 10 units of insulin on top of 15 units given prior to his lunch. He has a glucometer and stated that if his sugars were out of range he would be able to treat them himself at home. - Review of Systems General: Reports: No Symptoms HEENT: Reports: No Symptoms Pulmonary: Reports: No Symptoms Cardiovascular: Reports: No Symptoms Gastrointestinal: Reports: No Symptoms Genitourinary: Reports: No Symptoms Musculoskeletal: Reports: No Symptoms Skin: Reports: No Symptoms Neurological: Reports: No Symptoms Psychiatric: Reports: No Symptoms - Patient Data Vitals - Most Recent: Last Vital Signs Temp 96.5 F L 07/29/21 11:17 Pulse 90 07/29/21 11:17 Resp 14 07/29/21 11:17 BP 139/91 H 07/29/21 11:19 Pulse Ox 96 07/29/21 11:17 Weight - Most Recent: 180 lb JASE Results - Last 24 hrs: Microbiology 07/27/21 15:00 Aerobic Blood Culture - Preliminary Blood - Arm, Right NO GROWTH AFTER 2 DAYS Anaerobic Blood Culture - Preliminary NO GROWTH AFTER 2 DAYS 07/27/21 15:10 Aerobic Blood Culture - Preliminary Blood - Venous - Lab Draw NO GROWTH AFTER 2 DAYS Anaerobic Blood Culture - Preliminary NO GROWTH AFTER 2 DAYS Med Orders - Current: Current Medications Discontinued Medications Acetaminophen (Acetaminophen 325 Mg Tab) 650 mg PO Q4H PRN PRN Reason: Pain Last Admin: 07/29/21 11:20 Dose: 650 mg Documented by: Amlodipine Besylate (Amlodipine 5 Mg Tab) 10 mg PO DAILY [facility] Last Admin: 07/29/21 11:19 Dose: 10 mg Documented by: Lipase/Protease/Amylase (Amylase/Lipase/Protease 10,000 Unit Cap.Cr) 40,000 unit PO TIDMEALS [facility] Last Admin: 07/29/21 11:20 Dose: 40,000 unit Documented by: Dextrose/Water (50% Dextrose In Water 50 Ml Syringe) 50 ml IVPUSH ASDIRECTED PRN PRN Reason: Hypoglycemia Glucagon (Glucagon,Human Recombinant 1 Mg Vial) 1 mg IM ASDIRECTED PRN PRN Reason: Hypoglycemia Sodium Chloride (Normal Saline) 1,000 mls @ 999 mls/hr IV ASDIRECTED [facility] Last Admin: 07/28/21 14:16 Dose: 999 mls/hr Documented by: Piperacillin/Tazobactam/ (Dextrose 4.5 gm/ Premix) 100 mls @ 200 mls/hr IV O NETIME ONE Stop: 07/27/21 15:59 Last Admin: 07/27/21 15:30 Dose: 200 mls/hr Documented by: Sodium Chloride (Normal Saline) 75 mls @ 3.5 mls/sec IV ONETIME ONE Stop: 07/27/21 15:24 Last Admin: 07/27/21 15:36 Dose: 3.5 mls/sec Documented by: Norepinephrine Bitartrate 4 mg (/ Dextrose/Water) 250 mls @ 7.5 mls/hr IV TITRATE [facility]; Protocol Last Titration: 07/27/21 21:56 Dose: 0 mcg/min, 0 mls/hr Documented by: Potassium Chloride/Sodium Chloride (Normal Saline With 20 Meq Kcl) 1,000 mls @ 100 mls/hr IV ASDIRECTED [facility] Last Admin: 07/29/21 00:38 Dose: 100 mls/hr Documented by: Sodium Chloride (Normal Saline) 1,000 mls @ 125 mls/hr IV ASDIRECTED [facility] Last Admin: 07/28/21 04:14 Dose: 125 mls/hr Documented by: Lactated Ringer's (Ringers, Lactated) 1,000 mls @ 125 mls/hr IV ASDIRECTED [facility] Last Admin: 07/28/21 16:31 Dose: 125 mls/hr Documented by: Sodium Chloride (Sodium Chloride 0.45%) 1,000 mls @ 125 mls/hr IV ASDIRECTED [facility] Last Admin: 07/29/21 11:20 Dose: 125 mls/hr Documented by: Insulin Glargine (Insulin Glargine,Human Rec. Analog 100 Units/Ml 3 Ml Pen) 45 units SUBCUT BEDTIME [facility] Last Admin: 07/28/21 21:24 Dose: 45 units Documented by: Insulin Human Lispro (Insulin Lispro 100 Unit/Ml 3 Ml Kwikpen) 0 unit SUBCUT TIDMEALS [facility]; Protocol Last Admin: 07/29/21 11:21 Dose: 9 units Documented by: Insulin Human Lispro (Insulin Lispro 100 Unit/Ml 3 Ml Kwikpen) 6 unit SUBCUT TIDMEALS [facility] Last Admin: 07/29/21 11:22 Dose: 6 units Documented by: Insulin Human Lispro (Insulin Lispro 100 Unit/Ml 3 Ml Kwikpen) 10 unit SUBCUT ONETIME ONE Stop: 07/29/21 13:01 Last Admin: 07/29/21 13:19 Dose: 10 units Documented by: Iopamidol (Iopamidol 612 Mg/Ml 500 Ml Multipack Bottle) 124 ml IV ONETIME ONE Stop: 07/27/21 15:24 Last Admin: 07/27/21 15:36 Dose: 124 ml Documented by: Lisinopril (Lisinopril 20 Mg Tab) 40 mg PO DAILY [facility] Last Admin: 07/29/21 11:19 Dose: 40 mg Documented by: Pantoprazole Sodium (Pantoprazole 40 Mg Tab.Cr) 40 mg PO DAILY [facility] Last Admin: 07/29/21 08:57 Dose: 40 mg Documented by: - Exam General: Reports: Alert, Oriented HEENT: Reports: Pupils Equal, Pupils Reactive, EOMI, Mucous Membr. Moist/[place] Neck: Reports: Supple Lungs: Reports: Clear to Auscultation, Normal Respiratory Effort Cardiovascular: Reports: Regular Rate, Regular Rhythm GI/Abdominal Exam: Normal Bowel Sounds, Soft, Non-Tender, No Organomegaly, No Distention, No Abnormal Bruit, No Mass, Pelvis Stable Back Exam: Reports: Normal Inspection, Full Range of Motion Extremities: Normal Inspection, Normal Range of Motion, Non-Tender, No Pedal Edema, Normal Capillary Refill Skin: Reports: Warm, Dry, Intact Neurological: Reports: No New Focal Deficit Psy/Mental Status: Reports: Alert, Normal Affect, Normal Mood
== END 2021-07-29 13:38 | disposition home or self-care (01) | DRG 682 ==
LOC: JP.ED 13:07 → JP.MS 07-28 10:44 → JP.2SS 07-28 11:40
PROVIDERS: ADMIT Internal Medicine; ATTEND Internal Medicine
DX: N17.9 Acute kidney failure, unspecified (principal); K85.20 Alcohol induced acute pancreatitis without necrosis or infection; U07.1 COVID-19; E87.1 Hypo-osmolality and hyponatremia; K52.9 Noninfective gastroenteritis and colitis, unspecified; E86.0 Dehydration; E78.00 Pure hypercholesterolemia, unspecified; E08.9 Diabetes mellitus due to underlying condition without complications; I10 Essential (primary) hypertension; K21.9 Gastro-esophageal reflux disease without esophagitis; F10.20 Alcohol dependence, uncomplicated; E87.6 Hypokalemia; E87.8 Other disorders of electrolyte and fluid balance, not elsewhere classified; I95.9 Hypotension, unspecified; F17.200 Nicotine dependence, unspecified, uncomplicated; Z91.030 Bee allergy status; Z79.4 Long term (current) use of insulin; Z79.899 Other long term (current) drug therapy
CPT/HCPCS: 36415; 74177; 80048; 80053; 80305-QW; 80307; 81001; 83605; 83690; 84145; 84484; 85025; 85027; 86140; 87040; 96365; 99285-25; A9270-GY; J1815-GY; J2543; J3480; J3490; J7030; J7060; J7120; Q9967; U0002

== ENCOUNTER 2022-12-07 12:37 | Emergency (ER) | payer BC, MEDICAID ==
[2022-12-07 14:36] LABS: ESTIMATED GFR 122 mL/min (>60)
== END 2022-12-07 15:20 | disposition home or self-care (01) ==
LOC: JP.ED 12:37
DX: R59.0 Localized enlarged lymph nodes (principal); E78.00 Pure hypercholesterolemia, unspecified; I10 Essential (primary) hypertension; K21.9 Gastro-esophageal reflux disease without esophagitis; E10.9 Type 1 diabetes mellitus without complications; Z91.030 Bee allergy status; Z79.899 Other long term (current) drug therapy; Z79.4 Long term (current) use of insulin; Z72.0 Tobacco use
CPT/HCPCS: 36415; 80053; 83605; 84443; 85025; 85651; 86140; 99284